=== PATIENT | male | born 1945 | race Caucasian/White ===

== ENCOUNTER 2017-06-15 18:25 | Observation (INO) | payer MEDICARE ==
[2017-06-15] MEDS ORDERED: ASPIRIN 81 MG CHEW PO STA (18:42)
[2017-06-15] MEDS ORDERED: SODIUM CHLORIDE 0.9% 1,000 ML IV STA (18:42)
--- NOTE | 2017-06-15 18:43 | ED ---
General Adult HPI - General Chief complaint: Chest Pain Stated complaint: Chest Pain Has pacemaker Time Seen by Provider: 06/15/17 18:42 Source: patient, family, RN notes reviewed, old records reviewed Mode of arrival: wheelchair Limitations: no limitations - History of Present Illness Initial comments: This is a 9-year-old male to the ER with negative related. Patient says today the ER for evaluation of chest pain. Patient states that the fibular fired earlier in the day. Patient did have a recent change in medications. Adding metoprolol, patient also complaining of dizziness, chest pain No shortness of breath. - Related Data Home Medications Medication Instructions Recorded Confirmed Enalapril Maleate 5 mg PO DAILY 10/16/14 06/15/17 Furosemide 20 mg PO DAILY 10/16/14 06/15/17 hydrALAZINE HCL 25 mg PO BID 10/16/14 06/15/17 oxyCODONE HCL/ACETAMINOPHEN 1 tab PO Q4-6H PRN 10/16/14 06/15/17 [Oxycodone-Acetaminophen 10-325] Aspirin EC [Ecotrin Low Dose] 162 mg PO DAILY 06/15/17 06/15/17 Metoprolol Tartrate [Lopressor] 12.5 mg PO BID 06/15/17 06/15/17 Previous Rx's Medication Instructions Recorded Warfarin Sodium [Coumadin] 7.5 mg PO DAILY #0 06/16/17 Allergies Allergy/AdvReac Type Severity Reaction Status Date / Time No Known Allergies Allergy Verified 06/15/17 19:34 Review of Systems ROS Statement: Those systems with pertinent positive or pertinent negative responses have been documented in the HPI. ROS Other: All systems not noted in ROS Statement are negative. 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 EARS, LESION ON TIP TONGUE HAS GROWN OVER THE YEARS Last Myocardial Infarction Date:: 02/2014 History of Any Multi-Drug Resistant Organisms: None Reported Past Surgical History: AICD, Coronary Bypass/CABG, Heart Catheterization, Pacemaker Additional Past Surgical History / Comment(s): TRIPLE BYPASS SURGERY-[facility] DEVICE Past Anesthesia/Blood Transfusion Reactions: No Reported Reaction Type of Cardiac Device: Permanent Pacemaker Device Placement Date:: 2010 Past Psychological History: No Psychological Hx Reported Smoking Status: Current every day smoker - Past Family History Father History Unknown: Yes Mother Family Medical History: No Reported History General Exam Limitations: no limitations General appearance: alert, in no apparent distress Head exam: Present: atraumatic, normocephalic, normal inspection Eye exam: Present: normal appearance, PERRL, EOMI. Absent: scleral icterus, conjunctival injection, periorbital swelling ENT exam: Present: normal exam, mucous membranes moist Neck exam: Present: normal inspection. Absent: tenderness, meningismus, lymphadenopathy Respiratory exam: Present: normal lung sounds bilaterally. Absent: respiratory distress, wheezes, rales, rhonchi, stridor Cardiovascular Exam: Present: regular rate, normal rhythm, normal heart sounds. Absent: systolic murmur, diastolic murmur, rubs, gallop, clicks GI/Abdominal exam: Present: soft, normal bowel sounds. Absent: distended, tenderness, guarding, rebound, rigid Extremities exam: Present: normal inspection, full ROM, normal capillary refill. Absent: tenderness, pedal edema, joint swelling, calf tenderness Back exam: Present: normal inspection Neurological exam: Present: alert, oriented X3, CN II-XII intact Psychiatric exam: Present: normal affect, normal mood Skin exam: Present: warm, dry, intact, normal color. Absent: rash Course Vital Signs 06/15/17 06/15/17 06/15/17 18:26 19:37 20:17 Temperature 97.6 F Pulse Rate 55 L 62 50 L Respiratory 16 20 18 Rate Blood Pressure 174/84 151/72 159/85 O2 Sat by Pulse 97 94 L 99 Oximetry 06/15/17 21:26 Temperature 97.5 F L Pulse Rate 45 L Respiratory 18 Rate Blood Pressure 163/87 O2 Sat by Pulse 95 Oximetry EKG Findings - EKG Comments: EKG Findings:: EKG shows paced with a rate of 50, QRS 116, QTc 457 Medical Decision Making - Medical Decision Making 70 meowed ER for evaporation of chest pain and a fibular discharge, patient will be admitted for cardiac observation and pacemaker interrogation - Lab Data Result diagrams: 06/15/17 19:35 06/15/17 19:35 Lab Results 06/15/17 06/15/17 06/15/17 Range/Units 19:35 19:35 19:35 WBC 6.7 (3.8-10.6) k/uL RBC 3.58 L (4.30-5.90) m/uL Hgb 10.8 L (13.0-17.5) gm/dL Hct 33.1 L (39.0-53.0) % MCV 92.5 (80.0-100.0) fL MCH 30.1 (25.0-35.0) pg MCHC 32.6 (31.0-37.0) g/dL RDW 14.9 (11.5-15.5) % Plt Count 110 L (150-450) k/uL Neutrophils % 67 % Lymphocytes % 23 % Monocytes % 5 % Eosinophils % 3 % Basophils % 1 % Neutrophils # 4.5 (1.3-7.7) k/uL Lymphocytes # 1.6 (1.0-4.8) k/uL Monocytes # 0.3 (0-1.0) k/uL Eosinophils # 0.2 (0-0.7) k/uL Basophils # 0.0 (0-0.2) k/uL PT (9.0-12.0) sec INR (<1.2) APTT (22.0-30.0) sec Sodium 141 (137-145) mmol/L Potassium 4.4 (3.5-5.1) mmol/L Chloride 109 H (98-107) mmol/L Carbon Dioxide 25 (22-30) mmol/L Anion Gap 7 mmol/L BUN 32 H (9-20) mg/dL Creatinine 1.56 H (0.66-1.25) mg/dL Est GFR (MDRD) Af Amer 54 (>60 ml/min/1.73 sqM) Est GFR (MDRD) Non-Af 44 (>60 ml/min/1.73 sqM) Glucose 82 (74-99) mg/dL Calcium 8.8 (8.4-10.2) mg/dL Magnesium 2.0 (1.6-2.3) mg/dL Total Bilirubin 0.2 (0.2-1.3) mg/dL AST 22 (17-59) U/L ALT 26 (21-72) U/L Alkaline Phosphatase 51 (38-126) U/L Total Creatine Kinase 146 (55-170) U/L CK-MB (CK-2) 2.7 H* (0.0-2.4) ng/mL CK-MB (CK-2) Rel Index 1.8 Troponin I 0.125 H* (0.000-0.034) ng/mL Total Protein 6.3 (6.3-8.2) g/dL Albumin 3.6 (3.5-5.0) g/dL 06/15/17 Range/Units 19:35 WBC (3.8-10.6) k/uL RBC (4.30-5.90) m/uL Hgb (13.0-17.5) gm/dL Hct (39.0-53.0) % MCV (80.0-100.0) fL MCH (25.0-35.0) pg MCHC (31.0-37.0) g/dL RDW (11.5-15.5) % Plt Count (150-450) k/uL Neutrophils % % Lymphocytes % % Monocytes % % Eosinophils % % Basophils % % Neutrophils # (1.3-7.7) k/uL Lymphocytes # (1.0-4.8) k/uL Monocytes # (0-1.0) k/uL Eosinophils # (0-0.7) k/uL Basophils # (0-0.2) k/uL PT 17.1 H (9.0-12.0) sec INR 1.8 H (<1.2) APTT 30.9 H (22.0-30.0) sec Sodium (137-145) mmol/L Potassium (3.5-5.1) mmol/L Chloride (98-107) mmol/L Carbon Dioxide (22-30) mmol/L Anion Gap mmol/L BUN (9-20) mg/dL Creatinine (0.66-1.25) mg/dL Est GFR (MDRD) Af Amer (>60 ml/min/1.73 sqM) Est GFR (MDRD) Non-Af (>60 ml/min/1.73 sqM) Glucose (74-99) mg/dL Calcium (8.4-10.2) mg/dL Magnesium (1.6-2.3) mg/dL Total Bilirubin (0.2-1.3) mg/dL AST (17-59) U/L ALT (21-72) U/L Alkaline Phosphatase (38-126) U/L Total Creatine Kinase (55-170) U/L CK-MB (CK-2) (0.0-2.4) ng/mL CK-MB (CK-2) Rel Index Troponin I (0.000-0.034) ng/mL Total Protein (6.3-8.2) g/dL Albumin (3.5-5.0) g/dL Critical Care Time Critical Care Time: Yes Total Critical Care Time: 31 Disposition Clinical Impression: Defibrillator discharge Disposition: ADMITTED IP TO THIS [facility] Condition: Fair
[2017-06-15 19:56] LABS: Basophils % (A) 1 %; CH 30.7; CHCM 33.4; Eosinophils # (A) 0.2 k/uL (0-0.7); Eosinophils % (A) 3 %; HCT 33.1 % (39.0-53.0); HDW 2.78; HGB 10.8 gm/dL (13.0-17.5); Luc # (Auto) 0.08; Luc % (Auto) 1; Lymphocytes # (A) 1.6 k/uL (1.0-4.8); Lymphocytes % (A) 23 %; MCH 30.1 pg (25.0-35.0); MCHC 32.6 g/dL (31.0-37.0); MCV 92.5 fL (80.0-100.0); Mean Platelet Volume 8.5; Monocytes # (A) 0.3 k/uL (0-1.0); Monocytes % (A) 5 %; Neutrophils # (A) 4.5 k/uL (1.3-7.7); Neutrophils % (A) 67 %; RBC 3.58 m/uL (4.30-5.90); RDW 14.9 % (11.5-15.5); WBC 6.7 k/uL (3.8-10.6); WBC (Perox) 6.69
--- NOTE | 2017-06-15 19:56 | XR ---
EXAMINATION TYPE: XR chest 2V DATE OF EXAM: 06/15/2017 COMPARISON: 09/21/2014 HISTORY: Chest pain TECHNIQUE: Frontal and lateral views of the chest are obtained. FINDINGS: There is no heart failure nor confluent pneumonic infiltrate. There is mild coarsening of interstitial markings. There is no pleural effusion. Heart appears enlarged. There are sternal wires. There is left axillary pacemaker with the lead tips in the right ventricle. IMPRESSION: Cardiomegaly. Mild pulmonary fibrotic changes. There is clearing of small pleural effusi ons compared to old exam.
[2017-06-15 20:04] LABS: Calcium 8.8 mg/dL (8.4-10.2); Potassium 4.4 mmol/L (3.5-5.1); Total Bilirubin 0.2 mg/dL (0.2-1.3); Total Protein 6.3 g/dL (6.3-8.2)
[2017-06-15 20:07] LABS: INR 1.8 (<1.2); Partial Thromboplastin Time 30.9 sec (22.0-30.0); Prothrombin Time 17.1 sec (9.0-12.0)
[2017-06-15 20:33] LABS: Creatine Kinase MB 2.7 ng/mL (0.0-2.4); Troponin I 0.125 ng/mL (0.000-0.034)
[2017-06-15] MEDS ORDERED: NITROGLYCERIN SL TABS 0.4 MG TAB SUBLINGUAL PRN (21:06)
[2017-06-15] MEDS: SODIUM CHLORIDE 0.9% 1,000 ML IV SCH (21:28)
[2017-06-15 22:14] VITALS: BMI 22.7
[2017-06-15] MEDS ORDERED: WARFARIN 7.5 MG TAB PO SCH (22:37)
[2017-06-15] MEDS: METOPROLOL TARTRATE 12.5 MG TAB PO SCH (22:50)
[2017-06-15] MEDS: hydrALAZINE HCL 25 MG TAB PO SCH (22:52)
[2017-06-16 02:45] LABS: Creatine Kinase MB 1.9 ng/mL (0.0-2.4)
[2017-06-16 02:50] LABS: Troponin I 0.112 ng/mL (0.000-0.034)
[2017-06-16 06:48] LABS: Cholesterol 115 mg/dL (<200); HDL Cholesterol 26 mg/dL (40-60)
[2017-06-16 07:12] LABS: Creatine Kinase MB 1.8 ng/mL (0.0-2.4)
[2017-06-16 07:59] LABS: Troponin I 0.098 ng/mL (0.000-0.034)
[2017-06-16] MEDS: METOPROLOL TARTRATE 12.5 MG TAB PO SCH ×3 (08:11→20:20)
[2017-06-16] MEDS: ASPIRIN 325 MG TAB PO SCH (08:11)
[2017-06-16] MEDS: hydrALAZINE HCL 25 MG TAB PO SCH ×2 (08:11→20:21)
[2017-06-16] MEDS: oxyCODONE-APAP 10-325MG 1 EACH TAB PO PRN ×2 (11:22→20:29)
--- NOTE | 2017-06-16 13:07 | P.CRDCN ---
History of Present Illness Consult date: 06/16/17 Reason for Consult (text): AICD discharge Chief complaint: dizziness, AICD discharge History of present illness: This is a pleasant 9-year-old gentleman who follows with Dr. Collazo in the office. He has a history of ischemic cardiomyopathy, CHF, aortic valve replacement in 2013, status post bi-V ICD implantation in 2010, paroxysmal atrial fibrillation, on Coumadin. Corneas the patient about 5 days ago his atenolol was changed to metoprolol tartrate by his primary care physician due to an atenolol shortage. The onset time, patient has been complaining of some dizziness with standing and has noticed his heart rate has been elevated. Yesterday while doing some work at home with heavy lifting, he received a shock from his ICD. After receiving a shock he felt very fatigued with some dizziness and overall not feeling well and presented to the emergency department. Upon presentation EKG showed biventricular paced rhythm. Troponins were elevated at 0.125, 0.112 and 0.098. BUN and creatinine are elevated at 32 and 1.56. He's had no evidence of atrial fibrillation or ventricular tachycardia since admission. Upon examination, patient is feeling well. Denies any further complaints of fatigue or dizziness. He has had no chest discomfort or syncope. 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 EARS, LESION ON TIP TONGUE HAS GROWN OVER THE YEARS Last Myocardial Infarction Date:: 02/2014 History of Any Multi-Drug Resistant Organisms: None Reported Past Surgical History: AICD, Coronary Bypass/CABG, Heart Catheterization, Pacemaker Additional Past Surgical History / Comment(s): TRIPLE BYPASS SURGERY-[facility] DEVICE Past Anesthesia/Blood Transfusion Reactions: No Reported Reaction Type of Cardiac Device: Permanent Pacemaker Device Placement Date:: 2010 Past Psychological History: No Psychological Hx Reported Smoking Status: Current every day smoker Past Alcohol Use History: None Reported Additional Past Alcohol Use History / Comment(s): SMOKER SINCE AGE 11(1955) Past Drug Use History: Marijuana Additional Drug Use History / Comment(s): SMOKES MARIJUANA EVERY DAY SINCE AGE 11 - Past Family History Father History Unknown: Yes Mother Family Medical History: No Reported History Medications and Allergies Home Medications Medication Instructions Recorded Confirmed Type Enalapril Maleate 5 mg PO DAILY 10/16/14 06/15/17 History Furosemide 20 mg PO DAILY 10/16/14 06/15/17 History hydrALAZINE HCL 25 mg PO BID 10/16/14 06/15/17 History oxyCODONE HCL/ACETAMINOPHEN 1 tab PO Q4-6H PRN 10/16/14 06/15/17 History [Oxycodone-Acetaminophen 10-325] Aspirin EC [Ecotrin Low Dose] 162 mg PO DAILY 06/15/17 06/15/17 History Metoprolol Tartrate [Lopressor] 12.5 mg PO BID 06/15/17 06/15/17 History Warfarin Sodium [Coumadin] 7.5 mg PO [id number]/15/17 06/15/17 History Warfarin [Coumadin] 5 mg PO [id number]/15/17 06/15/17 History Allergies Allergy/AdvReac Type Severity Reaction Status Date / Time No Known Allergies Allergy Verified 06/15/17 19:34 Physical Exam Vitals: Vital Signs Temp Pulse Pulse Resp BP BP Pulse Ox 06/16/17 09:19 95 06/16/17 08:00 97.7 F 52 L 18 162/84 97 06/16/17 04:00 98.4 F 58 L 16 149/77 95 06/16/17 00:00 98.1 F 49 L 18 115/57 93 L 06/15/17 22:01 97.3 F L 56 L 18 150/83 98 06/15/17 21:50 97.3 F L 56 L 16 150/83 98 06/15/17 21:26 97.5 F L 45 L 18 163/87 95 06/15/17 20:17 50 L 18 159/85 99 06/15/17 19:37 62 20 151/72 94 L 06/15/17 18:26 97.6 F 55 L 16 174/84 97 Intake and Output 06/15/17 06/16/17 06/16/17 22:59 06:59 14:59 Other: # Voids 2 1 Weight 76.1 kg 76.1 kg 76.1 kg Patient Weight 06/17/17 06:59 Weight 76.1 kg PHYSICAL EXAMINATION: HEENT: Head is atraumatic, normocephalic. Pupils equal, round. Neck is supple. There is no elevated jugular venous pressure. HEART EXAMINATION: Heart sounds regular, S1 and S2 normal with a systolic murmur. CHEST EXAMINATION: Lungs reveal expiratory wheezing throughout. No chest wall tenderness is noted on palpation or with deep breathing. ABDOMEN: Soft, nontender. Bowel sounds are heard. No organomegaly noted. EXTREMITIES: 2+ peripheral pulses with no evidence of peripheral edema and no calf tenderness noted. NEUROLOGIC patient is awake, alert and oriented x3. . Results 06/15/17 19:35 06/15/17 19:35 Cardiac Enzymes 06/15/17 06/15/17 06/16/17 Range/Units 19:35 19:35 01:43 AST 22 (17-59) U/L CK-MB (CK-2) 2.7 H* 1.9 (0.0-2.4) ng/mL Troponin I 0.125 H* 0.112 H* (0.000-0.034) ng/mL 06/16/17 Range/Units 06:13 AST (17-59) U/L CK-MB (CK-2) 1.8 (0.0-2.4) ng/mL Troponin I 0.098 H* (0.000-0.034) ng/mL Coagulation 06/15/17 Range/Units 19:35 PT 17.1 H (9.0-12.0) sec APTT 30.9 H (22.0-30.0) sec Lipids 06/16/17 Range/Units 06:13 Triglycerides 151 H (<150) mg/dL Cholesterol 115 (<200) mg/dL HDL Cholesterol 26 L (40-60) mg/dL CBC 06/15/17 Range/Units 19:35 WBC 6.7 (3.8-10.6) k/uL RBC 3.58 L (4.30-5.90) m/uL Hgb 10.8 L (13.0-17.5) gm/dL Hct 33.1 L (39.0-53.0) % Plt Count 110 L (150-450) k/uL Comprehensive Metabolic Panel 06/15/17 Range/Units 19:35 Sodium 141 (137-145) mmol/L Potassium 4.4 (3.5-5.1) mmol/L Chloride 109 H (98-107) mmol/L Carbon Dioxide 25 (22-30) mmol/L BUN 32 H (9-20) mg/dL Creatinine 1.56 H (0.66-1.25) mg/dL Glucose 82 (74-99) mg/dL Calcium 8.8 (8.4-10.2) mg/dL AST 22 (17-59) U/L ALT 26 (21-72) U/L Alkaline Phosphatase 51 (38-126) U/L Total Protein 6.3 (6.3-8.2) g/dL Albumin 3.6 (3.5-5.0) g/dL Current Medications Generic Name Dose Route Start Last Admin Trade Name Freq PRN Reason Stop Dose Admin Aspirin 325 mg 06/16/17 09:00 06/16/17 08:11 Aspirin PO 325 mg DAILY SURJIT Administration Hydralazine HCl 25 mg 06/15/17 22:45 06/16/17 08:11 Apresoline PO 25 mg BID SURJIT Administration Sodium Chloride 1,000 mls @ 20 mls/hr 06/15/17 21:15 06/15/17 21:28 Saline 0.9% IV 20 mls/hr .Q24H SURJIT Administration Metoprolol Tartrate 12.5 mg 06/15/17 22:45 06/16/17 08:12 Lopressor PO Not Given BID SURJIT Nitroglycerin 0.4 mg 06/15/17 21:06 Nitrostat SUBLINGUAL Q5M PRN Chest Pain Oxycodone/Acetaminophen 1 each 06/16/17 10:27 06/16/17 11:22 Percocet 10-325 PO 1 each Q4H PRN Administration Pain Warfarin Sodium 7.5 mg 06/15/17 22:37 06/15/17 22:52 Coumadin PO 7.5 mg [id number]@1800 SURJIT Administration Intake and Output 06/15/17 06/16/17 06/16/17 22:59 06:59 14:59 Other: # Voids 2 1 Weight 76.1 kg 76.1 kg 76.1 kg Patient Weight 06/17/17 06:59 Weight 76.1 kg 06/15/17 19:35 06/15/17 19:35 EKG Interpretations (text) Biventricular paced rhythm Assessment and Plan Plan: Assessment and plan #1 AICD discharge #2 ischemic cardiomyopathy, status post biventricular ICD placement #3 paroxysmal atrial fibrillation, on Coumadin #4 history of coronary artery bypass grafting with aortic valve replacement in 2013 #5 hypertension #6 nicotine dependence From Cardiology's perspective, we will obtain a 2-D echo with Doppler. Nursing staff to get orthostatic vital signs. We will request AICD interrogation have been shocked for VT, VF or A. fib with RVR. At this time continue same medications. Further recommendations depending on AICD interrogation findings. BARMAN note has been reviewed, I agree with a documented findings and plan of care. Patient was seen and examined.
--- NOTE | 2017-06-16 17:20 | P.HPIM ---
History of Present Illness Patient is a pleasant 72-year-old gentleman with history of severe cardiomyopathy and by Bi v AICD came to the hospital because discharged from his defibrillator. Patient has multiple such discharges and patient is found to have V. tach and V. fib. Patient was evaluated by cardiology patient heart rate is in 50s patient is presently sinus rhythm patient has minimally elevated troponin secondary to the defibrillator firing. Patient denied any shortness of breath denied any fever chills. Patient does have history of COPD can use to smoke extensive counseling was provided regarding that. Patient does have some renal dysfunction his chest appears to have chronic kidney kidney disease as a result of congestive heart failure and cardiorenal syndrome. Patient baseline creatinine is 1.3 now around 1.5 patient is otherwise clinically doing well patient denied any dizziness lightheadedness, Had does have some continuous musculoskeletal pain from AICD firing. Patient was evaluated cardiology and if cleared by cardiology patient will be discharged today. Review of Systems REVIEW OF SYSTEMS: CONSTITUTIONAL: No fever, no malaise, no fatigue. HEENT: No recent visual problems or hearing problems. Denied any sore throat. CARDIOVASCULAR: No orthopnea, PND, no palpitations, no syncope. PULMONARY: No shortness of breath, no cough, no hemoptysis. GASTROINTESTINAL: No diarrhea, no nausea, no vomiting, no abdominal pain. Normoactive bowel sounds. NEUROLOGICAL: No headaches, no weakness, no numbness. HEMATOLOGICAL: Denies any bleeding or petechiae. GENITOURINARY: Denies any burning micturition, frequency, or urgency. MUSCULOSKELETAL/RHEUMATOLOGICAL: Denies any joint pain, swelling, or any muscle pain. ENDOCRINE: Denies any polyuria or polydipsia. The rest of the 14-point review of systems is negative. 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 DEVICE Past Anesthesia/Blood Transfusion Reactions: No Reported Reaction Type of Cardiac Device: Permanent Pacemaker Device Placement Date:: 2010 Past Psychological History: No Psychological Hx Reported Smoking Status: Current every day smoker Past Alcohol Use History: None Reported Additional Past Alcohol Use History / Comment(s): SMOKER SINCE AGE 11(6) Past Drug Use History: Marijuana Additional Drug Use History / Comment(s): SMOKES MARIJUANA EVERY DAY SINCE AGE 11 - Past Family History Father History Unknown: Yes Mother Family Medical History: No Reported History Medications and Allergies Home Medications Medication Instructions Recorded Confirmed Type Enalapril Maleate 5 mg PO DAILY 10/16/14 06/15/17 History Furosemide 20 mg PO DAILY 10/16/14 06/15/17 History hydrALAZINE HCL 25 mg PO BID 10/16/14 06/15/17 History oxyCODONE HCL/ACETAMINOPHEN 1 tab PO Q4-6H PRN 10/16/14 06/15/17 History [Oxycodone-Acetaminophen 10-325] Aspirin EC [Ecotrin Low Dose] 162 mg PO DAILY 06/15/17 06/15/17 History Metoprolol Tartrate [Lopressor] 12.5 mg PO BID 06/15/17 06/15/17 History Allergies Allergy/AdvReac Type Severity Reaction Status Date / Time No Known Allergies Allergy Verified 06/15/17 19:34 Physical Exam Vitals: Vital Signs Temp Pulse Pulse Resp BP BP Pulse Ox 06/16/17 13:03 154/77 06/16/17 13:01 150/78 06/16/17 13:00 139/75 06/16/17 12:00 98.0 F 50 L 14 139/75 97 06/16/17 09:19 95 06/16/17 08:00 97.7 F 52 L 18 162/84 97 06/16/17 04:00 98.4 F 58 L 16 149/77 95 06/16/17 00:00 98.1 F 49 L 18 115/57 93 L 06/15/17 22:01 97.3 F L 56 L 18 150/83 98 06/15/17 21:50 97.3 F L 56 L 16 150/83 98 06/15/17 21:26 97.5 F L 45 L 18 163/87 95 06/15/17 20:17 50 L 18 159/85 99 06/15/17 19:37 62 20 151/72 94 L 06/15/17 18:26 97.6 F 55 L 16 174/84 97 Intake and Output 06/16/17 06/16/17 06/16/17 06:59 14:59 22:59 Intake Total 240 Output Total 1 Balance 239 Intake: Oral 240 Output: Urine 1 Other: # Voids 2 1 Weight 76.1 kg 76.1 kg Patient Weight 06/17/17 06:59 Weight 76.1 kg PHYSICAL EXAMINATION: GENERAL: The patient is alert and oriented x3, not in any acute distress. Well developed, well nourished. HEENT: Pupils are round and equally reacting to light. EOMI. No scleral icterus. No conjunctival pallor. Normocephalic, atraumatic. No pharyngeal erythema. No thyromegaly. CARDIOVASCULAR: S1 and S2 present. No murmurs, rubs, or gallops. PULMONARY: Chest is clear to auscultation, no wheezing or crackles. ABDOMEN: Soft, nontender, nondistended, normoactive bowel sounds. No palpable organomegaly. MUSCULOSKELETAL: No joint swelling or deformity. EXTREMITIES: No cyanosis, clubbing, or pedal edema. NEUROLOGICAL: Gross neurological examination did not reveal any focal deficits. SKIN: No rashes. Results CBC & Chem 7: 06/15/17 19:35 06/15/17 19:35 Labs: Abnormal Lab Results - Last 24 Hours (Table) 06/15/17 06/15/17 06/15/17 Range/Units 19:35 19:35 19:35 RBC 3.58 L (4.30-5.90) m/uL Hgb 10.8 L (13.0-17.5) gm/dL Hct 33.1 L (39.0-53.0) % Plt Count 110 L (150-450) k/uL PT (9.0-12.0) sec INR (<1.2) APTT (22.0-30.0) sec Chloride 109 H (98-107) mmol/L BUN 32 H (9-20) mg/dL Creatinine 1.56 H (0.66-1.25) mg/dL CK-MB (CK-2) 2.7 H* (0.0-2.4) ng/mL Troponin I 0.125 H* (0.000-0.034) ng/mL Triglycerides (<150) mg/dL HDL Cholesterol (40-60) mg/dL 06/15/17 06/16/17 06/16/17 Range/Units 19:35 01:43 06:13 RBC (4.30-5.90) m/uL Hgb (13.0-17.5) gm/dL Hct (39.0-53.0) % Plt Count (150-450) k/uL PT 17.1 H (9.0-12.0) sec INR 1.8 H (<1.2) APTT 30.9 H (22.0-30.0) sec Chloride (98-107) mmol/L BUN (9-20) mg/dL Creatinine (0.66-1.25) mg/dL CK-MB (CK-2) (0.0-2.4) ng/mL Troponin I 0.112 H* 0.098 H* (0.000-0.034) ng/mL Triglycerides (<150) mg/dL HDL Cholesterol (40-60) mg/dL 06/16/17 Range/Units 06:13 RBC (4.30-5.90) m/uL Hgb (13.0-17.5) gm/dL Hct (39.0-53.0) % Plt Count (150-450) k/uL PT (9.0-12.0) sec INR (<1.2) APTT (22.0-30.0) sec Chloride (98-107) mmol/L BUN (9-20) mg/dL Creatinine (0.66-1.25) mg/dL CK-MB (CK-2) (0.0-2.4) ng/mL Troponin I (0.000-0.034) ng/mL Triglycerides 151 H (<150) mg/dL HDL Cholesterol 26 L (40-60) mg/dL Thrombosis Risk Factor Assmnt - Choose All That Apply Any of the Below Risk Factors Present?: Yes Each Factor Represents 1 point: Abnormal pulmonary function (COPD) Other Risk Factors: Yes Each Risk Factor Represents 2 Points: Age 61-74 years Other congenital or acquired thrombophilia - If yes, enter type in comment: No Thrombosis Risk Factor Assessment Total Risk Factor Score: 3 Thrombosis Risk Factor Assessment Level: Moderate Risk Assessment and Plan Plan: #1 AICD discharge #2 ischemic cardiomyopathy, status post biventricular ICD placement #3 paroxysmal atrial fibrillation, on Coumadin #4 history of coronary artery bypass grafting with aortic valve replacement in 2013 #5 hypertension #6 nicotine dependence 7 subtherapeutic INR She is clinically doing well if cleared by cardiology patient will be discharged today no changes in medications will be made. Patient has mild renal dysfunction for which patient will need a follow-up basic metabolic profile as an outpatient. Patient's INR is mildly subtherapeutic because of which I'm increasing his Coumadin to 7.5 mg daily. And patient will need a repeat INR on Sunday
--- NOTE | 2017-06-16 17:21 | P.DS ---
Providers Date of admission: 06/15/17 21:03 Attending physician: Alek Nance Consults: 06/15/17 21:07 Consult Physician Routine Consulting Provider: Sarabjit Scherer Consult Reason/Comments: AICD Discharge Do you want consulting provider notified?: Yes Primary care physician: Ayaan Wray [facility] Course: Please refer to HPI Plan - Discharge Summary New Discharge Prescriptions: Continue oxyCODONE HCL/ACETAMINOPHEN [Oxycodone-Acetaminophen 10-325] 1 tab PO Q4-6H PRN PRN Reason: Pain hydrALAZINE HCL 25 mg PO BID Furosemide 20 mg PO DAILY Enalapril Maleate 5 mg PO DAILY Metoprolol Tartrate [Lopressor] 12.5 mg PO BID Aspirin EC [Ecotrin Low Dose] 162 mg PO DAILY Changed Warfarin Sodium [Coumadin] 7.5 mg PO DAILY #0 Discontinued Warfarin [Coumadin] 5 mg PO MOTUTHSA@2100 Discharge Medication List Enalapril Maleate 5 mg PO DAILY 10/16/14 [History] Furosemide 20 mg PO DAILY 10/16/14 [History] hydrALAZINE HCL 25 mg PO BID 10/16/14 [History] oxyCODONE HCL/ACETAMINOPHEN [Oxycodone-Acetaminophen 10-325] 1 tab PO Q4-6H PRN 10/16/14 [History] Aspirin EC [Ecotrin Low Dose] 162 mg PO DAILY 06/15/17 [History] Metoprolol Tartrate [Lopressor] 12.5 mg PO BID 06/15/17 [History] Warfarin Sodium [Coumadin] 7.5 mg PO DAILY #0 06/16/17 [Rx] Follow up Appointment(s)/Referral(s): Ayaan Wray DO [Primary Care Provider] - 3 Days Discharge Disposition: HOME SELF-CARE
--- NOTE | 2017-06-16 17:49 | ECHOF ---
Referral Reason:ICD discharge, dizziness, near syncope MEASUREMENTS -------- HEIGHT: 182.9 cm WEIGHT: 75.8 kg BP: 140/60 RVIDd: 3.4 cm (< 3.3) IVSd: 1.5 cm (0.6 - 1.1) LVIDd: 5.6 cm (3.9 - 5.3) LVPWd: 1.4 cm (0.6 - 1.1) IVSs: 1.5 cm LVIDs: 5.0 cm LVPWs: 1.5 cm LA Diam: 4.5 cm (2.7 - 3.8) LAESV Index (A-L): 56.29 ml/m Ao Diam: 3.3 cm (2.0 - 3.7) LA Diam: 5.0 cm (2.7 - 3.8) MV EXCURSION: 19.436 mm (> 18.000) MV EF SLOPE: 74 mm/s (70 - 150) EPSS: 1.1 cm MV E Neo: 0.82 m/s MV DecT: 164 ms MV A Neo: 0.50 m/s MV E/A Ratio: 1.64 AV maxP.29 mmHg AV meanP.66 mmHg AR PHT: 748 ms RAP: 5.00 mmHg RVSP: 47.51 mmHg FINDINGS -------- Paced rhythm. Echodensity was seen in the LA. ABDON is recommended. This was a technically adequate study. There is mild concentric left ventricular hypertrophy. Overall left ventricular systolic function is mild-moderately impaired with, an EF between 40 - 45 %. Posterior hypokinesis Inferior Hypokinesis Posterior Hypokinesis. The right ventricle is normal in size. LA is severely dilated >40 ml/m2 The right atrial size is normal. There is mild aortic regurgitation. Peak/mean gradient across the Aortic Valve is 33.29mmHg / 15.66mmHg. Pt has a [employer] AOV. Mild mitral annular calcification present. Mild mitral regurgitation is present. [id number] tricuspid regurgitation present. There is mild to moderate pulmonary hypertension. The right ventricular systolic pressure, as measured by Doppler, is 47.51mmHg. Trace/mild (physiologic) pulmonic regurgitation. The aortic root size is normal. There is no pericardial effusion. CONCLUSIONS -------- 1. Paced rhythm. 2. Peak/mean gradient across the Aortic Valve is 33.29mmHg / 15.66mmHg. 3. Pt has a [employer] AOV. 4. Mild mitral annular calcification present. 5. Mild mitral regurgitation is present. 6. Xbco-[id number] tricuspid regurgitation present. 7. There is mild to moderate pulmonary hypertension. 8. The right ventricular systolic pressure, as measured by Doppler, is 47.51mmHg. 9. Trace/mild (physiologic) pulmonic regurgitation. 10. There is no pericardial effusion. 11. Echodensity was seen in the LA. ABDON is recommended. 12. There is mild concentric left ventricular hypertrophy. 13. Overall left ventricular systolic function is mild-moderately impaired with, an EF between 40 - 45 %. 14. Posterior hypokinesis 15. Inferior Hypokinesis 16. Posterior Hypokinesis. 17. LA is severely dilated >40 ml/m2 18. There is mild aortic regurgitation. DAIRY FROZEN MANAGER: Nai Post RDCS
[2017-06-17] MEDS: SODIUM CHLORIDE 0.9% 1,000 ML IV SCH (02:50)
[2017-06-17] MEDS: ASPIRIN 325 MG TAB PO SCH (07:57)
[2017-06-17] MEDS: oxyCODONE-APAP 10-325MG 1 EACH TAB PO PRN ×2 (07:57→11:48)
[2017-06-17] MEDS: hydrALAZINE HCL 25 MG TAB PO SCH (07:57)
[2017-06-17] MEDS: METOPROLOL TARTRATE 12.5 MG TAB PO SCH (07:59)
[2017-06-17 08:03] VITALS: BP 154/92; PULSE 68; RESP 18; TEMP 98.3
--- NOTE | 2017-06-17 15:45 | P.DS ---
Providers Date of admission: 06/15/17 21:03 Attending physician: Alek Nance Consults: 06/15/17 21:07 Consult Physician Routine Consulting Provider: Sarabjit Scherer Consult Reason/Comments: AICD Discharge Do you want consulting provider notified?: Yes Primary care physician: Ayaan Wray [facility] Course: Patient was admitted firing of his defibrillator. Patient was monitored overnight. Please refer to my dictation of H&P and discharge summary from yesterday for further details. Patient is cleared for discharge today and will be discharged home. Patient Condition at Discharge: Good Plan - Discharge Summary New Discharge Prescriptions: Continue oxyCODONE HCL/ACETAMINOPHEN [Oxycodone-Acetaminophen 10-325] 1 tab PO Q4-6H PRN PRN Reason: Pain hydrALAZINE HCL 25 mg PO BID Furosemide 20 mg PO DAILY Enalapril Maleate 5 mg PO DAILY Metoprolol Tartrate [Lopressor] 12.5 mg PO BID Aspirin EC [Ecotrin Low Dose] 162 mg PO DAILY Changed Warfarin Sodium [Coumadin] 7.5 mg PO DAILY #0 Discontinued Warfarin [Coumadin] 5 mg PO MOTUTHSA@2100 Discharge Medication List Enalapril Maleate 5 mg PO DAILY 10/16/14 [History] Furosemide 20 mg PO DAILY 10/16/14 [History] hydrALAZINE HCL 25 mg PO BID 10/16/14 [History] oxyCODONE HCL/ACETAMINOPHEN [Oxycodone-Acetaminophen 10-325] 1 tab PO Q4-6H PRN 10/16/14 [History] Aspirin EC [Ecotrin Low Dose] 162 mg PO DAILY 06/15/17 [History] Metoprolol Tartrate [Lopressor] 12.5 mg PO BID 06/15/17 [History] Warfarin Sodium [Coumadin] 7.5 mg PO DAILY #0 06/16/17 [Rx] Follow up Appointment(s)/Referral(s): Ayaan Wray DO [Primary Care Provider] - 3 Days Patient Instructions/Handouts: Implantable Cardioverter Defibrillator (DC) Discharge Disposition: HOME SELF-CARE
[2017-06-17] MEDS ORDERED: WARFARIN 5 MG TAB PO SCH (21:00)
== END 2017-06-17 12:29 | disposition home or self-care (01) ==
LOC: EC 18:25 → 6SEL 21:03
PROVIDERS: ADMIT Hospitalist; ATTEND Hospitalist
DX: R07.89 Other chest pain (principal); Z95.810 Presence of automatic (implantable) cardiac defibrillator; R79.1 Abnormal coagulation profile; I13.0 Hypertensive heart and chronic kidney disease with heart failure and stage 1 through stage 4 chronic kidney disease, or unspecified chronic kidney disease; I50.9 Heart failure, unspecified; N18.9 Chronic kidney disease, unspecified; Z95.2 Presence of prosthetic heart valve; J44.9 Chronic obstructive pulmonary disease, unspecified; E78.5 Hyperlipidemia, unspecified; B19.20 Unspecified viral hepatitis C without hepatic coma; H91.93 Unspecified hearing loss, bilateral; I48.0 Paroxysmal atrial fibrillation; I25.5 Ischemic cardiomyopathy; Z79.899 Other long term (current) drug therapy; Z79.82 Long term (current) use of aspirin; Z79.01 Long term (current) use of anticoagulants; I25.2 Old myocardial infarction; Z95.1 Presence of aortocoronary bypass graft; F17.200 Nicotine dependence, unspecified, uncomplicated; I47.2 Ventricular tachycardia; I49.01 Ventricular fibrillation
CPT/HCPCS: 99291; 96360 ×2; 96361 ×2; 93292; 36415; 94760; 93005; 93306; 80061; 80053; 82550 ×2; 82553 ×2; 83735; 84484 ×2; 85025; 85610; 85730; 71020; G0378 ×3

== ENCOUNTER → 2018-03-06 | Outpatient (CLI) | payer MEDICARE ==
--- NOTE | 2018-03-06 11:13 | US ---
EXAMINATION TYPE: US venous doppler duplex LE LT DATE OF EXAM: 03/06/2018 10:55 AM COMPARISON: NONE CLINICAL HISTORY: 73-year-old male I80.9 Phlebitis And Thrombophlebitis. Pt has pain and bruise left medial calf x 1 week SIDE PERFORMED: Left TECHNIQUE: The lower extremity deep venous system is examined utilizing real time linear array sonog arianne with graded compression, doppler sonography and color-flow sonography. FINDINGS: VESSELS IMAGED: External Iliac Vein (EIV) Common Femoral Vein Deep Femoral Vein Greater Saphenous Vein * Femoral Vein Popliteal Vein Small Saphenous Vein * Proximal Calf Veins (* superficial vessels) Left Leg: No evidence of DVT, left medial calf in area of pt's bruise shows an elongated non-vascula r, hypoechoic area= 3.1 x 0.6 0.9 cm IMPRESSION: 1. No evidence for DVT within the left lower extremity imaged from the groin to the upper calf. 2. At the site of patient's bruising, medial left calf, there is an elongated 3.1 x 0.9 cm collection in the deep subcutaneous fat probably representing a hematoma. Clinical follow-up recommended to ens ure gradual involution. If the finding persists or enlarges, this area can be rescanned.
== END | disposition home or self-care (01) ==
LOC: RADUSWWP 10:24
PROVIDERS: ATTEND Family Medicine
DX: M79.662 Pain in left lower leg (principal); S80.12XA Contusion of left lower leg, initial encounter

== ENCOUNTER 2021-04-05 15:30 | Inpatient (IN) | payer MEDICARE ==
[2021-04-05 16:12] LABS: Anisocytosis Slight; Basophils % (A) 0 %; Eosinophils # (A) 0.1 k/uL (0-0.7); Eosinophils % (A) 1 %; HCT 31.4 % (39.0-53.0); HGB 9.8 gm/dL (13.0-17.5); Hypochromasia Marked; Lymphocytes # (A) 1.1 k/uL (1.0-4.8); Lymphocytes % (A) 9 %; MCH 23.7 pg (25.0-35.0); MCHC 31.3 g/dL (31.0-37.0); MCV 75.7 fL (80.0-100.0); Mean Platelet Volume 7.6; Microcytosis Slight; Monocytes # (A) 0.8 k/uL (0-1.0); Monocytes % (A) 7 %; Neutrophils # (A) 10.1 k/uL (1.3-7.7); Neutrophils % (A) 83 %; Platelet Count 156 k/uL (150-450); Poikilocytosis Slight; RBC 4.14 m/uL (4.30-5.90); RDW 17.5 % (11.5-15.5); WBC 12.2 k/uL (3.8-10.6)
[2021-04-05 16:22] LABS: Albumin 4.2 g/dL (3.5-5.0); Calcium 9.3 mg/dL (8.4-10.2); Potassium 4.4 mmol/L (3.5-5.1); Total Bilirubin 0.8 mg/dL (0.2-1.3)
[2021-04-05 16:29] LABS: INR 2.9 (<1.2); Prothrombin Time 27.6 sec (9.0-12.0)
--- NOTE | 2021-04-05 17:13 | XR ---
EXAMINATION TYPE: XR chest 2V DATE OF EXAM: 04/05/2021 COMPARISON: Chest x-ray 11/28/2018 HISTORY: Shortness of breath TECHNIQUE: Frontal and lateral views of the chest are obtained. FINDINGS: The heart is enlarged and patient is post median sternotomy and cardiac valve replacement. There is a generator in the left pectoral region, there are leads in the right atrium, right ventric le, coronary sinus. There is no evident pneumothorax. Bibasilar densities present with blunting of th e costophrenic angles. Central vascularity appears prominently. Interstitium is increased. IMPRESSION: Correlate for congestive heart failure. There is basilar effusions and associated atelec tasis.
[2021-04-05] MEDS ORDERED: FUROSEMIDE 10 MG/ML 4 ML VIAL IV ONE (18:15)
[2021-04-05] MEDS ORDERED: FUROSEMIDE 10 MG/ML 4 ML VIAL IV SCH (18:15)
[2021-04-05] MEDS ORDERED: HYDROcodone/APAP 5-325MG 1 EACH TAB PO PRN (18:20)
[2021-04-05] MEDS ORDERED: ALPRAZolam 0.25 MG TAB PO PRN (18:20)
--- NOTE | 2021-04-05 18:38 | ED ---
SOB HPI - General Chief Complaint: Shortness of Breath Stated Complaint: chest pain Time Seen by Provider: 04/05/21 17:32 Source: patient Mode of arrival: ambulatory Limitations: no limitations - History of Present Illness Initial Comments: This patient is 76-year-old man who presents with worsening of exertional dyspnea and with leg swelling. The patient states symptoms have been going on for number weeks possibly a month. He states that it it even prompted him to quit smoking about a month ago. Currently no chest pain, though there is some times chest pain with exertion. No fever or chills. Occasional cough with clear sputum MD Complaint: shortness of breath Onset/Timin -: month(s) Severity scale (1-10): 0 Improves With: rest Worsens With: lying flat, exertion Context: occurred during exertion Associated Symptoms: other (Leg swelling) Treatments Prior to Arrival: none - Related Data Home Medications Medication Instructions Recorded Confirmed Enalapril Maleate 5 mg PO BID 10/16/14 04/05/21 Furosemide 20 mg PO DAILY 10/16/14 04/05/21 hydrALAZINE HCL 25 mg PO BID 10/16/14 04/05/21 oxyCODONE HCL/ACETAMINOPHEN 1 tab PO Q4-6H PRN 10/16/14 04/05/21 [Oxycodone-Acetaminophen 10-325] Aspirin EC [Ecotrin Low Dose] 81 mg PO DAILY 06/15/17 04/05/21 Atorvastatin [Lipitor] 40 mg PO HS 04/05/21 04/05/21 Warfarin Sodium [Coumadin] 5 mg PO SUMOTUTHFR@0900 04/05/21 04/05/21 Warfarin [Coumadin] 7.5 mg PO WESA@0900 04/05/21 04/05/21 Allergies Allergy/AdvReac Type Severity Reaction Status Date / Time No Known Allergies Allergy Verified 04/05/21 18:30 Review of Systems ROS Statement: Those systems with pertinent positive or pertinent negative responses have been documented in the HPI. ROS Other: All systems not noted in ROS Statement are negative. Constitutional: Denies: fever, chills Respiratory: Reports: cough. Denies: dyspnea, hemoptysis Cardiovascular: Reports: as per HPI, chest pain, dyspnea on exertion, orthopnea, edema. 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 EARS, LESION ON TIP TONGUE HAS GROWN OVER THE YEARS Last Myocardial Infarction Date:: 02/2014 History of Any Multi-Drug Resistant Organisms: None Reported Past Surgical History: AICD, Coronary Bypass/CABG, Heart Catheterization, Pacemaker Additional Past Surgical History / Comment(s): TRIPLE BYPASS SURGERY-[facility] Past Anesthesia/Blood Transfusion Reactions: No Reported Reaction Type of Cardiac Device: Permanent Pacemaker Device Placement Date:: 2010 Past Psychological History: No Psychological Hx Reported Smoking Status: Former smoker Past Alcohol Use History: None Reported Past Drug Use History: Marijuana - Past Family History Father History Unknown: Yes Mother Family Medical History: No Reported History General Exam Limitations: no limitations General appearance: alert, in no apparent distress Head exam: Present: atraumatic, normocephalic Eye exam: Present: normal appearance. Absent: scleral icterus, conjunctival injection ENT exam: Present: normal oropharynx Neck exam: Present: normal inspection Respiratory exam: Present: rales (Lower lung bonilla bilaterally). Absent: respiratory distress, wheezes, rhonchi, stridor, chest wall tenderness, accessory muscle use, decreased breath sounds Cardiovascular Exam: Present: regular rate, normal rhythm, systolic murmur, gallop. Absent: diastolic murmur, rubs GI/Abdominal exam: Present: soft. Absent: distended, tenderness, guarding, rebound, rigid, mass Extremities exam: Present: normal capillary refill, pedal edema (Moderate edema to the knees bilaterally). Absent: normal inspection, tenderness, calf tenderness Back exam: Present: normal inspection. Absent: CVA tenderness (R), CVA tenderness (L) Neurological exam: Present: alert Skin exam: Present: warm, dry, intact, normal color. Absent: rash Course Vital Signs 04/05/21 15:33 Temperature 97.9 F Pulse Rate 113 H Respiratory 16 Rate Blood Pressure 165/79 O2 Sat by Pulse 98 Oximetry Medical Decision Making - Lab Data Result diagrams: 04/05/21 15:58 04/05/21 15:58 Lab Results 04/05/21 04/05/21 04/05/21 Range/Units 15:58 15:58 15:58 WBC 12.2 H (3.8-10.6) k/uL RBC 4.14 L (4.30-5.90) m/uL Hgb 9.8 L (13.0-17.5) gm/dL Hct 31.4 L (39.0-53.0) % MCV 75.7 L (80.0-100.0) fL MCH 23.7 L (25.0-35.0) pg MCHC 31.3 (31.0-37.0) g/dL RDW 17.5 H (11.5-15.5) % Plt Count 156 (150-450) k/uL MPV 7.6 Neutrophils % 83 % Lymphocytes % 9 % Monocytes % 7 % Eosinophils % 1 % Basophils % 0 % Neutrophils # 10.1 H (1.3-7.7) k/uL Lymphocytes # 1.1 (1.0-4.8) k/uL Monocytes # 0.8 (0-1.0) k/uL Eosinophils # 0.1 (0-0.7) k/uL Basophils # 0.0 (0-0.2) k/uL Hypochromasia Marked Poikilocytosis Slight Anisocytosis Slight Microcytosis Slight PT 27.6 H (9.0-12.0) sec INR 2.9 H (<1.2) APTT 33.0 H (22.0-30.0) sec Sodium 139 (137-145) mmol/L Potassium 4.4 (3.5-5.1) mmol/L Chloride 108 H (98-107) mmol/L Carbon Dioxide 20 L (22-30) mmol/L Anion Gap 11 mmol/L BUN 38 H (9-20) mg/dL Creatinine 1.37 H (0.66-1.25) mg/dL Est GFR (CKD-EPI)AfAm 58 (>60 ml/min/1.73 sqM) Est GFR (CKD-EPI)NonAf 51 (>60 ml/min/1.73 sqM) Glucose 140 H (74-99) mg/dL Calcium 9.3 (8.4-10.2) mg/dL Total Bilirubin 0.8 (0.2-1.3) mg/dL AST 68 H (17-59) U/L ALT 98 H (4-49) U/L Alkaline Phosphatase 87 (38-126) U/L Troponin I (0.000-0.034) ng/mL NT-Pro-B Natriuret Pep pg/mL Total Protein 7.0 (6.3-8.2) g/dL Albumin 4.2 (3.5-5.0) g/dL 04/05/21 04/05/21 Range/Units 15:58 15:58 WBC (3.8-10.6) k/uL RBC (4.30-5.90) m/uL Hgb (13.0-17.5) gm/dL Hct (39.0-53.0) % MCV (80.0-100.0) fL MCH (25.0-35.0) pg MCHC (31.0-37.0) g/dL RDW (11.5-15.5) % Plt Count (150-450) k/uL MPV Neutrophils % % Lymphocytes % % Monocytes % % Eosinophils % % Basophils % % Neutrophils # (1.3-7.7) k/uL Lymphocytes # (1.0-4.8) k/uL Monocytes # (0-1.0) k/uL Eosinophils # (0-0.7) k/uL Basophils # (0-0.2) k/uL Hypochromasia Poikilocytosis Anisocytosis Microcytosis PT (9.0-12.0) sec INR (<1.2) APTT (22.0-30.0) sec Sodium (137-145) mmol/L Potassium (3.5-5.1) mmol/L Chloride (98-107) mmol/L Carbon Dioxide (22-30) mmol/L Anion Gap mmol/L BUN (9-20) mg/dL Creatinine (0.66-1.25) mg/dL Est GFR (CKD-EPI)AfAm (>60 ml/min/1.73 sqM) Est GFR (CKD-EPI)NonAf (>60 ml/min/1.73 sqM) Glucose (74-99) mg/dL Calcium (8.4-10.2) mg/dL Total Bilirubin (0.2-1.3) mg/dL AST (17-59) U/L ALT (4-49) U/L Alkaline Phosphatase (38-126) U/L Troponin I 0.071 H* (0.000-0.034) ng/mL NT-Pro-B Natriuret Pep 09597 pg/mL Total Protein (6.3-8.2) g/dL Albumin (3.5-5.0) g/dL Disposition Clinical Impression: Congestive heart failure Disposition: ADMITTED IP TO THIS HOSP Condition: Fair Is patient prescribed a controlled substance at d/c from ED?: No Referrals: Ayaan Wray DO [Primary Care Provider] - 1-2 days
[2021-04-05] MEDS ORDERED: NITROGLYCERIN OINT 1 INCH/GM PACKET TOPICAL STA (18:59)
--- NOTE | 2021-04-05 21:02 | HP ---
HISTORY AND PHYSICAL CHIEF COMPLAINTS: Shortness of breath and leg swelling. HISTORY OF PRESENT ILLNESS: This 76-year-old gentleman with a past history of CHF, COPD, history of hypertension, hyperlipidemia, myocardial infarction being followed by Dr. Leslie Wray in the outpatient setting was not feeling well over the past several weeks. The patient was hesitant to come to the hospital, but because of the underlying symptoms and increasing difficulty, the patient came to [facility]. Chest x-ray showed some bilateral pleural effusion, right more than the left, pacemaker as well as possible CHF. Patient being admitted for further evaluation and treatment. The creatinine was found to be 1.37. Troponin 0.071. BNP was 7[address]89. There is no history of fever, rigors. No headache, loss of consciousness, seizures at this time. PAST MEDICAL HISTORY: History of CHF, COPD, hearing defect, hypertension, hyperlipidemia, history of myocardial infarction, history of CAD, history of AICD. MEDICATIONS: Home medications prior to admission include: Oxycodone, hydralazine, Coumadin, Lasix, enalapril, Ecotrin. ALLERGIES: None. FAMILY HISTORY: No history of heart disease or strokes in the family. SOCIAL HISTORY: History of THC. Previous history of smoking. No history of alcohol intake. REVIEW OF SYSTEMS: ENT: Diminished vision. Diminished hearing. CARDIOVASCULAR system as mentioned earlier. RESPIRATORY: As mentioned earlier. GI: No nausea or vomiting. : No dysuria. Nervous System: No numbness, weakness. ALLERGY/IMMUNOLOGY: No asthma or hayfever. MUSCULOSKELETAL as mentioned earlier. HEMATOLOGY/ONCOLOGY: No history of anemia. ENDOCRINE: No history of diabetes or hypothyroidism. CONSTITUTIONAL: As mentioned earlier. DERMATOLOGY: Negative. RHEUMATOLOGY: Negative. PSYCHIATRIC: As mentioned earlier. PHYSICAL EXAMINATION: The patient is alert and oriented times three. Pulse 113 and irregular, blood pressure 160/70, respirations 16, temperature 97.9, pulse ox 98% on room air. HEENT: Conjunctivae normal. NECK is jugular venous distention at the root of the neck. CARDIOVASCULAR: S1, S2 muffled. Occasional irregularities, ejection systolic murmur. Pacemaker present on the right chest. RESPIRATION: Breath sounds diminished in the bases. A few scattered rhonchi and crackles. ABDOMEN: Soft, nontender. No mass palpable. LEGS: Significant bilateral leg edema present up to the ankle 3+. Pulses diminished bilaterally. NERVOUS SYSTEM: Higher functions as mentioned earlier. Moves all 4 limbs. No focal motor or sensory deficits. LYMPHATICS: No lymph nodes palpable in the neck, axillae or groin. JOINTS: No active deforming arthropathy. LABS: At this time shows WBC 12.2, hemoglobin 9.8, creatinine is 1.37. The baseline creatinine is 1.56 and troponin is noted. AST and ALT noted. The 2D echocardiogram which was done in 2017 shows ejection fraction about 40-45 percent. ASSESSMENT: 1. Congestive heart failure acute exacerbation acute on chronic systolic dysfunction, ejection fraction 40-45 percent in the previous 2D echo. 2. History of chronic obstructive pulmonary disease. 3. Hard of hearing. 4. Hypertension. 5. Myocardial infarction. 6. History of hepatitis C. 7. History of AICD. 8. History of CAD, CABG, pacemaker. 9. History of nicotine dependence. 10.Increased WBC. 11.Anemia microcytic. 12.Coumadin monitoring. 13.Increased creatinine with chronic kidney stage 3. 14.Increased AST/ALT. 15.Troponin 0.06 indeterminate rule out acute [id number]-elevation myocardial infarction. RECOMMENDATIONS AND DISCUSSION: In this 76-year-old gentleman who presented with multiple complex medical issues, we will monitor the patient closely, continue the current medications, management. We will initiate IV Lasix. Resume the home medications. Cardiology consultation. Otherwise, DVT prophylaxis. Repeat lytes. Monitor renal functions closely. The prognosis guarded because of multiple complex medical issues. Further recommendations to follow. We will also obtain a repeat 2D echo. Recent reports not available. See orders for details. A copy of this dictation is being forwarded to Dr. Ayaan Wray, who is the primary physician. MMODL / IJN: [id number] /
[2021-04-06] MEDS: TEMAZEPAM 15 MG CAP PO PRN ×2 (02:46→22:56)
[2021-04-06 05:19] LABS: Anisocytosis Slight; Basophils % (A) 0 %; Eosinophils # (A) 0.1 k/uL (0-0.7); Eosinophils % (A) 1 %; HCT 29.1 % (39.0-53.0); HGB 8.7 gm/dL (13.0-17.5); Hypochromasia Marked; Lymphocytes # (A) 1.1 k/uL (1.0-4.8); Lymphocytes % (A) 12 %; MCH 22.6 pg (25.0-35.0); MCHC 29.8 g/dL (31.0-37.0); MCV 75.8 fL (80.0-100.0); Mean Platelet Volume 8.5; Microcytosis Slight; Monocytes # (A) 0.6 k/uL (0-1.0); Monocytes % (A) 7 %; Neutrophils # (A) 7.2 k/uL (1.3-7.7); Neutrophils % (A) 79 %; Platelet Count 131 k/uL (150-450); Poikilocytosis Slight; RBC 3.84 m/uL (4.30-5.90); RDW 17.6 % (11.5-15.5); WBC 9.1 k/uL (3.8-10.6)
[2021-04-06 05:35] LABS: Calcium 8.9 mg/dL (8.4-10.2); Potassium 4.1 mmol/L (3.5-5.1)
[2021-04-06] MEDS: FUROSEMIDE 10 MG/ML 4 ML VIAL IV SCH ×3 (05:59→19:59)
[2021-04-06] MEDS: NITROGLYCERIN OINT 1 INCH/GM PACKET TOPICAL SCH ×6 (10:07→22:56)
[2021-04-06] MEDS: hydrALAZINE HCL 25 MG TAB PO SCH ×2 (10:07→21:58)
[2021-04-06] MEDS: PANTOPRAZOLE 40 MG TABLET PO SCH (10:07)
--- NOTE | 2021-04-06 10:59 | P.CRDCN ---
History of Present Illness History of present illness: HISTORY OF PRESENTING ILLNESS This is a pleasant 76-year-old male past medical history significant for with coronary artery disease status post 3 vessel CABG 2013, aortic stenosis status post aortic valve replacement 2013, ischemic cardiomyopathy status post Bi ventricular AICD (2010), paroxysmal atrial fibrillation, hypertension, dyslipidemia, chronic nicotine dependence (states he has been a heavy smoker but quit 30 days ago). He follows in the office with Dr. Scherer, however, has not followed up due to the covid-19 pandemic. We have been asked to see in consultation for congestive heart failure. Patient states he has been having worsening shortness of breath over the past month. Prior to this he can usually do his daily activities without difficulty. Now, he can barely walk 6 feet without having to rest. He did not come into the hospital or follow up in the office due to the covid-19 pandemic and did not want to expose himself. His diet includes mainly fast food and consumes mostly foods high in salt. He does endorse some chest pain of his chest. Chest pain is nonexertional and nonradiating. Taking a deep breath worsens the chest pain. He denies palpitations. He does endorse symptoms of orthopnea. He has increased lower extremity edema that is new. He is a non-diabetic. Cardiac catheterization in 12/2013 revealed three-vessel coronary artery disease with 80% second MARGINAL branch and total occlusion of the mid RCA. Severe aortic stenosis. Patient was referred to CTS for valve replacement and bypass surgery. 02/2014 Patient underwent aortic valve replacement and coronary artery bypass graft x 3 DAIGLE to LAD, saphenous vein graft to the OM, saphenous vein g raft to the PDA. DIAGNOSTICS EKG reveals bi-ventricular paced rhythm HR 113, Most recent echocardiogram 10/08/2019EF is 35-40%. Hypokinesis of inferior wallapex. Mild mitral regurgitation, mild aortic regurgitation (peak gradient 42mmgHg, mean gradient 18mmHg), mild to moderate tricuspid regurgitation Chest xray - Cardiomegaly, Post median sternotomy, cardiac valve replacement, generator left pectoral region, leads in RA ad LV, Blunting of constophrenic angles. Laboratory reviewed, WBC 9.1, hemoglobin 8.7, platelets 131, INR 3.0, sodium 138, potassium 4.1, serum creatinine 1.43, P1 40, BNP 34,000, troponin 0.071, 0.078, 0.083 Current home cardiac medications include hydralazine 25 mg twice a day, warfarin 7.5 mg Sunday and Sunday and warfarin 5 mg other days of the week, furose mide 20 mg daily, enalapril 5 mg twice daily, atorvastatin 40 mg nightly, aspirin 81 mg daily REVIEW OF SYSTEMS At the time of my exam: CONSTITUTIONAL: Denies fever or chills. CARDIOVASCULAR: +chest pain, +shortness of breath +bilateral LE edema, +orthopnea Denies palpitations. RESPIRATORY: Denies cough. GASTROINTESTINAL: Denies abdominal pain, diarrhea, constipation, nausea or vomiting. MUSCULOSKELETAL: Denies myalgias. NEUROLOGIC: Denies numbness, tingling, headacbe or weakness. ENDOCRINE: +fatigue, +weight change, Denies polydipsia or polyurina. GENITOURINARY: Denies burning, hematuria or urgency with micturation. HEMATOLOGIC: Denies history of anemia or bleeding. PHYSICAL EXAMINATION Blood pressure 151/71 heart rate 87 afebrile and maintaining oxygen saturation 95% on room air CONSTITUTIONAL: Appears short of breath HEENT: Head is normocephalic. Pupils are equal, round. Sclerae anicteric. Mucous membranes of the mouth are moist. +JVD. No carotid bruit. CHEST EXAMINATION: Lungs with bilateral wheezes auscultation. Chest wall tenderness with deep breath. No chest wall tenderness is noted on palpation. HEART EXAMINATION: Regular rate and rhythm. S1, S2 heard. No murmurs, gallops or rub. ABDOMEN: Soft, nontender. Positive bowel sounds. EXTREMITIES: 2+ peripheral pulses, 3+ bilateral lower extremity pitting edema and no calf tenderness. NEUROLOGIC EXAMINATION: Patient is awake, alert and oriented x3. ASSESSMENT Acute on chronic systolic heart failure with reduced ejection fraction Elevated troponin, possibly related to congestive heart failure vs ischemia Acute on chronic kidney disease sCr 1.43 Ischemic Cardiomyopathy status post Bi ventricular AICD in 2010 Coronary artery disease status post 3 vessel CABG 2013 Aortic stenosis status post mechanical aortic valve replacement 2013 Paroxysmal atrial fibrillation- on coumadin Hypertension Dyslipidemia Chronic nicotine dependence (states he has been a heavy smoker but quit 30 days ago) PLAN Obtain 2D echocardiogram Continue IV Diuresis- IV Lasix 40mg Q8hr ACEI on hold due to kidney function Metoprolol tartrate 12.5mg BID Continue home statin Continue coumadin Continue home hydralazine 25mg BID Continue nitro paste Daily INR Monitor renal function and electrolytes I/Os, Daily weights Further recommendations to follow Nurse Practitioner note has been reviewed, I agree with a documented findings and plan of care. Patient was seen and examined. Past Medical History Past Medical History: Heart Failure, COPD, Eye Disorder, Hearing Disorder / Deafness, Hyperlipidemia, Hypertension, Myocardial Infarction (ID) Additional Past Medical History / Comment(s): HX HEP C- WAS ON MEDS FOR 90 DAYS,GLASSES DAILY USE, SLIGHT [place]. EARS, LESION ON TIP TONGUE HAS GROWN OVER THE YEARS Last Myocardial Infarction Date:: 02/2014 History of Any Multi-Drug Resistant Organisms: None Reported Past Surgical History: AICD, Coronary Bypass/CABG, Heart Catheterization, Pacemaker Additional Past Surgical History / Comment(s): TRIPLE BYPASS SURGERY-[facility] Past Anesthesia/Blood Transfusion Reactions: No Reported Reaction Type of Cardiac Device: Permanent Pacemaker Device Placement Date:: 2010 Past Psychological History: No Psychological Hx Reported Smoking Status: Former smoker Past Alcohol Use History: None Reported Past Drug Use History: Marijuana - Past Family History Father History Unknown: Yes Mother Family Medical History: No Reported History Medications and Allergies Home Medications Medication Instructions Recorded Confirmed Type RX: Enalapril Maleate 5 mg PO BID 10/16/14 04/05/21 History RX: Furosemide 20 mg PO DAILY 10/16/14 04/05/21 History RX: hydrALAZINE HCL 25 mg PO BID 10/16/14 04/05/21 History RX: oxyCODONE HCL/ACETAMINOPHEN 1 tab PO Q4-6H PRN 10/16/14 04/05/21 History [Oxycodone-Acetaminophen 10-325] RX: Aspirin EC [Ecotrin Low Dose] 81 mg PO DAILY 06/15/17 04/05/21 History Atorvastatin [Lipitor] 40 mg PO HS 04/05/21 04/05/21 History RX: Warfarin Sodium [Coumadin] 5 mg PO SUMOTUTHFR@89904/05/21 04/05/21 History Warfarin [Coumadin] 7.5 mg PO WESA@89904/05/21 04/05/21 History Allergies Allergy/AdvReac Type Severity Reaction Status Date / Time No Known Allergies Allergy Verified 04/05/21 18:30 Physical Exam Vitals: Vital Signs Temp Pulse Resp BP Pulse Ox 04/05/21 21:52 96 04/05/21 19:04 87 18 95 04/05/21 18:55 151/71 04/05/21 15:33 97.9 F 113 H 16 165/79 98 Intake and Output 04/05/21 04/06/21 04/06/21 22:59 06:59 14:59 Other: Weight 74.843 kg Results 04/06/21 04:43 04/06/21 04:43 Cardiac Enzymes 04/05/21 04/05/21 04/05/21 Range/Units 15:58 15:58 19:11 AST 68 H (17-59) U/L Troponin I 0.071 H* 0.078 H* (0.000-0.034) ng/mL 04/05/21 Range/Units 22:00 AST (17-59) U/L Troponin I 0.083 H* (0.000-0.034) ng/mL Coagulation 04/05/21 04/06/21 Range/Units 15:58 04:43 PT 27.6 H 29.0 H (9.0-12.0) sec APTT 33.0 H (22.0-30.0) sec CBC 04/05/21 04/06/21 Range/Units 15:58 04:43 WBC 12.2 H 9.1 (3.8-10.6) k/uL RBC 4.14 L 3.84 L (4.30-5.90) m/uL Hgb 9.8 L 8.7 L (13.0-17.5) gm/dL Hct 31.4 L 29.1 L (39.0-53.0) % Plt Count 156 131 L (150-450) k/uL Comprehensive Metabolic Panel 04/05/21 04/06/21 Range/Units 15:58 04:43 Sodium 139 138 (137-145) mmol/L Potassium 4.4 4.1 (3.5-5.1) mmol/L Chloride 108 H 107 (98-107) mmol/L Carbon Dioxide 20 L 25 (22-30) mmol/L BUN 38 H 40 H (9-20) mg/dL Creatinine 1.37 H 1.43 H (0.66-1.25) mg/dL Glucose 140 H 119 H (74-99) mg/dL Calcium 9.3 8.9 (8.4-10.2) mg/dL AST 68 H (17-59) U/L ALT 98 H (4-49) U/L Alkaline Phosphatase 87 (38-126) U/L Total Protein 7.0 (6.3-8.2) g/dL Albumin 4.2 (3.5-5.0) g/dL Current Medications Generic Name Dose Route Start Last Admin Trade Name Freq PRN Reason Stop Dose Admin Hydrocodone Bitart/Acetaminophen 1 each 04/05/21 18:20 Hydrocodone/Apap 5-325mg 1 Each Tab PO Q6HR PRN Pain Alprazolam 0.25 mg 04/05/21 18:20 Alprazolam 0.25 Mg Tab PO TID PRN Anxiety Atorvastatin Calcium 40 mg 04/06/21 21:00 Atorvastatin 40 Mg Tab PO HS SURJIT Furosemide 40 mg 04/06/21 03:00 04/06/21 05:59 Furosemide 10 Mg/Ml 4 Ml Vial IV Not Given Q8H [facility] Hydralazine HCl 25 mg 04/06/21 09:45 Hydralazine Hcl 25 Mg Tab PO BID [facility] Miscellaneous Information 1 each 04/06/21 09:46 Warfarin Per Pharmacy MISCELLANE DIRECTED PRN Per Protocol Protocol Nitroglycerin 1 inch 04/05/21 22:00 Nitroglycerin Oint 1 Inch/Gm Packet TOPICAL QID [facility] Pantoprazole Sodium 40 mg 04/06/21 07:30 Pantoprazole 40 Mg Tablet PO AC-BRKFST [facility] Sodium Chloride 10 ml 04/05/21 21:00 04/05/21 21:53 Sodium Chloride 0.9% Flush 10 Ml Syringe IV Not Given BID [facility] Temazepam 15 mg 04/05/21 18:20 04/06/21 02:46 Temazepam 15 Mg Cap PO 15 mg HS PRN Administration Insomnia Warfarin Sodium 7.5 mg 04/09/21 09:00 Warfarin 5 Mg Tab PO WESA@0900 [facility] Protocol Warfarin Sodium 5 mg 04/07/21 09:00 Warfarin 5 Mg Tab PO SUMOTUTHFR@0900 [facility] Protocol Intake and Output 04/05/21 04/06/21 04/06/21 22:59 06:59 14:59 Other: Weight 74.843 kg 04/06/21 04:43 04/06/21 04:43
[2021-04-06] MEDS: METOPROLOL TARTRATE 12.5 MG TAB PO SCH ×2 (11:34→21:58)
[2021-04-06] MEDS: oxyCODONE-APAP 10-325MG 1 EACH TAB PO PRN (12:24)
[2021-04-06] MEDS ORDERED: IPRATROPIUM-ALBUTEROL 3 ML NEB INHALATION PRN (14:40)
--- NOTE | 2021-04-06 15:41 | XR ---
EXAMINATION TYPE: XR chest 1V portable DATE OF EXAM: 04/06/2021 COMPARISON: 04/05/2021 HISTORY: Shortness of breath FINDINGS: There are bilateral pleural effusions with cardiomegaly and bibasilar infiltrate. There is a diffuse interstitial pattern. Postsurgical change and cardiac device noted. IMPRESSION: 1. Correlate for CHF with bilateral infiltrate and pleural effusion.
--- NOTE | 2021-04-06 16:35 | PN ---
PROGRESS NOTE DATE OF SERVICE: 04/06/2021 This 76-year-old gentleman admitted with CHF acute exacerbation also had indeterminate troponin. The troponins were elevated up to 0.071, 0.078 and 0.083. The patient also had elevated creatinine also. INR is 3. No chest pain. No palpitations. PAST MEDICAL HISTORY: Reviewed. REVIEW OF SYSTEMS: CARDIOVASCULAR: S1, S2. RESPIRATORY: As mentioned earlier. GI: As mentioned earlier. : No dysuria. NERVOUS SYSTEM: No numbness or weakness. MEDICATIONS: Reviewed and include: Xanax. Lipitor, Lasix, Apresoline, Lopressor, Coumadin, Nitro- Bid, Percocet. PHYSICAL EXAMINATION: Patient is alert, oriented x3. Pulse 90. Blood pressure 140/72, respiration 18, temperature 98 degrees, pulse ox 97% on room air. HEENT: Conjunctivae normal. NECK: No JVD. CARDIOVASCULAR: S1, S2 muffled. RESPIRATORY: Breath sounds diminished in the bases. Scattered rhonchi and crackles. Basal crackles. ABDOMEN: Soft, nontender. LEGS: Bilateral leg edema. NERVOUS SYSTEM: Higher function as mentioned. Moves all 4 limbs. No focal motor or sensory deficits. LYMPHATICS: No lymph nodes palpable in the neck, axillae or groin. SKIN: No ulcer, rashes or bleeding. JOINTS: No active deforming arthropathy. LAB STUDIES: WBC 9.1, hemoglobin is 8.7, and INR is 3. Creatinine is 1.43. Troponins are noted. The chest x-ray which was done yesterday was reviewed personally showed features of CHF and as well as bilateral pleural effusion. ASSESSMENT: 1. Congestive heart failure, acute exacerbation, acute on chronic systolic dysfunction, ejection fraction 40-45 percent in the previous 2D echo. 2. History of chronic obstructive pulmonary disease. 3. Hard of hearing. 4. Hypertension. 5. History of myocardial infarction. 6. History of hepatitis C. 7. History of AICD. 8. History of coronary artery disease, coronary artery bypass grafting, pacemaker. 9. History of nicotine dependence. 10.Increased WBC. 11.Anemia macrocytic. 12.Coumadin monitoring. 13.Increased creatinine with chronic kidney disease stage 3. 14.Increased AST, ALT. 15.Troponin 0.06 indeterminate. Rule out acute [id number]-elevation myocardial infarction. RECOMMENDATIONS AND DISCUSSION: In this 76 -year-old gentleman who presented with multiple complex medical issues, we will monitor the patient closely, continue the current medications, management and symptomatic treatment. Otherwise, continue with Lasix. I would add antiplatelet agents and Lipitor also. Otherwise, I would also recommend a course of bronchodilators for the patient's COPD. Prognosis guarded because of multiple complex medical issues. Further recommendations to follow. Monitor the renal functions closely. MMKOLBY / IJN: [id number] /
--- NOTE | 2021-04-06 17:51 | ECHOF ---
Referral Reason:chf MEASUREMENTS -------- HEIGHT: 182.9 cm WEIGHT: 74.8 kg BP: 151/71 RVIDd: 3.4 cm (< 3.3) IVSd: 1.6 cm (0.6 - 1.1) LVIDd: 5.6 cm (3.9 - 5.3) LVPWd: 1.6 cm (0.6 - 1.1) IVSs: 1.8 cm LVIDs: 5.4 cm LVPWs: 1.7 cm LAESV Index (A-L): 81.87 ml/m Ao Diam: 3.4 cm (2.0 - 3.7) AV Cusp: 1.7 cm (1.5 - 2.6) MV EXCURSION: 19.135 mm (> 18.000) MV EF SLOPE: 161 mm/s (70 - 150) EPSS: 1.7 cm AV maxP.94 mmHg AV meanP.52 mmHg AR PHT: 365 ms RAP: 5.00 mmHg RVSP: 47.30 mmHg FINDINGS -------- Sinus rhythm. This was a technically adequate study. The left ventricle is mildly dilated. There is moderate concentric left ventricular hypertrophy. There is severe global hypokinesis of LV . Overall left ventricular systolic function is severely i mpaired with, an EF < 20%. The right ventricle is mildly enlarged. LA is severely dilated >40 ml/m2 The right atrial size is normal. Electronic pacemaker lead seen in the right atrial cavity. Interatrial and interventricular septum intact. There is mild aortic regurgitation. Peak/mean gradient across the Aortic Valve is 39.94mmHg / 21.52 mmHg. 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 Mild mitral annular calcification present. Severe mitral regurgitation is present. Moderate tricuspid regurgitation present. There is moderate pulmonary hypertension. The right sandro tricular systolic pressure, as measured by Doppler, is 47.30mmHg. There is no pulmonic regurgitation present. The aortic root size is normal. IVC Not well visulized. There is a trivial pericardial effusion present. Large Pleural Effusion. CONCLUSIONS -------- 1. The left ventricle is mildly dilated. 2. There is moderate concentric left ventricular hypertrophy. 3. There is severe global hypokinesis of LV . 4. Overall left ventricular systolic function is severely impaired with, an EF < 20%. 5. The right ventricle is mildly enlarged. 6. LA is severely dilated >40 ml/m2 7. There is mild aortic regurgitation. 8. Peak/mean gradient across the Aortic Valve is 39.94mmHg / 21.52mmHg. 9. 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 10. Mild mitral annular calcification present. 11. Severe mitral regurgitation is present. 12. Moderate tricuspid regurgitation present. 13. There is moderate pulmonary hypertension. 14. The right ventricular systolic pressure, as measured by Doppler, is 47.30mmHg. 15. There is a trivial pericardial effusion present. 16. Large Pleural Effusion. PANEL BEATER: Maria Guadalupe Neal RDCS
[2021-04-06] MEDS ORDERED: WARFARIN 7.5 MG TAB PO SCH (18:00)
[2021-04-06] MEDS: SYMBICORT 160-4.5 MCG INHALER INHALATION SCH (19:50)
[2021-04-06] MEDS: IPRATROPIUM-ALBUTEROL 3 ML NEB INHALATION SCH (19:50)
[2021-04-06] MEDS: ATORVASTATIN 40 MG TAB PO SCH (21:58)
[2021-04-07] MEDS: FUROSEMIDE 10 MG/ML 4 ML VIAL IV SCH ×4 (03:05→18:46)
[2021-04-07] MEDS: PANTOPRAZOLE 40 MG TABLET PO SCH (06:44)
[2021-04-07] MEDS: IPRATROPIUM-ALBUTEROL 3 ML NEB INHALATION SCH ×3 (08:30→20:34)
[2021-04-07] MEDS: SYMBICORT 160-4.5 MCG INHALER INHALATION SCH ×2 (08:30→20:34)
[2021-04-07 08:44] LABS: Anisocytosis Slight; Basophils % (A) 0 %; Eosinophils % (A) 0 %; HCT 31.6 % (39.0-53.0); HGB 9.4 gm/dL (13.0-17.5); Hypochromasia Marked; Lymphocytes # (A) 1.2 k/uL (1.0-4.8); Lymphocytes % (A) 12 %; MCH 23.2 pg (25.0-35.0); MCHC 29.8 g/dL (31.0-37.0); MCV 77.7 fL (80.0-100.0); Mean Platelet Volume 8.5; Microcytosis Slight; Monocytes # (A) 0.6 k/uL (0-1.0); Monocytes % (A) 6 %; Neutrophils # (A) 8.4 k/uL (1.3-7.7); Neutrophils % (A) 81 %; Platelet Count 152 k/uL (150-450); Poikilocytosis Slight; RBC 4.07 m/uL (4.30-5.90); RDW 17.6 % (11.5-15.5); WBC 10.3 k/uL (3.8-10.6)
[2021-04-07] MEDS: NITROGLYCERIN OINT 1 INCH/GM PACKET TOPICAL SCH (08:45)
[2021-04-07] MEDS: hydrALAZINE HCL 25 MG TAB PO SCH ×3 (08:45→21:11)
[2021-04-07] MEDS: METOPROLOL TARTRATE 12.5 MG TAB PO SCH (08:45)
[2021-04-07 09:04] LABS: INR 3.6 (<1.2); Prothrombin Time 34.6 sec (9.0-12.0)
[2021-04-07 09:16] LABS: Potassium 4.1 mmol/L (3.5-5.1)
[2021-04-07 09:17] LABS: Calcium 8.9 mg/dL (8.4-10.2)
[2021-04-07] MEDS: oxyCODONE-APAP 10-325MG 1 EACH TAB PO PRN ×2 (10:15→20:16)
[2021-04-07] MEDS: ISOSORBIDE MONONITRATE ER 30 MG TAB.ER.24H PO SCH (10:15)
--- NOTE | 2021-04-07 10:22 | P.PN ---
Subjective Progress Note Date: 04/07/21 HISTORY OF PRESENT ILLNESS: HISTORY OF PRESENTING ILLNESS This is a pleasant 76-year-old male past medical history significant for with coronary artery disease status post 3 vessel CABG 2013, aortic stenosis status post aortic valve replacement 2013, ischemic cardiomyopathy status post Bi ventricular AICD (2010), paroxysmal atrial fibrillation, hypertension, dyslipidemia, chronic nicotine dependence (states he has been a heavy smoker but quit 30 days ago). He follows in the office with Dr. Scherer, however, has not followed up due to the covid-19 pandemic. We have been asked to see in consultation for congestive heart failure. Patient states he has been having worsening shortness of breath over the past month. Prior to this he can usually do his daily activities without difficulty. Now, he can barely walk 6 feet without having to rest. He did not come into the hospital or follow up in the office due to the covid-19 pandemic and did not want to expose himself. His diet includes mainly fast food and consumes mostly foods high in salt. He does endorse some chest pain of his chest. Chest pain is nonexertional and nonradiating. Taking a deep breath worsens the chest pain. He denies palpitations. He does endorse symptoms of orthopnea. He has increased lower extremity edema that is new. He is a non-diabetic. Cardiac catheterization in 12/2013 revealed three-vessel coronary artery disease with 80% second MARGINAL branch and total occlusion of the mid RCA. Severe aortic stenosis. Patient was referred to CTS for valve replacement and bypass surgery. 02/2014 Patient underwent aortic valve replacement and coronary artery bypass graft x 3 DAIGLE to LAD, saphenous vein graft to the OM, saphenous vein graft to the PDA. DIAGNOSTICS EKG reveals bi-ventricular paced rhythm HR 113, Most recent echocardiogram 10/08/2019EF is 35-40%. Hypokinesis of inferior wallapex. Mild mitral regurgitation, mild aortic regurgitation (peak gradient 42mmgHg, mean gradient 18mmHg), mild to moderate tricuspid regurgitation Chest xray - Cardiomegaly, Post median sternotomy, cardiac valve replacement, generator left pectoral region, leads in RA ad LV, Blunting of constophrenic angles. Laboratory reviewed, WBC 9.1, hemoglobin 8.7, platelets 131, INR 3.0, sodium 138, potassium 4.1, serum creatinine 1.43, P1 40, BNP 34,000, troponin 0.071, 0.078, 0.083 Current home cardiac medications include hydralazine 25 mg twice a day, warfarin 7.5 mg Sunday and Sunday and warfarin 5 mg other days of the week, furosemide 20 mg daily, enalapril 5 mg twice daily, atorvastatin 40 mg nightly, aspirin 81 mg daily 04/07/2021 Patient examined this morning at the bedside. Patient states his shortness of breath has improved significantly compared to yesterday. He denies SOB at rest, however he states he has not been up walking around in his room. He remains on IV lasix. BUN 44. Creatinine 1.62. INR 3.6. Echocardiogram completed revealed ejection fraction less than 20%, severe mitral regurgitation, moderate tricuspid regurgitation, moderate pulmonary hypertension, trivial pericardial effusion, and large pleural effusion. PHYSICAL EXAM: VITAL SIGNS: Reviewed. GENERAL: Well-developed in no acute distress. NECK: Supple. No JVD or thyromegaly LUNGS: Respirations even and unlabored. Lungs diminished with bibasilar rales. HEART: Regular rate and rhythm. S1 and S2 heard. EXTREMITIES: Normal range of motion. No clubbing or cyanosis. Peripheral pulses intact. 3+ edema of left lower extremity. 2+ edema of right lower extremity. ASSESSMENT: Acute on chronic systolic heart failure with reduced ejection fraction Elevated troponin, not suggestive of ACS Acute on chronic kidney disease Ischemic cardiomyopathy status post Bi ventricular AICD in 2010 Coronary artery disease status post 3 vessel CABG 2013 Aortic stenosis status post mechanical aortic valve replacement 2013 Paroxysmal atrial fibrillation- on coumadin Hypertension Dyslipidemia Chronic nicotine dependence (states he has been a heavy smoker but quit 30 days ago) PLAN: Continue IV Lasix Daily weights Accurate I&O Monitor kidney function Increase hydralazine to 25 mg 3 times a day Add Imdur 30 mg daily Increase metoprolol to 25 mg twice a day Continue Coumadin. Monitor INR Further recommendations pending patient's course Nurse practitioner note has been reviewed by physician. Signing provider agrees with the documented findings, assessment, and plan of care. Objective - Vital Signs Vital signs: Vital Signs Temp 97.3 F L 04/07/21 08:00 Pulse 84 04/07/21 08:41 Resp 18 04/07/21 08:00 BP 154/73 04/07/21 08:00 Pulse Ox 97 04/07/21 08:00 Intake & Output 04/06/21 04/07/21 04/07/21 18:59 06:59 18:59 Intake Total 480 Output Total 1110 Balance -1110 480 Weight 76.2 kg Intake: Oral 480 Output: Urine 1110 - Labs CBC & Chem 7: 04/07/21 07:48 04/07/21 07:48 Labs: Abnormal Lab Results - Last 24 Hours (Table) 04/07/21 04/07/21 04/07/21 Range/Units 07:48 07:48 07:48 RBC 4.07 L (4.30-5.90) m/uL Hgb 9.4 L (13.0-17.5) gm/dL Hct 31.6 L (39.0-53.0) % MCV 77.7 L (80.0-100.0) fL MCH 23.2 L (25.0-35.0) pg MCHC 29.8 L (31.0-37.0) g/dL RDW 17.6 H (11.5-15.5) % Neutrophils # 8.4 H (1.3-7.7) k/uL PT 34.6 H (9.0-12.0) sec INR 3.6 H (<1.2) BUN 44 H (9-20) mg/dL Creatinine 1.62 H (0.66-1.25) mg/dL Glucose 120 H (74-99) mg/dL
[2021-04-07 14:46] VITALS: BMI 22.8
[2021-04-07] MEDS ORDERED: WARFARIN 5 MG TAB PO SCH (18:00)
[2021-04-07] MEDS ORDERED: WARFARIN 2.5 MG TAB PO ONE (18:00)
[2021-04-07] MEDS: ATORVASTATIN 40 MG TAB PO SCH (20:15)
[2021-04-07] MEDS: METOPROLOL TARTRATE 25 MG TAB PO SCH (20:16)
--- NOTE | 2021-04-07 20:23 | PN ---
PROGRESS NOTE DATE OF SERVICE: 04/07/2009 This 76-year-old gentleman admitted with CHF exacerbation also had indeterminate troponin. Cardiology has seen the patient and recommend continue IV Lasix at this time. No chest pain. No palpitations. No fever. PHYSICAL EXAMINATION: Alert and oriented. Pulse 92, blood pressure 151/70, respirations 16, temperature normal, pulse ox 97% on room air. HEENT: Conjunctivae normal. Oral mucosa moist. NECK: No jugular venous distention. No lymph node enlargement. CARDIOVASCULAR: S1, S2, muffled. No S3, no S4, RESPIRATORY: Diminished breath sounds at the bases. A few rhonchi, no crackles. ABDOMEN: Soft, nontender. LEGS: No edema, no swelling. NERVOUS SYSTEM: No focal deficits. LAB STUDIES: WBC 10.2, hemoglobin 9.4, INR 3.6, creatinine is 1.62. Troponin is noted. ASSESSMENT: 1. Congestive heart failure acute exacerbation with acute on chronic systolic dysfunction, ejection fraction 40-45% in the previous 2D echo. 2. History of chronic obstructive pulmonary disease. 3. Indeterminate troponins up to 0.083. Not suggestive of acute coronary syndrome per Cardiology. 4. Hard of hearing. 5. Hypertension. 6. History of myocardial infarction. 7. History AICD. 8. History of CAD, CABG, pacemaker. 9. Nicotine dependence. 10.Increased WBC. 11.Anemia, macrocytic. 12.Coumadin monitoring. 13.Increased creatinine with chronic kidney stage 3. 14.Increased AST/ALT. RECOMMENDATIONS AND DISCUSSION: I recommend to continue current management and symptomatic treatment. Continue the Lasix. Otherwise, most recent chest x-ray done yesterday which was reviewed by me showed some evidence of CHF. We will continue to monitor. Repeat labs will be ordered tomorrow. Further recommendations to follow. Closely follow with Cardiology. Increase the Lasix to twice daily. MMODL / IJN: [id number] /
[2021-04-07] MEDS: TEMAZEPAM 15 MG CAP PO PRN (21:11)
[2021-04-08] MEDS: oxyCODONE-APAP 10-325MG 1 EACH TAB PO PRN ×2 (04:07→11:43)
[2021-04-08] MEDS: PANTOPRAZOLE 40 MG TABLET PO SCH (06:30)
[2021-04-08] MEDS: FUROSEMIDE 10 MG/ML 4 ML VIAL IV SCH ×2 (06:30→18:48)
[2021-04-08] MEDS: METOPROLOL TARTRATE 25 MG TAB PO SCH ×2 (07:51→20:33)
[2021-04-08] MEDS: hydrALAZINE HCL 25 MG TAB PO SCH ×3 (07:51→20:34)
[2021-04-08] MEDS: ISOSORBIDE MONONITRATE ER 30 MG TAB.ER.24H PO SCH (07:51)
[2021-04-08] MEDS: SYMBICORT 160-4.5 MCG INHALER INHALATION SCH ×2 (08:16→19:50)
[2021-04-08] MEDS: IPRATROPIUM-ALBUTEROL 3 ML NEB INHALATION SCH ×3 (08:16→19:50)
[2021-04-08 09:18] LABS: INR 2.9 (<1.2); Prothrombin Time 27.9 sec (9.0-12.0)
[2021-04-08 09:26] LABS: Anisocytosis Slight; Basophils % (A) 0 %; Eosinophils # (A) 0.1 k/uL (0-0.7); Eosinophils % (A) 1 %; HCT 30.6 % (39.0-53.0); HGB 9.6 gm/dL (13.0-17.5); Hypochromasia Marked; Lymphocytes # (A) 1.1 k/uL (1.0-4.8); Lymphocytes % (A) 11 %; MCHC 31.3 g/dL (31.0-37.0); MCV 76.4 fL (80.0-100.0); Mean Platelet Volume 7.5; Microcytosis Slight; Monocytes # (A) 0.7 k/uL (0-1.0); Monocytes % (A) 6 %; Neutrophils # (A) 8.4 k/uL (1.3-7.7); Neutrophils % (A) 81 %; Platelet Count 148 k/uL (150-450); Poikilocytosis Slight; RDW 17.7 % (11.5-15.5); WBC 10.3 k/uL (3.8-10.6)
[2021-04-08 09:39] LABS: Calcium 8.8 mg/dL (8.4-10.2); Potassium 3.9 mmol/L (3.5-5.1)
[2021-04-08] MEDS ORDERED: Potassium Replacement Protocol 1 EACH MISC MISCELLANE PRN ×2 (10:04→10:09)
[2021-04-08] MEDS ORDERED: POTASSIUM CHLORIDE ER 20 MEQ TAB.ER PO SCH ×2 (11:00)
--- NOTE | 2021-04-08 12:36 | P.PN ---
Subjective Progress Note Date: 04/08/21 HISTORY OF PRESENT ILLNESS: HISTORY OF PRESENTING ILLNESS This is a pleasant 76-year-old male past medical history significant for with coronary artery disease status post 3 vessel CABG 2013, aortic stenosis status post aortic valve replacement 2013, ischemic cardiomyopathy status post Bi ventricular AICD (2010), paroxysmal atrial fibrillation, hypertension, dyslipidemia, chronic nicotine dependence (states he has been a heavy smoker but quit 30 days ago). He follows in the office with Dr. Scherer, however, has not followed up due to the covid-19 pandemic. We have been asked to see in consultation for congestive heart failure. Patient states he has been having worsening shortness of breath over the past month. Prior to this he can usually do his daily activities without difficulty. Now, he can barely walk 6 feet without having to rest. He did not come into the hospital or follow up in the office due to the covid-19 pandemic and did not want to expose himself. His diet includes mainly fast food and consumes mostly foods high in salt. He does endorse some chest pain of his chest. Chest pain is nonexertional and nonradiating. Taking a deep breath worsens the chest pain. He denies palpitations. He does endorse symptoms of orthopnea. He has increased lower extremity edema that is new. He is a non-diabetic. Cardiac catheterization in 12/2013 revealed three-vessel coronary artery disease with 80% second MARGINAL branch and total occlusion of the mid RCA. Severe aortic stenosis. Patient was referred to CTS for valve replacement and bypass surgery. 02/2014 Patient underwent aortic valve replacement and coronary artery bypass graft x 3 DAIGLE to LAD, saphenous vein graft to the OM, saphenous vein graft to the PDA. DIAGNOSTICS EKG reveals bi-ventricular paced rhythm HR 113, Most recent echocardiogram 10/08/2019EF is 35-40%. Hypokinesis of inferior wallapex. Mild mitral regurgitation, mild aortic regurgitation (peak gradient 42mmgHg, mean gradient 18mmHg), mild to moderate tricuspid regurgitation Chest xray - Cardiomegaly, Post median sternotomy, cardiac valve replacement, generator left pectoral region, leads in RA ad LV, Blunting of constophrenic angles. Laboratory reviewed, WBC 9.1, hemoglobin 8.7, platelets 131, INR 3.0, sodium 138, potassium 4.1, serum creatinine 1.43, P1 40, BNP 34,000, troponin 0.071, 0.078, 0.083 Current home cardiac medications include hydralazine 25 mg twice a day, warfarin 7.5 mg Sunday and Sunday and warfarin 5 mg other days of the week, furosemide 20 mg daily, enalapril 5 mg twice daily, atorvastatin 40 mg nightly, aspirin 81 mg daily 04/07/2021 Patient examined this morning at the bedside. Patient states his shortness of breath has improved significantly compared to yesterday. He denies SOB at rest, however he states he has not been up walking around in his room. He remains on IV lasix. BUN 44. Creatinine 1.62. INR 3.6. Echocardiogram completed revealed ejection fraction less than 20%, severe mitral regurgitation, moderate tricuspid regurgitation, moderate pulmonary hypertension, trivial pericardial effusion, and large pleural effusion. 04/08/2021 Patient examined at the bedside. Patient reports he is anxious this morning about being in the hospital. He does not want any anti-anxiety medication though. He reports mild shortness of breath that he thinks is related to his anxiety. He denies chest pain or pressure. He remains on IV lasix. Kidney function stable. BUN 48. Creatinine 1.56. INR 2.9. Fluid balance over the last 24 hours is -1030cc. PHYSICAL EXAM: VITAL SIGNS: Reviewed. GENERAL: Well-developed in no acute distress. NECK: Supple. No JVD or thyromegaly LUNGS: Respirations even and unlabored. Lungs diminished with bibasilar rales. HEART: Regular rate and rhythm. S1 and S2 heard. EXTREMITIES: Normal range of motion. No clubbing or cyanosis. Peripheral pulses intact. 1-2+ edema of left lower extremity worse near ankle. 1+ edema of right lower extremity. ASSESSMENT: Acute on chronic systolic heart failure with reduced ejection fraction Elevated troponin, not suggestive of ACS Acute on chronic kidney disease Ischemic cardiomyopathy status post Bi ventricular AICD in 2010 Coronary artery disease status post 3 vessel CABG 2013 Aortic stenosis status post mechanical aortic valve replacement 2013 Paroxysmal atrial fibrillation- on coumadin Hypertension Dyslipidemia Chronic nicotine dependence (states he has been a heavy smoker but quit 30 days ago) PLAN: Continue IV Lasix Daily weights Accurate I&O Monitor kidney function Continue additional cardiac medications Continue Coumadin. Monitor INR Further recommendations pending patient's course Nurse practitioner note has been reviewed by physician. Signing provider agrees with the documented findings, assessment, and plan of care. Objective - Vital Signs Vital signs: Vital Signs Temp 97.7 F 04/08/21 07:42 Pulse 80 04/08/21 11:50 Resp 16 04/08/21 11:45 BP 146/71 04/08/21 11:45 Pulse Ox 100 04/08/21 11:45 Intake & Output 04/07/21 04/08/21 04/08/21 18:59 06:59 18:59 Intake Total 720 240 Output Total 350 1400 875 Balance 370 1400 -635 Weight 76.2 kg 72.8 kg Intake: Oral 720 240 Output: Urine 350 1400 875 Other: Voiding Method Urinal # Voids 1 - Labs CBC & Chem 7: 04/08/21 08:22 04/08/21 08:22 Labs: Abnormal Lab Results - Last 24 Hours (Table) 04/08/21 04/08/21 04/08/21 Range/Units 08:22 08:22 08:22 RBC 4.00 L (4.30-5.90) m/uL Hgb 9.6 L (13.0-17.5) gm/dL Hct 30.6 L (39.0-53.0) % MCV 76.4 L (80.0-100.0) fL MCH 24.0 L (25.0-35.0) pg RDW 17.7 H (11.5-15.5) % Plt Count 148 L (150-450) k/uL Neutrophils # 8.4 H (1.3-7.7) k/uL PT 27.9 H (9.0-12.0) sec INR 2.9 H (<1.2) Sodium 136 L (137-145) mmol/L BUN 48 H (9-20) mg/dL Creatinine 1.56 H (0.66-1.25) mg/dL Glucose 136 H (74-99) mg/dL
[2021-04-08] MEDS ORDERED: WARFARIN 5 MG TAB PO ONE (18:00)
--- NOTE | 2021-04-08 20:29 | PN ---
PROGRESS NOTE DATE OF SERVICE: 04/08/2021 This 76-year-old gentleman who was admitted with CHF exacerbation, is improving significantly. No chest pain. No palpitations. No fever. PHYSICAL EXAMINATION: Alert and oriented times three. Pulse 80. Blood pressure 140/70, respirations 16, temperature normal. Pulse ox 100 percent on room air. HEENT: Conjunctivae normal. NECK: No JVD. CARDIOVASCULAR: S1, S2 muffled. RESPIRATORY SYSTEM: Breath sounds diminished at the bases. A few scattered rhonchi and crackles. ABDOMEN: Soft. NERVOUS SYSTEM: No focal deficits. LABS: Hemoglobin 9.6, sodium 136, creatinine is 1.56. ASSESSMENT: 1. Congestive heart failure acute exacerbation with acute on chronic systolic dysfunction, ejection fraction 40-45 percent on the previous 2D echo. 2. The 2D echo showed ejection fraction less than 20% with possible stenosis of the prosthetic aortic valve with mild mitral annular calcification, severe mitral regurgitation, moderate tricuspid regurgitation and as well as mild aortic regurgitation. 3. History of chronic obstructive pulmonary disease. 4. Indeterminate troponins of 0.083, not suggestive of acute coronary syndrome per Cardiology. 5. Hard of hearing. 6. Hypertension. 7. History of myocardial infarction. 8. History of AICD. 9. History of coronary artery disease, coronary artery bypass grafting, pacemaker. 10.History of nicotine dependence. 11.Increased WBC. 12.Anemia, normocytic. 13.Coumadin monitoring. 14.Increased creatinine with chronic kidney stage 3. 15.Increased AST/ALT. RECOMMENDATIONS AND DISCUSSION: Recommend to continue current medications, monitoring and symptomatic treatment. The most recent 2D echo showed ejection fraction less than 20% and LA was severely dilated for more than 40 mm and the patient also had mild aortic regurgitation and there was a stenosis of prosthetic aortic valve. We will continue to monitor. Cardiology has seen the patient. Monitor the patient closely. Overall prognosis guarded. Further recommendations to follow. The most recent chest x-ray which was reviewed personally by me showed chronic CHF. MMODL / IJN: [id number] /
[2021-04-08] MEDS: ATORVASTATIN 40 MG TAB PO SCH (20:34)
[2021-04-08] MEDS: TEMAZEPAM 15 MG CAP PO PRN (23:29)
[2021-04-09] MEDS: FUROSEMIDE 10 MG/ML 4 ML VIAL IV SCH ×2 (06:23→20:11)
[2021-04-09] MEDS: PANTOPRAZOLE 40 MG TABLET PO SCH (06:23)
[2021-04-09] MEDS: SYMBICORT 160-4.5 MCG INHALER INHALATION SCH ×2 (07:42→19:20)
[2021-04-09] MEDS: IPRATROPIUM-ALBUTEROL 3 ML NEB INHALATION SCH ×3 (07:42→19:20)
[2021-04-09] MEDS: METOPROLOL TARTRATE 25 MG TAB PO SCH ×2 (09:55→20:11)
[2021-04-09] MEDS: ISOSORBIDE MONONITRATE ER 30 MG TAB.ER.24H PO SCH (09:55)
[2021-04-09] MEDS: hydrALAZINE HCL 25 MG TAB PO SCH (09:55)
[2021-04-09 10:27] LABS: Calcium 8.8 mg/dL (8.4-10.2); Potassium 3.7 mmol/L (3.5-5.1)
[2021-04-09 10:42] LABS: INR 2.6 (<1.2)
--- NOTE | 2021-04-09 13:13 | PN ---
PROGRESS NOTE HISTORY: Mr. Zambrano is a 76-year-old male who has a history of coronary artery disease status post aortic valve replacement, biventricular pacing, history of cardiomyopathy, who presented with symptoms of progressive dyspnea. He is feeling better this morning. His breathing is better, although he is still short of breath when he over-exerts himself. He denies any dizziness or palpitations, he denies any nausea. He continues to be on Lipitor 4 mg daily, Lasix 40 mg IV every 12 hours, hydralazine 25 mg 3 times a day, isosorbide mononitrate 30 mg daily, metoprolol tartrate 25 mg twice a day in addition to Coumadin. PHYSICAL EXAMINATION: VITAL SIGNS: Blood pressure running in the 140s with a heart rate in the 70s. LUNGS: Clear. HEART: Regular rate and rhythm S1, S2. No S3 with a systolic murmur no diastolic murmur. ABDOMEN: Soft nontender. EXTREMITIES: 1+ edema. LAB DATA: INR of 2.6, BUN and creatinine 45 and 1.46, potassium 3.7. IMPRESSION: 1. Symptoms of congestive heart failure, improving, in a patient with known history of cardiomyopathy. 2. History of coronary artery disease status post coronary bypass grafting. 3. Status post aortic valve replacement. 4. Status post biventricular pacing AICD. 5. Paroxysmal atrial fibrillation. 6. Chronic kidney disease. 7. Hypertension. 8. Hyperlipidemia. RECOMMENDATIONS: I will continue on the IV diuretics for another 24 hours. I will follow his renal function. I will increase the dose of his hydralazine. We will continue on the anticoagulation as present. Depending on his progress further recommendations will be made. MMODL / IJN: [id number] /
[2021-04-09] MEDS: hydrALAZINE HCL 50 MG TAB PO SCH ×2 (16:53→20:11)
--- NOTE | 2021-04-09 17:30 | PN ---
PROGRESS NOTE DATE OF SERVICE: 04/09/2021. HISTORY: This 76-year-old gentleman was admitted with CHF exacerbation acute exacerbation, also had aortic stenosis. The patient is on diuretics. Patient complains of shortness of breath and as extreme weakness also at this time. Cardiology is following the patient closely at this time. No chest pain. No palpitations. No fever. PHYSICAL EXAMINATION: Alert and oriented x3. Pulse 77, blood pressure 120/46, respiration 16, temperature 97.7, pulse ox 98% on room air. HEART: S1 and S2 muffled. RESPIRATORY SYSTEM: Breath sounds diminished at the bases. Few scattered rhonchi. ABDOMEN: Soft, nontender. EXTREMITIES: No edema. No swelling. LAB STUDIES: WBC 10.2, hemoglobin 10.6. INR is 2.2. Sodium 136. ASSESSMENT: 1. CHF exacerbation acute exacerbation with acute on chronic systolic dysfunction ejection fraction 40-45 percent with the previous 2D echo. The new 2D echo showed ejection fraction about less than 20% with possible stenosis of the prosthetic aortic valve with mild mitral anulus calcification, severe mitral regurgitation and moderate tricuspid regurgitation as well as mild aortic regurgitation. 2. History of chronic obstructive pulmonary disease. 3. Indeterminate troponin 0.083, history of acute myocardial infarction per Cardiology. 4. Hard of hearing. 5. Hypertension. 6. History of myocardial infarction. 7. History AICD biventricular pacing. 8. History of CAD, CABG. 9. History of nicotine dependence. 10.Increased WBC. 11.Anemia, normocytic. 12.Coumadin monitoring. 13.Increased creatinine with chronic kidney stage 3. 14.Increased AST and ALT. RECOMMENDATIONS AND DISCUSSION: I recommend to continue current medications, symptomatic treatment. Otherwise at this time I would recommend repeat labs. Creatinine is 1.46. At this time continue with IV diuretics. Otherwise, closely follow with Cardiology. Prognosis guarded. Further recommendations to follow. MMODL / IJN: [id number] /
[2021-04-09] MEDS ORDERED: WARFARIN 7.5 MG TAB PO ONE (18:00)
[2021-04-09] MEDS: ATORVASTATIN 40 MG TAB PO SCH (20:11)
[2021-04-09] MEDS: TEMAZEPAM 15 MG CAP PO PRN (21:40)
[2021-04-10] MEDS: PANTOPRAZOLE 40 MG TABLET PO SCH (06:31)
[2021-04-10] MEDS: FUROSEMIDE 10 MG/ML 4 ML VIAL IV SCH ×2 (06:31→18:23)
[2021-04-10] MEDS: IPRATROPIUM-ALBUTEROL 3 ML NEB INHALATION SCH ×3 (07:45→20:47)
[2021-04-10] MEDS: SYMBICORT 160-4.5 MCG INHALER INHALATION SCH ×2 (07:45→20:47)
[2021-04-10] MEDS: METOPROLOL TARTRATE 25 MG TAB PO SCH ×2 (08:41→20:45)
[2021-04-10] MEDS: hydrALAZINE HCL 50 MG TAB PO SCH ×3 (08:41→20:45)
[2021-04-10] MEDS: ISOSORBIDE MONONITRATE ER 30 MG TAB.ER.24H PO SCH (08:41)
[2021-04-10 08:52] LABS: Calcium 9.1 mg/dL (8.4-10.2); Potassium 3.7 mmol/L (3.5-5.1)
[2021-04-10 08:53] LABS: INR 2.5 (<1.2); Prothrombin Time 24.6 sec (9.0-12.0)
--- NOTE | 2021-04-10 11:00 | PN ---
PROGRESS NOTE Mr. Zambrano is a 76-year-old male with a history of coronary artery disease status post aortic valve replacement, biventricular pacing, history of cardiomyopathy, history of paroxysmal atrial fibrillation, who presented with worsening congestive heart failure that has been going on for a while until he came in. He is feeling better today. He continues to be dyspneic although not as severe. He denies any chest discomfort. He denies any palpitation. He denies any dizziness or nausea. He still has some peripheral edema, although overall better. He had an echocardiogram that showed ejection fraction less than 20%. He is in sinus mechanism with paced rhythm. He continues to be at this time on atorvastatin 40 mg daily, hydralazine 50 mg 3 times a day, isosorbide mononitrate 30 mg daily, metoprolol tartrate 25 mg twice a day, Coumadin, and Lasix 40 mg IV q.12 hours. PHYSICAL EXAMINATION: VITAL SIGNS: Blood pressure 134/70 with a heart rate in 70s. LUNGS: Clear. HEART: Regular rate and rhythm S1, S2. No S3 with systolic murmur at the base. No diastolic murmur. No rub. ABDOMEN: Soft and nontender. EXTREMITIES: +1 edema, improved compared to admission. LAB DATA: He is -1160 cc in the urine output. His BUN and creatinine 43 and 1.53. INR of 2.5. IMPRESSION: 1. Congestive heart failure with known ischemic cardiomyopathy, improving. 2. Status post coronary artery bypass grafting. 3. Status post biventricular pacing. 4. Aortic valve replacement. 5. Paroxysmal atrial fibrillation. 6. Chronic kidney disease. 7. Hypertension. 8. Hyperlipidemia. RECOMMENDATION: At this time, we will continue present therapy. Since his renal function is stable continue the intravenous diuretic for another 24 hours. If stable, we will stop that tomorrow and probably discharge home tomorrow. I have discussed with him the importance of close followup of his weight and avoiding salt. Patient is not compliant with salt intake at home. Depending on his progress, further recommendation will be made. MMODL / IJN: [id number] /
[2021-04-10] MEDS ORDERED: WARFARIN 5 MG TAB PO ONE (18:00)
[2021-04-10] MEDS: ATORVASTATIN 40 MG TAB PO SCH (20:45)
--- NOTE | 2021-04-10 21:49 | PN ---
PROGRESS NOTE DATE OF SERVICE: 04/10/2021 This 76-year-old gentleman who was admitted with CHF acute exacerbation, also had aortic stenosis. The patient closely monitored at this time. Cardiology following the patient closely. The patient is currently still on IV Lasix. No chest pain. No palpitations. No fever. Patient complains of tiredness. PHYSICAL EXAMINATION: Alert and oriented times three. Pulse 76. Blood pressure 140/60, respirations 16, temperature 97.2, pulse ox 98% on room air. HEENT: Conjunctivae normal. NECK: No JVD. CARDIOVASCULAR: S1, S2 muffled. RESPIRATION: Breath sounds diminished in the bases. A few scattered rhonchi. ABDOMEN: Soft. Nontender. NERVOUS SYSTEM: No focal deficits. LABS: WBC 10.3, hemoglobin 9.6, and INR 2.5 and creatinine is 1.53. ASSESSMENT: 1. Congestive heart failure acute exacerbation with acute on chronic systolic dysfunction, ejection fraction 40-45 percent on the previous 2D echo. The current 2D echo shows ejection fraction less than 20% with possible stenosis of the prosthetic aortic valve with mild annular calcification, severe mitral regurgitation and moderate tricuspid regurgitation as well as mild aortic regurgitation. 2. History of chronic obstructive pulmonary disease. 3. Indeterminate troponin 0.083, history of acute myocardial infarction per Cardiology. 4. Hard of hearing. 5. Hypertension. 6. History of myocardial infarction. 7. History of AICD biventricular pacing. 8. History of coronary artery disease, coronary artery bypass grafting. 9. History of nicotine dependence. 10.Increased WBC. 11.Anemia, normocytic. 12.Coumadin monitoring. 13.Increased creatinine with chronic kidney stage 3. 14.Increased AST, ALT. RECOMMENDATIONS AND DISCUSSION: I recommend to continue current management. Symptomatic treatment. Continue diuretic. Continue rest of medications. The patient and family are concerned about the patient's symptoms. I would also recommend cardiothoracic evaluation to complete the workup. Prognosis guarded. I had a detailed discussion with the and the patient at the bedside. Further recommendations to follow. A copy of this particular dictation also being sent to Dr. Wray. MMPATRICEL / ASHLEYN: [id number] /
[2021-04-10] MEDS: TEMAZEPAM 15 MG CAP PO PRN (23:39)
[2021-04-11] MEDS: PANTOPRAZOLE 40 MG TABLET PO SCH (06:34)
[2021-04-11] MEDS: FUROSEMIDE 10 MG/ML 4 ML VIAL IV SCH (06:34)
[2021-04-11] MEDS: ISOSORBIDE MONONITRATE ER 30 MG TAB.ER.24H PO SCH (08:19)
[2021-04-11] MEDS: METOPROLOL TARTRATE 25 MG TAB PO SCH ×2 (08:19→20:30)
[2021-04-11] MEDS: hydrALAZINE HCL 50 MG TAB PO SCH ×3 (08:19→20:30)
[2021-04-11] MEDS: SYMBICORT 160-4.5 MCG INHALER INHALATION SCH ×2 (08:29→19:16)
[2021-04-11] MEDS: IPRATROPIUM-ALBUTEROL 3 ML NEB INHALATION SCH ×3 (08:29→19:16)
--- NOTE | 2021-04-11 10:16 | P.GSCN ---
History of Present Illness Consult date: 04/11/21 Reason for Consult: Mitral regurgitation Requesting physician: Alek Nance History of present illness: This is a 76-year-old gentleman who follows on an outpatient basis with Dr. Wray for primary care and Dr. Scherer for cardiology. He has a previous medical history of coronary artery disease status post three-vessel CABG in 2013, aortic stenosis status post aortic valve replacement in 2013, atrial fibrillation on Coumadin for anticoagulation, ischemic cardiomyopathy status post biventricular ICD placement in 2010, hypertension, hyperlipidemia, chronic kidney disease, previous heavy tobacco dependence with recent cessation, marijuana use, and family history of coronary artery disease. He presented to [facility] emergency room with complaints of increasing shortness of breath and was admitted for congestive heart failure exacerbation. Workup included a transthoracic echocardiogram which was read as global hypokinesis with EF 20%, left atrial and right ventricular dilatation, mild aortic regur gitation, aortic stenosis of the prosthetic aortic valve with peak/mean gradients 39.94 mmHg/21.52 mmHg, severe mitral regurgitation with mild mitral annular calcification, and moderate tricuspid regurgitation with moderate pulmonary hypertension. His heart failure symptoms have been managed, he has been diuresed, and he states his breathing has significantly improved. He is currently on room air with good oxygen saturation. Due to findings on his transthoracic echocardiogram consultation was placed to cardiothoracic services from primary care for recommendations regarding mitral valve. Review of Systems Review of systems was completed and was negative except as noted - Cardiovascular Reports as per HPI, Reports dyspnea on exertion, Reports shortness of breath Past Medical History Past Medical History: Coronary Artery Disease (CAD), Heart Failure, COPD, Eye Disorder, Hearing Disorder / Deafness, Hyperlipidemia, Hypertension, Myocardial Infarction (NH), Renal Disease Additional Past Medical History / Comment(s): HX HEP C- WAS ON MEDS FOR 90 DAYS,GLASSES DAILY USE, SLIGHT [place] [employer]. EARS, LESION ON TIP TONGUE HAS GROWN OVER THE YEARS Last Myocardial Infarction Date:: 02/2014 History of Any Multi-Drug Resistant Organisms: None Reported Past Surgical History: AICD, Coronary Bypass/CABG, Heart Catheterization, Pacemaker Additional Past Surgical History / Comment(s): TRIPLE BYPASS SURGERY 2013, bioprosthetic aortic valve replacement in 2013, biventricular AICD in 2010-[facility] Past Anesthesia/Blood Transfusion Reactions: No Reported Reaction Type of Cardiac Device: Permanent Pacemaker, AICD Device Placement Date:: 2010 Past Psychological History: No Psychological Hx Reported Smoking Status: Former smoker Past Alcohol Use History: None Reported Additional Past Alcohol Use History / Comment(s): SMOKER SINCE AGE 11(1956) Past Drug Use History: Marijuana Additional Drug Use History / Comment(s): SMOKES MARIJUANA EVERY DAY SINCE AGE 11 - Past Family History Father Family Medical History: Coronary Artery Disease (CAD) Mother Family Medical History: Coronary Artery Disease (CAD) Medications and Allergies Home Medications Medication Instructions Recorded Confirmed Type Enalapril Maleate 5 mg PO BID 10/16/14 04/05/21 History Furosemide 20 mg PO DAILY 10/16/14 04/05/21 History hydrALAZINE HCL 25 mg PO BID 10/16/14 04/05/21 History oxyCODONE HCL/ACETAMINOPHEN 1 tab PO Q4-6H PRN 10/16/14 04/05/21 History [Oxycodone-Acetaminophen 10-325] Aspirin EC [Ecotrin Low Dose] 81 mg PO DAILY 06/15/17 04/05/21 History Atorvastatin [Lipitor] 40 mg PO HS 04/05/21 04/05/21 History Warfarin Sodium [Coumadin] 5 mg PO SUMOTUTHFR@0900 04/05/21 04/05/21 History Warfarin [Coumadin] 7.5 mg PO WESA@0900 04/05/21 04/05/21 History Allergies Allergy/AdvReac Type Severity Reaction Status Date / Time No Known Allergies Allergy Verified 04/05/21 18:30 Surgical - Exam Vital Signs Temp Pulse Resp BP Pulse Ox 97.9 F 113 H 16 165/79 98 04/05/21 15:33 04/05/21 15:33 04/05/21 15:33 04/05/21 15:33 04/05/21 15:33 CONSTITUTIONAL: Awake and alert, appears comfortable, cooperative, well- developed, well-nourished, no pain, no acute distress EYES: Pupils equal, round, reactive to light, normal ocular movement ENT: Moist mucous membranes without oral lesions present NECK: No masses, no bruits, trachea midline RESPIRATORY: Lungs sounds diminished bilaterally. Respirations even, nonlabored. Currently on room air with oxygen saturation 95%. Strong cough. CARDIOVASCULAR: S1, S2 present. Regular rate and rhythm, sinus rhythm on telemetry. Palpable peripheral pulses bilaterally. No edema present. No calf pain or tenderness noted. No significant lower extremity varicosities noted. GASTROINTESTINAL: Abdomen soft, nontender, nondistended without masses or org anomegaly noted. There is no rebound or guarding present. Active bowel sounds present 4 quadrants. GENITOURINARY: Deferred INTEGUMENTARY: Skin is warm and dry with evidence of good perfusion. NEUROLOGIC: Cranial nerves II through XII intact, normal coordination, no obvious motor or sensory deficits, speech is normal MUSKULOSKELETAL: Able to move all extremities, strength equal bilaterally, normal posture PSYCHIATRIC: Alert and oriented to person place and time, appropriate affect, intact judgment and insight Results - Labs 04/08/21 08:22 04/10/21 08:04 - Imaging Chest x-ray: report reviewed, image reviewed EKG: image reviewed Additional studies: Transthoracic echocardiogram films reviewed with Dr. Sams Assessment and Plan Assessment: 1. Mitral regurgitation with mitral annular calcification 2. History of coronary artery disease status post three-vessel CABG in 2013 3. History of aortic stenosis status post aortic valve replacement in 2013 4. Paroxysmal atrial fibrillation on Coumadin for anticoagulation 5. Ischemic cardiomyopathy status post biventricular ICD placement in 2010 6. Hypertension 7. Hyperlipidemia 8. Chronic kidney disease 9. Previous heavy tobacco dependence with recent cessation 10. Marijuana use 11. Family history of coronary artery disease Plan: The patient was seen and examined at the bedside. Chart/diagnostics reviewed. Transthoracic echocardiogram films were reviewed in detail with Dr. Sams. He feels of mitral regurgitation is mild to moderate. In addition he feels there is mild to moderate aortic insufficiency. Recommendation is for medical management including heart failure management with diuresis. He should have a follow-up transesophageal echocardiogram in the future as an outpatient. Cardiology may refer him back to us after ABDON completed. Medical management of other comorbidities per primary care service and cardiology. Patient may be discharged to home from cardiothoracic surgery standpoint when okay with other services. Thank you Dr. Nance for this consult. Please call us with any further questions Time with Patient: Greater than 30
[2021-04-11 11:28] LABS: Anisocytosis Slight; Basophils # (A) 0.1 k/uL (0-0.2); Basophils % (A) 0 %; Eosinophils # (A) 0.1 k/uL (0-0.7); Eosinophils % (A) 1 %; HCT 28.9 % (39.0-53.0); Hypochromasia Marked; Lymphocytes # (A) 1.1 k/uL (1.0-4.8); Lymphocytes % (A) 10 %; MCH 23.6 pg (25.0-35.0); MCV 76.2 fL (80.0-100.0); Mean Platelet Volume 8.9; Microcytosis Slight; Monocytes # (A) 0.7 k/uL (0-1.0); Monocytes % (A) 7 %; Neutrophils # (A) 8.9 k/uL (1.3-7.7); Neutrophils % (A) 81 %; Platelet Count 109 k/uL (150-450); Poikilocytosis Slight; RDW 17.2 % (11.5-15.5)
[2021-04-11 11:42] LABS: INR 2.6 (<1.2); Prothrombin Time 25.6 sec (9.0-12.0)
[2021-04-11 11:58] LABS: Calcium 8.7 mg/dL (8.4-10.2); Potassium 3.4 mmol/L (3.5-5.1)
[2021-04-11] MEDS ORDERED: POTASSIUM CHLORIDE ER 20 MEQ TAB.ER PO STA (11:58)
--- NOTE | 2021-04-11 12:02 | P.PN ---
<Liz Vaqsuez - Last Filed: 04/11/21 11:57> Subjective Progress Note Date: 04/11/21 HISTORY OF PRESENT ILLNESS: HISTORY OF PRESENTING ILLNESS This is a pleasant 76-year-old male past medical history significant for with coronary artery disease status post 3 vessel CABG 2013, aortic stenosis status post aortic valve replacement 2013, ischemic cardiomyopathy status post Bi ventricular AICD (2010), paroxysmal atrial fibrillation, hypertension, dyslipidemia, chronic nicotine dependence (states he has been a heavy smoker but quit 30 days ago). He follows in the office with Dr. Scherer, however, has not followed up due to the covid-19 pandemic. We have been asked to see in consultation for congestive heart failure. Patient states he has been having worsening shortness of breath over the past month. Prior to this he can usually do his daily activities without difficulty. Now, he can barely walk 6 feet without having to rest. He did not come into the hospital or follow up in the office due to the covid-19 pandemic and did not want to expose himself. His diet includes mainly fast food and consumes mostly foods high in salt. He does endorse some chest pain of his chest. Chest pain is nonexertional and nonradiating. Taking a deep breath worsens the chest pain. He denies palpitations. He does endorse symptoms of orthopnea. He has increased lower extremity edema that is new. He is a non-diabetic. Cardiac catheterization in 12/2013 revealed three-vessel coronary artery disease with 80% second MARGINAL branch and total occlusion of the mid RCA. Severe aortic stenosis. Patient was referred to CTS for valve replacement and bypass surgery. 02/2014 Patient underwent aortic valve replacement and coronary artery bypass graft x 3 DAIGLE to LAD, saphenous vein graft to the OM, saphenous vein graft to the PDA. DIAGNOSTICS EKG reveals bi-ventricular paced rhythm HR 113, Most recent echocardiogram 10/08/2019EF is 35-40%. Hypokinesis of inferior wallapex. Mild mitral regurgitation, mild aortic regurgitation (peak gradient 42mmgHg, mean gradient 18mmHg), mild to moderate tricuspid regurgitation Chest xray - Cardiomegaly, Post median sternotomy, cardiac valve replacement, generator left pectoral region, leads in RA ad LV, Blunting of constophrenic angles. Laboratory reviewed, WBC 9.1, hemoglobin 8.7, platelets 131, INR 3.0, sodium 138, potassium 4.1, serum creatinine 1.43, P1 40, BNP 34,000, troponin 0.071, 0.078, 0.083 Current home cardiac medications include hydralazine 25 mg twice a day, warfarin 7.5 mg Sunday and Sunday and warfarin 5 mg other days of the week, furosemide 20 mg daily, enalapril 5 mg twice daily, atorvastatin 40 mg nightly, aspirin 81 mg daily 04/07/2021 Patient examined this morning at the bedside. Patient states his shortness of breath has improved significantly compared to yesterday. He denies SOB at rest, however he states he has not been up walking around in his room. He remains on IV lasix. BUN 44. Creatinine 1.62. INR 3.6. Echocardiogram completed revealed ejection fraction less than 20%, severe mitral regurgitation, moderate tricuspid regurgitation, moderate pulmonary hypertension, trivial pericardial effusion, a nd large pleural effusion. 04/08/2021 Patient examined at the bedside. Patient reports he is anxious this morning about being in the hospital. He does not want any anti-anxiety medication though. He reports mild shortness of breath that he thinks is related to his anxiety. He denies chest pain or pressure. He remains on IV lasix. Kidney function stable. BUN 48. Creatinine 1.56. INR 2.9. Fluid balance over the last 24 hours is -1030cc. 04/09/2021 Patient examined this morning at the bedside. Patient denies chest pain or pressure. Denies shortness of breath at rest. However he reports shortness of breath with minimal exertion. He states his shortness of breath even if he is rolling over in the bed. He remains on IV Lasix. BUN 40. Creatinine 1.33. INR 2.6. PHYSICAL EXAM: VITAL SIGNS: Reviewed. GENERAL: Well-developed in no acute distress. NECK: Supple. No JVD or thyromegaly LUNGS: Respirations even and unlabored. Lungs diminished with bibasilar rales, improving. HEART: Regular rate and rhythm. S1 and S2 heard. Systolic murmur noted. EXTREMITIES: Normal range of motion. No clubbing or cyanosis. Peripheral pulses intact. 1+ bilateral pedal edema ASSESSMENT: Acute on chronic systolic heart failure with reduced ejection fraction Elevated troponin, not suggestive of ACS Acute on chronic kidney disease Ischemic cardiomyopathy status post Bi ventricular AICD in 2010 Coronary artery disease status post 3 vessel CABG 2013 Aortic stenosis status post mechanical aortic valve replacement 2013 Paroxysmal atrial fibrillation- on coumadin Hypertension Dyslipidemia Chronic nicotine dependence (states he has been a heavy smoker but quit 30 days ago) PLAN: Continue IV Lasix for an additional 24 hours Daily weights Accurate I&O Monitor kidney function Continue additional cardiac medications Continue Coumadin. Monitor INR Further recommendations pending patient's course Nurse practitioner note has been reviewed by physician. Signing provider agrees with the documented findings, assessment, and plan of care. Objective - Vital Signs Vital signs: Vital Signs Temp 97.8 F 04/11/21 11:53 Pulse 70 04/11/21 11:53 Resp 16 04/11/21 11:53 BP 121/58 04/11/21 11:53 Pulse Ox 96 04/11/21 11:53 Intake & Output 04/10/21 04/11/21 04/11/21 18:59 06:59 18:59 Intake Total 720 240 480 Output Total 1575 625 725 Balance -855 -385 -445 Weight 72.8 kg Intake: Oral 720 240 480 Output: Urine 1575 625 725 Other: Voiding Method Toilet Toilet Urinal Urinal # Voids 1 # Bowel Movements 1 - Labs CBC & Chem 7: 04/11/21 10:12 04/10/21 08:04 Labs: Abnormal Lab Results - Last 24 Hours (Table) 04/11/21 04/11/21 Range/Units 10:12 10:16 WBC 11.0 H (3.8-10.6) k/uL RBC 3.80 L (4.30-5.90) m/uL Hgb 9.0 L (13.0-17.5) gm/dL Hct 28.9 L (39.0-53.0) % MCV 76.2 L (80.0-100.0) fL MCH 23.6 L (25.0-35.0) pg RDW 17.2 H (11.5-15.5) % Plt Count 109 L (150-450) k/uL Neutrophils # 8.9 H (1.3-7.7) k/uL PT 25.6 H (9.0-12.0) sec INR 2.6 H (<1.2) <Gardiner,Sal - Last Filed: 04/11/21 18:06> Objective - Vital Signs Vital signs: Vital Signs Temp 98.4 F 04/11/21 16:54 Pulse 75 04/11/21 16:54 Resp 18 04/11/21 16:54 BP 135/62 04/11/21 16:54 Pulse Ox 97 04/11/21 16:54 Intake & Output 04/10/21 04/11/21 04/11/21 18:59 06:59 18:59 Intake Total 720 240 720 Output Total 0298 518 5950 Balance -759 -850 -188 Weight 72.8 kg Intake: Oral 720 240 720 Output: Urine 0735 792 5095 Other: Voiding Method Toilet Toilet Urinal Urinal # Voids 1 # Bowel Movements 1 - Labs CBC & Chem 7: 04/11/21 10:12 04/11/21 10:12 Labs: Abnormal Lab Results - Last 24 Hours (Table) 04/11/21 04/11/21 04/11/21 Range/Units 10:12 10:12 10:16 WBC 11.0 H (3.8-10.6) k/uL RBC 3.80 L (4.30-5.90) m/uL Hgb 9.0 L (13.0-17.5) gm/dL Hct 28.9 L (39.0-53.0) % MCV 76.2 L (80.0-100.0) fL MCH 23.6 L (25.0-35.0) pg RDW 17.2 H (11.5-15.5) % Plt Count 109 L (150-450) k/uL Neutrophils # 8.9 H (1.3-7.7) k/uL PT 25.6 H (9.0-12.0) sec INR 2.6 H (<1.2) Sodium 135 L (137-145) mmol/L Potassium 3.4 L (3.5-5.1) mmol/L BUN 40 H (9-20) mg/dL Creatinine 1.33 H (0.66-1.25) mg/dL Glucose 125 H (74-99) mg/dL
[2021-04-11 16:56] VITALS: TEMP 98.4
[2021-04-11] MEDS: FUROSEMIDE 40 MG TAB PO SCH (16:57)
[2021-04-11] MEDS ORDERED: WARFARIN 5 MG TAB PO SCH (18:00)
--- NOTE | 2021-04-11 20:07 | PN ---
PROGRESS NOTE DATE OF SERVICE: 04/11/2021. This 76-year-old gentleman who was admitted with CHF acute exacerbation, acute on chronic systolic dysfunction ejection fraction 40-45 percent. Previously had ejection fraction about 20 percent at this time. The patient is being closely monitored. The patient is being dialyzed at this time. Pureed diet has been changed to p.o. Cardiothoracic surgery has seen the patient. Medical management and followup ABDON as an outpatient was recommended. No chest pain. No palpitations. No fever. PHYSICAL EXAMINATION: Alert and oriented times three. Pulse 75, blood pressure 135/62, respiration 18, temperature 98.4, pulse ox 97 percent on room air. HEENT: Conjunctivae normal. NECK: No JVD. CARDIOVASCULAR: S1, S2 muffled. RESPIRATORY SYSTEM: Breath sounds diminished at the bases. A few scattered rhonchi. ABDOMEN: Soft. NERVOUS SYSTEM: No focal deficits. LABS: Hemoglobin 9, sodium 131, potassium 3.2, creatinine is 1.33. ASSESSMENT: 1. Congestive heart failure acute exacerbation with acute on chronic systolic dysfunction, ejection fraction 20% with possible stenosis of the prosthetic aortic valve with mild annular calcification and mild to moderate mitral regurgitation and moderate aortic regurgitation as well as mild aortic regurgitation. 2. History of chronic obstructive pulmonary disease. 3. Indeterminate troponin 0.083, unlikely to be due to acute myocardial infarction per Cardiology. 4. Hard of hearing. 5. Hypertension. 6. History of myocardial infarction. 7. History AICD and biventricular pacing. 8. History of coronary artery disease, coronary artery bypass grafting. 9. History of nicotine dependence. 10.Increased WBC. 11.Anemia, normocytic. 12.Coumadin monitoring. 13.Increased creatinine with chronic kidney stage 3. 14.Increased AST/ALT. RECOMMENDATIONS AND DISCUSSION: I recommend to continue current medications, monitoring and symptomatic treatment. Otherwise, at this time, I recommend continue with diuretics. Increase ambulation. Closely follow. Medical management and once the patient is stable, the patient can be discharged. Further recommendations to follow. MMODL / IJN: [id number] /
[2021-04-11] MEDS: ATORVASTATIN 40 MG TAB PO SCH (20:29)
[2021-04-11] MEDS: TEMAZEPAM 15 MG CAP PO PRN (20:30)
[2021-04-12 03:43] VITALS: RESP 18
[2021-04-12] MEDS: PANTOPRAZOLE 40 MG TABLET PO SCH (06:12)
[2021-04-12] MEDS: SYMBICORT 160-4.5 MCG INHALER INHALATION SCH ×2 (07:22→07:27)
[2021-04-12] MEDS: IPRATROPIUM-ALBUTEROL 3 ML NEB INHALATION SCH ×2 (07:22→11:10)
[2021-04-12 08:25] LABS: Anisocytosis Slight; Basophils # (A) 0.1 k/uL (0-0.2); Basophils % (A) 1 %; Eosinophils # (A) 0.1 k/uL (0-0.7); Eosinophils % (A) 1 %; HCT 31.5 % (39.0-53.0); HGB 9.6 gm/dL (13.0-17.5); Hypochromasia Marked; Lymphocytes # (A) 1.3 k/uL (1.0-4.8); Lymphocytes % (A) 12 %; MCH 23.3 pg (25.0-35.0); MCHC 30.5 g/dL (31.0-37.0); MCV 76.5 fL (80.0-100.0); Mean Platelet Volume 6.8; Microcytosis Slight; Monocytes # (A) 0.7 k/uL (0-1.0); Monocytes % (A) 7 %; Neutrophils # (A) 8.1 k/uL (1.3-7.7); Neutrophils % (A) 79 %; Platelet Count 104 k/uL (150-450); Poikilocytosis Slight; RBC 4.12 m/uL (4.30-5.90); RDW 17.2 % (11.5-15.5); WBC 10.3 k/uL (3.8-10.6)
[2021-04-12 08:44] LABS: Calcium 8.7 mg/dL (8.4-10.2); Potassium 4.2 mmol/L (3.5-5.1)
[2021-04-12] MEDS: ISOSORBIDE MONONITRATE ER 30 MG TAB.ER.24H PO SCH (08:47)
[2021-04-12] MEDS: hydrALAZINE HCL 50 MG TAB PO SCH (08:47)
[2021-04-12] MEDS: METOPROLOL TARTRATE 25 MG TAB PO SCH (08:47)
[2021-04-12] MEDS: FUROSEMIDE 40 MG TAB PO SCH (08:47)
[2021-04-12 09:14] VITALS: BP 129/61
[2021-04-12 10:27] LABS: INR 2.7 (<1.2)
--- NOTE | 2021-04-12 11:04 | P.PN ---
Subjective Progress Note Date: 04/12/21 HISTORY OF PRESENT ILLNESS: HISTORY OF PRESENTING ILLNESS This is a pleasant 76-year-old male past medical history significant for with coronary artery disease status post 3 vessel CABG 2013, aortic stenosis status post aortic valve replacement 2013, ischemic cardiomyopathy status post Bi ventricular AICD (2010), paroxysmal atrial fibrillation, hypertension, dyslipidemia, chronic nicotine dependence (states he has been a heavy smoker but quit 30 days ago). He follows in the office with Dr. Scherer, however, has not followed up due to the covid-19 pandemic. We have been asked to see in consultation for congestive heart failure. Patient states he has been having worsening shortness of breath over the past month. Prior to this he can usually do his daily activities without difficulty. Now, he can barely walk 6 feet without having to rest. He did not come into the hospital or follow up in the office due to the covid-19 pandemic and did not want to expose himself. His diet includes mainly fast food and consumes mostly foods high in salt. He does endorse some chest pain of his chest. Chest pain is nonexertional and nonradiating. Taking a deep breath worsens the chest pain. He denies palpitations. He does endorse symptoms of orthopnea. He has increased lower extremity edema that is new. He is a non-diabetic. Cardiac catheterization in 12/2013 revealed three-vessel coronary artery disease with 80% second MARGINAL branch and total occlusion of the mid RCA. Severe aortic stenosis. Patient was referred to CTS for valve replacement and bypass surgery. 02/2014 Patient underwent aortic valve replacement and coronary artery bypass graft x 3 DAIGLE to LAD, saphenous vein graft to the OM, saphenous vein graft to the PDA. DIAGNOSTICS EKG reveals bi-ventricular paced rhythm HR 113, Most recent echocardiogram 10/08/2019EF is 35-40%. Hypokinesis of inferior wallapex. Mild mitral regurgitation, mild aortic regurgitation (peak gradient 42mmgHg, mean gradient 18mmHg), mild to moderate tricuspid regurgitation Chest xray - Cardiomegaly, Post median sternotomy, cardiac valve replacement, generator left pectoral region, leads in RA ad LV, Blunting of constophrenic angles. Laboratory reviewed, WBC 9.1, hemoglobin 8.7, platelets 131, INR 3.0, sodium 138, potassium 4.1, serum creatinine 1.43, P1 40, BNP 34,000, troponin 0.071, 0.078, 0.083 Current home cardiac medications include hydralazine 25 mg twice a day, warfarin 7.5 mg Sunday and Sunday and warfarin 5 mg other days of the week, furosemide 20 mg daily, enalapril 5 mg twice daily, atorvastatin 40 mg nightly, aspirin 81 mg daily 04/07/2021 Patient examined this morning at the bedside. Patient states his shortness of breath has improved significantly compared to yesterday. He denies SOB at rest, however he states he has not been up walking around in his room. He remains on IV lasix. BUN 44. Creatinine 1.62. INR 3.6. Echocardiogram completed revealed ejection fraction less than 20%, severe mitral regurgitation, moderate tricuspid regurgitation, moderate pulmonary hypertension, trivial pericardial effusion, and large pleural effusion. 04/08/2021 Patient examined at the bedside. Patient reports he is anxious this morning about being in the hospital. He does not want any anti-anxiety medication though. He reports mild shortness of breath that he thinks is related to his anxiety. He denies chest pain or pressure. He remains on IV lasix. Kidney function stable. BUN 48. Creatinine 1.56. INR 2.9. Fluid balance over the last 24 hours is -1030cc. 04/11/2021 Patient examined this morning at the bedside. Patient denies chest pain or pressure. Denies shortness of breath at rest. However he reports shortness of breath with minimal exertion. He states his shortness of breath even if he is rolling over in the bed. He remains on IV Lasix. BUN 40. Creatinine 1.33. INR 2.6. 04/12/2021 Patient examined this morning at the bedside. Patient denies chest pain or pressure. He states his shortness of breath continues to improve. He has been transitioned over to oral Lasix yesterday. Blood pressure 129/61. Heart rate in the 70s. He is on room air with oxygen saturations greater than 92%. INR 2.7. BUN 40. Creatinine 1.49. PHYSICAL EXAM: VITAL SIGNS: Reviewed. GENERAL: Well-developed in no acute distress. NECK: Supple. No JVD or thyromegaly LUNGS: Respirations even and unlabored. Lungs diminished. HEART: Regular rate and rhythm. S1 and S2 heard. Systolic murmur noted. EXTREMITIES: Normal range of motion. No clubbing or cyanosis. Peripheral pulses intact. 1+ bilateral pedal edema ASSESSMENT: Acute on chronic systolic heart failure with reduced ejection fraction Elevated troponin, not suggestive of ACS Acute on chronic kidney disease Ischemic cardiomyopathy status post Bi ventricular AICD in 2010 Coronary artery disease status post 3 vessel CABG 2013 Aortic stenosis status post mechanical aortic valve replacement 2013 Paroxysmal atrial fibrillation- on coumadin Hypertension Dyslipidemia Chronic nicotine dependence (states he has been a heavy smoker but quit 30 days ago) PLAN: Continue current cardiac medications Patient is stable for discharge from a cardiac standpoint He is to follow up outpatient with Dr. Scherer Nurse practitioner note has been reviewed by physician. Signing provider agrees with the documented findings, assessment, and plan of care. Objective - Vital Signs Vital signs: Vital Signs Temp 98.4 F 04/11/21 20:00 Pulse 77 04/12/21 08:58 Resp 18 04/12/21 08:58 BP 129/61 04/12/21 08:58 Pulse Ox 97 04/12/21 08:58 Intake & Output 04/11/21 04/12/21 04/12/21 18:59 06:59 18:59 Intake Total 960 Output Total 1525 450 Balance -565 -450 Weight 68.2 kg Intake: Oral 960 Output: Urine 1525 450 Other: Voiding Method Toilet Urinal - Labs CBC & Chem 7: 04/12/21 07:43 04/12/21 07:43 Labs: Abnormal Lab Results - Last 24 Hours (Table) 04/11/21 04/11/21 04/11/21 Range/Units 10:12 10:12 10:16 WBC 11.0 H (3.8-10.6) k/uL RBC 3.80 L (4.30-5.90) m/uL Hgb 9.0 L (13.0-17.5) gm/dL Hct 28.9 L (39.0-53.0) % MCV 76.2 L (80.0-100.0) fL MCH 23.6 L (25.0-35.0) pg MCHC (31.0-37.0) g/dL RDW 17.2 H (11.5-15.5) % Plt Count 109 L (150-450) k/uL Neutrophils # 8.9 H (1.3-7.7) k/uL PT 25.6 H (9.0-12.0) sec INR 2.6 H (<1.2) Sodium 135 L (137-145) mmol/L Potassium 3.4 L (3.5-5.1) mmol/L Carbon Dioxide (22-30) mmol/L BUN 40 H (9-20) mg/dL Creatinine 1.33 H (0.66-1.25) mg/dL Glucose 125 H (74-99) mg/dL 04/12/21 04/12/21 04/12/21 Range/Units 07:43 07:43 10:08 WBC (3.8-10.6) k/uL RBC 4.12 L (4.30-5.90) m/uL Hgb 9.6 L (13.0-17.5) gm/dL Hct 31.5 L (39.0-53.0) % MCV 76.5 L (80.0-100.0) fL MCH 23.3 L (25.0-35.0) pg MCHC 30.5 L (31.0-37.0) g/dL RDW 17.2 H (11.5-15.5) % Plt Count 104 L (150-450) k/uL Neutrophils # 8.1 H (1.3-7.7) k/uL PT 26.0 H (9.0-12.0) sec INR 2.7 H (<1.2) Sodium (137-145) mmol/L Potassium (3.5-5.1) mmol/L Carbon Dioxide 33 H (22-30) mmol/L BUN 40 H (9-20) mg/dL Creatinine 1.49 H (0.66-1.25) mg/dL Glucose 124 H (74-99) mg/dL
[2021-04-12 11:13] VITALS: PULSE 75
--- NOTE | 2021-04-13 06:55 | DS ---
DISCHARGE SUMMARY FINAL DIAGNOSIS: 1. Congestive heart failure acute exacerbation with acute on chronic systolic dysfunction ejection fraction 20% with possible stenosis of the prosthetic aortic valve and as well as calcification and mild to moderate mitral regurgitation and moderate aortic regurgitation, as well as mild aortic regurgitation. 2. History of chronic obstructive pulmonary disease. 3. Indeterminate troponin 0.083 unlikely myocardial infarction per Cardiology. 4. Hard of hearing. 5. Hypertension. 6. History of myocardial infarction. 7. History of AICD and biventricular pacing. 8. History of coronary artery disease, coronary artery bypass grafting. 9. History of nicotine dependence. 10.Increased WBC. 11.Anemia, normocytic. 12.Coumadin monitoring. 13.Increased creatinine with chronic kidney disease stage 3. 14.Increased AST, ALT. 15.Chronic obstructive pulmonary disease. DISCHARGE DISPOSITION: The patient discharged in stable condition with guarded prognosis. Total time taken 35 minutes. HISTORY OF PRESENT ILLNESS: This 76-year-old gentleman with a past medical history of multiple medical problems including CHF acute exacerbation. A 2D echo showed evidence of mitral regurgitation as well as systolic function was 20% which was previously 40-50%. The patient also had possible stenosis of the prosthetic mitral valve. Patient being treated symptomatically with Cardiology. Patient improved significantly. The patient was also evaluated by Dr. Sams from cardiothoracic surgery, recommended outpatient followup and possible ABDON. The patient is followed by Dr. Wray in the outpatient setting. PHYSICAL EXAMINATION: On exam, vitals are stable. Cardiovascular S1 and S2. Abdomen is soft. Nervous system no focal deficits. RECOMMENDATION AND DISCUSSION: Recommend the patient to follow up closely with Cardiology and as well as Dr. Ayaan Wray in the outpatient setting. Follow up with Dr. Ayaan Wray in 2-3 days. Follow up with Dr. Sams as recommended. Follow up with Dr. Scherer as recommended. MEDICATIONS: 1. Coumadin 5 mg Sunday, Sunday and a 7.5 mg Sunday as before. 2. Ecotrin 81 mg daily. 3. Lipitor 40 mg q.h.s. 4. Oxycodone 1 tab q.6h p.r.n. 5. Hydralazine 50 mg t.i.d. 6. Albuterol p.r.n. 7. DuoNeb q.i.d. and p.r.n. 8. Imdur ER 30 mg p.o. daily. 9. Lasix 40 mg p.o. b.i.d. 10.Lopressor 25 mg p.o. b.i.d. 11.Symbicort 4.5 two puffs b.i.d. CBC, BMP with Dr. Wray and follow up closely with Dr. Wray and Cardiology. Further recommendations to follow. MMODL / IJN: [id number] /
[2021-04-13] MEDS ORDERED: WARFARIN 7.5 MG TAB PO SCH (18:00)
--- NOTE | 2021-04-28 12:15 | ECHOT ---
TRANSESOPHAGEAL ECHOCARDIOGRAM INDICATION: To evaluate the prosthetic aortic valve. This is a 76-year-old gentleman with history of coronary artery disease status post CABG and aortic valve replacement in 2013 with DAIGLE to LAD, saphenous vein graft to OM and PDA, history of cardiomyopathy with severe LV dysfunction, status post AICD who was lost to followup for nearly 2 years, was recently admitted to hospital with acute exacerbation of congestive heart failure and an echocardiogram done at that time revealed severe mitral regurgitation and evidence of prosthetic valve stenosis and regurgitation. Due to this, he was advised to undergo a transesophageal echo which I was going to perform as an outpatient. However, he is readmitted to hospital with heart failure exacerbation. The patient has a grade 2 decubitus ulcer in the sacral area that is currently being cared for. He has atrial fibrillation, is on Coumadin and INR is therapeutic. PROCEDURE NOTE: After obtaining informed consent, transesophageal echocardiogram is performed in left lateral position using an Omni plane probe. Local and IV sedation was given and a total sedation time was 10 minutes. We performed 2D color Doppler and spectral analysis. FINDINGS: 1. Mitral valve: There is dilatation of the mitral anulus with moderate to severe central mitral regurgitation. 2. Aortic valve is a bioprosthetic valve. 3. Aortic valve leaflets appear thickened, probably from pannus without significant restriction in leaflet mobility. There is severe aortic regurgitation which is both intra valvular and perivalvular. Tricuspid valve shows moderate tricuspid regurgitation. AICD leads are noted in the right side of the heart. 4. Left ventricle appears dilated with severe LV systolic dysfunction with an ejection fraction of 20%. Inferior wall appears akinetic. 5. Left atrium appears severely enlarged. Right atrium and right ventricle appear mildly enlarged. Aorta shows [id number] atherosclerotic changes. CONCLUSIONS: 1. Evidence of malfunction of the prosthetic aortic valve with severe aortic regurgitation both intra valvular and perivalvular. 2. Severe LV systolic dysfunction with an ejection fraction of around 20%. 3. Moderate to severe mitral regurgitation. PLAN: Patient needs replacement of the aortic valve with possible mitral clip, but we have to wait until his sacral decubital ulcer heals because of the risk of infection. He will need a cardiac catheterization prior. I will refer the patient to the structural Heart Disease team at [facility] for further care once patient is ready for it. MMODL / IJN: [id number] /
== END 2021-04-12 14:06 | disposition home or self-care (01) | DRG 291 ==
LOC: EC 15:30 → 3SCARD 18:09 → OBSVTOIN 04-06 23:46
PROVIDERS: ADMIT Hospitalist; ATTEND Hospitalist
DX: I13.0 Hypertensive heart and chronic kidney disease with heart failure and stage 1 through stage 4 chronic kidney disease, or unspecified chronic kidney disease (principal); I50.23 Acute on chronic systolic (congestive) heart failure; I08.3 Combined rheumatic disorders of mitral, aortic and tricuspid valves; I25.10 Atherosclerotic heart disease of native coronary artery without angina pectoris; I25.2 Old myocardial infarction; I25.5 Ischemic cardiomyopathy; I27.20 Pulmonary hypertension, unspecified; I48.0 Paroxysmal atrial fibrillation; H91.90 Unspecified hearing loss, unspecified ear; D50.9 Iron deficiency anemia, unspecified; D53.9 Nutritional anemia, unspecified; E78.5 Hyperlipidemia, unspecified; F17.210 Nicotine dependence, cigarettes, uncomplicated; F41.9 Anxiety disorder, unspecified; R77.8 Other specified abnormalities of plasma proteins; J44.9 Chronic obstructive pulmonary disease, unspecified; N18.30 Chronic kidney disease, stage 3 unspecified; Z20.822 Contact with and (suspected) exposure to COVID-19; Z79.01 Long term (current) use of anticoagulants; Z79.82 Long term (current) use of aspirin; Z79.899 Other long term (current) drug therapy; Z82.49 Family history of ischemic heart disease and other diseases of the circulatory system; Z95.1 Presence of aortocoronary bypass graft; Z95.3 Presence of xenogenic heart valve; Z95.810 Presence of automatic (implantable) cardiac defibrillator
CPT/HCPCS: 36415; 71045; 71046; 80048; 80053; 83735; 83880; 84484; 85025; 85610; 85730; 87635; 93005; 93306; 94640; 94760; 99285

== ENCOUNTER 2021-04-25 07:52 | Observation (INO) | payer MEDICARE ==
--- NOTE | 2021-04-25 08:15 | ED ---
General Adult HPI - General Chief complaint: Shortness of Breath Stated complaint: MALIKA Time Seen by Provider: 04/25/21 08:00 Source: patient Mode of arrival: wheelchair Limitations: physical limitation - History of Present Illness Initial comments: Dictation was produced using [employer] dictation software. please excuse any grammatical, word or spelling errors. Chief Complaint: 76-year-old male past medical history coronary artery disease, heart failure and COPD presents to the emergency department for dyspnea History of Present Illness: 76-year-old male who presents to the emergency department for dyspnea. Patient has multiple comorbidities. He states he has heart failure and COPD coronary artery disease. Patient states that his symptoms have been getting worse for the last 3 or 4 days. States that he has valve disease. He thinks his shortness of breath can be corrected with valve replacement. Patient denies any fever or constitutional symptoms. No cough or sputum production. States that he was recently admitted for fluid on the lungs. He states that he is unable to lay flat because of dyspnea. The ROS documented in this emergency department record has been reviewed and confirmed by me. Those systems with pertinent positive or negative responses have been documented in the HPI. All other systems are other negative and/or noncontributory. PHYSICAL EXAM: General Impression: Alert and oriented x3, not in acute distress HEENT: Normocephalic atraumatic, extra-ocular movements intact, pupils equal and reactive to light bilaterally, mucous membranes moist. Cardiovascular: Heart regular rate and rhythm Chest: Able to complete full sentences, no retractions, no tachypnea, very mild expiratory wheezing Abdomen: abdomen soft, non-tender, non-distended, no organomegaly Musculoskeletal: Pulses present and equal in all extremities, 3+ pitting edema bilateral lower extremities Motor: no focal deficits noted Neurological: CN II-XII grossly intact, no focal motor or sensory deficits noted Skin: Intact with no visualized rashes Psych: Normal affect and mood ED course: 76-year-old male presents to the emergency department for dyspnea. Vital signs upon arrival are within acceptable limits. Patient had echocardiogram from 04/06/2021. Patient has ejection fraction of less than 20%. Laboratory evaluation obtained. CBC, coag panel, both passively acceptable limits. Troponin is 0.056 which is around his baseline. Brain natruretic peptide is slightly elevated at from his baseline. Chest x-ray shows no acute processes. Patient states that his dyspnea is pretty severe especially when he exerts himself. Patient be admitted with consultation to cardiology. He is given 40 mg of IV Lasix. [facility]. EKG interpretation: Ventricular rate 79, paced rhythm,. Interval 154, QRS 156, QTC 525. No NV prolongation, no ST or T-wave changes noted. EKG compared to 04/05/2021 showing no changes. Overall, this EKG is unremarkable - Related Data Home Medications Medication Instructions Recorded Confirmed oxyCODONE HCL/ACETAMINOPHEN 1 tab PO Q4-6H PRN 10/16/14 04/25/21 [Oxycodone-Acetaminophen 10-325] Aspirin EC [Ecotrin Low Dose] 81 mg PO DAILY 06/15/17 04/25/21 Atorvastatin [Lipitor] 40 mg PO HS 04/05/21 04/25/21 Warfarin Sodium [Coumadin] 5 mg PO SUMOTUTHFR@0900 04/05/21 04/25/21 Warfarin [Coumadin] 7.5 mg PO WESA@0900 04/05/21 04/25/21 Budesonide/Formoterol Fumarate 2 puff INHALATION RT-BID 04/25/21 04/25/21 [Symbicort 160-4.5 Mcg Inhaler] Previous Rx's Medication Instructions Recorded Furosemide [Lasix] 40 mg PO BID@0900,1600 30 Days #60 04/12/21 tab Ipratropium-Albuterol Nebulize 3 ml INHALATION RT-TID 30 Days 04/12/21 [Duoneb 0.5 mg-3 mg/3 ml Soln] #120 ml Ipratropium-Albuterol Nebulize 3 ml INHALATION RT-TID PRN ml 04/12/21 [Duoneb 0.5 mg-3 mg/3 ml Soln] Isosorbide Mononitrate ER [Imdur] 30 mg PO DAILY 30 Days #30 04/12/21 tab.er.24h Metoprolol Tartrate [Lopressor] 25 mg PO BID 30 Days #60 tab 04/12/21 hydrALAZINE HCL [Apresoline] 50 mg PO TID 30 Days #90 tab 04/12/21 Allergies Allergy/AdvReac Type Severity Reaction Status Date / Time No Known Allergies Allergy Verified 04/25/21 09:21 Review of Systems ROS Statement: Those systems with pertinent positive or pertinent negative responses have been documented in the HPI. ROS Other: All systems not noted in ROS Statement are negative. Past Medical History Past Medical History: Coronary Artery Disease (CAD), Heart Failure, COPD, Eye Disorder, Hearing Disorder / Deafness, Hyperlipidemia, Hypertension, Myocardial Infarction (ID), Renal Disease Additional Past Medical History / Comment(s): HX HEP C- SLIGHT [place] JENNIFER. EARS, LESION ON TIP TONGUE HAS GROWN OVER THE YEARS Last Myocardial Infarction Date:: 02/2014 History of Any Multi-Drug Resistant Organisms: None Reported Past Surgical History: AICD, Coronary Bypass/CABG, Heart Catheterization, Pacemaker Additional Past Surgical History / Comment(s): TRIPLE BYPASS SURGERY 2013, bioprosthetic aortic valve replacement in 2013, biventricular AICD in 2010-[facility] Past Anesthesia/Blood Transfusion Reactions: No Reported Reaction Type of Cardiac Device: Permanent Pacemaker, AICD Device Placement Date:: 2010 Past Psychological History: No Psychological Hx Reported Smoking Status: Former smoker Past Alcohol Use History: None Reported Past Drug Use History: Marijuana - Past Family History Father History Unknown: Yes Family Medical History: Coronary Artery Disease (CAD) Mother Family Medical History: Coronary Artery Disease (CAD) General Exam Limitations: physical limitation Course Vital Signs 04/25/21 04/25/21 04/25/21 07:53 08:07 10:14 Temperature 97.6 F Pulse Rate 72 75 Respiratory 20 18 16 Rate Blood Pressure 165/67 142/70 O2 Sat by Pulse 96 97 Oximetry Medical Decision Making - Lab Data Result diagrams: 04/25/21 09:00 04/25/21 09:00 Lab Results 04/25/21 04/25/21 04/25/21 Range/Units 09:00 09:00 09:00 WBC 10.8 H (3.8-10.6) k/uL RBC 4.50 (4.30-5.90) m/uL Hgb 10.6 L (13.0-17.5) gm/dL Hct 33.5 L (39.0-53.0) % MCV 74.5 L (80.0-100.0) fL MCH 23.6 L (25.0-35.0) pg MCHC 31.6 (31.0-37.0) g/dL RDW 18.6 H (11.5-15.5) % Plt Count 175 D (150-450) k/uL MPV 7.8 Neutrophils % 82 % Lymphocytes % 11 % Monocytes % 6 % Eosinophils % 0 % Basophils % 0 % Neutrophils # 8.9 H (1.3-7.7) k/uL Lymphocytes # 1.1 (1.0-4.8) k/uL Monocytes # 0.6 (0-1.0) k/uL Eosinophils # 0.0 (0-0.7) k/uL Basophils # 0.0 (0-0.2) k/uL Hypochromasia Marked Poikilocytosis Slight Anisocytosis Slight Microcytosis Moderate PT 25.5 H (9.0-12.0) sec INR 2.6 H (<1.2) APTT 31.8 H (22.0-30.0) sec Sodium 140 (137-145) mmol/L Potassium 5.0 (3.5-5.1) mmol/L Chloride 105 (98-107) mmol/L Carbon Dioxide 23 (22-30) mmol/L Anion Gap 12 mmol/L BUN 62 H (9-20) mg/dL Creatinine 1.87 H (0.66-1.25) mg/dL Est GFR (CKD-EPI)AfAm 40 (>60 ml/min/1.73 sqM) Est GFR (CKD-EPI)NonAf 35 (>60 ml/min/1.73 sqM) Glucose 125 H (74-99) mg/dL Calcium 9.4 (8.4-10.2) mg/dL Troponin I (0.000-0.034) ng/mL NT-Pro-B Natriuret Pep pg/mL Serum Alcohol <10 mg/dL 04/25/21 04/25/21 Range/Units 09:00 09:00 WBC (3.8-10.6) k/uL RBC (4.30-5.90) m/uL Hgb (13.0-17.5) gm/dL Hct (39.0-53.0) % MCV (80.0-100.0) fL MCH (25.0-35.0) pg MCHC (31.0-37.0) g/dL RDW (11.5-15.5) % Plt Count (150-450) k/uL MPV Neutrophils % % Lymphocytes % % Monocytes % % Eosinophils % % Basophils % % Neutrophils # (1.3-7.7) k/uL Lymphocytes # (1.0-4.8) k/uL Monocytes # (0-1.0) k/uL Eosinophils # (0-0.7) k/uL Basophils # (0-0.2) k/uL Hypochromasia Poikilocytosis Anisocytosis Microcytosis PT (9.0-12.0) sec INR (<1.2) APTT (22.0-30.0) sec Sodium (137-145) mmol/L Potassium (3.5-5.1) mmol/L Chloride (98-107) mmol/L Carbon Dioxide (22-30) mmol/L Anion Gap mmol/L BUN (9-20) mg/dL Creatinine (0.66-1.25) mg/dL Est GFR (CKD-EPI)AfAm (>60 ml/min/1.73 sqM) Est GFR (CKD-EPI)NonAf (>60 ml/min/1.73 sqM) Glucose (74-99) mg/dL Calcium (8.4-10.2) mg/dL Troponin I 0.056 H* (0.000-0.034) ng/mL NT-Pro-B Natriuret Pep 43478 pg/mL Serum Alcohol mg/dL Disposition Clinical Impression: Dyspnea Disposition: ADMITTED IP TO THIS [facility] Condition: Fair Referrals: Ayaan Wray DO [Primary Care Provider] - 1-2 days
--- NOTE | 2021-04-25 08:45 | XR ---
EXAMINATION TYPE: XR chest 2V DATE OF EXAM: 04/25/2021 COMPARISON: 04/06/2021 HISTORY: Dyspnea TECHNIQUE: Frontal and lateral views of the chest are obtained. FINDINGS: Interval improvement in aeration of both lungs with small bilateral residual pleural-parenchymal dise ase. Postoperative changes overlie the cardiac silhouette with broken sternotomy wires. AICD leads are unc hanged. IMPRESSION: Interval improvement in aeration of both lungs with small bilateral residual pleural-parenchymal dise ase.
[2021-04-25 09:29] LABS: Anisocytosis Slight; Basophils % (A) 0 %; Eosinophils % (A) 0 %; HCT 33.5 % (39.0-53.0); HGB 10.6 gm/dL (13.0-17.5); Hypochromasia Marked; Lymphocytes # (A) 1.1 k/uL (1.0-4.8); Lymphocytes % (A) 11 %; MCH 23.6 pg (25.0-35.0); MCHC 31.6 g/dL (31.0-37.0); MCV 74.5 fL (80.0-100.0); Mean Platelet Volume 7.8; Microcytosis Moderate; Monocytes # (A) 0.6 k/uL (0-1.0); Monocytes % (A) 6 %; Neutrophils # (A) 8.9 k/uL (1.3-7.7); Neutrophils % (A) 82 %; Platelet Count 175 k/uL (150-450); Poikilocytosis Slight; RDW 18.6 % (11.5-15.5); WBC 10.8 k/uL (3.8-10.6)
[2021-04-25 09:36] LABS: INR 2.6 (<1.2); Partial Thromboplastin Time 31.8 sec (22.0-30.0); Prothrombin Time 25.5 sec (9.0-12.0)
[2021-04-25 09:37] LABS: African American GFR (CKD) 40 (>60 ml/min/1.73 sqM); Alcohol <10 mg/dL; Anion Gap 12 mmol/L; Blood Urea Nitrogen 62 mg/dL (9-20); Calcium 9.4 mg/dL (8.4-10.2); Carbon Dioxide 23 mmol/L (22-30); Chloride 105 mmol/L (98-107); Glucose 125 mg/dL (74-99); Non-African American GFR(CKD) 35 (>60 ml/min/1.73 sqM); Sodium 140 mmol/L (137-145)
[2021-04-25] MEDS ORDERED: NALOXONE 0.4 MG/ML 1 ML VIAL IV PRN (12:05)
[2021-04-25] MEDS ORDERED: FUROSEMIDE 10 MG/ML 4 ML VIAL IV STA (12:07)
[2021-04-25] MEDS: SODIUM CHLORIDE 0.9% 1,000 ML IV SCH (12:23)
[2021-04-25] MEDS ORDERED: IPRATROPIUM-ALBUTEROL 3 ML NEB INHALATION PRN (16:55)
[2021-04-25] MEDS ORDERED: oxyCODONE-APAP 10-325MG 1 EACH TAB PO PRN (16:55)
[2021-04-25 17:44] LABS: INR 2.7 (<1.2); Prothrombin Time 25.8 sec (9.0-12.0)
[2021-04-25] MEDS ORDERED: ALPRAZolam 0.25 MG TAB PO PRN (18:51)
[2021-04-25] MEDS: ATORVASTATIN 40 MG TAB PO SCH (20:26)
[2021-04-25] MEDS: FUROSEMIDE 10 MG/ML 4 ML VIAL IV SCH (20:26)
[2021-04-25] MEDS: METOPROLOL TARTRATE 25 MG TAB PO SCH (20:26)
[2021-04-25] MEDS: WARFARIN 5 MG TAB PO SCH (20:26)
[2021-04-25] MEDS: hydrALAZINE HCL 50 MG TAB PO SCH (20:26)
[2021-04-25] MEDS: IPRATROPIUM-ALBUTEROL 3 ML NEB INHALATION SCH (21:04)
[2021-04-25] MEDS: SYMBICORT 160-4.5 MCG INHALER INHALATION SCH (21:04)
--- NOTE | 2021-04-25 21:26 | HP ---
HISTORY AND PHYSICAL DATE OF SERVICE: 04/25/2021. CHIEF COMPLAINT: Shortness of breath. HISTORY OF PRESENT ILLNESS: This 76-year-old gentleman with a past medical history of multiple medical issues including CAD, CHF, COPD, and multiple other medical issues, being followed by Dr. Ayaan Wray in the outpatient setting was recently admitted to [facility] with features of CHF. The patient was diuresed. During the course of evaluation, the patient was found to have significant cardiomyopathy. Ejection fraction about 20%. 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 The patient was seen by Cardiology and recommended outpatient ABDON at this time. The patient was also evaluated by Cardiothoracic surgery during the previous admission. There is no history of fever, rigors. No history of headache, loss of consciousness or seizures. Currently the patient went home and the patient is complaining of progressive shortness of breath. The patient is even unable to walk a few distance. Patient spent most of the time in bed. Patient also developed stage 1-2 coccygeal pressure ulcers. Patient came to [facility] and was admitted for further evaluation and treatment. The patient also noted increasing leg swelling also which is improved from the previous admission. There is no history of fever, rigors or chills. No history of headache, loss of consciousness, seizures. Lab nam, the creatinine is 1.87, indicating chronic kidney disease. The baseline was about 1.49. Troponin was found to be 0.056, which indicated rather chronic elevation of troponins. PAST MEDICAL HISTORY: History of CAD, history of CHF, history of COPD, hypertension, hyperlipidemia. MEDICATIONS: Home medications are Symbicort, oxycodone, hydralazine, Coumadin, metoprolol, DuoNeb t.i.d. and p.r.n. Lasix 40 mg p.o. b.i.d., Lipitor and Ecotrin. ALLERGIES: None. FAMILY HISTORY: History of coronary artery disease in the family. SOCIAL HISTORY: Previous history of smoking. No history of current smoking or alcohol intake. REVIEW OF SYSTEMS: ENT: Diminished hearing. Diminished vision. CARDIOVASCULAR system as mentioned earlier. RESPIRATORY: As mentioned earlier. GI: No nausea or vomiting. : No dysuria. NERVOUS SYSTEM: No numbness or weakness. ALLERGY/IMMUNOLOGY: No asthma or hayfever. MUSCULOSKELETAL as mentioned earlier. HEMATOLOGY/ONCOLOGY: No history of anemia. ENDOCRINE: No history of diabetes, hypothyroidism. CONSTITUTIONAL: As mentioned earlier. DERMATOLOGY: Negative. RHEUMATOLOGY: Negative. PSYCHIATRIC: As mentioned earlier. PHYSICAL EXAMINATION: Alert and oriented times three. Pulse 83, blood pressure 153/64, respiration 20, temperature 98.1, pulse ox 98% on room air. HEENT: Conjunctivae normal. NECK: Jugular venous distention at the root of the neck. CARDIOVASCULAR system: S1, S2 muffled. Ejection systolic murmur present. Early diastolic murmur also present. No S3. No S4. RESPIRATORY: Breath sounds diminished in the bases. Bilateral scattered rhonchi and coarse crackles also present. ABDOMEN: Soft, nontender. No mass palpable. LEGS: Bilateral leg edema. Pulses are diminished bilaterally. NERVOUS SYSTEM: Higher functions as mentioned earlier. Moves all four limbs. No focal motor or sensory deficits. LYMPHATICS: No lymph nodes palpable in the neck, axillae or groin. SKIN: Sacral coccygeal ulcer about stage 1-2, otherwise, joints no active deforming arthropathy. LABS: WBC 10.2, hemoglobin 10.6. INR is 2.6. Creatinine is 1.87. Troponin 0.056. ASSESSMENT: 1. Congestive heart failure acute exacerbation with acute on chronic systolic dysfunction, ejection fraction 20% with possible cardiomyopathy. 2. 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 3. Chronic obstructive pulmonary disease. 4. Indeterminate troponin about 0.050, rather chronic elevation. 5. Chronic kidney disease stage 3. 6. Coumadin monitoring. 7. Elevated WBC. 8. Anemia of chronic disease, microcytic. 9. Hard of hearing. 10.Hypertension. 11.History of myocardial infarction. 12.History of AICD biventricular pacing. 13.History of coronary artery disease, coronary artery bypass grafting. 14.History of nicotine dependence. 15.Increased WBC. 16.Moderate protein calorie malnutrition. 17.Coccygeal decubitus ulcer, stage 1-2. 18.FULL CODE. RECOMMENDATIONS AND DISCUSSION: This 76-year-old gentleman who presented with multiple complex medical issues, we will monitor the patient closely. I would recommend continue the current medications. I would recommend IV diuretics. Resume the fluid to 200 mL per 24 hours. Monitor intake and output closely. Monitor renal functions closely. Otherwise, resume the home medications including beta blockers, nutritional supplementation, possible ABDON by Cardiology. Overall prognosis guarded because of multiple complex medical issues. Further recommendations to follow. A copy of this dictation is being forwarded to Dr. Ayaan Wray for further evaluation and treatment. Nephrology also will be consulted because of the possibility of cardiorenal syndrome. Wound care also will be consulted for the sacrococcygeal pressure ulcer. MMODL / IJN: [id number] /
[2021-04-25] MEDS: TEMAZEPAM 15 MG CAP PO PRN (22:15)
[2021-04-26] MEDS: PANTOPRAZOLE 40 MG TABLET PO SCH (07:04)
[2021-04-26 07:39] LABS: INR 2.3 (<1.2)
[2021-04-26 07:46] LABS: Calcium 8.8 mg/dL (8.4-10.2); Potassium 4.5 mmol/L (3.5-5.1)
[2021-04-26 07:58] LABS: Anisocytosis Slight; Basophils # (A) 0.1 k/uL (0-0.2); Basophils % (A) 1 %; Eosinophils # (A) 0.1 k/uL (0-0.7); Eosinophils % (A) 1 %; HCT 33.6 % (39.0-53.0); HGB 10.3 gm/dL (13.0-17.5); Hypochromasia Marked; Lymphocytes # (A) 1.6 k/uL (1.0-4.8); Lymphocytes % (A) 16 %; MCH 23.9 pg (25.0-35.0); MCHC 30.7 g/dL (31.0-37.0); MCV 77.8 fL (80.0-100.0); Mean Platelet Volume 9.3; Microcytosis Slight; Monocytes # (A) 0.7 k/uL (0-1.0); Monocytes % (A) 7 %; Neutrophils # (A) 7.4 k/uL (1.3-7.7); Neutrophils % (A) 74 %; Platelet Count 161 k/uL (150-450); Poikilocytosis Slight; RBC 4.32 m/uL (4.30-5.90); RDW 18.4 % (11.5-15.5); WBC 9.9 k/uL (3.8-10.6)
[2021-04-26] MEDS: ISOSORBIDE MONONITRATE ER 30 MG TAB.ER.24H PO SCH (08:27)
[2021-04-26] MEDS: hydrALAZINE HCL 50 MG TAB PO SCH (08:27)
[2021-04-26] MEDS: FUROSEMIDE 10 MG/ML 4 ML VIAL IV SCH ×3 (08:27→23:06)
[2021-04-26] MEDS: METOPROLOL TARTRATE 25 MG TAB PO SCH ×2 (08:27→20:15)
[2021-04-26] MEDS: ASPIRIN 81 MG PO SCH (08:27)
[2021-04-26] MEDS: IPRATROPIUM-ALBUTEROL 3 ML NEB INHALATION SCH ×3 (08:38→20:36)
[2021-04-26] MEDS: SYMBICORT 160-4.5 MCG INHALER INHALATION SCH ×2 (08:38→20:36)
--- NOTE | 2021-04-26 10:27 | P.NPCON ---
History of Present Illness - Reason for Consult acute renal failure, chronic renal failure - History of Present Illness Reason for consultation: Acute kidney injury on chronic kidney disease History of present illness: The patient is a 76-year-old male seen in consultation for acute kidney injury on chronic kidney disease. Patient has chronic kidney disease stage IIIB with baseline creatinine in the range of 1.3- 1.5. Etiology is nephrosclerosis. No history of diabetes. Patient presented to the hospital with shortness of breath and lower extremity edema which was progressively worsening over the last 1-2 months. Patient does of systolic CHF with ejection fraction of less than 20% with severe mitral regurgitation as well as moderate tricuspid regurgitation and pulmonary hypertension. Creatinine was 1.87 on admission and is down to 1.54 today. He is maintained on IV Lasix. Good urine output. No hematuria or dysuria. Denies use of nonsteroidals. No family history of renal disease. Edema and dyspnea have both improved since admission. No vomiting or diarrhea. Vital signs are stable. General: The patient appeared well nourished and normally developed. HEENT: Head exam is unremarkable. Neck is without jugular venous distension. LUNGS: Breath sounds decreased. HEART: Rate and Rhythm are regular. ABDOMEN: Soft, no distention. EXTREMITITES: 1+ edema. Past Medical History Past Medical History: Coronary Artery Disease (CAD), Heart Failure, COPD, Eye Disorder, Hearing Disorder / Deafness, Hyperlipidemia, Hypertension, Myocardial Infarction (NH), Renal Disease Additional Past Medical History / Comment(s): HX HEP C- SLIGHT [place] JENNIFER. EARS, LESION ON TIP TONGUE HAS GROWN OVER THE YEARS Last Myocardial Infarction Date:: 02/2014 History of Any Multi-Drug Resistant Organisms: None Reported Past Surgical History: AICD, Coronary Bypass/CABG, Heart Catheterization, Pacemaker Additional Past Surgical History / Comment(s): TRIPLE BYPASS SURGERY 2013, bioprosthetic aortic valve replacement in 2013, biventricular AICD in 2010-[facility] Past Anesthesia/Blood Transfusion Reactions: No Reported Reaction Type of Cardiac Device: Permanent Pacemaker, AICD Device Placement Date:: 2010 Past Psychological History: No Psychological Hx Reported Smoking Status: Former smoker Past Alcohol Use History: None Reported Additional Past Alcohol Use History / Comment(s): SMOKER SINCE AGE 11(1955) Past Drug Use History: Marijuana Additional Drug Use History / Comment(s): SMOKES MARIJUANA EVERY DAY SINCE AGE 11 - Past Family History Father History Unknown: Yes Family Medical History: Coronary Artery Disease (CAD) Mother Family Medical History: Coronary Artery Disease (CAD) Medications and Allergies Home Medications Medication Instructions Recorded Confirmed Type oxyCODONE HCL/ACETAMINOPHEN 1 tab PO Q4-6H PRN 10/16/14 04/25/21 History [Oxycodone-Acetaminophen 10-325] Aspirin EC [Ecotrin Low Dose] 81 mg PO DAILY 06/15/17 04/25/21 History Atorvastatin [Lipitor] 40 mg PO HS 04/05/21 04/25/21 History Warfarin Sodium [Coumadin] 5 mg PO SUMOTUTHFR@0900 04/05/21 04/25/21 History Warfarin [Coumadin] 7.5 mg PO WESA@0900 04/05/21 04/25/21 History Furosemide [Lasix] 40 mg PO BID@0900,1600 30 Days #60 04/12/21 04/25/21 Rx tab Ipratropium-Albuterol Nebulize 3 ml INHALATION RT-TID 30 Days 04/12/21 04/25/21 Rx [Duoneb 0.5 mg-3 mg/3 ml Soln] #120 ml Ipratropium-Albuterol Nebulize 3 ml INHALATION RT-TID PRN ml 04/12/21 04/25/21 Rx [Duoneb 0.5 mg-3 mg/3 ml Soln] Isosorbide Mononitrate ER [Imdur] 30 mg PO DAILY 30 Days #30 04/12/21 04/25/21 Rx tab.er.24h Metoprolol Tartrate [Lopressor] 25 mg PO BID 30 Days #60 tab 04/12/21 04/25/21 Rx hydrALAZINE HCL [Apresoline] 50 mg PO TID 30 Days #90 tab 04/12/21 04/25/21 Rx Budesonide/Formoterol Fumarate 2 puff INHALATION RT-BID 04/25/21 04/25/21 History [Symbicort 160-4.5 Mcg Inhaler] Allergies Allergy/AdvReac Type Severity Reaction Status Date / Time No Known Allergies Allergy Verified 04/25/21 09:21 Physical Exam Vitals: Vital Signs Temp Pulse Pulse Resp BP BP Pulse Ox 04/26/21 08:50 70 04/26/21 08:38 70 04/26/21 08:00 98.2 F 70 18 119/55 94 L 04/26/21 01:53 72 18 04/25/21 22:34 72 18 119/56 95 04/25/21 21:23 80 04/25/21 21:08 80 04/25/21 20:00 98.2 F 75 18 116/56 95 04/25/21 15:06 98.1 F 83 20 153/65 98 04/25/21 12:23 75 16 139/80 98 Intake and Output 04/25/21 04/26/21 04/26/21 22:59 06:59 14:59 Intake Total 826 Output Total 620 610 250 Balance -620 -610 576 Intake: Oral 826 Output: Urine 400 610 250 Stool 220 Other: # Voids 1 1 # Bowel Movements 1 Weight 68.039 kg 70.1 kg Results - Lab Results Most recent lab results Calcium 8.8 mg/dL (8.4-10.2) 04/26/21 06:30 04/26/21 06:30 04/26/21 06:30 Assessment and Plan Plan: Assessment: 1. Acute kidney injury mostly prerenal secondary to cardiorenal syndrome. Creatinine was 1.87 on admission and is down to 1.54 today. 2. Chronic kidney disease stage III B with baseline creatinine near 1.5 secondary to cardiorenal syndrome. 3. Acute on chronic systolic CHF with ejection fraction of less than 20% with severe mitral regurgitation, moderate tricuspid regurgitation. 4. Pulmonary hypertension. 5. Volume overload. Plan: Maintain IV Lasix. Low-salt diet. Check urinalysis and renal ultrasound. Avoid nephrotoxins. Continue to monitor renal function and urine output. Thank you for the consultation. I will continue to follow the patient with you during his hospital stay.
[2021-04-26] MEDS: THIAMINE 100 MG TAB PO SCH (12:20)
[2021-04-26] MEDS: FOLIC ACID 1 MG TAB PO SCH (12:20)
[2021-04-26] MEDS: MULTIVITAMINS, THERA 1 EACH TAB PO SCH (12:20)
[2021-04-26] MEDS: metOLazone 2.5 MG TAB PO SCH (12:21)
--- NOTE | 2021-04-26 13:33 | P.CRDCN ---
History of Present Illness History of present illness: HISTORY OF PRESENTING ILLNESS This is a pleasant 76-year-old male past medical history significant for with coronary artery disease status post 3 vessel CABG 2013, aortic stenosis status post aortic valve replacement 2013, ischemic cardiomyopathy status post Bi ventricular AICD (2010), paroxysmal atrial fibrillation, hypertension, dyslipidemia, chronic nicotine dependence (states he has been a heavy smoker but quit 30 days ago). He follows in the office with Dr. Scherer. We have been asked to see in consultation for congestive heart failure. Patient presents to the emergency department with worsening shorntess of breath and weakness over the past week. He states he can now only walk 3 steps and fatigued, feels short of breath, and needs to rest. Can usually walk about 1-2 blocks. He was recently admitted on 04/05/2021 with congestive heart failure. He recently followed up with Dr. Scherer in the office on 04/19/2021, patient was continued on Lasix 40 mg twice a day and metolazone 2.5 mg was added, patient's hydralazine was also decreased to 25 mg TID. He states his recent diet included mainly fast food and consumes mostly foods high in salt, however, he states he has decreased his salt intake. Lately he states he has been feeling dehydrated and drinking a lot of water. He denies chest pain. He denies palpitations. He does endorse symptoms of orthopnea. He has lower extremity edema He is a non-diabetic. DIAGNOSTICS EKG reveals bi-ventricular paced rhythm heart rate 79 Most recent echocardiogram 04/06/2021 revealed an EF of less than 20%, RV is mildly enlarged, LA severely dilated, mild aortic regurgitation with peak/mean gradient of 39, currently/21 mmHg, findings are consistent with stenosis of the prosthetic aortic valve, severe mitral regurgitation, moderate tricuspid regurgitation, moderate pulmonary hypertension, RVSP of 47 mmHg, trivial pericardial effusion present, large pleural effusion. Echocardiogram 10/08/2019EF is 35-40%. Hypokinesis of inferior wallapex. Mild mitral regurgitation, mild aortic regurgitation (peak gradient 42mmgHg, mean gradient 18mmHg), mild to moderate tricuspid regurgitation Chest xray - congestive follow improvement in aeration of both lungs with small bilateral pleural pericardial disease. Laboratory reviewed, WBC 10.9, hemoglobin 10.3, platelets 161, sodium 137, potassium 4.5, BUN 61, serum creatinine 1.55, troponin 0.05 (patient with chronically elevated troponin), proBNP 36,200 (previously 34,000 on 04/05/21), COVID-19 negative Current home cardiac medications include hydralazine 25 mg TID, warfarin 7.5 mg Sunday and Sunday and warfarin 5 mg other days of the week, furosemide 40mg BID, atorvastatin 40 mg nightly, aspirin 81 mg daily, metoprolol tartrate 25mg BID, metolazone 2.5mg daily. REVIEW OF SYSTEMS At the time of my exam: CONSTITUTIONAL: Denies fever or chills. CARDIOVASCULAR: +shortness of breath +bilateral LE edema, +orthopnea Denies palpitations. RESPIRATORY: Denies cough. GASTROINTESTINAL: Denies abdominal pain, diarrhea, constipation, nausea or vomiting. MUSCULOSKELETAL: Denies myalgias. NEUROLOGIC: Denies numbness, tingling, headacbe or weakness. ENDOCRINE: Denies polydipsia or polyurina. GENITOURINARY: Denies burning, hematuria or urgency with micturation. HEMATOLOGIC: Denies history of anemia or bleeding. PHYSICAL EXAMINATION Blood pressure 134/81 heart rate 69 afebrile and maintaining oxygen saturation 95% on room air CONSTITUTIONAL: Appears short of breath HEENT: Head is normocephalic. Pupils are equal, round. Sclerae anicteric. Mucous membranes of the mouth are moist. No carotid bruit. CHEST EXAMINATION: Lungs with bilateral crackles tp auscultation. Chest wall t enderness with deep breath. No chest wall tenderness is noted on palpation. HEART EXAMINATION: Regular rate and rhythm. S1, S2 heard. Systolic ejection murmur, noted. ABDOMEN: Soft, nontender. Positive bowel sounds. EXTREMITIES: 2+ peripheral pulses, 3+ bilateral lower extremity pitting edema and no calf tenderness. NEUROLOGIC EXAMINATION: Patient is awake, alert and oriented x3. ASSESSMENT Acute on chronic systolic heart failure with reduced ejection fraction <20% Elevated troponin, most likely related to congestive heart failure, patient with chronically elevated troponin Severe mitral regurgitation, moderate tricuspid regurgitation Acute on chronic kidney disease Ischemic Cardiomyopathy status post Bi ventricular AICD in 2010 Coronary artery disease status post 3 vessel CABG 2013 Aortic stenosis status post mechanical aortic valve replacement 2013 Paroxysmal atrial fibrillation- on coumadin Hypertension Dyslipidemia Chronic nicotine dependence (states he has been a heavy smoker but quit 30 days ago) PLAN We will add metolazone 2.5mg daily Increase furosemide 40mg Q8hr, hopefully transition to PO tomorrow I/Os, daily weights Continue aspirin 81 mg daily, atorvastatin 40 mg nightly, Imdur 30 mg daily, metoprolol tartrate 25 mg twice a day Continue coumadin Further recommendations to follow pending clinical course Nurse Practitioner note has been reviewed, I agree with a documented findings and plan of care. Patient was seen and examined. Past Medical History Past Medical History: Coronary Artery Disease (CAD), Heart Failure, COPD, Eye Disorder, Hearing Disorder / Deafness, Hyperlipidemia, Hypertension, Myocardial Infarction ([place]), Renal Disease Additional Past Medical History / Comment(s): HX HEP C- SLIGHT TANACROSS JENNIFER. EARS, LESION ON TIP TONGUE HAS GROWN OVER THE YEARS Last Myocardial Infarction Date:: 02/2014 History of Any Multi-Drug Resistant Organisms: None Reported Past Surgical History: AICD, Coronary Bypass/CABG, Heart Catheterization, Pacemaker Additional Past Surgical History / Comment(s): TRIPLE BYPASS SURGERY 2013, bioprosthetic aortic valve replacement in 2013, biventricular AICD in 2010-[facility] Past Anesthesia/Blood Transfusion Reactions: No Reported Reaction Type of Cardiac Device: Permanent Pacemaker, AICD Device Placement Date:: 2010 Past Psychological History: No Psychological Hx Reported Smoking Status: Former smoker Past Alcohol Use History: None Reported Additional Past Alcohol Use History / Comment(s): SMOKER SINCE AGE 11(6) Past Drug Use History: Marijuana Additional Drug Use History / Comment(s): SMOKES MARIJUANA EVERY DAY SINCE AGE 11 - Past Family History Father History Unknown: Yes Family Medical History: Coronary Artery Disease (CAD) Mother Family Medical History: Coronary Artery Disease (CAD) Medications and Allergies Home Medications Medication Instructions Recorded Confirmed Type oxyCODONE HCL/ACETAMINOPHEN 1 tab PO Q4-6H PRN 10/16/14 04/25/21 History [Oxycodone-Acetaminophen 10-325] Aspirin EC [Ecotrin Low Dose] 81 mg PO DAILY 06/15/17 04/25/21 History Atorvastatin [Lipitor] 40 mg PO HS 04/05/21 04/25/21 History Warfarin Sodium [Coumadin] 5 mg PO SUMOTUTHFR@89904/05/21 04/25/21 History Warfarin [Coumadin] 7.5 mg PO WESA@89904/05/21 04/25/21 History Furosemide [Lasix] 40 mg PO BID@0900,1600 30 Days #60 04/12/21 04/25/21 Rx tab Ipratropium-Albuterol Nebulize 3 ml INHALATION RT-TID 30 Days 04/12/21 04/25/21 Rx [Duoneb 0.5 mg-3 mg/3 ml Soln] #120 ml Ipratropium-Albuterol Nebulize 3 ml INHALATION RT-TID PRN ml 04/12/21 04/25/21 Rx [Duoneb 0.5 mg-3 mg/3 ml Soln] Isosorbide Mononitrate ER [Imdur] 30 mg PO DAILY 30 Days #30 04/12/21 04/25/21 Rx tab.er.24h Metoprolol Tartrate [Lopressor] 25 mg PO BID 30 Days #60 tab 04/12/21 04/25/21 Rx Budesonide/Formoterol Fumarate 2 puff INHALATION RT-BID 04/25/21 04/25/21 History [Symbicort 160-4.5 Mcg Inhaler] hydrALAZINE HCL 25 mg PO TID 04/26/21 04/26/21 History metOLazone [Zaroxolyn] 2.5 mg PO DAILY 04/26/21 04/26/21 History Allergies Allergy/AdvReac Type Severity Reaction Status Date / Time No Known Allergies Allergy Verified 04/25/21 09: Physical Exam Vitals: Vital Signs Temp Pulse Pulse Resp BP BP Pulse Ox 04/26/21 01:53 72 18 04/25/21 22:34 72 18 119/56 95 04/25/21 21:23 80 04/25/21 21:08 80 04/25/21 20:00 98.2 F 75 18 116/56 95 04/25/21 15:06 98.1 F 83 20 153/65 98 04/25/21 12:23 75 16 139/80 98 04/25/21 10:14 75 16 142/70 97 04/25/21 08:07 18 04/25/21 07:53 97.6 F 72 20 165/67 96 Intake and Output 04/25/21 04/26/21 04/26/21 22:59 06:59 14:59 Output Total 620 610 Balance -620 -610 Output: Urine 400 610 Stool 220 Other: # Voids 1 1 # Bowel Movements 1 Weight 68.039 kg 70.1 kg Results 04/26/21 06:30 04/26/21 06:30 Cardiac Enzymes 04/25/21 Range/Units 09:00 Troponin I 0.056 H* (0.000-0.034) ng/mL Coagulation 04/25/21 04/25/21 Range/Units 09:00 17:19 PT 25.5 H 25.8 H (9.0-12.0) sec APTT 31.8 H (22.0-30.0) sec CBC 04/25/21 Range/Units 09:00 WBC 10.8 H (3.8-10.6) k/uL RBC 4.50 (4.30-5.90) m/uL Hgb 10.6 L (13.0-17.5) gm/dL Hct 33.5 L (39.0-53.0) % Plt Count 175 D (150-450) k/uL Comprehensive Metabolic Panel 04/25/21 Range/Units 09:00 Sodium 140 (137-145) mmol/L Potassium 5.0 (3.5-5.1) mmol/L Chloride 105 (98-107) mmol/L Carbon Dioxide 23 (22-30) mmol/L BUN 62 H (9-20) mg/dL Creatinine 1.87 H (0.66-1.25) mg/dL Glucose 125 H (74-99) mg/dL Calcium 9.4 (8.4-10.2) mg/dL Current Medications Generic Name Dose Route Start Last Admin Trade Name Freq PRN Reason Stop Dose Admin Albuterol/Ipratropium 3 ml 04/25/21 20:00 04/25/21 21:04 Ipratropium-Albuterol 3 Ml Neb INHALATION 3 ml RT-TID SURJIT Administration Albuterol/Ipratropium 3 ml 04/25/21 16:55 Ipratropium-Albuterol 3 Ml Neb INHALATION RT-TID PRN Shortness Of Breath Or Wheezing Alprazolam 0.25 mg 04/25/21 18:51 Alprazolam 0.25 Mg Tab PO TID PRN Anxiety Aspirin 81 mg 04/26/21 09:00 Aspirin 81 Mg PO DAILY [facility] Atorvastatin Calcium 40 mg 04/25/21 21:00 04/25/21 20:26 Atorvastatin 40 Mg Tab PO 40 mg HS SURJIT Administration Budesonide/Formoterol Fumarate 2 puff 04/25/21 20:00 04/25/21 21:04 Symbicort 160-4.5 Mcg Inhaler INHALATION 2 puff RT-BID SURJIT Administration Folic Acid 1 mg 04/26/21 12:00 Folic Acid 1 Mg Tab PO DAILY@1200 SURJIT Furosemide 40 mg 04/25/21 21:00 04/25/21 20:26 Furosemide 10 Mg/Ml 4 Ml Vial IV 40 mg Q12HR SURJIT Administration Hydralazine HCl 50 mg 04/25/21 22:00 04/25/21 20:26 Hydralazine Hcl 50 Mg Tab PO 50 mg TID SURJIT Administration Sodium Chloride 1,000 mls @ 20 mls/hr 04/25/21 12:15 04/25/21 12:23 Saline 0.9% IV 20 mls/hr .Q24H SURJIT Administration Isosorbide Mononitrate 30 mg 04/26/21 09:00 Isosorbide Mononitrate Er 30 Mg Tab.Er.24h PO DAILY [facility] Metoprolol Tartrate 25 mg 04/25/21 21:00 04/25/21 20:26 Metoprolol Tartrate 25 Mg Tab PO 25 mg BID SURJIT Administration Miscellaneous Information 0 each 04/25/21 16:58 Warfarin Per Pharmacy MISCELLANE DIRECTED PRN See Comments Multivitamins 1 each 04/26/21 12:00 Multivitamins, Thera 1 Each Tab PO DAILY@1200 [facility] Naloxone HCl 0.2 mg 04/25/21 12:05 Naloxone 0.4 Mg/Ml 1 Ml Vial IV Q2M PRN Opioid Reversal Oxycodone/Acetaminophen 1 each 04/25/21 16:55 Oxycodone-Apap 10-325mg 1 Each Tab PO Q4H PRN Pain Pantoprazole Sodium 40 mg 04/26/21 07:30 04/26/21 07:04 Pantoprazole 40 Mg Tablet PO Not Given AC-BRKFST SURJIT Temazepam 15 mg 04/25/21 18:51 04/25/21 22:15 Temazepam 15 Mg Cap PO 15 mg HS PRN Administration Insomnia Thiamine HCl 100 mg 04/26/21 12:00 Thiamine 100 Mg Tab PO DAILY@1200 [facility] Warfarin Sodium 5 mg 04/25/21 18:30 04/25/21 20:26 Warfarin 5 Mg Tab PO 5 mg [id number]@1800 [facility] Administration Protocol Warfarin Sodium 7.5 mg 04/27/21 18:00 Warfarin 7.5 Mg Tab PO WeSa@1800 [facility] Protocol Intake and Output 04/25/21 04/26/21 04/26/21 22:59 06:59 14:59 Output Total 620 610 Balance -620 -610 Output: Urine 400 610 Stool 220 Other: # Voids 1 1 # Bowel Movements 1 Weight 68.039 kg 70.1 kg 04/25/21 09:00 04/25/21 09:00
[2021-04-26 13:37] VITALS: BMI 20.9
[2021-04-26] MEDS: WARFARIN 5 MG TAB PO SCH (16:35)
[2021-04-26] MEDS: hydrALAZINE HCL 25 MG TAB PO SCH ×2 (16:35→20:15)
--- NOTE | 2021-04-26 18:32 | PN ---
PROGRESS NOTE DATE OF SERVICE: 04/26/2021 HISTORY: This is a 76-year-old gentleman who was admitted with shortness of breath, has multiple abnormalities and severe cardiomyopathy also. Patient also had CHF with multiple medications are following for the patient. The patient also has some renal failure. Creatinine is 1.54. PAST MEDICAL HISTORY: Reviewed. REVIEW OF SYSTEMS: CARDIOVASCULAR SYSTEM: No angina. RESPIRATION: As mentioned. GI: As mentioned. NERVOUS SYSTEM: No numbness or weakness. CURRENT MEDICATIONS: Reviewed include DuoNeb, Xanax, aspirin, Lipitor, Symbicort, Lasix, Apresoline. PHYSICAL EXAMINATION: Patient is alert, oriented x3. Pulse is 69, blood pressure 130/81, respiration 18, temperature 98.1, pulse ox 94% on room air. SKIN: Normal. NECK: No neck pain. CARDIAC: Normal. LUNGS: Respiration in the bases scattered rhonchi and crackles. ABDOMEN: Soft nontender. LEGS: No edema. No swelling. LAB STUDIES: WBC 9.2, hemoglobin 10.3, INR 2.3. Creatinine is 1.5. ASSESSMENT ON LIMB MOVEMENT: 1. Congestive heart failure acute exacerbation acute on chronic systolic dysfunction EF 20% with possible cardiomyopathy. 2. Possible prosthetic valve aortic stenosis as well as aortic regurgitation and moderate mitral regurgitation. 3. Chronic obstructive pulmonary disease. 4. Indeterminate troponin 0.050, rather chronic elevation. 5. Chronic kidney disease stage 3. 6. Coumadin monitoring. 7. Elevated WBC. 8. Anemia of chronic disease, microcytic. 9. Hard of hearing. 10.Hypertension. 11.History of myocardial infarction. AICD biventricular pacing. 12.History of CAD, CABG. 13.History of nicotine dependence. 14.Increased WBC. 15.Moderate protein calorie malnutrition. 16.Coccygeal decubitus ulcer, stage 1-2 next full code. RECOMMENDATIONS: Continue current management and treatment. Otherwise, I would also recommend follow closely with Cardiology and Nephrology. Also I would also get infectious disease evaluation for coccygeal ulcer also. Otherwise continue the diuretics. Continue rest of medications. Prognosis guarded because of multiple complex medical issues to follow. MMODL / IJN: [id number] /
[2021-04-26] MEDS: ATORVASTATIN 40 MG TAB PO SCH (20:15)
[2021-04-26] MEDS: TEMAZEPAM 15 MG CAP PO PRN (23:06)
[2021-04-27] MEDS: PANTOPRAZOLE 40 MG TABLET PO SCH (06:29)
[2021-04-27 07:31] LABS: INR 2.3 (<1.2); Prothrombin Time 22.7 sec (9.0-12.0)
[2021-04-27 07:41] LABS: Anisocytosis Slight; Calcium 8.9 mg/dL (8.4-10.2); HCT 30.8 % (39.0-53.0); HGB 9.6 gm/dL (13.0-17.5); Hypochromasia Marked; MCH 23.5 pg (25.0-35.0); MCV 75.6 fL (80.0-100.0); Microcytosis Slight; Platelet Count 147 k/uL (150-450); Poikilocytosis Slight; Potassium 3.9 mmol/L (3.5-5.1); RBC 4.08 m/uL (4.30-5.90); RDW 18.3 % (11.5-15.5); WBC 10.8 k/uL (3.8-10.6)
[2021-04-27] MEDS: SYMBICORT 160-4.5 MCG INHALER INHALATION SCH ×2 (08:52→20:11)
[2021-04-27] MEDS: IPRATROPIUM-ALBUTEROL 3 ML NEB INHALATION SCH ×3 (08:53→20:11)
--- NOTE | 2021-04-27 09:19 | P.PN ---
Subjective Patient is seen in follow-up for acute kidney injury on chronic kidney disease. Renal function stable. Edema improving. Good urine output. No vomiting or diarrhea. Vital signs are stable. General: The patient appeared well nourished and normally developed. HEENT: Head exam is unremarkable. Neck is without jugular venous distension. LUNGS: Breath sounds decreased. HEART: Rate and Rhythm are regular. ABDOMEN: Soft, no distention. EXTREMITITES: 1+ edema. Objective - Vital Signs Vital signs: Vital Signs Temp 97.9 F 04/27/21 08:00 Pulse 59 L 04/27/21 08:00 Resp 20 04/27/21 08:00 BP 150/70 04/27/21 08:00 Pulse Ox 95 04/27/21 08:00 Intake & Output 04/26/21 04/27/21 04/27/21 18:59 06:59 18:59 Intake Total 1833 Output Total 1050 3010 Balance 783 -3010 Weight 70.1 kg 69 kg Intake: Oral 1833 Output: Urine 1050 2570 Stool 440 Other: # Voids 4 - Labs CBC & Chem 7: 04/27/21 06:58 04/27/21 06:58 Labs: Abnormal Lab Results - Last 24 Hours (Table) 04/27/21 04/27/21 04/27/21 Range/Units 06:58 06:58 06:58 WBC 10.8 H (3.8-10.6) k/uL RBC 4.08 L (4.30-5.90) m/uL Hgb 9.6 L (13.0-17.5) gm/dL Hct 30.8 L (39.0-53.0) % MCV 75.6 L (80.0-100.0) fL MCH 23.5 L (25.0-35.0) pg RDW 18.3 H (11.5-15.5) % Plt Count 147 L (150-450) k/uL PT 22.7 H (9.0-12.0) sec INR 2.3 H (<1.2) Carbon Dioxide 31 H (22-30) mmol/L BUN 56 H (9-20) mg/dL Creatinine 1.66 H (0.66-1.25) mg/dL Glucose 115 H (74-99) mg/dL Assessment and Plan Plan: Assessment: 1. Acute kidney injury mostly prerenal secondary to cardiorenal syndrome. Creatinine was 1.87 on admission and is stable at 1.66 today. 2. Chronic kidney disease stage III B with baseline creatinine near 1.5 secondary to cardiorenal syndrome. 3. Acute on chronic systolic CHF with ejection fraction of less than 20% with severe mitral regurgitation, moderate tricuspid regurgitation. 4. Pulmonary hypertension. 5. Volume overload. Improved with diuresis. Plan: Now on oral Lasix. Continue current dose. Low-salt diet. Follow-up urinalysis and renal ultrasound. Avoid nephrotoxins. Continue to monitor renal function and urine output. ABDON tomorrow.
[2021-04-27] MEDS: FUROSEMIDE 20 MG TAB PO SCH (10:07)
[2021-04-27] MEDS: ASPIRIN 81 MG PO SCH (10:07)
[2021-04-27] MEDS: ISOSORBIDE MONONITRATE ER 30 MG TAB.ER.24H PO SCH (10:07)
[2021-04-27] MEDS: METOPROLOL TARTRATE 25 MG TAB PO SCH ×2 (10:08→19:54)
[2021-04-27] MEDS: metOLazone 2.5 MG TAB PO SCH (10:08)
[2021-04-27] MEDS: hydrALAZINE HCL 25 MG TAB PO SCH ×3 (10:08→19:54)
[2021-04-27] MEDS: FUROSEMIDE 10 MG/ML 4 ML VIAL IV SCH (10:11)
[2021-04-27] MEDS ORDERED: HYDROPHILIC CREAM 180 GM TUBE TOPICAL PRN (10:27)
--- NOTE | 2021-04-27 10:32 | P.CONS ---
History of Present Illness - Reason for Consult Consult date: 04/27/21 wound care - History of Present Illness This is a 76-year-old patient being seen by the wound care center on 3 for a nonhealing ulceration to the left buttocks. Patient has an ulceration measuring approximately 0.8 x 0.5 x 0.1 cm with minimal granulation noted to the wound bed and significant slough. The wound edges are attached to the wound base. No tunneling or undermining noted. Patient has had ulceration for approximately 2 months. He has been utilizing a [id number] substance which has not seemed to be helping. Patient has a caregiver who can assist him with dressing changes. patient's past medical history significant for coronary artery disease, heart failure, COPD, hyperlipidemia, hypertension, renal disease, and a former smoker. Review Of Systems: Constitutional: No fever, no chills, no night sweats. No weight change. No weakness, fatigue or lethargy. No daytime sleepiness. Integumentary:reports wounds, no lesions. No rash or pruritus. No unusual bruising. No change in hair or nails. Physical exam: General Appearance: Alert, cooperative, no distress, appears stated age. Skin: See HPI all other Skin color, texture, tugor normal, no rashes or lesions. Neurologic: Alert oriented x3 Assessment: 1. Pressure ulcer stage II left buttocks plan: 1. Apply honey alginate, saline moistened gauze, border foam. Change Sunday. Patient to continue outpatient setting with the dressing changes. Patient to utilize a air-filled cushion for sitting. Increased pr otein to help with healing. Patient verbalized understanding. If ulceration worsens will be more than happy to see him in the wound care center. Thank you for the consultation any questions please contact the wound care center DNP note has been reviewed and discussed with Dr. Chaudhary and the impression and plan of care has been directed as dictated. Past Medical History Past Medical History: Coronary Artery Disease (CAD), Heart Failure, COPD, Eye Di sorder, Hearing Disorder / Deafness, Hyperlipidemia, Hypertension, Myocardial Infarction ([place]), Renal Disease Additional Past Medical History / Comment(s): HX HEP C- SLIGHT RINCON JENNIFER. EARS, LESION ON TIP TONGUE HAS GROWN OVER THE YEARS Last Myocardial Infarction Date:: 02/2014 History of Any Multi-Drug Resistant Organisms: None Reported Past Surgical History: AICD, Coronary Bypass/CABG, Heart Catheterization, Pacemaker Additional Past Surgical History / Comment(s): TRIPLE BYPASS SURGERY 2013, bioprosthetic aortic valve replacement in 2013, biventricular AICD in 2010-[facility] Past Anesthesia/Blood Transfusion Reactions: No Reported Reaction Type of Cardiac Device: Permanent Pacemaker, AICD Device Placement Date:: 2010 Past Psychological History: No Psychological Hx Reported Smoking Status: Former smoker Past Alcohol Use History: None Reported Additional Past Alcohol Use History / Comment(s): SMOKER SINCE AGE 11(1955) Past Drug Use History: Marijuana Additional Drug Use History / Comment(s): SMOKES MARIJUANA EVERY DAY SINCE AGE 11 - Past Family History Father History Unknown: Yes Family Medical History: Coronary Artery Disease (CAD) Mother Family Medical History: Coronary Artery Disease (CAD) Medications and Allergies Home Medications Medication Instructions Recorded Confirmed Type oxyCODONE HCL/ACETAMINOPHEN 1 tab PO Q4-6H PRN 10/16/14 04/25/21 History [Oxycodone-Acetaminophen 10-325] Aspirin EC [Ecotrin Low Dose] 81 mg PO DAILY 06/15/17 04/25/21 History Atorvastatin [Lipitor] 40 mg PO HS 04/05/21 04/25/21 History Warfarin Sodium [Coumadin] 5 mg PO SUMOTUTHFR@0900 04/05/21 04/25/21 History Warfarin [Coumadin] 7.5 mg PO WESA@0900 04/05/21 04/25/21 History Furosemide [Lasix] 40 mg PO BID@0900,1600 30 Days #60 04/12/21 04/25/21 Rx tab Ipratropium-Albuterol Nebulize 3 ml INHALATION RT-TID 30 Days 04/12/21 04/25/21 Rx [Duoneb 0.5 mg-3 mg/3 ml Soln] #120 ml Ipratropium-Albuterol Nebulize 3 ml INHALATION RT-TID PRN ml 04/12/21 04/25/21 Rx [Duoneb 0.5 mg-3 mg/3 ml Soln] Isosorbide Mononitrate ER [Imdur] 30 mg PO DAILY 30 Days #30 04/12/21 04/25/21 Rx tab.er.24h Metoprolol Tartrate [Lopressor] 25 mg PO BID 30 Days #60 tab 04/12/21 04/25/21 Rx Budesonide/Formoterol Fumarate 2 puff INHALATION RT-BID 04/25/21 04/25/21 History [Symbicort 160-4.5 Mcg Inhaler] hydrALAZINE HCL 25 mg PO TID 04/26/21 04/26/21 History metOLazone [Zaroxolyn] 2.5 mg PO DAILY 04/26/21 04/26/21 History Allergies Allergy/AdvReac Type Severity Reaction Status Date / Time No Known Allergies Allergy Verified 04/25/21 09:21 Physical Exam Vitals: Vital Signs Temp Pulse Pulse Resp BP Pulse Ox 04/27/21 08:00 97.9 F 59 L 20 150/70 95 04/27/21 04:00 97.8 F 69 18 145/60 93 L 04/27/21 01:39 75 18 04/27/21 00:00 97.8 F 75 18 143/65 92 L 04/26/21 20:49 78 04/26/21 20:38 78 04/26/21 20:00 97.8 F 75 18 125/58 93 L 04/26/21 16:37 98.1 F 70 20 125/58 94 L 04/26/21 12:00 98.1 F 69 18 134/81 95 Intake and Output 04/26/21 04/27/21 04/27/21 22:59 06:59 14:59 Intake Total 714 480 Output Total 2430 1380 175 Balance -1716 -1380 305 Intake: Oral 714 480 Output: Urine 2210 1160 175 Stool 220 220 Other: # Voids 6 4 Weight 69 kg Results CBC & Chem 7: 04/27/21 06:58 04/27/21 06:58 Labs: Abnormal Lab Results - Last 24 Hours (Table) 04/27/21 04/27/21 04/27/21 Range/Units 06:58 06:58 06:58 WBC 10.8 H (3.8-10.6) k/uL RBC 4.08 L (4.30-5.90) m/uL Hgb 9.6 L (13.0-17.5) gm/dL Hct 30.8 L (39.0-53.0) % MCV 75.6 L (80.0-100.0) fL MCH 23.5 L (25.0-35.0) pg RDW 18.3 H (11.5-15.5) % Plt Count 147 L (150-450) k/uL PT 22.7 H (9.0-12.0) sec INR 2.3 H (<1.2) Carbon Dioxide 31 H (22-30) mmol/L BUN 56 H (9-20) mg/dL Creatinine 1.66 H (0.66-1.25) mg/dL Glucose 115 H (74-99) mg/dL Assessment and Plan (1) Pressure ulcer of left buttock, stage 2 Current Visit: Yes Status: Acute Code(s): L89.322 - PRESSURE ULCER OF LEFT BUTTOCK, STAGE 2 SNOMED Code(s): [id number]
[2021-04-27] MEDS: SODIUM CHLORIDE 0.9% 1,000 ML IV SCH (11:35)
--- NOTE | 2021-04-27 11:38 | US ---
EXAMINATION TYPE: US kidneys/renal and bladder DATE OF EXAM: 04/27/2021 COMPARISON: CT 2012, PET/CT 02/05/2016 CLINICAL HISTORY: moy. Exam done portable. EXAM MEASUREMENTS: Right Kidney: 9.6 x 4.6 x 5.4 cm Left Kidney: 9.9 x 5.3 x 4.6 cm Right Kidney: 5.5 x 5.1 x 4.9cm exophytic hypoechoic lesion with calcified rim inferior pole, 2.1 x 2 .0 x 2.5cm cyst medial mid pole Left Kidney: multiple cysts with largest inferior pole measuring 4.8 x 5.1 x 4.7cm Bladder: wnl Bilateral Jets seen: yes Free fluid seen within Plunkett's pouch Bilateral pleural effusions Spleen appears hyperechoic with hypoechoic rim There is no evidence for hydronephrosis at this point in time. Cortical medullary differentiation is maintained. No nephrolithiasis is seen. Question some increased cortical echogenicity. The urinary bl adder is anechoic. Bilateral ureteral jets are seen. IMPRESSION: There is a chronic peripherally calcified focus at the lower pole the right kidney with some intermed iate internal echoes, lesion is not simple cystic but has not increased appreciably in size compared to prior CT, correlate for medical renal disease. There are simple cysts associated with the left kid amena.
--- NOTE | 2021-04-27 12:26 | P.PN ---
Subjective This is a pleasant 76-year-old male past medical history significant for with coronary artery disease status post 3 vessel CABG 2013, aortic stenosis status post aortic valve replacement 2013, ischemic cardiomyopathy status post Bi ventricular AICD (2010), paroxysmal atrial fibrillation, hypertension, dyslipidemia, chronic nicotine dependence (states he has been a heavy smoker but quit 30 days ago). He follows in the office with Dr. Scherer. We have been asked to see in consultation for congestive heart failure. Patient presents to the emergency department with worsening shorntess of breath and weakness over the past week. He states he can now only walk 3 steps and fatigued, feels short of breath, and needs to rest. Can usually walk about 1-2 blocks. He was recently admitted on 04/05/2021 with congestive heart failure. He recently followed up with Dr. Scherer in the office on 04/19/2021, patient was continued on Lasix 40 mg twice a day and metolazone 2.5 mg was added, patient's hydralazine was also decreased to 25 mg TID. He states his recent diet included mainly fast food and consumes mostly foods high in salt, however, he states he has decreased his salt intake. Lately he states he has been feeling dehydrated and drinking a lot of wa ter. He denies chest pain. He denies palpitations. He does endorse symptoms of orthopnea. He has lower extremity edema He is a non-diabetic. Most recent echocardiogram 04/06/2021 revealed an EF of less than 20%, RV is mildly enlarged, LA severely dilated, mild aortic regurgitation with peak/mean gradient of 39, currently/21 mmHg, findings are consistent with stenosis of the prosthetic aortic valve, severe mitral regurgitation, moderate tricuspid regurgitation, moderate pulmonary hypertension, RVSP of 47 mmHg, trivial pericardial effusion present, large pleural effusion. 04/27/2021: Patient seen and examined at bedside, shortness of breath has improved. Patient with 4L urine output over the past 24 hours. Laboratory data reviewed, WBC 10.8, hemoglobin 9.6, platelets 147, sodium 139, potassium 3.9, BUN 56, serum creatinine 1.6, magnesium 2.2, INR 2.3. Patient currently maintained on aspirin 81 mg daily, atorvastatin 40 mg nightly, IV Lasix 40 mg every 8 hours, hydralazine 25 mg 3 times a day, Imdur 30 mg daily, metolazone 2.5 mg daily, metoprolol tartrate 25 mg twice a day, Coumadin PHYSICAL EXAMINATION Blood pressure 150/70 heart rate 59 afebrile and maintaining oxygen saturation 95% on room air CONSTITUTIONAL: Alert and oriented x 3. Breathing has improved HEENT: Head is normocephalic. Neck supple CHEST EXAMINATION: Lungs with bilateral crackles to auscultation HEART EXAMINATION: Regular rate and rhythm. S1, S2 heard. Systolic ejection and diastolic murmur, noted. ABDOMEN: Soft, nontender. Positive bowel sounds. EXTREMITIES: 2+ peripheral pulses, 1+ bilateral lower extremity pitting edema and no calf tenderness. NEUROLOGIC EXAMINATION: Patient is awake, alert and oriented x3. ASSESSMENT Acute on chronic systolic heart failure with reduced ejection fraction <20% Elevated troponin, most likely related to congestive heart failure, patient with chronically elevated troponin Severe mitral regurgitation, moderate tricuspid regurgitation Acute on chronic kidney disease Ischemic Cardiomyopathy status post Bi ventricular AICD in 2010 Coronary artery disease status post 3 vessel CABG 2013 Aortic stenosis status post mechanical aortic valve replacement 2013 Paroxysmal atrial fibrillation- on coumadin Hypertension Dyslipidemia Chronic nicotine dependence (states he has been a heavy smoker but quit 30 days ago) Stage II Pressure Ulcer left buttocks PLAN We will transition to PO Lasix 60mg in the morning and 40mg in the afternoon Continue aspirin 81 mg daily, atorvastatin 40 mg nightly, Imdur 30 mg daily, metoprolol tartrate 25 mg twice a day, hydralazine Continue coumadin I/Os, daily weights Plan for patient to undergo planned ABDON with Dr. Scherer tomorrow 04/28 to assess the patient's prosthetic valve NPO at midnight Further recommendations to follow pending clinical course Nurse Practitioner note has been reviewed, I agree with a documented findings and plan of care. Patient was seen and examined. Objective - Vital Signs Vital signs: Vital Signs Temp 97.9 F 04/27/21 08:00 Pulse 59 L 04/27/21 08:00 Resp 20 04/27/21 08:00 BP 150/70 04/27/21 08:00 Pulse Ox 95 04/27/21 08:00 Intake & Output 04/26/21 04/27/21 04/27/21 18:59 06:59 18:59 Intake Total 1833 480 Output Total 1050 3010 175 Balance 783 -3010 305 Weight 70.1 kg 69 kg Intake: Oral 1833 480 Output: Urine 1050 2570 175 Stool 440 Other: # Voids 4 - Labs CBC & Chem 7: 04/27/21 06:58 04/27/21 06:58 Labs: Abnormal Lab Results - Last 24 Hours (Table) 04/27/21 04/27/21 04/27/21 Range/Units 06:58 06:58 06:58 WBC 10.8 H (3.8-10.6) k/uL RBC 4.08 L (4.30-5.90) m/uL Hgb 9.6 L (13.0-17.5) gm/dL Hct 30.8 L (39.0-53.0) % MCV 75.6 L (80.0-100.0) fL MCH 23.5 L (25.0-35.0) pg RDW 18.3 H (11.5-15.5) % Plt Count 147 L (150-450) k/uL PT 22.7 H (9.0-12.0) sec INR 2.3 H (<1.2) Carbon Dioxide 31 H (22-30) mmol/L BUN 56 H (9-20) mg/dL Creatinine 1.66 H (0.66-1.25) mg/dL Glucose 115 H (74-99) mg/dL
[2021-04-27] MEDS: THIAMINE 100 MG TAB PO SCH (12:36)
[2021-04-27] MEDS: MULTIVITAMINS, THERA 1 EACH TAB PO SCH (12:36)
[2021-04-27] MEDS: FOLIC ACID 1 MG TAB PO SCH (12:36)
[2021-04-27 14:07] LABS: Appearance,Urine Clear (Clear); Bacteria,Urine Rare /hpf; Bilirubin,Urine Negative (Negative); Blood,Urine Negative (Negative); Color,Urine Light Yellow; Glucose,Urine (UA) Negative (Negative); Hyaline Casts,Urine 1 /lpf (0-2); Ketones,Urine Negative (Negative); Leukocyte Esterase,Urine Large (Negative); Mucus,Urine Rare /hpf; Nitrite,Urine Positive (Negative); Protein,Urine Trace (Negative); RBC,Urine 1 /hpf (0-5); Specific Gravity,Urine 1.012 (1.001-1.035); Urobilinogen,Urine <2.0 mg/dL (<2.0); WBC,Urine 60 /hpf (0-5)
[2021-04-27] MEDS: FUROSEMIDE 40 MG TAB PO SCH (16:44)
[2021-04-27] MEDS ORDERED: WARFARIN 7.5 MG TAB PO SCH (18:00)
[2021-04-27] MEDS: ATORVASTATIN 40 MG TAB PO SCH (19:54)
--- NOTE | 2021-04-27 21:32 | P.PN ---
Subjective This is a pleasant 76 years old male with multiple medical problems presents with signs and symptoms of heart failure and found to have severely low ejection fraction with less than 20% with systolic dysfunction and ischemic cardiomyopathy. Patient currently getting more euvolemic and he switched to oral Lasix 60 mg daily and 40 mg at p.m. His creatinine was elevated initially on admission secondary to CHF, currently back close to baseline at 1.6, baseline creatinine at 1.5 as patient has chronic kidney disease stage III. Wound team are following the patient for stage II left buttock ulcer. Nephrology and cardiology team on the case INR is therapeutic Patient has paroxysmal A. fib and aortic stenosis status post aortic valve replacement 2013 Cartilage team are planning for a ABDON tomorrow to assess for valve prosthesis Objective - Vital Signs Vital signs: Vital Signs Temp 98.3 F 04/27/21 16:00 Pulse 71 04/27/21 16:00 Resp 16 04/27/21 16:00 BP 138/60 04/27/21 16:00 Pulse Ox 93 L 04/27/21 16:00 Intake & Output 04/27/21 04/27/21 04/28/21 06:59 18:59 06:59 Intake Total 960 Output Total 3010 745 Balance -3010 215 Weight 69 kg Intake: Oral 960 Output: Urine 2570 525 Stool 440 220 Other: # Voids 4 - Exam GENERAL: The patient is alert and oriented x3, not in any acute distress. Well developed, well nourished. HEENT: Pupils are round and equally reacting to light. EOMI. No scleral icterus. No conjunctival pallor. Normocephalic, atraumatic. No pharyngeal erythema. No thyromegaly. CARDIOVASCULAR: S1 and S2 present. No murmurs, rubs, or gallops. PULMONARY: Chest is clear to auscultation, no wheezing or crackles. ABDOMEN: Soft, nontender, nondistended, normoactive bowel sounds. No palpable organomegaly. MUSCULOSKELETAL: No joint swelling or deformity. EXTREMITIES: No cyanosis, clubbing, or pedal edema. NEUROLOGICAL: Gross neurological examination did not reveal any focal deficits. SKIN: No rashes. no petechiae. - Labs CBC & Chem 7: 04/27/21 06:58 04/27/21 06:58 Labs: Abnormal Lab Results - Last 24 Hours (Table) 04/25/21 04/27/21 04/27/21 Range/Units 13:27 06:58 06:58 WBC 10.8 H (3.8-10.6) k/uL RBC 4.08 L (4.30-5.90) m/uL Hgb 9.6 L (13.0-17.5) gm/dL Hct 30.8 L (39.0-53.0) % MCV 75.6 L (80.0-100.0) fL MCH 23.5 L (25.0-35.0) pg RDW 18.3 H (11.5-15.5) % Plt Count 147 L (150-450) k/uL PT 22.7 H (9.0-12.0) sec INR 2.3 H (<1.2) Carbon Dioxide (22-30) mmol/L BUN (9-20) mg/dL Creatinine (0.66-1.25) mg/dL Glucose (74-99) mg/dL Urine Protein Trace H (Negative) Ur Leukocyte Esterase Large H (Negative) Urine WBC 60 H (0-5) /hpf Urine Bacteria Rare H (None) /hpf Urine Mucus Rare H (None) /hpf 04/27/21 Range/Units 06:58 WBC (3.8-10.6) k/uL RBC (4.30-5.90) m/uL Hgb (13.0-17.5) gm/dL Hct (39.0-53.0) % MCV (80.0-100.0) fL MCH (25.0-35.0) pg RDW (11.5-15.5) % Plt Count (150-450) k/uL PT (9.0-12.0) sec INR (<1.2) Carbon Dioxide 31 H (22-30) mmol/L BUN 56 H (9-20) mg/dL Creatinine 1.66 H (0.66-1.25) mg/dL Glucose 115 H (74-99) mg/dL Urine Protein (Negative) Ur Leukocyte Esterase (Negative) Urine WBC (0-5) /hpf Urine Bacteria (None) /hpf Urine Mucus (None) /hpf Assessment and Plan Assessment: Acute systolic CHF with ejection fraction less than 20% Ischemic cardiomyopathy Acute kidney injury, cardiorenal syndrome. Improved CTD stage III Left buttock ulcer, stage II Paroxysma atrial fibrillation aortic stenosis status post aortic valve replacement 2013 Plan: This is a pleasant 76 years old male who presents with systolic CHF and AKA I. Currently he is euvolemic and kept on oral Lasix and his INR is therapeutic for his history of A. fib. Cardiology and nephrology teams on the case. Plan for a ABDON tomorrow Labs and medication were reviewed.. Continue same treatment. Continue with symptomatic treatment. Resume home medication. Monitor lytes and vitals. DVT and GI prophylaxis. Further recommendationsas per clinical course of the patient DVT prophylaxis: Coumadine GI Prophylaxis: Ppi PT/OT: C Prognosis is guarded
[2021-04-27] MEDS: TEMAZEPAM 15 MG CAP PO PRN (22:48)
--- NOTE | 2021-04-28 05:51 | CONS ---
CONSULTATION DATE OF SERVICE: 04/27/2021 REASON FOR CONSULTATION: Stage II sacral pressure ulcer. HISTORY OF PRESENT ILLNESS: The patient is a 76-year-old male presented to [facility] on 04/25/2021 for evaluation of increasing shortness of breath in this patient who did have underlying history of heart failure and COPD, coronary artery disease. The patient's symptoms have been getting worse for 3-4 days before presentation to hospital. The patient denies having any chest pain. He did have a cough but no purulent sputum production. Denies any nausea, vomiting, abdominal pain or diarrhea. The patient also have a stage II pressure ulcer to the sacral area which the patient mentioned has had for about 2 weeks and it is because of him sitting a lot in the chair. The patient did have a dull aching pain to the sacral wound area, intensity 3 to 4 out of 10 with no radiation. The patient denies any drainage from the wound and denies having been on antibiotic recently. Denies any fever or chills. With current symptoms, the patient has presented to the hospital. He has been afebrile. No fever has been recorded. Subsequently the patient did have a normal white count with no left shift. His creatinine was elevated. Urine was mildly positive. less than 10. Brasher PCR negative. The patient is currently being treated for congestive heart failure by Cardiology and pulmonary services. Infectious Disease was consulted last night for management of his sacral wound and possible need for antibiotic therapy. REVIEW OF SYSTEMS: Positive points have been mentioned in HPI. Rest of systems are negative. PAST MEDICAL HISTORY: Coronary artery disease, heart failure, COPD, hypertension, hyperlipidemia, CT, renal insufficiency. PAST SURGICAL HISTORY: AICD placement, coronary artery bypass grafting, heart catheterization, pacemaker placement. SOCIAL HISTORY: Remote history of smoking. No drinking or drug use. FAMILY HISTORY: Father with history of coronary artery disease. ALLERGIES: No known drug allergies. MEDICATIONS: The patient is currently on DuoNeb, Xanax, aspirin, Lipitor, Symbicort, folic acid, Lasix, hydralazine, Imdur, Zaroxolyn, Lopressor, Coumadin, Triad, Narcan, Protonix, Restoril. PHYSICAL EXAMINATION: Blood pressure 132/60 with a pulse of 71, temperature 98.2. He is 93% on room air. GENERAL DESCRIPTION: The patient is an elderly male up in the chair in no distress. No tachypnea or accessory muscles of respiration use. HEENT: Examination shows pallor. No scleral icterus. Oral mucous membranes dry. NECK: Trachea central. No thyromegaly. LUNGS unlabored breathing, decreased intensity of breath sounds in the base, with no wheeze or crackles. HEART S1, S2. Regular rate and rhythm. ABDOMEN: Soft. No tenderness. No guarding. No rigidity. EXTREMITIES: No edema of the feet. SKIN: No rash or mass palpable. Examination of sacral area did have stage II pressure ulcer with no slough tissue and no surrounding redness or any foul-smelling drainage. NEUROLOGICAL: Patient is awake, alert, oriented x3. Mood and affect normal. LABS: Hemoglobin 9.1, white count 10.8. BUN of 56, creatinine 1.66. Electrolytes have been normal. Troponin 0.56. DIAGNOSTIC IMPRESSION AND PLAN: Patient with a stage II sacral pressure ulcer in this patient currently with no evidence of any soft tissue or cellulitis. There is no need for any systemic antibiotic therapy. Recommend local wound care. PLAN: 1. Keep the area off the pressure as much as possible. 2. Local care with dry Aquacel dressing and change every 48 hours. 3. No need for systemic antibiotic therapy. 4. We will follow on clinical condition and further adjust medication if needed. Thank you for this consultation. Will follow this patient along with you. SUKI / ASHLEYN: [id number] / MTDD
[2021-04-28] MEDS: PANTOPRAZOLE 40 MG TABLET PO SCH (06:51)
[2021-04-28] MEDS: IPRATROPIUM-ALBUTEROL 3 ML NEB INHALATION SCH ×3 (07:51→20:11)
[2021-04-28] MEDS: SYMBICORT 160-4.5 MCG INHALER INHALATION SCH ×2 (07:51→20:11)
[2021-04-28] MEDS ORDERED: fentaNYL (PF) 50 MCG/ML 2 ML AMP ONE (07:53)
[2021-04-28] MEDS ORDERED: BENZOCAINE SPRAY 1 CAN MUCOUS MEM ONE (07:55)
[2021-04-28] MEDS ORDERED: SODIUM CHLORIDE 0.9% 500 ML 500 ML IV ONE (07:55)
[2021-04-28 07:57] LABS: INR 2.4 (<1.2); Prothrombin Time 22.9 sec (9.0-12.0)
[2021-04-28 07:58] LABS: Calcium 8.5 mg/dL (8.4-10.2); Potassium 3.5 mmol/L (3.5-5.1)
[2021-04-28] MEDS ORDERED: MIDAZOLAM 2 MG/2 ML VIAL IV ONE (08:00)
[2021-04-28] MEDS ORDERED: fentaNYL (PF) 50 MCG/ML 2 ML AMP IV ONE (08:00)
[2021-04-28] MEDS ORDERED: POTASSIUM CHLORIDE ER 20 MEQ TAB.ER PO STA (08:33)
--- NOTE | 2021-04-28 08:34 | P.PN ---
Subjective Patient is seen in follow-up for acute kidney injury on chronic kidney disease. Renal function improved. Good urine output. No vomiting or diarrhea. No chest pain or shortness of breath. Going for ABDON today. Vital signs are stable. General: The patient appeared well nourished and normally developed. HEENT: Head exam is unremarkable. Neck is without jugular venous distension. LUNGS: Breath sounds decreased. HEART: Rate and Rhythm are regular. ABDOMEN: Soft, no distention. EXTREMITITES: 1+ edema. Objective - Vital Signs Vital signs: Vital Signs Temp 97.8 F 04/28/21 04:00 Pulse 58 L 04/28/21 08:15 Resp 20 04/28/21 08:15 BP 122/59 04/28/21 08:15 Pulse Ox 98 04/28/21 08:15 Intake & Output 04/27/21 04/28/21 04/28/21 18:59 06:59 18:59 Intake Total 960 100 Output Total 745 1565 325 Balance 215 -1565 -225 Weight 64.8 kg Intake: IV 100 Oral 960 0 Output: Urine 525 1125 325 Stool 220 440 - Labs CBC & Chem 7: 04/27/21 06:58 04/28/21 07:17 Labs: Abnormal Lab Results - Last 24 Hours (Table) 04/25/21 04/28/21 04/28/21 Range/Units 13:27 07:17 07:17 PT 22.9 H (9.0-12.0) sec INR 2.4 H (<1.2) Sodium 136 L (137-145) mmol/L Chloride 97 L (98-107) mmol/L Carbon Dioxide 32 H (22-30) mmol/L BUN 50 H (9-20) mg/dL Creatinine 1.42 H (0.66-1.25) mg/dL Glucose 106 H (74-99) mg/dL Urine Protein Trace H (Negative) Ur Leukocyte Esterase Large H (Negative) Urine WBC 60 H (0-5) /hpf Urine Bacteria Rare H (None) /hpf Urine Mucus Rare H (None) /hpf Assessment and Plan Plan: Assessment: 1. Acute kidney injury mostly prerenal secondary to cardiorenal syndrome. Creatinine was 1.87 on admission and is down to 1.42 today. UA fairly benign. No evidence of hydronephrosis noted on kidney ultrasound. 2. Chronic kidney disease stage III B with baseline creatinine near 1.5 secondary to cardiorenal syndrome. 3. Acute on chronic systolic CHF with ejection fraction of less than 20% with severe mitral regurgitation, moderate tricuspid regurgitation. 4. Pulmonary hypertension. 5. Volume overload. Improved with diuresis. 6. Hypokalemia from diuresis. Plan: Maintain oral Lasix. Low-salt diet. Avoid nephrotoxins. Continue to monitor renal function and urine output. Going for ABDON today. Replace potassium.
[2021-04-28] MEDS: FUROSEMIDE 20 MG TAB PO SCH (09:09)
[2021-04-28] MEDS: metOLazone 2.5 MG TAB PO SCH (09:10)
[2021-04-28] MEDS: METOPROLOL TARTRATE 25 MG TAB PO SCH ×2 (09:10→20:04)
[2021-04-28] MEDS: ISOSORBIDE MONONITRATE ER 30 MG TAB.ER.24H PO SCH (09:10)
[2021-04-28] MEDS: hydrALAZINE HCL 25 MG TAB PO SCH ×3 (09:10→20:04)
[2021-04-28] MEDS: ASPIRIN 81 MG PO SCH (09:10)
[2021-04-28] MEDS: THIAMINE 100 MG TAB PO SCH (13:06)
[2021-04-28] MEDS: MULTIVITAMINS, THERA 1 EACH TAB PO SCH (13:06)
[2021-04-28] MEDS: FOLIC ACID 1 MG TAB PO SCH (13:06)
--- NOTE | 2021-04-28 13:09 | P.PN ---
Subjective This is a pleasant 76 years old male with multiple medical problems presents with signs and symptoms of heart failure and found to have severely low ejection fraction with less than 20% with systolic dysfunction and ischemic cardiomyopathy. Patient currently getting more euvolemic and he switched to oral Lasix 60 mg daily and 40 mg at p.m. His creatinine was elevated initially on admission secondary to CHF, currently back close to baseline at 1.6, baseline creatinine at 1.5 as patient has chronic kidney disease stage III. Wound team are following the patient for stage II left buttock ulcer. Nephrology and cardiology team on the case INR is therapeutic Patient has paroxysmal A. fib and aortic stenosis status post aortic valve replacement 2013 Cartilage team are planning for a ABDON tomorrow to assess for valve prosthesis 04/28/2021 Patient dyspnea is improving gradually. No chest pain. She is hemodynamically stable. She is saturating 93% on room air. Labs from today showing stable INR at 2.4, unremarkable BMP and creatinine is tr ending down to 1.4. Patient undergoing ABDON with cardiology team Patient kept on Coumadin and baby aspirin. She is also Lasix 60 mg in the morning and 40 mg at the , hydralazine 25 mg twice daily. Objective - Vital Signs Vital signs: Vital Signs Temp 98.0 F 04/28/21 09:07 Pulse 59 L 04/28/21 12:15 Resp 16 04/28/21 12:15 BP 123/61 04/28/21 12:15 Pulse Ox 93 L 04/28/21 12:15 Intake & Output 04/27/21 04/28/21 04/28/21 18:59 06:59 18:59 Intake Total 960 100 Output Total 745 1565 625 Balance 215 -1565 -525 Weight 64.8 kg Intake: IV 100 Oral 960 0 Output: Urine 525 1125 625 Stool 220 440 - Exam GENERAL: The patient is alert and oriented x3, not in any acute distress. Well developed, well nourished. HEENT: Pupils are round and equally reacting to light. EOMI. No scleral icterus. No conjunctival pallor. Normocephalic, atraumatic. No pharyngeal erythema. No thyromegaly. CARDIOVASCULAR: S1 and S2 present. No murmurs, rubs, or gallops. PULMONARY: Chest is clear to auscultation, no wheezing or crackles. ABDOMEN: Soft, nontender, nondistended, normoactive bowel sounds. No palpable organomegaly. MUSCULOSKELETAL: No joint swelling or deformity. EXTREMITIES: No cyanosis, clubbing, or pedal edema. NEUROLOGICAL: Gross neurological examination did not reveal any focal deficits. SKIN: No rashes. no petechiae. - Labs CBC & Chem 7: 04/27/21 06:58 04/28/21 07:17 Labs: Abnormal Lab Results - Last 24 Hours (Table) 04/25/21 04/28/21 04/28/21 Range/Units 13:27 07:17 07:17 PT 22.9 H (9.0-12.0) sec INR 2.4 H (<1.2) Sodium 136 L (137-145) mmol/L Chloride 97 L (98-107) mmol/L Carbon Dioxide 32 H (22-30) mmol/L BUN 50 H (9-20) mg/dL Creatinine 1.42 H (0.66-1.25) mg/dL Glucose 106 H (74-99) mg/dL Urine Protein Trace H (Negative) Ur Leukocyte Esterase Large H (Negative) Urine WBC 60 H (0-5) /hpf Urine Bacteria Rare H (None) /hpf Urine Mucus Rare H (None) /hpf Assessment and Plan Assessment: Acute systolic CHF with ejection fraction less than 20% Ischemic cardiomyopathy Acute kidney injury, cardiorenal syndrome. Improved CTD stage III Left buttock ulcer, stage II Paroxysma atrial fibrillation aortic stenosis status post aortic valve replacement 2013 Plan: This is a pleasant 76 years old male who presents with systolic CHF and AKA I. Currently he is euvolemic and kept on oral Lasix and his INR is therapeutic for his history of A. fib. Cardiology and nephrology teams on the case. 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 Continue same treatment. Continue with symptomatic treatment. Resume home medication. Monitor lytes and vitals. DVT and GI prophylaxis. Further recommendationsas per clinical course of the patient DVT prophylaxis: Coumadine GI Prophylaxis: Ppi PT/OT: C Prognosis is guarded
--- NOTE | 2021-04-28 15:25 | P.PN ---
Subjective This is a pleasant 76-year-old male past medical history significant for with coronary artery disease status post 3 vessel CABG 2013, aortic stenosis status post aortic valve replacement 2013, ischemic cardiomyopathy status post Bi ventricular AICD (2010), paroxysmal atrial fibrillation, hypertension, dyslipidemia, chronic nicotine dependence (states he has been a heavy smoker but quit 30 days ago). He follows in the office with Dr. Scherer. We have been asked to see in consultation for congestive heart failure. Patient presents to the emergency department with worsening shorntess of breath and weakness over the past week. He states he can now only walk 3 steps and fatigued, feels short of breath, and needs to rest. Can usually walk about 1-2 blocks. He was recently admitted on 04/05/2021 with congestive heart failure. He recently followed up with Dr. Scherer in the office on 04/19/2021, patient was continued on Lasix 40 mg twice a day and metolazone 2.5 mg was added, patient's hydralazine was also decreased to 25 mg TID. He states his recent diet included mainly fast food and consumes mostly foods high in salt, however, he states he has decreased his salt intake. Lately he states he has been feeling dehydrated and drinking a lot of wa ter. He denies chest pain. He denies palpitations. He does endorse symptoms of orthopnea. He has lower extremity edema He is a non-diabetic. Most recent echocardiogram 04/06/2021 revealed an EF of less than 20%, RV is mildly enlarged, LA severely dilated, mild aortic regurgitation with peak/mean gradient of 39, currently/21 mmHg, findings are consistent with stenosis of the prosthetic aortic valve, severe mitral regurgitation, moderate tricuspid regurgitation, moderate pulmonary hypertension, RVSP of 47 mmHg, trivial pericardial effusion present, large pleural effusion. 04/28/21: Patient underwent ABDON with Dr. Scherer today. He states his breathing is much better. He has been weaned to room air. His lower extremity edema has significantly improved. Patient is currently maintained on aspirin 1 mg, atorvastatin 40 mg nightly, hydralazine 25 mg 3 times a day, Imdur 30 mg daily, metolazone 2.5 mg daily, metoprolol tartrate 25 mg twice a day, Coumadin. Telemetry data reviewed sodium 136, potassium 3.5, BUN 50, serum creatinine 1.4, magnesium 2.0 PHYSICAL EXAMINATION Blood pressure 123/61 heart rate 59 afebrile and maintaining oxygen saturation 93-95% on room air CONSTITUTIONAL: Alert and oriented x 3. Breathing has improved HEENT: Head is normocephalic. Neck supple CHEST EXAMINATION: Lungs are clear to ausculation. HEART EXAMINATION: Regular rate and rhythm. S1, S2 heard. Systolic ejection and diastolic murmur, noted. ABDOMEN: Soft, nontender. Positive bowel sounds. EXTREMITIES: 2+ peripheral pulses, 1+ bilateral lower extremity pitting edema and no calf tenderness. NEUROLOGIC EXAMINATION: Patient is awake, alert and oriented x3. ASSESSMENT Acute on chronic systolic heart failure with reduced ejection fraction <20% Elevated troponin, most likely related to congestive heart failure, patient with chronically elevated troponin Severe mitral regurgitation, moderate tricuspid regurgitation Acute on chronic kidney disease Ischemic Cardiomyopathy status post Bi ventricular AICD in 2010 Coronary artery disease status post 3 vessel CABG 2013 Aortic stenosis status post mechanical aortic valve replacement 2013 Paroxysmal atrial fibrillation- on coumadin Hypertension Dyslipidemia Chronic nicotine dependence (states he has been a heavy smoker but quit 30 days ago) Stage II Pressure Ulcer left buttocks PLAN Will follow up on ABDON results with Dr. Scherer Continue PO Lasix 60mg in the morning and 40mg in the afternoon Continue aspirin 81 mg daily, atorvastatin 40 mg nightly, Imdur 30 mg daily, metoprolol tartrate 25 mg twice a day, hydralazine Continue coumadin I/Os, daily weights Further recommendations to follow pending clinical course Nurse Practitioner note has been reviewed, I agree with a documented findings and plan of care. Patient was seen and examined. Objective - Vital Signs Vital signs: Vital Signs Temp 98.0 F 04/28/21 09:07 Pulse 59 L 04/28/21 12:15 Resp 16 04/28/21 12:15 BP 123/61 04/28/21 12:15 Pulse Ox 93 L 04/28/21 12:15 Intake & Output 04/27/21 04/28/21 04/28/21 18:59 06:59 18:59 Intake Total 960 580 Output Total 749 1565 1050 Balance 405 -0131 -155 Weight 64.8 kg Intake: IV 100 Oral 960 480 Output: Urine 525 1125 1050 Stool 220 440 - Labs CBC & Chem 7: 04/27/21 06:58 04/28/21 07:17 Labs: Abnormal Lab Results - Last 24 Hours (Table) 04/28/21 04/28/21 Range/Units 07:17 07:17 PT 22.9 H (9.0-12.0) sec INR 2.4 H (<1.2) Sodium 136 L (137-145) mmol/L Chloride 97 L (98-107) mmol/L Carbon Dioxide 32 H (22-30) mmol/L BUN 50 H (9-20) mg/dL Creatinine 1.42 H (0.66-1.25) mg/dL Glucose 106 H (74-99) mg/dL
[2021-04-28] MEDS: WARFARIN 5 MG TAB PO SCH (17:19)
[2021-04-28] MEDS: FUROSEMIDE 40 MG TAB PO SCH (17:19)
--- NOTE | 2021-04-28 17:57 | PN ---
PROGRESS NOTE DATE OF SERVICE: 04/28/2021 REASON FOR FOLLOWUP: Stage II sacral pressure ulcer. INTERVAL HISTORY: Patient is afebrile. The patient is slightly upset this morning as the patient is kept n.p.o. For a test. Denies any chest pain or shortness of breath or cough. No abdominal pain or any worsening pain to the sacral wound area. PHYSICAL EXAMINATION: Blood pressure 123/61 with a pulse of 59, temperature of 98. He is 93% on room air. General description is an elderly male up in the chair in no distress. Respiratory system: Unlabored breathing, decreased intensity in breath sounds. No wheeze. Heart S1, S2. Regular rate and rhythm. Abdomen soft, no tenderness. LABS: BUN of 50, creatinine 1.42. DIAGNOSTIC IMPRESSION AND PLAN: Patient with stage II sacral ulcer, no evidence of any cellulitis. Local wound care with dry Aquacel Silver dressing. No need for systemic antibiotic therapy. MMODL / IJN: [id number] /
[2021-04-28] MEDS: ATORVASTATIN 40 MG TAB PO SCH (20:04)
[2021-04-28] MEDS: TEMAZEPAM 15 MG CAP PO PRN (22:08)
[2021-04-29 03:25] VITALS: RESP 18
[2021-04-29] MEDS: PANTOPRAZOLE 40 MG TABLET PO SCH (06:31)
[2021-04-29 07:52] LABS: Calcium 9.1 mg/dL (8.4-10.2); Magnesium 2.1 mg/dL (1.6-2.3); Potassium 3.8 mmol/L (3.5-5.1)
[2021-04-29 07:59] LABS: INR 2.1 (<1.2); Prothrombin Time 20.8 sec (9.0-12.0)
[2021-04-29] MEDS: IPRATROPIUM-ALBUTEROL 3 ML NEB INHALATION SCH ×2 (08:21→11:33)
[2021-04-29] MEDS: SYMBICORT 160-4.5 MCG INHALER INHALATION SCH (08:21)
[2021-04-29 08:34] VITALS: PULSE 70; TEMP 97.8
[2021-04-29] MEDS: MULTIVITAMINS, THERA 1 EACH TAB PO SCH (08:34)
[2021-04-29] MEDS: ISOSORBIDE MONONITRATE ER 30 MG TAB.ER.24H PO SCH (08:34)
[2021-04-29] MEDS: ASPIRIN 81 MG PO SCH (08:35)
[2021-04-29] MEDS: FOLIC ACID 1 MG TAB PO SCH (08:35)
[2021-04-29] MEDS: FUROSEMIDE 20 MG TAB PO SCH (08:35)
[2021-04-29] MEDS: THIAMINE 100 MG TAB PO SCH (08:35)
[2021-04-29] MEDS: hydrALAZINE HCL 25 MG TAB PO SCH ×2 (08:35→16:53)
[2021-04-29] MEDS: metOLazone 2.5 MG TAB PO SCH (08:35)
[2021-04-29] MEDS: METOPROLOL TARTRATE 25 MG TAB PO SCH (08:35)
--- NOTE | 2021-04-29 09:39 | P.PN ---
Subjective Patient is seen in follow-up for acute kidney injury on chronic kidney disease. Renal function stable. Good urine output. No vomiting or diarrhea. No chest pain or shortness of breath. No active complaints. Vital signs are stable. General: The patient appeared well nourished and normally developed. HEENT: Head exam is unremarkable. Neck is without jugular venous distension. LUNGS: Breath sounds decreased. HEART: Rate and Rhythm are regular. ABDOMEN: Soft, no distention. EXTREMITITES: 1+ edema. Objective - Vital Signs Vital signs: Vital Signs Temp 97.8 F 04/29/21 08:00 Pulse 70 04/29/21 08:00 Resp 18 04/29/21 08:00 BP 113/49 04/29/21 08:00 Pulse Ox 95 04/29/21 08:00 Intake & Output 04/28/21 04/29/21 04/29/21 18:59 06:59 18:59 Intake Total 820 Output Total 2090 1420 Balance -1270 -1420 Intake: IV 100 Oral 720 Output: Urine 1650 1200 Stool 440 220 - Labs CBC & Chem 7: 04/27/21 06:58 04/29/21 06:44 Labs: Abnormal Lab Results - Last 24 Hours (Table) 04/29/21 04/29/21 Range/Units 06:44 06:44 PT 20.8 H (9.0-12.0) sec INR 2.1 H (<1.2) Sodium 136 L (137-145) mmol/L Chloride 92 L (98-107) mmol/L Carbon Dioxide 37 H (22-30) mmol/L BUN 42 H (9-20) mg/dL Creatinine 1.45 H (0.66-1.25) mg/dL Glucose 120 H (74-99) mg/dL Assessment and Plan Plan: Assessment: 1. Acute kidney injury mostly prerenal secondary to cardiorenal syndrome. Creatinine was 1.87 on admission and is down to 1.45 today. UA fairly benign. No evidence of hydronephrosis noted on kidney ultrasound. 2. Chronic kidney disease stage III B with baseline creatinine near 1.5 secondary to cardiorenal syndrome. 3. Acute on chronic systolic CHF with ejection fraction of less than 20% with severe mitral regurgitation, moderate tricuspid regurgitation. 4. Pulmonary hypertension. 5. Volume overload. Improved with diuresis. 6. Hypokalemia from diuresis. Replace. Better. Plan: Maintain oral Lasix. Low-salt diet. Avoid nephrotoxins. Continue to monitor renal function and urine output. Follow-up ABDON results. Add potassium supplementation.
[2021-04-29] MEDS ORDERED: POTASSIUM CHLORIDE ER 20 MEQ TAB.ER PO SCH (09:45)
[2021-04-29 12:14] VITALS: BP 92/47
[2021-04-29] MEDS: FUROSEMIDE 40 MG TAB PO SCH (16:53)
[2021-04-29] MEDS ORDERED: WARFARIN 7.5 MG TAB PO ONE (18:00)
--- NOTE | 2021-04-29 23:56 | P.DS ---
Providers Date of admission: 04/26/21 16:45 Attending physician: Alek Nance Consults: 04/25/21 12:06 Consult Physician Routine Consulting Provider: Sal Gardiner Consult Reason/Comments: heart failure Do you want consulting provider notified?: Yes 04/25/21 16:55 Consult Physician Routine Consulting Provider: Phuc Child Consult Reason/Comments: arf Do you want consulting provider notified?: Yes 04/26/21 17:06 Consult Physician Routine Consulting Provider: Alissa Quinn Consult Reason/Comments: coccyx decub Do you want consulting provider notified?: Yes Primary care physician: Ayaan [facility] Course: Diagnoses: Acute systolic CHF with ejection fraction less than 20% Ischemic cardiomyopathy Acute kidney injury, cardiorenal syndrome. Improved CTD stage III Left buttock ulcer, stage II Paroxysma atrial fibrillation aortic stenosis status post aortic valve replacement 2013 Hospital course: This is a pleasant 76 years old male with multiple medical problems presents with signs and symptoms of heart failure and found to have severely low ejection fraction with less than 20% with systolic dysfunction and ischemic cardiomyopathy. Patient currently getting more euvolemic and he switched to oral Lasix 60 mg daily and 40 mg at p.m. His creatinine was elevated initially on admission secondary to CHF, currently back close to baseline at 1.6, baseline creatinine at 1.5 as patient has chronic kidney disease stage III. Wound team were following the patient for stage II left buttock ulcer. Nephrology and cardiology team on the case INR is therapeutic Patient has paroxysmal A. fib and aortic stenosis status post aortic valve replacement 2013 Patient underwent ABDON with his field service representative yesterday Dr. Scherer to assess for valve prosthesis. St[facility] Wi[facility] team are holding any further intervention to healing of his pressure ulcer as per my discussion with Dr. Milan today was on the floor. Dr. Milan told me patient can go home on follow-up with , as an outpatient. Patient clinically stable and walking freely. He is asymptomatic and back to his baseline. Patient is agreeable to go home today. Patient was cleared for discharge by field service representative and shoveler. Problems and management plan were discussed with the patient and he verbalized understanding and acceptance Patient was found stable and can be discharged home however he needs follow-up as an outpatient. Patient was instructed to follow up with PCP within one week and patient agrees Patient agrees with appointment made for him on 05/03 at 1:15 PM. Also he agrees with appointment with Dr. Scherer on the same day at 05/03 but at 4:30 PM Physical exam Gen: patient is a AAOx3, no distress CVS: S1-S2, RRR, no murmur Lungs: B/L CTA, no wheezing Abdomen: soft, no distention, no tenderness, positive bowel sounds Extremity: no leg edema or induration Time spent more than 35 minutes Patient Condition at Discharge: Fair Plan - Discharge Summary New Discharge Prescriptions: New Furosemide [Lasix] 60 mg PO DAILY #90 tab Furosemide [Lasix] 40 mg PO DAILY@1600 #30 tab Thiamine [Vitamin B-1] 100 mg PO DAILY@1200 #30 tab hydrALAZINE HCL [Apresoline] 25 mg PO TID #90 tab Folic Acid 1 mg PO DAILY@1200 #30 tab Potassium Chloride ER [K-Dur 20] 20 meq PO DAILY #30 tab.er.prt Multivitamins, Thera [Multivitamin (formulary)] 1 each PO DAILY@1200 #30 tab Continue oxyCODONE HCL/ACETAMINOPHEN [Oxycodone-Acetaminophen 10-325] 1 tab PO Q4-6H PRN PRN Reason: Pain Aspirin EC [Ecotrin Low Dose] 81 mg PO DAILY Atorvastatin [Lipitor] 40 mg PO HS Ipratropium-Albuterol Nebulize [Duoneb 0.5 mg-3 mg/3 ml Soln] 3 ml INHALATION RT-TID 30 Days #120 ml Warfarin [Coumadin] 7.5 mg PO WESA@0900 Warfarin Sodium [Coumadin] 5 mg PO SUMOTUTHFR@0900 Ipratropium-Albuterol Nebulize [Duoneb 0.5 mg-3 mg/3 ml Soln] 3 ml INHALATION RT-TID PRN ml PRN Reason: Shortness Of Breath Or Wheezing Isosorbide Mononitrate ER [Imdur] 30 mg PO DAILY 30 Days #30 tab.er.24h Metoprolol Tartrate [Lopressor] 25 mg PO BID 30 Days #60 tab Budesonide/Formoterol Fumarate [Symbicort 160-4.5 Mcg Inhaler] 2 puff INHALATION RT-BID metOLazone [Zaroxolyn] 2.5 mg PO DAILY Discontinued hydrALAZINE HCL 25 mg PO TID Furosemide [Lasix] 40 mg PO BID@0900,1600 30 Days #60 tab Discharge Medication List oxyCODONE HCL/ACETAMINOPHEN [Oxycodone-Acetaminophen 10-325] 1 tab PO Q4-6H PRN 10/16/14 [History] Aspirin EC [Ecotrin Low Dose] 81 mg PO DAILY 06/15/17 [History] Atorvastatin [Lipitor] 40 mg PO HS 04/05/21 [History] Warfarin Sodium [Coumadin] 5 mg PO SUMOTUTHFR@89904/05/21 [History] Warfarin [Coumadin] 7.5 mg PO WESA@89904/05/21 [History] Ipratropium-Albuterol Nebulize [Duoneb 0.5 mg-3 mg/3 ml Soln] 3 ml INHALATION RT-TID 30 Days #120 ml 04/12/21 [Rx] Ipratropium-Albuterol Nebulize [Duoneb 0.5 mg-3 mg/3 ml Soln] 3 ml INHALATION RT-TID PRN ml 04/12/21 [Rx] Isosorbide Mononitrate ER [Imdur] 30 mg PO DAILY 30 Days #30 tab.er.24h 04/12/21 [Rx] Metoprolol Tartrate [Lopressor] 25 mg PO BID 30 Days #60 tab 04/12/21 [Rx] Budesonide/Formoterol Fumarate [Symbicort 160-4.5 Mcg Inhaler] 2 puff INHALATION RT-BID 04/25/21 [History] metOLazone [Zaroxolyn] 2.5 mg PO DAILY 04/26/21 [History] Folic Acid 1 mg PO DAILY@1200 #30 tab 04/29/21 [Rx] Furosemide [Lasix] 40 mg PO DAILY@1600 #30 tab 04/29/21 [Rx] Furosemide [Lasix] 60 mg PO DAILY #90 tab 04/29/21 [Rx] Multivitamins, Thera [Multivitamin (formulary)] 1 each PO DAILY@1200 #30 tab 04/29/21 [Rx] Potassium Chloride ER [K-Dur 20] 20 meq PO DAILY #30 tab.er.prt 04/29/21 [Rx] Thiamine [Vitamin B-1] 100 mg PO DAILY@1200 #30 tab 04/29/21 [Rx] hydrALAZINE HCL [Apresoline] 25 mg PO TID #90 tab 04/29/21 [Rx] Follow up Appointment(s)/Referral(s): [facility], [NON-STAFF] - Ayaan Wray DO [Primary Care Provider] - 05/03/21 1:15 pm Sarabjit Scherer MD [STAFF PHYSICIAN] - 05/03/21 4:30 pm Patient Instructions/Handouts: Heart Failure (DC) Activity/Diet/Wound Care/Special Instructions: heart healthy diet . we recommend fluid and salt restriction activity is restricted till you see your doctor Discharge Disposition: HOME SELF-CARE
--- NOTE | 2021-04-30 08:52 | PN ---
PROGRESS NOTE Mr. Zambrano underwent transesophageal echo by Dr. Scherer yesterday, has significant aortic regurgitation, perivalvular, and paravalvular leak. Also has mitral regurgitation. He will require valve invalve TAVR. However, this should be done after his decubitus ulcer is completely healed. He is currently on antibiotics. Vitals are stable. No JVD. S1-S2 are normal. Ejection systolic murmur at the base and also diastolic murmur at the left sternal border. Clear lungs. Abdomen and lower extremity exam unchanged. PLAN: Continue current medications, increase activity. He can be discharged on IV antibiotics and see Dr. Scherer in one week. MMODL / IJN: [id number] /
--- NOTE | 2021-05-12 09:55 | ECHOT ---
TRANSESOPHAGEAL ECHOCARDIOGRAM INDICATION: To evaluate the prosthetic aortic valve. This is a 76-year-old gentleman with history of coronary artery disease status post CABG and aortic valve replacement in 2013 with DAIGLE to LAD, saphenous vein graft to OM and PDA, history of cardiomyopathy with severe LV dysfunction, status post AICD who was lost to followup for nearly 2 years, was recently admitted to hospital with acute exacerbation of congestive heart failure and an echocardiogram done at that time revealed severe mitral regurgitation and evidence of prosthetic valve stenosis and regurgitation. Due to this, he was advised to undergo a transesophageal echo which I was going to perform as an outpatient. However, he is readmitted to hospital with heart failure exacerbation. The patient has a grade 2 decubitus ulcer in the sacral area that is currently being cared for. He has atrial fibrillation, is on Coumadin and INR is therapeutic. PROCEDURE NOTE: After obtaining informed consent, transesophageal echocardiogram is performed in left lateral position using an Omni plane probe. Local and IV sedation was given and a total sedation time was 10 minutes. We performed 2D color Doppler and spectral analysis. FINDINGS: 1. Mitral valve: There is dilatation of the mitral anulus with moderate to severe central mitral regurgitation. 2. Aortic valve is a bioprosthetic valve. 3. Aortic valve leaflets appear thickened, probably from pannus without significant restriction in leaflet mobility. There is severe aortic regurgitation which is both intra valvular and perivalvular. Tricuspid valve shows moderate tricuspid regurgitation. AICD leads are noted in the right side of the heart. 4. Left ventricle appears dilated with severe LV systolic dysfunction with an ejection fraction of 20%. Inferior wall appears akinetic. 5. Left atrium appears severely enlarged. Right atrium and right ventricle appear mildly enlarged. Aorta shows [id number] atherosclerotic changes. CONCLUSIONS: 1. Evidence of malfunction of the prosthetic aortic valve with severe aortic regurgitation both intra valvular and perivalvular. 2. Severe LV systolic dysfunction with an ejection fraction of around 20%. 3. Moderate to severe mitral regurgitation. PLAN: Patient needs replacement of the aortic valve with possible mitral clip, but we have to wait until his sacral decubital ulcer heals because of the risk of infection. He will need a cardiac catheterization prior. I will refer the patient to the structural Heart Disease team at [facility] for further care once patient is ready for it. [facility]
== END 2021-04-29 19:07 | disposition home or self-care (01) ==
LOC: EC 07:52 → 3SCARD 12:24 → INTOOBSV 04-26 16:45 → OBSVTOIN 04-26 16:45 → UNDODISIN 04-29 19:07
PROVIDERS: ADMIT Hospitalist; ATTEND Hospitalist
PROC: B246ZZ4 Ultrasonography of Right and Left Heart, Transesophageal (ICD-10-PCS; principal; 2021-04-28 08:00)
DX: I13.0 Hypertensive heart and chronic kidney disease with heart failure and stage 1 through stage 4 chronic kidney disease, or unspecified chronic kidney disease (principal); I50.23 Acute on chronic systolic (congestive) heart failure; N17.9 Acute kidney failure, unspecified; N18.32 Chronic kidney disease, stage 3b; T82.857A Stenosis of other cardiac prosthetic devices, implants and grafts, initial encounter; E44.0 Moderate protein-calorie malnutrition; Z68.1 Body mass index [BMI] 19.9 or less, adult; T82.03XA Leakage of heart valve prosthesis, initial encounter; I31.3 Pericardial effusion (noninflammatory); D63.8 Anemia in other chronic diseases classified elsewhere; E78.5 Hyperlipidemia, unspecified; H91.90 Unspecified hearing loss, unspecified ear; I08.3 Combined rheumatic disorders of mitral, aortic and tricuspid valves; J44.9 Chronic obstructive pulmonary disease, unspecified; I70.0 Atherosclerosis of aorta; L89.152 Pressure ulcer of sacral region, stage 2; T50.2X5A Adverse effect of carbonic-anhydrase inhibitors, benzothiadiazides and other diuretics, initial encounter; L89.322 Pressure ulcer of left buttock, stage 2; R79.89 Other specified abnormal findings of blood chemistry; I25.10 Atherosclerotic heart disease of native coronary artery without angina pectoris; I25.2 Old myocardial infarction; Z20.822 Contact with and (suspected) exposure to COVID-19; I25.5 Ischemic cardiomyopathy; I27.20 Pulmonary hypertension, unspecified; I48.0 Paroxysmal atrial fibrillation; Y71.2 Prosthetic and other implants, materials and accessory cardiovascular devices associated with adverse incidents; Y83.1 Surgical operation with implant of artificial internal device as the cause of abnormal reaction of the patient, or of later complication, without mention of misadventure at the time of the procedure; Z79.01 Long term (current) use of anticoagulants; Z79.51 Long term (current) use of inhaled steroids; Z79.82 Long term (current) use of aspirin; Z87.891 Personal history of nicotine dependence; Z79.899 Other long term (current) drug therapy; Z79.891 Long term (current) use of opiate analgesic; Z95.1 Presence of aortocoronary bypass graft; Z95.3 Presence of xenogenic heart valve; Z95.810 Presence of automatic (implantable) cardiac defibrillator; Z82.49 Family history of ischemic heart disease and other diseases of the circulatory system; X58.XXXA Exposure to other specified factors, initial encounter
CPT/HCPCS: 96376 ×2; 96374; 99285; 36415; 94640 ×5; 93005; 93312; 93320; 93325; 97116; 97162; 97530; 97165; 83880; 80048 ×5; 83735 ×3; 84484; 85025 ×2; 85027; 85610 ×5; 85730; 81001; 87635; 71046; 76770; G0378 ×5; G0480; J2250; J1940 ×2; J3010; 80320

== ENCOUNTER → 2021-07-19 | Day surgery (SDC) | payer MEDICARE ==
[2021-07-14 10:04] VITALS: BMI 20.5
[~2021-07-19] MED LIST: ALPRAZolam 0.25 MG TAB PO PRN; ALPRAZolam 0.5 MG TAB PO PRN; ASPIRIN 325 MG TAB PO ONE; ASPIRIN 81 MG ONE; ASPIRIN 81 MG PO ONE; HEPARIN SODIUM,PORCINE 10,000 UNIT in SODIUM CHLORIDE 0.9% 1,000 ML IRRIGATION PRN; HEPARIN SODIUM,PORCINE 2,500 UNIT in SODIUM CHLORIDE 0.9% 250 ML IRRIGATION PRN; NITROGLYCERIN SL TABS 0.4 MG TAB SUBLINGUAL PRN; SODIUM CHLORIDE 0.9% 1,000 ML IV ONE; SODIUM CHLORIDE 0.9% 1,000 ML in EMPTY BAG 1 BAG IV ONE
[2021-07-19 08:35] VITALS: BP 139/67; PULSE 76; RESP 18; TEMP 97.6
[2021-07-19 08:56] LABS: Anisocytosis Slight; Basophils # (A) 0.1 k/uL (0-0.2); Basophils % (A) 1 %; Eosinophils % (A) 0 %; HCT 33.6 % (39.0-53.0); Hypochromasia Marked; Lymphocytes # (A) 1.5 k/uL (1.0-4.8); Lymphocytes % (A) 12 %; MCH 24.4 pg (25.0-35.0); MCHC 29.8 g/dL (31.0-37.0); MCV 81.7 fL (80.0-100.0); Mean Platelet Volume 9.2; Microcytosis Slight; Monocytes # (A) 0.7 k/uL (0-1.0); Monocytes % (A) 5 %; Neutrophils # (A) 9.7 k/uL (1.3-7.7); Neutrophils % (A) 80 %; Platelet Count 154 k/uL (150-450); Poikilocytosis Moderate; RBC 4.12 m/uL (4.30-5.90); RDW 19.8 % (11.5-15.5); WBC 12.1 k/uL (3.8-10.6)
[2021-07-19 09:00] LABS: Calcium 9.4 mg/dL (8.4-10.2); Potassium 4.7 mmol/L (3.5-5.1)
[2021-07-19 09:02] LABS: INR 1.4 (<1.2); Prothrombin Time 14.5 sec (9.0-12.0)
== END ==
LOC: CATHCVL 08:03
PROVIDERS: ATTEND Internal Medicine Cardiovascular Disease
DX: I35.1 Nonrheumatic aortic (valve) insufficiency (principal); I50.9 Heart failure, unspecified; Z20.822 Contact with and (suspected) exposure to COVID-19; I10 Essential (primary) hypertension; E78.5 Hyperlipidemia, unspecified; F17.210 Nicotine dependence, cigarettes, uncomplicated; Z53.9 Procedure and treatment not carried out, unspecified reason
CPT/HCPCS: 80048; 85025; 85610; 87635

== ENCOUNTER 2021-07-20 06:36 | Day surgery (SDC) | payer MEDICARE ==
[2021-07-20] MEDS ORDERED: ATORVASTATIN 80 MG TAB PO STA (06:45)
[2021-07-20] MEDS ORDERED: ASPIRIN 325 MG TAB PO STA (06:45)
[2021-07-20] MEDS ORDERED: ALPRAZolam 0.25 MG TAB PO PRN (06:45)
[2021-07-20] MEDS ORDERED: NITROGLYCERIN SL TABS 0.4 MG TAB SUBLINGUAL PRN (06:45)
[2021-07-20] MEDS ORDERED: ALPRAZolam 0.5 MG TAB PO PRN (06:45)
[2021-07-20] MEDS: SODIUM CHLORIDE 0.9% 1,000 ML in EMPTY BAG 1 BAG IV ONE ×2 (07:35→19:50)
[2021-07-20] MEDS ORDERED: ASPIRIN 81 MG ONE (07:46)
[2021-07-20 07:53] LABS: INR 1.3 (<1.2); Prothrombin Time 13.6 sec (9.0-12.0)
[2021-07-20] MEDS ORDERED: LIDOCAINE 1% INJ 10MG/ML (20 ML MDV) ONE (08:14)
[2021-07-20] MEDS ORDERED: fentaNYL (PF) 50 MCG/ML 2 ML AMP ONE (08:31)
[2021-07-20] MEDS ORDERED: fentaNYL (PF) 50 MCG/ML 2 ML AMP IV ONE (08:47)
[2021-07-20] MEDS ORDERED: LIDOCAINE 1% INJ 10MG/ML (10 ML MDV) SQ ONE (08:47)
[2021-07-20] MEDS ORDERED: MIDAZOLAM 2 MG/2 ML VIAL IV ONE (08:47)
[2021-07-20] MEDS ORDERED: ONDANSETRON 4 MG/2 ML VIAL ONE ×2 (08:53→10:05)
[2021-07-20] MEDS ORDERED: ONDANSETRON 4 MG/2 ML VIAL IVP ONE (09:02)
[2021-07-20] MEDS ORDERED: IOPAMIDOL-370 125ML BTL INJ ONE (09:08)
[2021-07-20] MEDS ORDERED: IOPAMIDOL-370 100ML BTL INJ ONE (09:15)
[2021-07-20] MEDS ORDERED: RX INFO: IV CONTRAST WAS GIVEN 1 EACH MISC MISCELLANE PRN (09:23)
[2021-07-20] MEDS ORDERED: hydrALAZINE HCL 20 MG/ML 1 ML VIAL IVP STA (12:57)
[2021-07-20 12:59] LABS: Glucose,Whole Blood 126 mg/dL (75-99)
[2021-07-20] MEDS ORDERED: hydrALAZINE HCL 20 MG/ML 1 ML VIAL ONE (12:59)
[2021-07-20] MEDS ORDERED: FUROSEMIDE 10 MG/ML 4 ML VIAL ONE (13:11)
[2021-07-20] MEDS ORDERED: FUROSEMIDE 10 MG/ML 2 ML VIAL IV STA (13:15)
[2021-07-20] MEDS ORDERED: WARFARIN 7.5 MG TAB PO ONE (16:15)
[2021-07-20] MEDS ORDERED: IPRATROPIUM-ALBUTEROL 3 ML NEB INHALATION PRN (16:25)
[2021-07-20] MEDS ORDERED: oxyCODONE-APAP 10-325MG 1 EACH TAB PO PRN (16:25)
[2021-07-20] MEDS ORDERED: SODIUM CHLORIDE 0.9% 500 ML 500 ML IV SCH (16:30)
[2021-07-20] MEDS: SODIUM CHLORIDE 0.9% 1,000 ML IV SCH (17:25)
[2021-07-20] MEDS: METOPROLOL TARTRATE 25 MG TAB PO SCH (20:25)
[2021-07-20] MEDS: hydrALAZINE HCL 25 MG TAB PO SCH (21:54)
[2021-07-20 21:55] VITALS: TEMP 98.3
[2021-07-20] MEDS: NON FORMULARY DRUG (Budesonide/Glycopyr/Formoterol [Breztri Aerosphere Inhaler] 10.7 GM Hf INHALATION SCH (21:55)
[2021-07-21] MEDS: SODIUM CHLORIDE 0.9% 1,000 ML IV SCH ×2 (00:12→09:12)
[2021-07-21 06:02] LABS: INR 1.5 (<1.2)
[2021-07-21 08:14] VITALS: BP 140/50; RESP 18
[2021-07-21] MEDS ORDERED: WARFARIN 5 MG TAB PO SCH (09:00)
[2021-07-21] MEDS ORDERED: ISOSORBIDE MONONITRATE ER 30 MG TAB.ER.24H PO SCH (09:00)
[2021-07-21] MEDS ORDERED: metOLazone 2.5 MG TAB PO SCH (09:00)
[2021-07-21] MEDS ORDERED: FUROSEMIDE 40 MG TAB PO SCH (09:00)
[2021-07-21] MEDS ORDERED: POTASSIUM CHLORIDE ER 20 MEQ TAB.ER PO SCH (09:00)
[2021-07-21] MEDS ORDERED: ASPIRIN 81 MG PO SCH (09:00)
[2021-07-21] MEDS: METOPROLOL TARTRATE 25 MG TAB PO SCH (09:06)
[2021-07-21] MEDS: hydrALAZINE HCL 25 MG TAB PO SCH (09:06)
[2021-07-21] MEDS: NON FORMULARY DRUG (Budesonide/Glycopyr/Formoterol [Breztri Aerosphere Inhaler] 10.7 GM Hf INHALATION SCH (09:11)
[2021-07-21 09:27] VITALS: PULSE 80
--- NOTE | 2021-07-21 10:00 | DS ---
DISCHARGE SUMMARY DATE OF ADMISSION: 07/20/2021. DATE OF DISCHARGE: 07/21/2021. PROCEDURES PERFORMED: Left heart catheterization, coronary angiogram and selective injection of the bypass grafts. This is a 76-year-old gentleman who was brought in electively to perform a cardiac catheterization to prepare him for TAVR. He has known aortic valve replacement and developed severe regurgitation of the prosthetic valve. His cardiac catheterization showed that he had [place] 3-vessel coronary artery disease with patent DAIGLE to LAD, venous graft to OM and right coronary artery. Following the cardiac catheterization, patient was quite sleepy with the sedation and felt nauseous, so I could not discharge him yesterday and kept him overnight for observation. He has had an uneventful stay. This morning he is ready and eager to go home. He is on Coumadin. Coumadin had been resumed. This morning the INR is 1.5. CONDITION AT THE TIME OF DISCHARGE: The patient is free of cardiac symptoms. Afebrile. Heart rate is 72 beats per minute. Blood pressure is 145/50, O2 saturation is 98%. There is no jugular venous distention. Chest exam reveals good air entry bilaterally. Heart exam reveals first and second heart sounds, early diastolic murmur in the aortic area. Abdomen is soft. Groin is free of bleeding, bruit or hematoma. Foot pulses are intact. DISCHARGE MEDICATIONS: Discharge medications include aspirin, Lipitor, DuoNeb, Lasix, K-Dur, Lopressor 25 b.i.d., Imdur 30 daily, Coumadin, Zaroxolyn, Apresoline. Patient will be followed up by me in the office in a week's time and will need aortic valve replacement. This I am going to schedule in the outpatient setting. MMODL / IJN: [id number] /
[2021-07-21] MEDS ORDERED: MULTIVITAMINS, THERA 1 EACH TAB PO SCH (12:00)
[2021-07-21] MEDS ORDERED: THIAMINE 100 MG TAB PO SCH (12:00)
[2021-07-21] MEDS ORDERED: FOLIC ACID 1 MG TAB PO SCH (12:00)
[2021-07-21] MEDS ORDERED: WARFARIN 7.5 MG TAB PO ONE (18:00)
[2021-07-21] MEDS ORDERED: ATORVASTATIN 40 MG TAB PO SCH (21:00)
[2021-07-23] MEDS ORDERED: WARFARIN 5 MG TAB PO SCH (09:00)
== END 2021-07-21 10:41 | disposition home or self-care (01) ==
LOC: CATHCVL 06:36 → 6NMEDSUR 16:10 → CATHCVL 07-21 10:41
PROVIDERS: ATTEND Internal Medicine Cardiovascular Disease
DX: T82.897A Other specified complication of cardiac prosthetic devices, implants and grafts, initial encounter (principal); I35.1 Nonrheumatic aortic (valve) insufficiency; E78.5 Hyperlipidemia, unspecified; I25.5 Ischemic cardiomyopathy; F17.210 Nicotine dependence, cigarettes, uncomplicated; I25.810 Atherosclerosis of coronary artery bypass graft(s) without angina pectoris; I47.2 Ventricular tachycardia; I11.0 Hypertensive heart disease with heart failure; I50.22 Chronic systolic (congestive) heart failure; I25.10 Atherosclerotic heart disease of native coronary artery without angina pectoris; Z95.1 Presence of aortocoronary bypass graft; Z95.810 Presence of automatic (implantable) cardiac defibrillator; Y71.2 Prosthetic and other implants, materials and accessory cardiovascular devices associated with adverse incidents; Z79.899 Other long term (current) drug therapy; Z79.01 Long term (current) use of anticoagulants; Z79.82 Long term (current) use of aspirin
CPT/HCPCS: 93455; 85610 ×2; C1769 ×4; C1894; J2250; J0360; J1940 ×2; J2405; J3010; J2001; Q9967 ×2

== ENCOUNTER 2021-08-19 09:54 | Inpatient (IN) | payer MEDICARE ==
--- NOTE | 2021-08-19 10:40 | ED ---
Weakness HPI - General Chief complaint: Weakness Stated complaint: falls, leg & feet swelling Time Seen by Provider: 08/19/21 10:21 Source: patient, RN notes reviewed, old records reviewed Mode of arrival: ambulatory Limitations: no limitations - History of Present Illness Initial comments: Patient is a 76-year-old male, history of heart failure, COPD, heart disease, on Coumadin, kidney disease, presenting to emergency Department with complaints of increased swelling in his lower extremities for the past week. He states he normally can walk with his cane however he has not been able to very well secondary to the swelling. He has fallen multiple times over the past couple days because of the swelling and pain in his lower legs. He does take Lasix, he states he takes 3 tablets in the morning and one in the evening. He did take them this morning. However according to family, does not take his medications appropriately. CT does not like taking them because it makes him P [place]. He denies any headaches, no dizziness or blurry vision. Does admit to increased shortness of breath over the past week as well. He does not wear home O2, over does use inhalers and breathing treatments as needed. Denies any chest pains at this time. Denies any abdominal pain, no nausea or vomiting. His appetite has been decreased. Nightly fevers or chills. He has no further complaints at this time. His vital signs are stable upon arrival. - Related Data Home Medications Medication Instructions Recorded Confirmed oxyCODONE HCL/ACETAMINOPHEN 10 tab PO Q4-6H PRN 10/16/14 08/19/21 [Oxycodone-Acetaminophen 10-325] Aspirin EC [Ecotrin Low Dose] 81 mg PO DAILY 06/15/17 08/19/21 Atorvastatin [Lipitor] 40 mg PO HS 04/05/21 08/19/21 Warfarin Sodium [Coumadin] 5 mg PO SUMOTUTHFR@89904/05/21 08/19/21 Warfarin [Coumadin] 7.5 mg PO WESA@89904/05/21 08/19/21 Budesonide/Glycopyr/Formoterol 1 puff INHALATION RT-BID 06/22/21 08/19/21 [Breztri Aerosphere Inhaler] Furosemide [Lasix] 40 mg PO DAILY 06/22/21 08/19/21 Folic Acid 1 mg PO DAILY 08/19/21 08/19/21 Thiamine [Vitamin B-1] 100 mg PO DAILY 08/19/21 08/19/21 Previous Rx's Medication Instructions Recorded Ipratropium-Albuterol Nebulize 3 ml INHALATION RT-TID PRN ml 04/12/21 [Duoneb 0.5 mg-3 mg/3 ml Soln] Isosorbide Mononitrate ER [Imdur] 30 mg PO DAILY 30 Days #30 04/12/21 tab.er.24h Metoprolol Tartrate [Lopressor] 25 mg PO BID 30 Days #60 tab 04/12/21 Potassium Chloride ER [K-Dur 20] 20 meq PO DAILY #30 tab.er.prt 04/29/21 hydrALAZINE HCL [Apresoline] 25 mg PO TID #90 tab 04/29/21 Allergies Allergy/AdvReac Type Severity Reaction Status Date / Time No Known Allergies Allergy Verified 08/19/21 11:47 Review of Systems ROS Statement: Those systems with pertinent positive or pertinent negative responses have been documented in the HPI. ROS Other: All systems not noted in ROS Statement are negative. Past Medical History Past Medical History: Coronary Artery Disease (CAD), Heart Failure, COPD, Eye Disorder, Hearing Disorder / Deafness, Hyperlipidemia, Hypertension, Myocardial Infarction (OR), Musculoskeletal Disorder, Renal Disease Additional Past Medical History / Comment(s): HX HEP C-had tx. & is now gone, SOB w/exertion, chronic back pain Last Myocardial Infarction Date:: 02/2014 History of Any Multi-Drug Resistant Organisms: None Reported Past Surgical History: AICD, Coronary Bypass/CABG, Heart Catheterization, Pac emaker Additional Past Surgical History / Comment(s): TRIPLE BYPASS SURGERY 2013, bioprosthetic aortic valve replacement in 2013, biventricular AICD in 2010-[facility] Past Anesthesia/Blood Transfusion Reactions: No Reported Reaction Additional Past Anesthesia/Blood Transfusion Reaction / Comment(s): no problem w/transfusion Type of Cardiac Device: Permanent Pacemaker, AICD Device Placement Date:: 2010 Past Psychological History: No Psychological Hx Reported Smoking Status: Former smoker Past Alcohol Use History: None Reported Past Drug Use History: Marijuana - Past Family History Father History Unknown: Yes Family Medical History: Coronary Artery Disease (CAD) Mother Family Medical History: Coronary Artery Disease (CAD) General Exam - General Exam Comments Initial Comments: GENERAL: Patient is well-developed and well-nourished. Patient is nontoxic and in no acute distress. HEAD: Atraumatic, normocephalic. EYES: Pupils equal round and reactive to light, extraocular movements intact, sclera anicteric, conjunctiva are normal. Eyelids were unremarkable. ENT: Nares patent, oropharynx clear without exudates. Moist mucous membranes. NECK: Normal range of motion, supple without lymphadenopathy or JVD. LUNGS: Unlabored respirations. Breath sounds clear to auscultation bilaterally and equal. No wheezes rales or rhonchi. HEART: Regular rate and rhythm without murmurs, rubs or gallops. ABDOMEN: Soft, nontender, normoactive bowel sounds. No guarding, no rebound. No masses appreciated. : Deferred MUSCULOSKELETAL: Bilateral lower legs have 3+ pitting edema, there is weeping noted. Decreased strength, bilateral lower legs. He is not able to ambulate with his cane more than a couple steps. No clubbing or cyanosis. NEUROLOGICAL: Patient is alert and oriented x 3. Motor and sensory are also intact. Cranial nerves II through XII grossly intact. Symmetrical smile. Normal speech. PSYCH: Normal mood, normal affect. SKIN: Warm, Dry, normal turgor, no rashes or lesions noted, other than whats noted above Limitations: no limitations Course Vital Signs 08/19/21 08/19/21 08/19/21 10:10 13:01 13:10 Temperature 97.9 F Pulse Rate 65 65 Respiratory 18 18 18 Rate Blood Pressure 128/59 129/55 O2 Sat by Pulse 98 95 Oximetry 08/19/21 08/19/21 14:00 14:32 Temperature 98.2 F Pulse Rate 66 Respiratory 18 18 Rate Blood Pressure 126/59 O2 Sat by Pulse Oximetry Medical Decision Making - Medical Decision Making Patient is a 76-year-old male with multiple comorbidities including heart failure, on Coumadin, COPD, not on home O2, presenting with weakness over the past week. He has 3+ pitting edema and weeping noted of bilateral lower legs, increased shortness of breath. His vital signs are stable upon arrival. He is prescribed Lasix but does not take it as prescribed. Labs are showing a BNP of 43,000, this is increased from his previous. Chest Xr shows minimal right pleural effusion, cardiomegaly with pulmonary vascular markings. Patient accepted by Dr. Mccabe for CHF. Case discussed with . - Lab Data Result diagrams: 08/20/21 06:30 08/20/21 06:30 Lab Results 08/19/21 08/19/21 08/19/21 Range/Units 11:03 11:03 11:03 WBC 12.1 H (3.8-10.6) k/uL RBC 4.20 L (4.30-5.90) m/uL Hgb 10.2 L (13.0-17.5) gm/dL Hct 35.0 L (39.0-53.0) % MCV 83.2 (80.0-100.0) fL MCH 24.3 L (25.0-35.0) pg MCHC 29.2 L (31.0-37.0) g/dL RDW 20.7 H (11.5-15.5) % Plt Count 158 (150-450) k/uL MPV 8.6 Neutrophils % 80 % Lymphocytes % 11 % Monocytes % 7 % Eosinophils % 1 % Basophils % 1 % Neutrophils # 9.7 H (1.3-7.7) k/uL Lymphocytes # 1.3 (1.0-4.8) k/uL Monocytes # 0.8 (0-1.0) k/uL Eosinophils # 0.1 (0-0.7) k/uL Basophils # 0.1 (0-0.2) k/uL Hypochromasia Marked Poikilocytosis Slight Anisocytosis Moderate Microcytosis Slight PT 38.9 H (9.0-12.0) sec INR 4.0 H (<1.2) APTT 38.6 H (22.0-30.0) sec Sodium 140 (137-145) mmol/L Potassium 5.5 H (3.5-5.1) mmol/L Chloride 106 (98-107) mmol/L Carbon Dioxide 20 L (22-30) mmol/L Anion Gap 14 mmol/L BUN 39 H (9-20) mg/dL Creatinine 1.53 H (0.66-1.25) mg/dL Est GFR (CKD-EPI)AfAm 51 (>60 ml/min/1.73 sqM) Est GFR (CKD-EPI)NonAf 44 (>60 ml/min/1.73 sqM) Glucose 114 H (74-99) mg/dL Lactic Ac Sepsis Rflx Plasma Lactic Acid Abdirizak (0.7-2.0) mmol/L Calcium 9.0 (8.4-10.2) mg/dL Phosphorus 4.1 (2.5-4.5) mg/dL Magnesium 2.3 (1.6-2.3) mg/dL Total Bilirubin 1.1 (0.2-1.3) mg/dL AST 33 (17-59) U/L ALT 22 (4-49) U/L Alkaline Phosphatase 108 (38-126) U/L Troponin I (0.000-0.034) ng/mL NT-Pro-B Natriuret Pep pg/mL Total Protein 7.6 (6.3-8.2) g/dL Albumin 4.1 (3.5-5.0) g/dL Urine Color Urine Appearance (Clear) Urine pH (5.0-8.0) Ur Specific [place] (1.001-1.035) Urine Protein (Negative) Urine Glucose (UA) (Negative) Urine Ketones (Negative) Urine Blood (Negative) Urine Nitrite (Negative) Urine Bilirubin (Negative) Urine Urobilinogen (<2.0) mg/dL Ur Leukocyte Esterase (Negative) Urine RBC (0-5) /hpf Urine WBC (0-5) /hpf Urine WBC Clumps (None) /hpf Urine Bacteria (None) /hpf Hyaline Casts (0-2) /lpf Urine Mucus (None) /hpf 08/19/21 08/19/21 08/19/21 Range/Units 11:03 11:03 11:03 WBC (3.8-10.6) k/uL RBC (4.30-5.90) m/uL Hgb (13.0-17.5) gm/dL Hct (39.0-53.0) % MCV (80.0-100.0) fL MCH (25.0-35.0) pg MCHC (31.0-37.0) g/dL RDW (11.5-15.5) % Plt Count (150-450) k/uL MPV Neutrophils % % Lymphocytes % % Monocytes % % Eosinophils % % Basophils % % Neutrophils # (1.3-7.7) k/uL Lymphocytes # (1.0-4.8) k/uL Monocytes # (0-1.0) k/uL Eosinophils # (0-0.7) k/uL Basophils # (0-0.2) k/uL Hypochromasia Poikilocytosis Anisocytosis Microcytosis PT (9.0-12.0) sec INR (<1.2) APTT (22.0-30.0) sec Sodium (137-145) mmol/L Potassium (3.5-5.1) mmol/L Chloride (98-107) mmol/L Carbon Dioxide (22-30) mmol/L Anion Gap mmol/L BUN (9-20) mg/dL Creatinine (0.66-1.25) mg/dL Est GFR (CKD-EPI)AfAm (>60 ml/min/1.73 sqM) Est GFR (CKD-EPI)NonAf (>60 ml/min/1.73 sqM) Glucose (74-99) mg/dL Lactic Ac Sepsis Rflx Plasma Lactic Acid Abdirizak 3.3 H* (0.7-2.0) mmol/L Calcium (8.4-10.2) mg/dL Phosphorus (2.5-4.5) mg/dL Magnesium (1.6-2.3) mg/dL Total Bilirubin (0.2-1.3) mg/dL AST (17-59) U/L ALT (4-49) U/L Alkaline Phosphatase (38-126) U/L Troponin I 0.034 (0.000-0.034) ng/mL NT-Pro-B Natriuret Pep 40420 pg/mL Total Protein (6.3-8.2) g/dL Albumin (3.5-5.0) g/dL Urine Color Urine Appearance (Clear) Urine pH (5.0-8.0) Ur Specific [place] (1.001-1.035) Urine Protein (Negative) Urine Glucose (UA) (Negative) Urine Ketones (Negative) Urine Blood (Negative) Urine Nitrite (Negative) Urine Bilirubin (Negative) Urine Urobilinogen (<2.0) mg/dL Ur Leukocyte Esterase (Negative) Urine RBC (0-5) /hpf Urine WBC (0-5) /hpf Urine WBC Clumps (None) /hpf Urine Bacteria (None) /hpf Hyaline Casts (0-2) /lpf Urine Mucus (None) /hpf 08/19/21 08/19/21 Range/Units 12:04 12:20 WBC (3.8-10.6) k/uL RBC (4.30-5.90) m/uL Hgb (13.0-17.5) gm/dL Hct (39.0-53.0) % MCV (80.0-100.0) fL MCH (25.0-35.0) pg MCHC (31.0-37.0) g/dL RDW (11.5-15.5) % Plt Count (150-450) k/uL MPV Neutrophils % % Lymphocytes % % Monocytes % % Eosinophils % % Basophils % % Neutrophils # (1.3-7.7) k/uL Lymphocytes # (1.0-4.8) k/uL Monocytes # (0-1.0) k/uL Eosinophils # (0-0.7) k/uL Basophils # (0-0.2) k/uL Hypochromasia Poikilocytosis Anisocytosis Microcytosis PT (9.0-12.0) sec INR (<1.2) APTT (22.0-30.0) sec Sodium (137-145) mmol/L Potassium (3.5-5.1) mmol/L Chloride (98-107) mmol/L Carbon Dioxide (22-30) mmol/L Anion Gap mmol/L BUN (9-20) mg/dL Creatinine (0.66-1.25) mg/dL Est GFR (CKD-EPI)AfAm (>60 ml/min/1.73 sqM) Est GFR (CKD-EPI)NonAf (>60 ml/min/1.73 sqM) Glucose (74-99) mg/dL Lactic Ac Sepsis Rflx Y Plasma Lactic Acid Abdirizak (0.7-2.0) mmol/L Calcium (8.4-10.2) mg/dL Phosphorus (2.5-4.5) mg/dL Magnesium (1.6-2.3) mg/dL Total Bilirubin (0.2-1.3) mg/dL AST (17-59) U/L ALT (4-49) U/L Alkaline Phosphatase (38-126) U/L Troponin I (0.000-0.034) ng/mL NT-Pro-B Natriuret Pep pg/mL Total Protein (6.3-8.2) g/dL Albumin (3.5-5.0) g/dL Urine Color Yellow Urine Appearance Cloudy (Clear) Urine pH 5.0 (5.0-8.0) Ur Specific [place] 1.017 (1.001-1.035) Urine Protein 1+ H (Negative) Urine Glucose (UA) Negative (Negative) Urine Ketones Negative (Negative) Urine Blood Negative (Negative) Urine Nitrite Negative (Negative) Urine Bilirubin Negative (Negative) Urine Urobilinogen 3.0 (<2.0) mg/dL Ur Leukocyte Esterase Large H (Negative) Urine RBC 3 (0-5) /hpf Urine WBC 39 H (0-5) /hpf Urine WBC Clumps Few H (None) /hpf Urine Bacteria Many H (None) /hpf Hyaline Casts 10 H (0-2) /lpf Urine Mucus Rare H (None) /hpf Disposition Clinical Impression: Congestive heart failure, Dyspnea Disposition: ADMITTED IP TO THIS [facility] Condition: Fair Decision Date: 08/19/21 Decision Time: 12:55
--- NOTE | 2021-08-19 11:23 | XR ---
EXAMINATION TYPE: XR chest 2V DATE OF EXAM: 08/19/2021 COMPARISON: 04/25/2021 INDICATION: Weakness TECHNIQUE: Frontal and lateral views of the chest are obtained. FINDINGS: The heart size is enlarged. The pulmonary vasculature is upper limits of normal. There is blunting of the right costophrenic angle. Small pleural effusion or atelectasis may be prese nt. Pacemaker overlies left chest. Sternotomy wires are present from prior cardiac surgery.. IMPRESSION: 1. Suggestion of minimal right pleural effusion and/or atelectasis. 2. Cardiomegaly was some borderline prominence of the pulmonary vascular markings. Consider early vol ume overload.
[2021-08-19 11:29] LABS: Anisocytosis Moderate; Basophils # (A) 0.1 k/uL (0-0.2); Basophils % (A) 1 %; Eosinophils # (A) 0.1 k/uL (0-0.7); Eosinophils % (A) 1 %; HGB 10.2 gm/dL (13.0-17.5); Hypochromasia Marked; Lymphocytes # (A) 1.3 k/uL (1.0-4.8); Lymphocytes % (A) 11 %; MCH 24.3 pg (25.0-35.0); MCHC 29.2 g/dL (31.0-37.0); MCV 83.2 fL (80.0-100.0); Mean Platelet Volume 8.6; Microcytosis Slight; Monocytes # (A) 0.8 k/uL (0-1.0); Monocytes % (A) 7 %; Neutrophils # (A) 9.7 k/uL (1.3-7.7); Neutrophils % (A) 80 %; Platelet Count 158 k/uL (150-450); Poikilocytosis Slight; RDW 20.7 % (11.5-15.5); WBC 12.1 k/uL (3.8-10.6)
[2021-08-19 11:51] LABS: Partial Thromboplastin Time 38.6 sec (22.0-30.0); Prothrombin Time 38.9 sec (9.0-12.0)
[2021-08-19 11:58] LABS: Albumin 4.1 g/dL (3.5-5.0)
[2021-08-19 12:05] LABS: Magnesium 2.3 mg/dL (1.6-2.3); Phosphorus 4.1 mg/dL (2.5-4.5); Potassium 5.5 mmol/L (3.5-5.1); Total Bilirubin 1.1 mg/dL (0.2-1.3); Total Protein 7.6 g/dL (6.3-8.2)
[2021-08-19 12:52] LABS: Appearance,Urine Cloudy (Clear); Bacteria,Urine Many /hpf; Bilirubin,Urine Negative (Negative); Blood,Urine Negative (Negative); Color,Urine Yellow; Glucose,Urine (UA) Negative (Negative); Hyaline Casts,Urine 10 /lpf (0-2); Ketones,Urine Negative (Negative); Leukocyte Esterase,Urine Large (Negative); Mucus,Urine Rare /hpf; Nitrite,Urine Negative (Negative); Protein,Urine 1+ (Negative); RBC,Urine 3 /hpf (0-5); Specific Gravity,Urine 1.017 (1.001-1.035); WBC,Urine 39 /hpf (0-5)
[2021-08-19] MEDS: FUROSEMIDE 10 MG/ML 4 ML VIAL IV SCH (13:12)
[2021-08-19 15:07] VITALS: BMI 20.9
[2021-08-19] MEDS ORDERED: oxyCODONE-APAP 10-325MG 1 EACH TAB PO PRN (16:36)
[2021-08-19] MEDS ORDERED: IPRATROPIUM-ALBUTEROL 3 ML NEB INHALATION PRN (16:36)
--- NOTE | 2021-08-19 17:26 | HP ---
HISTORY AND PHYSICAL CHIEF COMPLAINT: Shortness of breath. HISTORY OF PRESENT ILLNESS: This 76-year-old gentleman with a past medical history of multiple medical problems, including CAD, CHF, COPD, history of hypertension, hyperlipidemia, history of myocardial infarction, being followed by Dr. Ayaan Wray in the outpatient setting, was previously admitted to [facility] with CHF. Currently the patient is on multiple doses of Lasix, but the patient was not taking all the Lasix doses as prescribed because of the fear of urination, according to the family. The patient was complaining of increasing shortness of breath and the patient came to [facility] and was admitted for further evaluation and treatment. The patient also had bilateral leg swelling, which is significant, with significantly weeping also. There is no history of any fever, rigor or chills at this time. The patient also had complaints of multiple falls and weakness. On admission, WBC 12.2, hemoglobin 10.1, and INR was found to be 4. Lactic acid 3.3. Creatinine is 1.53. UA showed significant WBCs, also. There is no history of fever, rigors, chills at this time. PAST MEDICAL HISTORY: History of CAD, history of CHF, COPD, history of hypertension, hyperlipidemia, history of myocardial infarction, history AICD, CAD, CABG, pacemaker. HOME MEDICATIONS: Oxycodone, hydralazine, Coumadin, vitamin B1, K-Dur, Lopressor, Imdur, DuoNeb, Lasix, folic acid, Symbicort, Lipitor, Ecotrin. ALLERGIES: NONE. FAMILY HISTORY: History of coronary artery disease in the family. SOCIAL HISTORY: History of THC, history of smoking. REVIEW OF SYSTEMS: ENT: No diminished hearing. No diminished vision. CARDIOVASCULAR SYSTEM: As mentioned earlier. RESPIRATORY SYSTEM: As mentioned earlier. GI: As mentioned earlier. : No dysuria. NERVOUS SYSTEM: No numbness, weakness. ALLERGY/IMMUNOLOGY: No asthma or hay fever. MUSCULOSKELETAL: As mentioned earlier. HEMATOLOGY/ONCOLOGY: No history of anemia. ENDOCRINE: As mentioned earlier. CONSTITUTIONAL: As mentioned earlier. DERMATOLOGY: Negative. RHEUMATOLOGY: Negative. PSYCHIATRY: As mentioned earlier. PHYSICAL EXAMINATION: Patient alert and oriented x3. Pulse is 65, blood pressure 128/59, respiration 18, temperature 97.9, pulse ox 98% on room air. HEENT: Conjunctivae normal. NECK: No jugular venous distention. CARDIOVASCULAR: S1, S2 muffled. RESPIRATION: Breath sounds diminished at the bases. A few scattered rhonchi and crackles. ABDOMEN: Soft, nontender. No mass palpable. LEGS: Significant bilateral leg edema and weeping also present. NERVOUS SYSTEM: Higher functions as mentioned earlier. Moves all 4 limbs. No focal motor or sensory deficit. LYMPHATICS: No lymph node palpable in neck, axillae or groin. SKIN: Significant excoriation in the lower legs joints. JOINTS: No active deforming arthropathy. LAB STUDIES: WBC 12.2, hemoglobin 10.2, creatinine is 1.53, plasma lactic acid 3.3. The patient had a ABDON. Two-D echo in April this year showed ejection fraction less than 20%. ASSESSMENT: 1. Congestive heart failure, acute exacerbation, with acute on chronic systolic dysfunction, ejection fraction less than 20%. 2. Bilateral significant lower leg edema and weeping also. 3. Ischemic cardiomyopathy. 4. Possible acute urinary tract infection with sepsis, present on admission. 5. Increased white count. 6. Coumadin coagulopathy. 7. Hyperkalemia secondary to renal failure. 8. Acute on chronic kidney failure with acute tubular necrosis. 9. History of coronary artery disease, coronary artery bypass grafting. 10.History of congestive heart failure. 11.Chronic obstructive pulmonary disease. 12.Hard of hearing. 13.Hypertension. 14.Hyperlipidemia. 15.History of myocardial infarction. 16.History of renal disease. 17.History of AICD. 18.History of coronary artery disease, coronary artery bypass grafting. 19.History of THC. RECOMMENDATIONS AND DISCUSSION: I recommend to continue current medications, continue with symptomatic treatment. Otherwise, I would recommend IV diuretics, closely follow with Cardiology. We will also initiate empiric antibiotics for UTI as well. Obtain cultures. If the patient is not feeling better and the creatinine is worsening, a nephrology consultation may be an option. Otherwise, continue the rest of the medications. Prognosis is extremely guarded because of multiple complex medical issues. Further recommendations to follow. A copy of this dictation is being forwarded to Dr. Ayaan Wray, who is the primary physician. MMODL / ASHLEYN: [id number] /
[2021-08-19] MEDS: NON FORMULARY DRUG (Budesonide/Glycopyr/Formoterol [Breztri Aerosphere Inhaler] 10.7 GM Hf INHALATION SCH (20:18)
[2021-08-19] MEDS: ATORVASTATIN 40 MG TAB PO SCH (20:31)
[2021-08-19] MEDS: METOPROLOL TARTRATE 25 MG TAB PO SCH (20:31)
[2021-08-19] MEDS: hydrALAZINE HCL 25 MG TAB PO SCH (22:08)
[2021-08-20] MEDS: FUROSEMIDE 10 MG/ML 4 ML VIAL IV SCH ×3 (01:32→23:25)
[2021-08-20 07:20] LABS: Anisocytosis Moderate; Basophils # (A) 0.1 k/uL (0-0.2); Basophils % (A) 1 %; Eosinophils % (A) 0 %; HCT 30.6 % (39.0-53.0); HGB 9.1 gm/dL (13.0-17.5); Hypochromasia Marked; Lymphocytes % (A) 10 %; MCH 24.5 pg (25.0-35.0); MCHC 29.6 g/dL (31.0-37.0); MCV 82.8 fL (80.0-100.0); Microcytosis Slight; Monocytes # (A) 0.6 k/uL (0-1.0); Monocytes % (A) 6 %; Neutrophils # (A) 8.6 k/uL (1.3-7.7); Neutrophils % (A) 82 %; Platelet Count 157 k/uL (150-450); Poikilocytosis Moderate; RBC 3.69 m/uL (4.30-5.90); RDW 20.9 % (11.5-15.5); WBC 10.4 k/uL (3.8-10.6)
[2021-08-20] MEDS: NON FORMULARY DRUG (Budesonide/Glycopyr/Formoterol [Breztri Aerosphere Inhaler] 10.7 GM Hf INHALATION SCH ×2 (07:27→20:18)
[2021-08-20 09:40] LABS: African American GFR (CKD) 48.5 (60.0-200.0); Anion Gap 17.1 mmol/L (4.00-12.00); BUN/Creat Ratio 23.19 Ratio (12.00-20.00); Blood Urea Nitrogen 37.1 mg/dL (9.0-27.0); Calcium 8.9 mg/dL (8.7-10.3); Carbon Dioxide 17.9 mmol/L (21.6-31.8); Non-African American GFR(CKD) 41.8 (60.0-200.0); Potassium 4.9 mmol/L (3.5-5.5)
[2021-08-20] MEDS: ISOSORBIDE MONONITRATE ER 30 MG TAB.ER.24H PO SCH (10:05)
[2021-08-20] MEDS: hydrALAZINE HCL 25 MG TAB PO SCH ×3 (10:05→21:23)
[2021-08-20] MEDS: POTASSIUM CHLORIDE ER 20 MEQ TAB.ER PO SCH (10:05)
[2021-08-20] MEDS: ASPIRIN 81 MG PO SCH (10:05)
[2021-08-20] MEDS: FOLIC ACID 1 MG TAB PO SCH (10:06)
[2021-08-20] MEDS: METOPROLOL TARTRATE 25 MG TAB PO SCH ×2 (10:06→21:22)
[2021-08-20] MEDS: THIAMINE 100 MG TAB PO SCH (10:06)
--- NOTE | 2021-08-20 10:43 | P.CRDCN ---
History of Present Illness Consult date: 08/20/21 Requesting physician: Teresita Mccabe Reason for Consult (text): CHF Chief complaint: worsening shortness of breath, edema History of present illness: This is a pleasant 76-year-old gentleman who follows with Dr. Scherer in the office. He has a history of CAD status post 3 vessel CABG in 2013, aortic stenosis, status post aortic valve replacement in 2013, ischemic cardiomyopathy status post biventricular ICD 2010, paroxysmal atrial fibrillation anticoagulated on warfarin, hypertension, chronic nicotine dependence. Has had multiple hospitalizations this year with congestive heart failure. He underwent ABDON in April which showed severe prosthetic valve regurgitation. Cardiac catheterization last month revealed patent grafts with [place] three-vessel coronary artery disease. Referral to [facility] for valve in valve TAVR has been in the works however the patient has not been seen there as of yet. He presented to the hospital with worsening shortness of breath, orthopnea, PND and severe lower extremity edema. EKG on admission showed underlying sinus mechanism with by ventricular paced rhythm. Laboratory values showed a white blood cell count 12,100, hemoglobin 10.2, repeat of 9.1 this morning, INR 4.0, potassium 5.5, BUN 39, creatinine 1.3, troponin 0.034 and an NT proBNP of 43,800. He's been afebrile. Chest x-ray showed suggestion of minimal right pleural effusion and/or atelectasis, cardiomegaly with some borderline prominence of the pulmonary vascular markings, consider early volume overload. Upon examination the patient is sitting up on the findings of the bed. Denies any complaints of chest discomfort. Continues to complain of shortness of breath, orthopnea and edema. He is unsure if he's had any weight gain as he does not weigh himself at home. He's been initiated on Lasix 40 mg IV push every 12 hours. He continues on atorvastatin 40 mg by mouth daily at bedtime, hydralazine 25 mg by mouth 3 times a day, isosorbide 30 mg by mouth daily and metoprolol tartrate 25 mg by mouth twice a day. He's been started on IV ceftriaxone for possible urinary tract infection with sepsis. Past Medical History Past Medical History: Coronary Artery Disease (CAD), Heart Failure, COPD, Eye Disorder, Hearing Disorder / Deafness, Hyperlipidemia, Hypertension, Myocardial Infarction ([place]), Musculoskeletal Disorder, Renal Disease Additional Past Medical History / Comment(s): HX HEP C-had tx. & is now gone, SOB w/exertion, chronic back pain Last Myocardial Infarction Date:: 02/2014 History of Any Multi-Drug Resistant Organisms: None Reported Past Surgical History: AICD, Coronary Bypass/CABG, Heart Catheterization, Pacemaker Additional Past Surgical History / Comment(s): TRIPLE BYPASS SURGERY 2013, bioprosthetic aortic valve replacement in 2013, biventricular AICD in 2010-[facility] Past Anesthesia/Blood Transfusion Reactions: No Reported Reaction Additional Past Anesthesia/Blood Transfusion Reaction / Comment(s): no problem w/transfusion Type of Cardiac Device: Permanent Pacemaker, AICD Device Placement Date:: 2010 Past Psychological History: No Psychological Hx Reported Smoking Status: Former smoker Past Alcohol Use History: None Reported Additional Past Alcohol Use History / Comment(s): SMOKER SINCE AGE 11(1953), quit in 2013, then started up again 5 yrs ago & just quit again 3-4 weeks ago Past Drug Use History: Marijuana Additional Drug Use History / Comment(s): SMOKES MARIJUANA EVERY DAY SINCE AGE 11-doesn't smoke daily anymore - Past Family History Father History Unknown: Yes Family Medical History: Coronary Artery Disease (CAD) Mother Family Medical History: Coronary Artery Disease (CAD) Medications and Allergies Home Medications Medication Instructions Recorded Confirmed Type oxyCODONE HCL/ACETAMINOPHEN 10 tab PO Q4-6H PRN 10/16/14 08/19/21 History [Oxycodone-Acetaminophen 10-325] Aspirin EC [Ecotrin Low Dose] 81 mg PO DAILY 06/15/17 08/19/21 History Atorvastatin [Lipitor] 40 mg PO HS 04/05/21 08/19/21 History Warfarin Sodium [Coumadin] 5 mg PO SUMOTUTHFR@0900 04/05/21 08/19/21 History Warfarin [Coumadin] 7.5 mg PO WESA@0900 04/05/21 08/19/21 History Ipratropium-Albuterol Nebulize 3 ml INHALATION RT-TID PRN ml 04/12/21 08/19/21 Rx [Duoneb 0.5 mg-3 mg/3 ml Soln] Isosorbide Mononitrate ER [Imdur] 30 mg PO DAILY 30 Days #30 04/12/21 08/19/21 Rx tab.er.24h Metoprolol Tartrate [Lopressor] 25 mg PO BID 30 Days #60 tab 04/12/21 08/19/21 Rx Potassium Chloride ER [K-Dur 20] 20 meq PO DAILY #30 tab.er.prt 04/29/21 08/19/21 Rx hydrALAZINE HCL [Apresoline] 25 mg PO TID #90 tab 04/29/21 08/19/21 Rx Budesonide/Glycopyr/Formoterol 1 puff INHALATION RT-BID 06/22/21 08/19/21 History [Breztri Aerosphere Inhaler] Furosemide [Lasix] 40 mg PO DAILY 06/22/21 08/19/21 History Folic Acid 1 mg PO DAILY 08/19/21 08/19/21 History Thiamine [Vitamin B-1] 100 mg PO DAILY 08/19/21 08/19/21 History Allergies Allergy/AdvReac Type Severity Reaction Status Date / Time No Known Allergies Allergy Verified 08/19/21 11:47 Physical Exam Vitals: Vital Signs Temp Pulse Pulse Resp BP BP Pulse Ox 08/20/21 07:00 97.8 F 80 18 163/74 98 08/20/21 02:00 97.7 F 82 18 152/69 95 08/19/21 19:41 97.9 F 79 18 144/63 97 08/19/21 15:00 97.6 F 74 19 147/60 93 L 08/19/21 14:32 98.2 F 66 18 126/59 08/19/21 14:00 18 08/19/21 13:10 18 08/19/21 13:01 65 18 129/55 95 Intake and Output 08/19/21 08/20/21 08/20/21 22:59 06:59 14:59 Intake Total 340 Output Total 100 800 Balance -100 -800 340 Intake: Oral 340 Output: Urine 100 800 Other: Voiding Method Toilet Toilet Urinal Urinal # Voids 1 2 # Bowel Movements 0 Weight 70.307 kg PHYSICAL EXAMINATION: This is a 76-year-old male in no apparent distress at the time of my examination. VITAL SIGNS: Blood pressure 163/74, heart rate 80, respirations 18, temp 97.8F. Patient is 98 % on room air. HEENT: Head is atraumatic, normocephalic. Pupils are equal, round. Sclerae anicteric. Conjunctivae are clear. Mucous membranes of the mouth are moist. Neck is supple. There is elevated jugular venous pressure. No carotid bruit is heard. CHEST EXAMINATION: Lungs reveal crackles to bilateral lower and right middle lobe. No wheezes or rhonchi. Respirations even and nonlabored. HEART EXAMINATION: Heart regular, positive S1 and S2. No S3. No S4. The diastolic murmur at the base. ABDOMEN: Mildly distended, nontender. Bowel sounds are heard. No organomegaly noted. EXTREMITIES: 2+ peripheral pulses with evidence of severe weeping bilateral lower extremity peripheral edema and no calf tenderness noted. NEUROLOGIC EXAMINATION: Patient is awake, alert and oriented x3. Results 08/20/21 06:30 08/20/21 06:30 Cardiac Enzymes 08/19/21 08/19/21 Range/Units 11:03 11:03 AST 33 (17-59) U/L Troponin I 0.034 (0.000-0.034) ng/mL Coagulation 08/19/21 Range/Units 11:03 PT 38.9 H (9.0-12.0) sec APTT 38.6 H (22.0-30.0) sec CBC 08/19/21 08/20/21 Range/Units 11:03 06:30 WBC 12.1 H 10.4 (3.8-10.6) k/uL RBC 4.20 L 3.69 L (4.30-5.90) m/uL Hgb 10.2 L 9.1 L (13.0-17.5) gm/dL Hct 35.0 L 30.6 L (39.0-53.0) % Plt Count 158 157 (150-450) k/uL Comprehensive Metabolic Panel 08/19/21 08/20/21 Range/Units 11:03 06:30 Sodium 140 136 (137-145) mmol/L Potassium 5.5 H 4.9 (3.5-5.1) mmol/L Chloride 106 101 (98-107) mmol/L Carbon Dioxide 20 L 17.9 L (22-30) mmol/L BUN 39 H 37.1 H (9-20) mg/dL Creatinine 1.53 H 1.6 H (0.66-1.25) mg/dL Glucose 114 H 157 H (74-99) mg/dL Calcium 9.0 8.9 (8.4-10.2) mg/dL AST 33 (17-59) U/L ALT 22 (4-49) U/L Alkaline Phosphatase 108 (38-126) U/L Total Protein 7.6 (6.3-8.2) g/dL Albumin 4.1 (3.5-5.0) g/dL Current Medications Generic Name Dose Route Start Last Admin Trade Name Freq PRN Reason Stop Dose Admin Albuterol/Ipratropium 3 ml 08/19/21 16:36 Ipratropium-Albuterol 3 Ml Neb INHALATION RT-TID PRN Shortness Of Breath Or Wheezing Aspirin 81 mg 08/20/21 09:00 08/20/21 10:05 Aspirin 81 Mg PO 81 mg DAILY SURJIT Administration Atorvastatin Calcium 40 mg 08/19/21 21:00 08/19/21 20:31 Atorvastatin 40 Mg Tab PO 40 mg HS SURJIT Administration Folic Acid 1 mg 08/20/21 09:00 08/20/21 10:06 Folic Acid 1 Mg Tab PO 1 mg DAILY SURJIT Administration Furosemide 40 mg 08/19/21 13:00 08/20/21 01:32 Furosemide 10 Mg/Ml 4 Ml Vial IV 40 mg Q12H SURJIT Administration Hydralazine HCl 25 mg 08/19/21 22:00 08/20/21 10:05 Hydralazine Hcl 25 Mg Tab PO 25 mg TID SURJIT Administration Ceftriaxone Sodium 1 gm/ 50 mls @ 100 mls/hr 08/19/21 16:45 08/20/21 10:05 Sodium Chloride IVPB 100 mls/hr Q24HR SURJIT Administration Isosorbide Mononitrate 30 mg 08/20/21 09:00 08/20/21 10:05 Isosorbide Mononitrate Er 30 Mg Tab.Er.24h PO 30 mg DAILY SURJIT Administration Metoprolol Tartrate 25 mg 08/19/21 21:00 08/20/21 10:06 Metoprolol Tartrate 25 Mg Tab PO 25 mg BID SURJIT Administration Non-Formulary Medication 1 puff 08/19/21 20:00 08/20/21 07:27 Budesonide/Glycopyr/Formoterol [Breztri Aerosphere Inhaler] INHALATION Not Given RT-BID [facility] Oxycodone/Acetaminophen 1 each 08/19/21 16:36 Oxycodone-Apap 10-325mg 1 Each Tab PO Q4H PRN Pain Potassium Chloride 20 meq 08/20/21 09:00 08/20/21 10:05 Potassium Chloride Er 20 Meq Tab.Er PO 20 meq DAILY SURJIT Administration Thiamine HCl 100 mg 08/20/21 09:00 08/20/21 10:06 Thiamine 100 Mg Tab PO 100 mg DAILY SURJIT Administration Intake and Output 08/19/21 08/20/21 08/20/21 22:59 06:59 14:59 Intake Total 340 Output Total 100 800 Balance -100 -800 340 Intake: Oral 340 Output: Urine 100 800 Other: Voiding Method Toilet Toilet Urinal Urinal # Voids 1 2 # Bowel Movements 0 Weight 70.307 kg 08/20/21 06:30 08/20/21 06:30 Assessment and Plan Assessment: #1 acute on chronic congestive heart failure with severely impaired LV systolic function as well as severe aortic regurgitation #2 ischemic cardiomyopathy, status post biventricular ICD #3 severe bioprosthetic valvular regurgitation #4 hypertension #5 hyperlipidemia #6 CAD status post 3 vessel CABG #7 history of nicotine dependence #8 urinary tract infection Plan: From cardiology's perspective we will increase Lasix to 40 mg IV every 8 hours. Encouraged patient to elevate lower extremities. We will continue to follow renal function, electrolytes, daily weights as well as intake and output. We will continue to follow the patient provide further recommendations accordingly. The above dictated assessment and findings were discussed with signing physician. The impression and plan of care have been directed as dictated. Joan Gonzáles, Nurse Practitioner, acting as scribe for signing physician.
--- NOTE | 2021-08-20 20:33 | PN ---
PROGRESS NOTE DATE OF SERVICE: 08/20/2021 This 76-year-old gentleman who was admitted with CHF, acute exacerbation, bilateral leg edema, also had some cellulitis of the right leg. The patient is on empiric antibiotics as well as IV diuretics. Cultures are negative so far. No chest pain. No palpitations. No fever. PHYSICAL EXAMINATION: Alert and oriented x3. Pulse 71, blood pressure 140/60, respirations 16, temperature 97.7, pulse ox 96% on room air. HEENT: Conjunctivae normal. NECK: No jugular venous distention. CARDIOVASCULAR: S1, S2 muffled. RESPIRATION: Breath sounds diminished at the bases. A few scattered rhonchi and crackles. ABDOMEN: Soft, nontender. LEGS: Bilateral leg edema. NERVOUS SYSTEM: No focal deficit. LABS: WBC 14.2, hemoglobin 9.1, creatinine noted. ASSESSMENT: 1. Congestive heart failure, acute exacerbation, with acute on chronic systolic dysfunction, ejection fraction less than 20%. 2. Bilateral significant lower leg edema and weeping. 3. Acute right leg cellulitis. 4. Ischemic cardiomyopathy. 5. Acute urinary tract infection with sepsis, present on admission. 6. Increased white count. 7. Coumadin coagulopathy. 8. Hypercalcemia secondary to renal failure. 9. Acute on chronic kidney failure with acute tubular necrosis. 10.History of coronary artery disease, coronary artery bypass grafting. 11.History of congestive heart failure. 12.Chronic obstructive pulmonary disease. 13.Hard of hearing. 14.Hypertension. 15.Hyperlipidemia. 16.History of myocardial infarction. 17.History of renal disease. 18.History of AICD. 19.History of THC. RECOMMENDATIONS AND DISCUSSION: I recommend to continue current medications, continue with symptomatic treatment. Continue with antibiotics. Continue the diuretics. Monitor fluid/electrolyte balance closely. Local dressing. Also recommend cutting down fluid restriction to 1200 mL per 24 hours. Guarded prognosis. Further recommendations to follow. MMODL / IJN: [id number] /
[2021-08-20] MEDS: ATORVASTATIN 40 MG TAB PO SCH (21:22)
[2021-08-21] MEDS: FUROSEMIDE 10 MG/ML 4 ML VIAL IV SCH (08:07)
[2021-08-21] MEDS: METOPROLOL TARTRATE 25 MG TAB PO SCH ×2 (08:07→19:37)
[2021-08-21] MEDS: ISOSORBIDE MONONITRATE ER 30 MG TAB.ER.24H PO SCH (08:07)
[2021-08-21] MEDS: THIAMINE 100 MG TAB PO SCH (08:07)
[2021-08-21] MEDS: POTASSIUM CHLORIDE ER 20 MEQ TAB.ER PO SCH (08:07)
[2021-08-21] MEDS: FOLIC ACID 1 MG TAB PO SCH (08:08)
[2021-08-21] MEDS: hydrALAZINE HCL 25 MG TAB PO SCH ×3 (08:08→19:38)
[2021-08-21] MEDS: ASPIRIN 81 MG PO SCH (08:08)
[2021-08-21] MEDS: NON FORMULARY DRUG (Budesonide/Glycopyr/Formoterol [Breztri Aerosphere Inhaler] 10.7 GM Hf INHALATION SCH ×2 (08:09→20:02)
[2021-08-21 10:17] LABS: Basophils # (A) 0.05 X 10*3/uL (0.00-0.10); Basophils % (A) 0.4 %; Eosinophils # (A) 0.06 X 10*3/uL (0.04-0.35); Eosinophils % (A) 0.5 %; HCT 32.7 % (39.6-50.0); HGB 9.3 g/dL (13.0-17.0); Lymphocytes # (A) 1.48 X 10*3/uL (0.90-5.00); Lymphocytes % (A) 12.3 %; MCH 23.8 pg (27.0-32.0); MCHC 28.4 g/dL (32.0-37.0); MCV 83.6 fL (80.0-97.0); Monocytes # (A) 1.03 X 10*3/uL (0.20-1.00); Monocytes % (A) 8.6 %; Neutrophils % (A) 77.6 %; Platelet Count 152 X 10*3/uL (140-440); RBC 3.91 X 10*6/uL (4.40-5.60); RDW 22.2 % (11.5-14.5); WBC 11.99 X 10*3/uL (4.50-10.00)
[2021-08-21 10:18] LABS: Acanthocytes 2+
[2021-08-21 10:49] LABS: African American GFR (CKD) 48.5 (60.0-200.0); Anion Gap 19.2 mmol/L (4.00-12.00); BUN/Creat Ratio 24.81 Ratio (12.00-20.00); Blood Urea Nitrogen 39.7 mg/dL (9.0-27.0); Calcium 9.2 mg/dL (8.7-10.3); Carbon Dioxide 14.8 mmol/L (21.6-31.8); Non-African American GFR(CKD) 41.8 (60.0-200.0); Potassium 5.3 mmol/L (3.5-5.5)
--- NOTE | 2021-08-21 11:57 | P.PN ---
Subjective Progress Note Date: 08/21/21 This is a pleasant 76-year-old gentleman who follows with Dr. Scherer in the office. He has a history of CAD status post 3 vessel CABG in 2013, aortic stenosis, status post aortic valve replacement in 2013, ischemic cardiomyopathy status post biventricular ICD 2010, paroxysmal atrial fibrillation anticoagul ated on warfarin, hypertension, chronic nicotine dependence. Has had multiple hospitalizations this year with congestive heart failure. He underwent ABDON in April which showed severe prosthetic valve regurgitation. Cardiac catheterization last month revealed patent grafts with [place] three-vessel c oronary artery disease. Referral to [facility] for valve in valve TAVR has been in the works however the patient has not been seen there as of yet. He presented to the hospital with worsening shortness of breath, orthopnea, PND and severe lower extremity edema. EKG on admission showed underlying sinus mechanism with by ventricular paced rhythm. Laboratory values showed a white blood cell count 12,100, hemoglobin 10.2, repeat of 9.1 this morning, INR 4.0, potassium 5.5, BUN 39, creatinine 1.3, troponin 0.034 and an NT proBNP of 43,800. He's been afebrile. Chest x-ray showed suggestion of minimal right pleural effusion and/or atelectasis, cardiomegaly with some borderline promin ence of the pulmonary vascular markings, consider early volume overload. Upon examination the patient is sitting up on the findings of the bed. Denies any complaints of chest discomfort. Continues to complain of shortness of breath, orthopnea and edema. He is unsure if he's had any weight gain as he does not weigh himself at home. He's been initiated on Lasix 40 mg IV push every 12 hours. He continues on atorvastatin 40 mg by mouth daily at bedtime, hydralazine 25 mg by mouth 3 times a day, isosorbide 30 mg by mouth daily and metoprolol tartrate 25 mg by mouth twice a day. He's been started on IV ceftriaxone for possible urinary tract infection with sepsis. 08/21/2021 The patient was seen and examined resting comfortably in a declining chair. He feels his edema has improved and although his lower legs appear much less edematous patient does have edema up into his upper legs which was not there yesterday. He feels his breathing is unchanged. Labs are pending for this morning. According to the documented weights the patient has actually gained 1.8 kg. Accurate intake and output have not been documented. He continues on Lasix 40 mg IV push every 8 hours. He remains afebrile. Vital signs this morning show temperature of 97.8F, heart rate 80, respiratory rate 16, blood pressure 144/66 and an oxygen saturation of 93% on room air. Objective - Vital Signs Vital signs: Vital Signs Temp 97.8 F 08/21/21 07:00 Pulse 80 08/21/21 07:00 Resp 16 08/21/21 07:00 BP 144/66 08/21/21 07:00 Pulse Ox 93 L 08/21/21 07:00 Intake & Output 08/20/21 08/21/21 08/21/21 18:59 06:59 18:59 Intake Total 458 Output Total 500 250 Balance -42 -250 Weight 72.1 kg Intake: Oral 458 Output: Urine 500 250 Other: Voiding Method Toilet Toilet Urinal Urinal # Voids 2 1 # Bowel Movements 0 - Exam PHYSICAL EXAMINATION: This is a 76-year-old male in no apparent distress at the time of my examination. HEENT: Head is atraumatic, normocephalic. Pupils are equal, round. Sclerae anicteric. Conjunctivae are clear. Mucous membranes of the mouth are moist. Neck is supple. There is elevated jugular venous pressure. No carotid bruit is heard. CHEST EXAMINATION: Lungs reveal crackles to bilateral lower lobes and wheezes throughout. Respirations even and nonlabored. HEART EXAMINATION: Heart regular, positive S1 and S2. No S3. No S4. The diastolic murmur at the base. ABDOMEN: Mildly distended, nontender. Bowel sounds are heard. No organomegaly noted. EXTREMITIES: 2+ peripheral pulses with evidence of bilateral lower extremity peripheral edema up in the bilateral thighs and no calf tenderness noted. Bilateral lower legs wrapped with Eb wraps. NEUROLOGIC EXAMINATION: Patient is awake, alert and oriented x3. - Labs CBC & Chem 7: 08/21/21 05:15 08/21/21 05:20 Labs: Abnormal Lab Results - Last 24 Hours (Table) 08/20/21 Range/Units 06:30 Carbon Dioxide 17.9 L (21.6-31.8) mmol/L Anion Gap 17.10 H (4.00-12.00) mmol/L BUN 37.1 H (9.0-27.0) mg/dL Creatinine 1.6 H (0.6-1.5) mg/dL Est GFR (CKD-EPI)AfAm 48.5 L (60.0-200.0) Est GFR (CKD-EPI)NonAf 41.8 L (60.0-200.0) BUN/Creatinine Ratio 23.19 H (12.00-20.00) Ratio Glucose 157 H (70-110) mg/dL Microbiology - Last 24 Hours (Table) 08/19/21 19:45 Blood Culture - Preliminary Blood No Growth after 24 hours 08/19/21 12:20 Urine Culture - Preliminary Urine,Voided Gram Neg Bacilli Assessment and Plan Assessment: #1 acute on chronic congestive heart failure with severely impaired LV systolic function as well as severe aortic regurgitation #2 ischemic cardiomyopathy, status post biventricular ICD #3 severe bioprosthetic valvular regurgitation #4 hypertension #5 hyperlipidemia #6 CAD status post 3 vessel CABG #7 history of nicotine dependence #8 urinary tract infection Plan: From cardiology perspective we'll increase Lasix to 60 mg IV push every 8 hours. We have ordered strict I's and O's. Continue daily weights. Continue to monitor renal function and electrolytes. We will continue to follow the patient provide further recommendations accordingly. The above dictated assessment and findings were discussed with signing physician. The impression and plan of care have been directed as dictated. Joan Gonzáles, Nurse Practitioner, acting as scribe for signing physician.
[2021-08-21] MEDS ORDERED: TEMAZEPAM 7.5 MG CAP PO PRN (13:56)
[2021-08-21] MEDS: FUROSEMIDE 10 MG/ML 10 ML VIAL IV SCH (15:43)
[2021-08-21] MEDS: ATORVASTATIN 40 MG TAB PO SCH (19:37)
--- NOTE | 2021-08-21 19:42 | PN ---
PROGRESS NOTE DATE OF SERVICE: 08/21/2021 This 76-year-old gentleman who was admitted with CHF acute exacerbation also had bilateral leg edema and the patient also has significant weeping also. No chest pain. No palpitations. No fever. PHYSICAL EXAMINATION: Alert and oriented x3. Pulse 60, blood pressure 129/51, respiration 20, temperature 97.9, pulse ox 98% on room air. HEENT: Conjunctivae normal. Oral mucosa moist. NECK: No jugular venous distention. No lymph node enlargement. CARDIOVASCULAR: S1, S2, muffled. No S3, no S4, RESPIRATORY: Diminished breath sounds at the bases. A few scattered rhonchi. ABDOMEN: Soft, nontender. LEGS: Bilateral leg edema. NERVOUS SYSTEM: No focal deficits. LAB STUDIES: WBC ( ), hemoglobin 9.3. ASSESSMENT: 1. Congestive heart failure acute exacerbation with acute on chronic systolic dysfunction, ejection fraction less than 20%. 2. E coli UTI. 3. Bilateral significant lower extremity edema and weeping. 4. Acute right leg cellulitis. 5. Ischemic cardiomyopathy. 6. Acute urinary tract infection with sepsis present on admission. 7. Increased WBC. 8. Coumadin coagulopathy. 9. Hypercalcemia secondary to renal failure. 10.Acute on chronic kidney failure with acute tubular necrosis. 11.History of coronary artery disease, coronary artery bypass grafting. 12.History of CHF. 13.History of COPD. 14.Hard of hearing. 15.Hypertension. 16.Hyperlipidemia. 17.History of myocardial infarction. 18.History of renal failure. 19.History AICD. 20.History of THC. RECOMMENDATIONS AND DISCUSSION: I recommend to continue current management and symptomatic treatment. Otherwise at this time I recommend continued antibiotics. Urine culture showed E coli. The patient is currently on Rocephin. Continue to monitor. Guarded prognosis. Further recommendations to follow. MMODL / IJN: [id number] /
[2021-08-22] MEDS: FUROSEMIDE 10 MG/ML 10 ML VIAL IV SCH ×2 (00:14→08:22)
[2021-08-22] MEDS: NON FORMULARY DRUG (Budesonide/Glycopyr/Formoterol [Breztri Aerosphere Inhaler] 10.7 GM Hf INHALATION SCH ×2 (07:30→20:50)
[2021-08-22] MEDS: FOLIC ACID 1 MG TAB PO SCH (08:23)
[2021-08-22] MEDS: ASPIRIN 81 MG PO SCH (08:23)
[2021-08-22] MEDS: hydrALAZINE HCL 25 MG TAB PO SCH (08:23)
[2021-08-22] MEDS: METOPROLOL TARTRATE 25 MG TAB PO SCH (08:24)
[2021-08-22] MEDS: POTASSIUM CHLORIDE ER 20 MEQ TAB.ER PO SCH (08:24)
[2021-08-22] MEDS: THIAMINE 100 MG TAB PO SCH (08:24)
[2021-08-22] MEDS: ISOSORBIDE MONONITRATE ER 30 MG TAB.ER.24H PO SCH (08:24)
[2021-08-22 09:47] LABS: INR 2.66 (0.90-1.11); Prothrombin Time 27.2 sec (9.9-11.9)
--- NOTE | 2021-08-22 10:42 | P.PN ---
Subjective Progress Note Date: 08/22/21 HISTORY OF PRESENT ILLNESS: This is a pleasant 76-year-old gentleman who follows with Dr. Scherer in the office. He has a history of CAD status post 3 vessel CABG in 2013, aortic slim nosis, status post aortic valve replacement in 2013, ischemic cardiomyopathy status post biventricular ICD 2010, paroxysmal atrial fibrillation anticoagulated on warfarin, hypertension, chronic nicotine dependence. Has had multiple hospitalizations this year with congestive heart failure. He underwent ABDON in April which showed severe prosthetic valve regurgitation. Cardiac catheterization last month revealed patent grafts with tuscarora three-vessel coronary artery disease. Referral to [facility] for valve in valve TAVR has been in the works however the patient has not been seen there as of yet. He presented to the hospital with worsening shortness of breath, orthopnea, PND and severe lower extremity edema. EKG on admission showed underlying sinus mechanism with by ventricular paced rhythm. Laboratory values showed a white blood cell count 12,100, hemoglobin 10.2, repeat of 9.1 this morning, INR 4.0, potassium 5.5, BUN 39, creatinine 1.3, troponin 0.034 and an NT proBNP of 43,800. He's been afebrile. Chest x-ray showed suggestion of minimal right pleural effusion and/or atelectasis, cardiomegaly with some borderline prominence of the pulmonary vascular markings, consider early volume overload. Upon examination the patient is sitting up on the findings of the bed. Denies any complaints of chest discomfort. Continues to complain of shortness of breath, orthopnea and edema. He is unsure if he's had any weight gain as he does not weigh himself at home. He's been initiated on Lasix 40 mg IV push every 12 hours. He continues on atorvastatin 40 mg by mouth daily at bedtime, hydralazine 25 mg by mouth 3 times a day, isosorbide 30 mg by mouth daily and metoprolol tartrate 25 mg by mouth twice a day. He's been started on IV ceftriaxone for possible urinary tract infection with sepsis. 08/21/2021 The patient was seen and examined resting comfortably in a declining chair. He feels his edema has improved and although his lower legs appear much less edematous patient does have edema up into his upper legs which was not there yesterday. He feels his breathing is unchanged. Labs are pending for this morning. According to the documented weights the patient has actually gained 1.8 kg. Accurate intake and output have not been documented. He continues on Lasix 40 mg IV push every 8 hours. He remains afebrile. Vital signs this morning show temperature of 97.8F, heart rate 80, respiratory rate 16, blood pressure 144/66 and an oxygen saturation of 93% on room air. 08/22/2021 Patient examined this morning at the bedside. Patient denies chest pain or pressure. He reports mild shortness of breath. He remains on IV Lasix. Blood pressure 142/61. Telemetry reveals sinus mechanism with a heart rate in the 60s. He is on room air with oxygen saturations greater than 92%. PHYSICAL EXAM: VITAL SIGNS: Reviewed. GENERAL: Well-developed in no acute distress. NECK: Supple. No JVD or thyromegaly LUNGS: Respirations even and unlabored. Lungs essentially clear to auscultation bilaterally. HEART: Regular rate and rhythm. S1 and S2 heard. Diastolic murmur. EXTREMITIES: Normal range of motion. No clubbing or cyanosis. Peripheral pulses intact. Bilateral lower extremity edema noted with Eb wraps. ASSESSMENT: #1 acute on chronic congestive heart failure with severely impaired LV systolic function as well as severe aortic regurgitation #2 ischemic cardiomyopathy, status post biventricular ICD #3 severe bioprosthetic valvular regurgitation #4 hypertension #5 hyperlipidemia #6 CAD status post 3 vessel CABG #7 history of nicotine dependence #8 urinary tract infection PLAN: Change IV lasix to once daily dosing Increase hydralazine to 50 mg 3 times a day Discontinue Imdur. Begin Isordil 20 mg 3 times a day Discontinue metoprolol. Begin Coreg 3.125 mg twice a day Notified by Dr. Scherer that he spoke with dermatopathologist at [facility] and patient will be transferred to tertiary care center for valve in valve TAVR Nurse practitioner note has been reviewed by physician. Signing provider agrees with the documented findings, assessment, and plan of care. Objective - Vital Signs Vital signs: Vital Signs Temp 97.5 F L 08/22/21 07:00 Pulse 72 08/22/21 07:00 Resp 16 08/22/21 07:00 BP 142/61 08/22/21 07:00 Pulse Ox 98 08/22/21 07:00 Intake & Output 08/21/21 08/22/21 08/22/21 18:59 06:59 18:59 Intake Total 315 Output Total 950 175 Balance -635 -175 Weight 76.5 kg Intake: Oral 315 Output: Urine 950 175 Other: Voiding Method Toilet Toilet Urinal Urinal # Voids 1 1 - Labs CBC & Chem 7: 08/21/21 05:15 08/21/21 05:20 Labs: Abnormal Lab Results - Last 24 Hours (Table) 08/21/21 08/22/21 Range/Units 05:20 06:37 PT 27.2 H (9.9-11.9) sec INR 2.66 H (0.90-1.11) Carbon Dioxide 14.8 L (21.6-31.8) mmol/L Anion Gap 19.20 H (4.00-12.00) mmol/L BUN 39.7 H (9.0-27.0) mg/dL Creatinine 1.6 H (0.6-1.5) mg/dL Est GFR (CKD-EPI)AfAm 48.5 L (60.0-200.0) Est GFR (CKD-EPI)NonAf 41.8 L (60.0-200.0) BUN/Creatinine Ratio 24.81 H (12.00-20.00) Ratio Microbiology - Last 24 Hours (Table) 08/19/21 19:45 Blood Culture - Preliminary Blood No Growth after 48 hours 08/19/21 12:20 Urine Culture - Final Urine,Voided Escherichia coli
[2021-08-22 11:33] LABS: Magnesium 2.4 mg/dL (1.5-2.4)
[2021-08-22 11:34] LABS: Acanthocytes 2+; Anisocytosis (M) 2+; BUN/Creat Ratio 26.71 Ratio (12.00-20.00); Basophils # (A) 0.04 X 10*3/uL (0.00-0.10); Basophils % (A) 0.4 %; Blood Urea Nitrogen 45.4 mg/dL (9.0-27.0); Calcium 9.2 mg/dL (8.7-10.3); Eosinophils # (A) 0.06 X 10*3/uL (0.04-0.35); Eosinophils % (A) 0.6 %; HCT 31.6 % (39.6-50.0); HGB 9.1 g/dL (13.0-17.0); Lymphocytes # (A) 1.38 X 10*3/uL (0.90-5.00); Lymphocytes % (A) 13.1 %; MCH 23.2 pg (27.0-32.0); MCHC 28.8 g/dL (32.0-37.0); MCV 80.4 fL (80.0-97.0); Mean Platelet Volume 11.9 fL (9.5-12.2); Microcytosis (M) 2+; Monocytes % (A) 10.4 %; Neutrophils # (A) 7.91 X 10*3/uL (1.80-7.70); Neutrophils % (A) 74.8 %; Non-African American GFR(CKD) 38.9 (60.0-200.0); Platelet Count 189 X 10*3/uL (140-440); Potassium 5.1 mmol/L (3.5-5.5); RBC 3.93 X 10*6/uL (4.40-5.60); RDW 21.8 % (11.5-14.5); Schistocytes 1+; WBC 10.56 X 10*3/uL (4.50-10.00)
[2021-08-22] MEDS ORDERED: ISOSORBIDE DINITRATE 20 MG TAB PO SCH (16:00)
[2021-08-22] MEDS ORDERED: hydrALAZINE HCL 25 MG TAB PO SCH (16:00)
[2021-08-22 16:53] LABS: Appearance,Urine Clear (Clear); Bilirubin,Urine Negative (Negative); Blood,Urine Negative (Negative); Color,Urine Yellow; Glucose,Urine (UA) Negative (Negative); Ketones,Urine Negative (Negative); Leukocyte Esterase,Urine Negative (Negative); Nitrite,Urine Negative (Negative); Protein,Urine Negative (Negative); Specific Gravity,Urine 1.009 (1.001-1.035); Urobilinogen,Urine <2.0 mg/dL (<2.0)
[2021-08-22] MEDS ORDERED: carvediloL 3.125 MG TAB PO SCH (17:30)
[2021-08-22] MEDS ORDERED: WARFARIN 5 MG TAB PO ONE (18:00)
[2021-08-22 19:53] VITALS: BP 131/69; PULSE 71; RESP 17; TEMP 98.1
--- NOTE | 2021-08-23 00:32 | P.DS ---
Providers Date of admission: 08/22/21 08:50 Attending physician: Teresita Mccabe MD Consults: 08/19/21 16:37 Consult Physician Routine Consulting Provider: Oneal Meza Consult Reason/Comments: chf Do you want consulting provider notified?: Yes Primary care physician: Ayaan [facility] Hospital Course: Diagnoses: Acute on chronic systolic CHF with ejection fraction less than 20% severe aortic regurgitation, transferred to [facility] for TAVR Possible acute UTI Hypertension, controlled on admission Chronic kidney disease stage III History of coronary artery disease status post CABG History of aortic stenosis status post TAVR A. fib on Coumadin coagulopathy secondary to Coumadin, on admission improving Hospital course: This is a pleasant 76 years old male with multiple medical problems, presents with dyspnea and echocardiogram showing ejection fraction less than 20% with severe aortic regurgitation. Patient was treated with IV Lasix and also I was started on ceftriaxone for possible UTI. Equine Manager evaluated the patient and recommended the patient to be transferred to [facility] for repair of his aortic valve disease and TAVR. Also, there was a dose was increased, patient was started on Isordil and Coreg, DC him to and metoprolol. Per cardiology's recommendation Patient was lying in bed comfortable denies chest pain, minimal dyspnea. No coughing. No abdominal pain or vomiting. No fever Patient agrees to be transferred to her for today. Patient is stable for transfer to an guarded prognosis Physical exam Gen: patient is a AAOx3, no distress CVS: S1-S2, RRR, no murmur -Lungs: B/L CTA, no wheezing. Bilateral basal crepitation Abdomen: soft, no distention, no tenderness, positive bowel sounds -Extremity: 1+ bilateral pitting leg edema or induration Time spent more than 35 minutes Patient Condition at Discharge: Fair Plan - Discharge Summary Discharge Rx Participant: Yes New Discharge Prescriptions: No Action oxyCODONE HCL/ACETAMINOPHEN [Oxycodone-Acetaminophen 10-325] 10 tab PO Q4-6H PRN PRN Reason: Pain Aspirin EC [Ecotrin Low Dose] 81 mg PO DAILY Atorvastatin [Lipitor] 40 mg PO HS hydrALAZINE HCL [Apresoline] 25 mg PO TID #90 tab Folic Acid 1 mg PO DAILY Thiamine [Vitamin B-1] 100 mg PO DAILY Warfarin [Coumadin] 7.5 mg PO WESA@0900 Warfarin Sodium [Coumadin] 5 mg PO SUMOTUTHFR@09 Ipratropium-Albuterol Nebulize [Duoneb 0.5 mg-3 mg/3 ml Soln] 3 ml INHALATION RT-TID PRN ml PRN Reason: Shortness Of Breath Or Wheezing Isosorbide Mononitrate ER [Imdur] 30 mg PO DAILY 30 Days #30 tab.er.24h Metoprolol Tartrate [Lopressor] 25 mg PO BID 30 Days #60 tab Potassium Chloride ER [K-Dur 20] 20 meq PO DAILY #30 tab.er.prt Furosemide [Lasix] 40 mg PO DAILY Budesonide/Glycopyr/Formoterol [Breztri Aerosphere Inhaler] 1 puff INHALATION RT-BID Discharge Medication List oxyCODONE HCL/ACETAMINOPHEN [Oxycodone-Acetaminophen 10-325] 10 tab PO Q4-6H PRN 10/16/14 [History] Aspirin EC [Ecotrin Low Dose] 81 mg PO DAILY 06/15/17 [History] Atorvastatin [Lipitor] 40 mg PO HS 04/05/21 [History] Warfarin Sodium [Coumadin] 5 mg PO SUMOTUTHFR@0900 04/05/21 [History] Warfarin [Coumadin] 7.5 mg PO WESA@89904/05/21 [History] Ipratropium-Albuterol Nebulize [Duoneb 0.5 mg-3 mg/3 ml Soln] 3 ml INHALATION RT-TID PRN ml 04/12/21 [Rx] Isosorbide Mononitrate ER [Imdur] 30 mg PO DAILY 30 Days #30 tab.er.24h 04/12/21 [Rx] Metoprolol Tartrate [Lopressor] 25 mg PO BID 30 Days #60 tab 04/12/21 [Rx] Potassium Chloride ER [K-Dur 20] 20 meq PO DAILY #30 tab.er.prt 04/29/21 [Rx] hydrALAZINE HCL [Apresoline] 25 mg PO TID #90 tab 04/29/21 [Rx] Budesonide/Glycopyr/Formoterol [Breztri Aerosphere Inhaler] 1 puff INHALATION RT-BID 06/22/21 [History] Furosemide [Lasix] 40 mg PO DAILY 06/22/21 [History] Folic Acid 1 mg PO DAILY 08/19/21 [History] Thiamine [Vitamin B-1] 100 mg PO DAILY 08/19/21 [History] Follow up Appointment(s)/Referral(s): Ayaan Wray DO [Primary Care Provider] - 1-2 days Discharge Disposition: DC/TRNS IP HOSP W/PLND IP READ
[2021-08-23] MEDS ORDERED: FUROSEMIDE 10 MG/ML 4 ML VIAL IV SCH (09:00)
== END 2021-08-22 20:52 | disposition short-term general hospital, planned readmission (82) | DRG 871 ==
LOC: EC 09:54 → 6NMEDSUR 12:27 → OBSVTOIN 08-22 08:50
PROVIDERS: ADMIT Internal Medicine; ATTEND Internal Medicine
DX: A41.51 Sepsis due to Escherichia coli [E. coli] (principal); I50.23 Acute on chronic systolic (congestive) heart failure; N17.0 Acute kidney failure with tubular necrosis; I13.0 Hypertensive heart and chronic kidney disease with heart failure and stage 1 through stage 4 chronic kidney disease, or unspecified chronic kidney disease; N39.0 Urinary tract infection, site not specified; L03.115 Cellulitis of right lower limb; Z20.822 Contact with and (suspected) exposure to COVID-19; I25.5 Ischemic cardiomyopathy; R79.1 Abnormal coagulation profile; T45.515A Adverse effect of anticoagulants, initial encounter; N18.30 Chronic kidney disease, stage 3 unspecified; E83.52 Hypercalcemia; E87.5 Hyperkalemia; I25.10 Atherosclerotic heart disease of native coronary artery without angina pectoris; Z95.1 Presence of aortocoronary bypass graft; J44.9 Chronic obstructive pulmonary disease, unspecified; E78.5 Hyperlipidemia, unspecified; X58.XXXA Exposure to other specified factors, initial encounter; H91.90 Unspecified hearing loss, unspecified ear; I25.2 Old myocardial infarction; I48.0 Paroxysmal atrial fibrillation; R29.6 Repeated falls; Z79.01 Long term (current) use of anticoagulants; Z79.82 Long term (current) use of aspirin; Z79.899 Other long term (current) drug therapy; Z87.891 Personal history of nicotine dependence; Z95.3 Presence of xenogenic heart valve; Z95.810 Presence of automatic (implantable) cardiac defibrillator
CPT/HCPCS: 36415; 71046; 80048; 80053; 81001; 81003; 83605; 83735; 83880; 84100; 84443; 84484; 85025; 85610; 85730; 87040; 87077; 87086; 87186; 87635; 93005; 99285

== ENCOUNTER → 2022-11-20 | Outpatient (CLI) | payer MEDICARE, OTHER ==
--- NOTE | 2022-11-20 12:44 | CTL ---
EXAMINATION TYPE: CT Low Dose Lung DATE OF EXAM ORDERED: 11/20/2022 HISTORY: . Lung cancer screening CT DLP: 91.[address] CTDI: 2.4 mGy Automated exposure control for dose reduction was used. SCREENING VISIT: COMPARISON: 1815 TECHNIQUE: Low dose computed tomography scan was performed through the chest at 1 mm thick sections a nd reconstructed images in multiple planes at 1 mm and [address] DIAGNOSTIC QUALITY: Satisfactory FINDINGS: Elliptical density with strand-like margins and air bronchograms shows a stable appearance and is ple ural-based and likely represents round atelectasis, emphysematous changes are present within the lung s. There is associated pleural reaction at the left lung base which appears chronic. The heart is enl arged. 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 There are coronary calcifications. The patient is pos t aortic valve replacement. Dense coronary artery calcifications noted. Calcified right hilar nodes, subcarinal node, mediastinal nodes present with a calcified granuloma ri ght lung base. Splenic granuloma are seen and there is a hypodense upper pole left renal lesion stable. Atrophic and degenerative changes spine. Arthropathy of the shoulders. Intracardiac defibrillator leads are present. The patient is post median sternotomy. There is a calcified nodule right lung base measuring 5 mm stable. Subpleural nodule calcified right lower lobe axial image 50. Calcified subpleural nodule left upper lobe measuring 4 mm compatible with benign granuloma axial nevaeh ge 16 Within the right upper lobe there is a 2 mm noncalcified nodule axial image 31 and axial image 29 IMPRESSION: 1. COPD with persistent rounded area of consolidation left lung base stable from multiple prior exams and most suggestive of rounded atelectasis. 2. Chronic granulomatous disease with calcified pulmonary nodules right lower lobe stable and benign. Additional sub-5 mm pulmonary nodules too small to characterize within the right upper lobe with dario ign in appearance. 3. Dense coronary artery calcification. 4. Indeterminate upper pole left renal lesion noted on multiple prior exams. Correlate with ultrasoun d as clinically warranted. CT LUNG RAD AND CT CHEST RECOMMENDATION: Lung-Rad 2 Benign Appearance or Behavior: Continue annual sc reening with LDCT in 12 months. S Modifier (other clinically significant findings): S
== END | disposition home or self-care (01) ==
LOC: RADCTMAIN 09:16
PROVIDERS: ATTEND Family Medicine
DX: Z12.2 Encounter for screening for malignant neoplasm of respiratory organs (principal); J44.9 Chronic obstructive pulmonary disease, unspecified; J84.10 Pulmonary fibrosis, unspecified; I25.10 Atherosclerotic heart disease of native coronary artery without angina pectoris; R91.8 Other nonspecific abnormal finding of lung field; Z87.891 Personal history of nicotine dependence
CPT/HCPCS: 71271

== ENCOUNTER 2023-10-05 15:50 | Emergency (ER) | payer MEDICARE ==
--- NOTE | 2023-10-05 17:21 | ED ---
General Adult HPI - General Source: patient, RN notes reviewed Mode of arrival: EMS Limitations: no limitations <Belia Choe - Last Filed: 10/05/23 17:20> <Joseph Pineda - Last Filed: 10/05/23 21:33> - General Source: RN notes reviewed, old records reviewed Limitations: altered mental status, physical limitation - History of Present Illness -: week(s) Radiation: non-radiation Severity scale (1-10): 10 Quality: aching, crushing Consistency: constant Improves with: none Worsens with: none Associated Symptoms: confusion, chest pain, cough, loss of appetite, na usea/vomiting, shortness of breath, syncope, weakness Treatments Prior to Arrival: none <Handy Park - Last Filed: 10/08/23 01:53> - General Chief complaint: Shortness of Breath Stated complaint: MALIKA Time Seen by Provider: 10/05/23 17:20 - History of Present Illness Initial comments: 78-year-old male presents emergency department chief complaint of shortness of breath. He states that this is been going on for "a while" but has been getting worse. He has history of COPD and uses nebulizer and inhaler which has not been helping. He does not use oxygen at home. (Belia Choe) This is a 78 show male with severe shortness of breath maybe for a month again progressively worse he does have COPD which is not helping. Patient feels short of breath like he is given a pass out weak dizzy and lightheaded. Patient is on anticoagulation. Patient is no travel show sick contacts no fevers. He does have chest pain anterior chest pain (Handy Park) - Related Data Home Medications Medication Instructions Recorded Confirmed oxyCODONE HCL/ACETAMINOPHEN 1 tab PO Q4-6H PRN 10/16/14 10/05/23 [Oxycodone-Acetaminophen 10-325] Aspirin EC [Ecotrin Low Dose] 81 mg PO DAILY 06/15/17 10/05/23 Warfarin Sodium [Coumadin] 10 mg PO Q2D@0900 04/05/21 10/05/23 Warfarin [Coumadin] 7.5 mg PO Q2D@0904/05/21 10/05/23 Furosemide [Lasix] 20 mg PO DAILY 06/22/21 10/05/23 Folic Acid 1 mg PO DAILY 08/19/21 10/05/23 Atorvastatin [Lipitor] 80 mg PO HS 10/05/23 10/05/23 Ezetimibe [Zetia] 10 mg PO DAILY 10/05/23 10/05/23 Losartan Potassium 100 mg PO DAILY 10/05/23 10/05/23 Spironolactone [Aldactone] 25 mg PO DAILY 10/05/23 10/05/23 carvediloL [Coreg] 3.125 mg PO BID 10/05/23 10/05/23 Allergies Allergy/AdvReac Type Severity Reaction Status Date / Time No Known Allergies Allergy Verified 10/05/23 20:12 Review of Systems ROS Other: All systems not noted in ROS Statement are negative. <Belia Choe - Last Filed: 10/05/23 17:20> ROS Other: All systems not noted in ROS Statement are negative. <Joseph Pineda - Last Filed: 10/05/23 21:33> ROS Other: All systems not noted in ROS Statement are negative. <Handy Park - Last Filed: 10/08/23 01:53> ROS Statement: Those systems with pertinent positive or pertinent negative responses have been documented in the HPI. Past Medical History Past Medical History: Coronary Artery Disease (CAD), Heart Failure, COPD, Eye Disorder, Hearing Disorder / Deafness, Hyperlipidemia, Hypertension, Myocardial Infarction (NM), Musculoskeletal Disorder, Renal Disease Additional Past Medical History / Comment(s): HX HEP C-had tx. & is now gone, SOB w/exertion, chronic back pain Last Myocardial Infarction Date:: 02/2014 History of Any Multi-Drug Resistant Organisms: None Reported Past Surgical History: AICD, Coronary Bypass/CABG, Heart Catheterization, Pacemaker Additional Past Surgical History / Comment(s): TRIPLE BYPASS SURGERY 2013, bioprosthetic aortic valve replacement in 2013, biventricular AICD in 2010-[facility] Past Anesthesia/Blood Transfusion Reactions: No Reported Reaction Additional Past Anesthesia/Blood Transfusion Reaction / Comment(s): no problem w/transfusion Type of Cardiac Device: Permanent Pacemaker, AICD Device Placement Date:: 2010 Past Psychological History: No Psychological Hx Reported Smoking Status: Former smoker Past Alcohol Use History: None Reported Past Drug Use History: Marijuana - Past Family History Father History Unknown: Yes Family Medical History: Coronary Artery Disease (CAD) Mother Family Medical History: Coronary Artery Disease (CAD) <Belia Choe - Last Filed: 10/05/23 17:20> General Exam Limitations: no limitations <Belia Choe - Last Filed: 10/05/23 17:20> Limitations: altered mental status General appearance: alert, anxious, lethargic, in distress Head exam: Present: atraumatic, normocephalic, normal inspection Eye exam: Present: normal appearance, PERRL, EOMI. Absent: scleral icterus, conjunctival injection, periorbital swelling ENT exam: Present: normal exam, mucous membranes dry Neck exam: Present: normal inspection. Absent: tenderness, meningismus, lymphadenopathy Respiratory exam: Present: respiratory distress, wheezes, accessory muscle use, decreased breath sounds, prolonged expiratory. Absent: rales, rhonchi, stridor Cardiovascular Exam: Present: normal rhythm, tachycardia, normal heart sounds. Absent: systolic murmur, diastolic murmur, rubs, gallop, clicks GI/Abdominal exam: Present: soft, normal bowel sounds. Absent: distended, tenderness, guarding, rebound, rigid Rectal exam: Present: normal inspection, heme (+) stool, black stool Extremities exam: Present: normal inspection, full ROM, normal capillary refill. Absent: tenderness, pedal edema, joint swelling, calf tenderness Back exam: Present: normal inspection Neurological exam: Present: alert, oriented X3, CN II-XII intact Psychiatric exam: Present: normal affect, normal mood Skin exam: Present: warm, dry, intact, normal color. Absent: rash <Handy Park - Last Filed: 10/08/23 01:53> - General Exam Comments Initial Comments: Visual Physical Exam Vital signs reviewed General: Well-appearing, nontoxic, no acute distress. Head: Normocephalic, atraumatic Eyes: PERRLA, EOMI ENT: Airway patent Chest: Nonlabored breathing Skin: No visual rash, normal skin tone Neuro: Alert and oriented 3 Musculoskeletal: No gross abnormalities (Belia Choe) Course <Handy Park - Last Filed: 10/08/23 01:53> Vital Signs 10/05/23 10/05/23 10/05/23 16:35 19:26 19:39 Temperature 98 F Pulse Rate 96 102 H 102 H Respiratory 16 Rate Blood Pressure 174/75 O2 Sat by Pulse 100 Oximetry 10/05/23 10/05/23 10/05/23 20:29 20:30 21:00 Temperature 98.1 F Pulse Rate 99 104 H 110 H Respiratory 18 Rate Blood Pressure 176/87 O2 Sat by Pulse 100 100 99 Oximetry 10/05/23 10/05/23 10/05/23 21:10 21:20 21:30 Temperature Pulse Rate 93 92 92 Respiratory 20 16 Rate Blood Pressure 168/90 158/79 158/79 O2 Sat by Pulse 100 100 99 Oximetry 10/05/23 10/05/23 10/05/23 22:00 22:08 22:30 Temperature Pulse Rate 92 93 92 Respiratory 18 Rate Blood Pressure 147/72 117/61 132/65 O2 Sat by Pulse 99 100 99 Oximetry 10/05/23 10/05/23 10/06/23 23:00 23:30 00:00 Temperature Pulse Rate 82 82 86 Respiratory Rate Blood Pressure 139/66 142/65 157/93 O2 Sat by Pulse 100 100 100 Oximetry - Reevaluation(s) Reevaluation #1: 10/05/23 20:15 Medical records reviewed (Handy Park) Reevaluation #2: 10/05/23 20:15 Patient symptoms continue to worsen here in the ER Symptoms are improved with breathing treatment (Handy Park) Reevaluation #3: 10/05/23 20:15 Patient informed results questions answered (Handy Park) Reevaluation #4: 10/05/23 Was pt. sent in by a medical professional or institution (, PA, PRODUCE LABORER, urgent care, hospital, or retirement...) When possible be specific @ -no Did you speak to anyone other than the patient for history (EMS, parent, family, police, friend...)? What history was obtained from this source @ -no Did you review nursing and triage notes (agree or disagree)? Why? @ -agree Are old charts reviewed (outside hosp., previous admission, EMS record, old EKG, old radiological studies, urgent care reports/EKG's, retirement records)? Report findings @ -yes Differential Diagnosis (chest pain, altered mental status, abdominal pain women, abdominal pain men, vaginal bleeding, weakness, fever, dyspnea, syncope, headache, dizziness, GI bleed, back pain, seizure, CVA, palpatations, mental health, musculoskeletal)? @ -prior EKG interpreted by me (3pts min.). @ -yes X-rays interpreted by me (1pt min.). @ -yes negative for acute disease CT interpreted by me (1pt min.). @ -no U/S interpreted by me (1pt. min.). @ -no What testing was considered but not performed or refused? (CT, X-rays, U/S, labs)? Why? @ -none What meds were considered but not given or refused? Why? @ -none Did you discuss the management of the patient with other professionals (professionals i.e. , PA, PRODUCE LABORER, lab, RT, psych nurse, school social worker, investment trader, teacher, chief risk officer, case management specialist)? Give summary @ -Yes [facility] physicians Was smoking cessation discussed for >3mins.? @ -no Was critical care preformed (if so, how long)? @ -yes31 Were there social determinants of health that impacted care today? How? (Homelessness, low income, unemployed, alcoholism, drug addiction, transportation, low edu. Level, literacy, decrease access to med. care, intermediate, rehab)? @ -none Was there de-escalation of care discussed even if they declined (Discuss DNR or withdrawal of care, Hospice)? DNR status @ -no What co-morbidities impacted this encounter? (DM, HTN, Smoking, COPD, CAD, Cancer, CVA, ARF, Chemo, Hep., AIDS, mental health diagnosis, sleep apnea, morbid obesity)? @ -none Was patient admitted / discharged? Hospital course, mention meds given and route, prescriptions, significant lab abnormalities, going to OR and other pertinent info. @ - 78 male is transferred reported to outpatient hospital, GI [facility] was willing to accept patient for transfer Transferred to [facility] Admitted Undiagnosed new problem with uncertain prognosis? @ -no Drug Therapy requiring intensive monitoring for toxicity (Heparin, Nitro, Insulin, Cardizem)? @ -no Were any procedures done? @ -no Diagnosis/symptom? @ -COPD, CHF, GI bleed, anemia, near syncope Acute, or Chronic, or Acute on Chronic? @ -Acute Uncomplicated (without systemic symptoms) or Complicated (systemic symptoms)? @ -Complicated Side effects of treatment? @ -no Exacerbation, Progression, or Severe Exacerbation? @ -exacerbation Poses a threat to life or bodily function? How? (Chest pain, USA, NM, pneumonia, PE, COPD, DKA, ARF, appy, cholecystitis, CVA, Diverticulitis, Homicidal, Suicidal, threat to staff... and all critical care pts) @ -yes significant GI bleed and anemia (Handy Park) Reevaluation #5: 10/05/23 20:15 Differential Dyspnea: Coronary syndrome, arrhythmia, tamponade, asthma, COPD, pulmonary embolism, pneumonia, pneumothorax, pulmonary effusion, anaphylaxis, diabetic ketoacidosis, flailed chest, pulmonary contusion, diaphragmatic rupture, anemia, neuromuscular, this is not meant to be an all-inclusive list. (Handy Park) - Consultations Consultation #1: Spoke with [facility] regarding transfer the do except (Handy Park) EKG Findings - EKG Comments: EKG Findings:: EKG is paced 95 OR 145 QRS 176 QTC 480 - EKG Results: EKG: interpreted by ERMD <Handy Park - Last Filed: 10/08/23 01:53> Medical Decision Making <Belia Choe - Last Filed: 10/05/23 17:20> - Lab Data Result diagrams: 10/05/23 16:52 10/05/23 16:52 <Joseph Pineda - Last Filed: 10/05/23 21:33> - Lab Data Result diagrams: 10/05/23 16:52 10/05/23 16:52 - EKG Data -: EKG Interpreted by Md - Radiology Data Radiology results: report reviewed (Chest x-rays negative for acute disease), image reviewed <Handy Park - Last Filed: 10/08/23 01:53> - Medical Decision Making Quick note preformed by Belia Choe PA-C (Belia Choe) Case discussed with Dr. Aleman, GI specialist from [facility] who is willing to accept patient care for transfer. (Joseph Pineda) 78 male is transferred reported to outpatient hospital, [facility] THE patient for transfer (Handy Park) - Lab Data Lab Results 10/05/23 10/05/23 10/05/23 Range/Units 16:52 16:52 16:52 WBC 14.7 H (3.8-10.6) k/uL RBC 2.54 L (4.30-5.90) m/uL Hgb 6.3 L* (13.0-17.5) gm/dL Hct 20.5 L (39.0-53.0) % MCV 80.7 (80.0-100.0) fL MCH 24.7 L (25.0-35.0) pg MCHC 30.7 L (31.0-37.0) g/dL RDW 17.4 H (11.5-15.5) % Plt Count 208 (150-450) k/uL MPV 9.1 Neutrophils % 91 % Lymphocytes % 4 % Monocytes % 4 % Eosinophils % 0 % Basophils % 0 % Neutrophils # 13.3 H (1.3-7.7) k/uL Lymphocytes # 0.6 L (1.0-4.8) k/uL Monocytes # 0.6 (0-1.0) k/uL Eosinophils # 0.0 (0-0.7) k/uL Basophils # 0.0 (0-0.2) k/uL Hypochromasia Marked Poikilocytosis Moderate Anisocytosis Slight PT 41.6 H (10.0-12.5) sec INR 4.3 H (<1.2) APTT 33.5 H (22.0-30.0) sec Sodium 142 (137-145) mmol/L Potassium 5.2 H (3.5-5.1) mmol/L Chloride 110 H (98-107) mmol/L Carbon Dioxide 15 L (22-30) mmol/L Anion Gap 17 mmol/L BUN 52 H (9-20) mg/dL Creatinine 1.65 H (0.66-1.25) mg/dL Est GFR (CKD-EPI)AfAm 46 (>60 ml/min/1.73 sqM) Est GFR (CKD-EPI)NonAf 40 (>60 ml/min/1.73 sqM) Glucose 163 H (74-99) mg/dL Calcium 10.0 (8.4-10.2) mg/dL Total Bilirubin 0.7 (0.2-1.3) mg/dL AST 36 (17-59) U/L ALT 46 (4-49) U/L Alkaline Phosphatase 62 (38-126) U/L Troponin I (0.000-0.034) ng/mL Total Protein 7.5 (6.3-8.2) g/dL Albumin 4.9 (3.5-5.0) g/dL Influenza Type A (PCR) (Not Detectd) Influenza Type B (PCR) (Not Detectd) RSV (PCR) (Not Detectd) SARS-CoV-2 (PCR) (Not Detectd) Blood Type Blood Type Recheck Bld Type Recheck Status Antibody Screen Crossmatch Spec Expiration Date 10/05/23 10/05/23 10/05/23 Range/Units 16:52 16:52 20:30 WBC (3.8-10.6) k/uL RBC (4.30-5.90) m/uL Hgb (13.0-17.5) gm/dL Hct (39.0-53.0) % MCV (80.0-100.0) fL MCH (25.0-35.0) pg MCHC (31.0-37.0) g/dL RDW (11.5-15.5) % Plt Count (150-450) k/uL MPV Neutrophils % % Lymphocytes % % Monocytes % % Eosinophils % % Basophils % % Neutrophils # (1.3-7.7) k/uL Lymphocytes # (1.0-4.8) k/uL Monocytes # (0-1.0) k/uL Eosinophils # (0-0.7) k/uL Basophils # (0-0.2) k/uL Hypochromasia Poikilocytosis Anisocytosis PT (10.0-12.5) sec INR (<1.2) APTT (22.0-30.0) sec Sodium (137-145) mmol/L Potassium (3.5-5.1) mmol/L Chloride (98-107) mmol/L Carbon Dioxide (22-30) mmol/L Anion Gap mmol/L BUN (9-20) mg/dL Creatinine (0.66-1.25) mg/dL Est GFR (CKD-EPI)AfAm (>60 ml/min/1.73 sqM) Est GFR (CKD-EPI)NonAf (>60 ml/min/1.73 sqM) Glucose (74-99) mg/dL Calcium (8.4-10.2) mg/dL Total Bilirubin (0.2-1.3) mg/dL AST (17-59) U/L ALT (4-49) U/L Alkaline Phosphatase (38-126) U/L Troponin I 0.063 H* (0.000-0.034) ng/mL Total Protein (6.3-8.2) g/dL Albumin (3.5-5.0) g/dL Influenza Type A (PCR) Not Detected (Not Detectd) Influenza Type B (PCR) Not Detected (Not Detectd) RSV (PCR) Not Detected (Not Detectd) SARS-CoV-2 (PCR) Not Detected (Not Detectd) Blood Type O Positive Blood Type Recheck O Pos Bld Type Recheck Status No Antibody Screen NEGATIVE Crossmatch See Detail Spec Expiration Date 10/08/20232329 Critical Care Time Critical Care Time: Yes Total Critical Care Time: 31 <Handy Park - Last Filed: 10/08/23 01:53> Disposition <Belia Choe - Last Filed: 10/05/23 17:20> <Joseph Pineda - Last Filed: 10/05/23 21:33> Is patient prescribed a controlled substance at d/c from ED?: No Time of Disposition: 00:00 - Out of Hospital Transfer - Req. Specs Out of Hospital Transfer - Requested Specifics: Other Emergency Center ([facility]) <Handy Park - Last Filed: 10/08/23 01:53> Clinical Impression: Acute exacerbation of chronic obstructive pulmonary disease, Congestive heart failure, Dyspnea, Coagulopathy, Anemia, Weakness, Near syncope Disposition: OTHER INSTITUTION NOT DEFINED Condition: Critical Referrals: Ayaan Wray DO [Primary Care Provider] - 1-2 days
[2023-10-05 17:29] LABS: Anisocytosis Slight; Basophils % (A) 0 %; Eosinophils % (A) 0 %; HCT 20.5 % (39.0-53.0); Hypochromasia Marked; Lymphocytes # (A) 0.6 k/uL (1.0-4.8); Lymphocytes % (A) 4 %; MCH 24.7 pg (25.0-35.0); MCHC 30.7 g/dL (31.0-37.0); MCV 80.7 fL (80.0-100.0); Mean Platelet Volume 9.1; Monocytes # (A) 0.6 k/uL (0-1.0); Monocytes % (A) 4 %; Neutrophils # (A) 13.3 k/uL (1.3-7.7); Neutrophils % (A) 91 %; Platelet Count 208 k/uL (150-450); Poikilocytosis Moderate; RBC 2.54 m/uL (4.30-5.90); RDW 17.4 % (11.5-15.5); WBC 14.7 k/uL (3.8-10.6)
[2023-10-05 17:38] LABS: INR 4.3 (<1.2); Partial Thromboplastin Time 33.5 sec (22.0-30.0); Prothrombin Time 41.6 sec (10.0-12.5)
[2023-10-05 17:42] LABS: HGB 6.3 gm/dL (13.0-17.5)
[2023-10-05 17:45] LABS: ALT 46 U/L (4-49); AST 36 U/L (17-59); African American GFR (CKD) 46 (>60 ml/min/1.73 sqM); Albumin 4.9 g/dL (3.5-5.0); Alkaline Phosphatase 62 U/L (38-126); Anion Gap 17 mmol/L; Blood Urea Nitrogen 52 mg/dL (9-20); Carbon Dioxide 15 mmol/L (22-30); Chloride 110 mmol/L (98-107); Glucose 163 mg/dL (74-99); Non-African American GFR(CKD) 40 (>60 ml/min/1.73 sqM); Potassium 5.2 mmol/L (3.5-5.1); Sodium 142 mmol/L (137-145); Total Bilirubin 0.7 mg/dL (0.2-1.3); Total Protein 7.5 g/dL (6.3-8.2)
--- NOTE | 2023-10-05 18:43 | XR ---
EXAMINATION TYPE: XR chest 2V DATE OF EXAM: 10/05/2023 COMPARISON: 08/19/2021 INDICATION: Difficulty breathing. Short of breath cough TECHNIQUE: Frontal and lateral views of the chest are obtained. FINDINGS: The heart size is normal. The pulmonary vasculature is normal. The lungs are clear. Pacemaker overlies left chest sternotomy wires are in the midline IMPRESSION: 1. No acute pulmonary process.
[2023-10-05] MEDS: SODIUM CHLORIDE 0.9% 1,000 ML IV STA ×2 (19:18→22:04)
[2023-10-05] MEDS: IPRATROPIUM-ALBUTEROL 3 ML NEB INHALATION STA (19:26)
[2023-10-05] MEDS ORDERED: MORPHINE SULFATE 2 MG/ML SYRINGE IVP PRN (20:08)
[2023-10-05] MEDS ORDERED: Kcentra PER PHARMACY 1 EACH MISC MISCELLANE PRN (20:10)
[2023-10-05] MEDS ORDERED: HUMAN PROTHROMBIN COMPLX 500 UNIT/16 ML VIAL IV ONE (20:30)
[2023-10-05] MEDS: HUMAN PROTHROMBIN COMPLX IV ONE (20:55)
[2023-10-05] MEDS: PHYTONADIONE 10 MG in SODIUM CHLORIDE 0.9% 50 ML IVPB STA (20:56)
[2023-10-05] MEDS: LORazepam 2 MG/ML INJ IV STA (21:15)
[2023-10-05 21:24] VITALS: TEMP 98.1
[2023-10-05 21:46] VITALS: RESP 18
[2023-10-05] MEDS: PANTOPRAZOLE 40 MG/10 ML VIAL IVP STA (22:05)
[2023-10-05] MEDS: MORPHINE SULFATE 2 MG/ML SYRINGE IVP STA (22:05)
[2023-10-06 00:47] VITALS: BP 157/93; PULSE 86
== END 2023-10-06 00:27 | disposition other institution (70) ==
LOC: EC 15:50
DX: J44.1 Chronic obstructive pulmonary disease with (acute) exacerbation (principal); I11.0 Hypertensive heart disease with heart failure; I50.9 Heart failure, unspecified; D64.9 Anemia, unspecified; D68.9 Coagulation defect, unspecified; R53.1 Weakness; R55 Syncope and collapse; I25.10 Atherosclerotic heart disease of native coronary artery without angina pectoris; E78.5 Hyperlipidemia, unspecified; I25.2 Old myocardial infarction; F12.90 Cannabis use, unspecified, uncomplicated; Z87.891 Personal history of nicotine dependence; Z20.822 Contact with and (suspected) exposure to COVID-19; Z79.82 Long term (current) use of aspirin; Z79.899 Other long term (current) drug therapy; Z79.02 Long term (current) use of antithrombotics/antiplatelets
CPT/HCPCS: 99291 ×2; 96365 ×2; 96375 ×3; 96361 ×4; 36430; 36415; 94640; 93005; 86900; 86901; 80053; 84484; 85025; 85610; 85730; 86850; 86920; 87636; 71046; P9016; J2060; J3430; J7168; C9113

== ENCOUNTER → 2024-04-25 | Outpatient (CLI) | payer MEDICARE ==
[2024-04-25 15:18] LABS: Blood Urea Nitrogen 24.2 mg/dL (9.0-27.0)
[2024-04-25 15:19] LABS: Carbon Dioxide 25.6 mmol/L (21.6-31.8); Chloride 105 mmol/L (96-109); Potassium 5.6 mmol/L (3.5-5.5); Sodium 141 mmol/L (135-145)
[2024-04-25 15:33] LABS: HCT 38.1 % (39.6-50.0); HGB 12.5 g/dL (13.0-17.0); MCH 30.5 pg (27.0-32.0); MCHC 32.8 g/dL (32.0-37.0); MCV 92.9 FL (80.0-97.0); Mean Platelet Volume 12.3 FL (9.5-12.2); NRBC Per 100 WBC 0 X 10*3/uL (0.00-0.01); Platelet Count 115 X 10*3/uL (140-440); RDW 14.7 % (11.5-14.5); WBC 7.39 X 10*3/uL (4.50-10.00)
== END | disposition home or self-care (01) ==
LOC: LABWHC1 10:28
PROVIDERS: ATTEND Internal Medicine Clinical Cardiac Electrophysiology
DX: Z01.812 Encounter for preprocedural laboratory examination (principal); I50.22 Chronic systolic (congestive) heart failure; I34.0 Nonrheumatic mitral (valve) insufficiency
CPT/HCPCS: 36415; 80051; 82565; 84520; 85027

== ENCOUNTER 2024-04-28 12:17 | Observation (INO) | payer MEDICARE ==
[2024-04-24 09:45] VITALS: BMI 20.9
[~2024-04-28 12:17] MED LIST changes: -ALPRAZolam 0.25 MG TAB PO PRN; -ALPRAZolam 0.5 MG TAB PO PRN; -ASPIRIN 325 MG TAB PO ONE; -ASPIRIN 81 MG ONE; -ASPIRIN 81 MG PO ONE; -HEPARIN SODIUM,PORCINE 10,000 UNIT in SODIUM CHLORIDE 0.9% 1,000 ML IRRIGATION PRN; -HEPARIN SODIUM,PORCINE 2,500 UNIT in SODIUM CHLORIDE 0.9% 250 ML IRRIGATION PRN; +LIDOCAINE 1% (10MG/ML) FOR IV START INTRADERMA PRN; -NITROGLYCERIN SL TABS 0.4 MG TAB SUBLINGUAL PRN; -SODIUM CHLORIDE 0.9% 1,000 ML IV ONE; -SODIUM CHLORIDE 0.9% 1,000 ML in EMPTY BAG 1 BAG IV ONE; +ceFAZolin 1 GM in SODIUM CHLORIDE 0.9% IRRIG BTL 250 ML IRRIGATION PRN; +fentaNYL (PF) 50 MCG/ML 2 ML AMP IV PRN
[2024-04-28] MEDS: SODIUM CHLORIDE 0.9% 1,000 ML IV SCH ×2 (12:37→17:33)
[2024-04-28 13:06] LABS: Mean Platelet Volume 9.4; Platelet Count 114 k/uL (150-450)
[2024-04-28] MEDS ORDERED: MIDAZOLAM 2 MG/2 ML VIAL ONE (14:20)
[2024-04-28] MEDS ORDERED: fentaNYL (PF) 50 MCG/ML 2 ML AMP ONE (14:20)
[2024-04-28] MEDS ORDERED: PROPOFOL 10 MG/ML 20 ML VIAL IV ONE (14:20)
[2024-04-28] MEDS: LIDOCAINE 1% INJ 10MG/ML (20 ML MDV) SQ ONE (14:57)
[2024-04-28] MEDS: VANCOMYCIN 1,000 MG in SODIUM CHLORIDE 0.9% 250 ML IVPB ONE (15:08)
[2024-04-28] MEDS ORDERED: ACETAMINOPHEN TAB 325 MG TAB PO PRN (16:18)
[2024-04-28] MEDS: ONDANSETRON 4 MG/2 ML VIAL IVP ONE (17:04)
[2024-04-28] MEDS: LACTATED RINGERS 1,000 ML IV SCH (17:04)
[2024-04-28] MEDS: DEXAMETHASONE SOD PHOSPHATE 4 MG/ML 1 ML VIAL IV ONE (17:33)
[2024-04-28] MEDS: carvediloL 6.25 MG TAB PO SCH (17:50)
[2024-04-28] MEDS: DAPAGLIFLOZIN PROPANEDIOL 10 MG TABLET PO SCH (17:50)
[2024-04-28] MEDS: oxyCODONE-APAP 10-325MG 1 EACH TAB PO PRN (19:04)
[2024-04-28] MEDS: ATORVASTATIN 80 MG TAB PO SCH (20:14)
--- NOTE | 2024-04-29 07:46 | P.DS ---
Providers Attending physician: Joel Lara Primary care physician: Ayaan [facility] Hospital Course: Patient is doing well. 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 daily Continue aspirin atorvastatin losartan and spironolactone Defibrillation level testing to be repeated again after further maximization of therapy Discussed with the patient and his daughter Plan - Discharge Summary New Discharge Prescriptions: New carvediloL [Coreg] 6.25 mg PO BID #180 tablet Dapagliflozin Propanediol [Farxiga] 10 mg PO DAILY #90 tablet Discontinued carvediloL [Coreg] 3.125 mg PO BID No Action oxyCODONE HCL/ACETAMINOPHEN [Oxycodone-Acetaminophen 10-325] 1 tab PO Q4-6H PRN PRN Reason: Pain Aspirin EC [Ecotrin Low Dose] 81 mg PO QAM Spironolactone [Aldactone] 25 mg PO QAM Multivitamin [Multivitamins Adult Gummies] 1 tab PO QAM Atorvastatin [Lipitor] 80 mg PO HS Losartan Potassium 50 mg PO QAM Discharge Medication List oxyCODONE HCL/ACETAMINOPHEN [Oxycodone-Acetaminophen 10-325] 1 tab PO Q4-6H PRN 10/16/14 [History] Aspirin EC [Ecotrin Low Dose] 81 mg PO QAM 06/15/17 [History] Atorvastatin [Lipitor] 80 mg PO HS 10/05/23 [History] Losartan Potassium 50 mg PO QAM 10/05/23 [History] Spironolactone [Aldactone] 25 mg PO QAM 10/05/23 [History] Multivitamin [Multivitamins Adult Gummies] 1 tab PO QAM 03/19/24 [History] Dapagliflozin Propanediol [Farxiga] 10 mg PO DAILY #90 tablet 06/24/24 [Rx] carvediloL [Coreg] 6.25 mg PO BID #180 tablet 04/28/24 [Rx] Follow up Appointment(s)/Referral(s): Sarabjit Scherer MD [STAFF PHYSICIAN] - 1 Week Activity/Diet/Wound Care/Special Instructions: PATIENT EDUCATION MATERIAL Instructions following a heart rhythm device implant. 1. Keep dressing DRY for 5 DAYS. You may cover the area with Saran or Cling Wrap, prior to a shower. 2. The dressing will be removed in the Device Clinic at [facility]. Absorbable sutures were used to close the wound. 3. Avoid raising the left arm above the shoulder level. 4 week restriction 4. Avoid arm movements, like backscratching, rubbing the head, or pulling on a cord. 4 weeks restriction 5. Gentle range of motion movements of the shoulder, closest to the incision should be performed to avoid a frozen shoulder. (Pendulum exercises of the shoulder) 6. The opposite arm may be used freely. 7. Avoid driving for 7 days. 8. Avoid activities such as golfing, swimming, weed whacking, lifting more than 10 pounds weight, bowling, gymnastics and weight training/lifting. (6 weeks restriction) 9. Activities such as wood chopping with an axe, pull-ups in the gymnasium, power lifting, arc-welding, being close to home induction cooktops will always be a problem. 10. Arm sling is only a reminder not to raise the arm above the head. You do not need to keep the arm completely immobilized. Your free to move the arm and use it and for normal activities. In case of any problems, please call [facility], Jacob Melgoza, @ [phone], Attention: Device Clinic Device clinic follow-up in 7 days Follow-up with primary eap specialist in 1 to 2 weeks Medication changes at discharge include Increase dose of carvedilol to 6.25 mg twice daily Added Farxiga 10 mg p.o. daily Discharge Disposition: HOME SELF-CARE
[2024-04-29] MEDS: ONDANSETRON 4 MG/2 ML VIAL IVP PRN (09:39)
[2024-04-29 11:06] LABS: Glucose,Whole Blood 145 mg/dL (70-110)
[2024-04-29 11:53] LABS: Basophils % (A) 0 %; Eosinophils # (A) 0.1 k/uL (0-0.7); Eosinophils % (A) 0 %; HGB 13.5 gm/dL (13.0-17.5); Lymphocytes # (A) 1.3 k/uL (1.0-4.8); Lymphocytes % (A) 10 %; MCH 30.5 pg (25.0-35.0); MCHC 32.9 g/dL (31.0-37.0); MCV 92.7 fL (80.0-100.0); Mean Platelet Volume 8.9; Monocytes # (A) 0.6 k/uL (0-1.0); Monocytes % (A) 5 %; Neutrophils % (A) 84 %; Platelet Count 123 k/uL (150-450); RBC 4.42 m/uL (4.30-5.90); RDW 14.8 % (11.5-15.5); WBC 13.1 k/uL (3.8-10.6)
[2024-04-29 12:03] LABS: ALT 11 U/L (4-49); AST 28 U/L (17-59); African American GFR (CKD) 57 (>60 ml/min/1.73 sqM); Albumin 4.6 g/dL (3.5-5.0); Albumin/Globulin Ratio 1.7; Alkaline Phosphatase 83 U/L (38-126); Amylase 86 U/L (30-110); Anion Gap 10 mmol/L; Blood Urea Nitrogen 23 mg/dL (9-20); Calcium 9.9 mg/dL (8.4-10.2); Carbon Dioxide 20 mmol/L (22-30); Chloride 112 mmol/L (98-107); Globulin 2.7 g/dL; Glucose 147 mg/dL (74-99); Lipase 135 U/L (23-300); Non-African American GFR(CKD) 49 (>60 ml/min/1.73 sqM); Potassium 4.6 mmol/L (3.5-5.1); Sodium 142 mmol/L (137-145); Total Bilirubin 0.8 mg/dL (0.2-1.3); Total Protein 7.3 g/dL (6.3-8.2)
[2024-04-29] MEDS: DEXTROSE 5%-0.45% NACL 1,000 ML IV SCH (12:09)
--- NOTE | 2024-04-29 12:47 | XR ---
EXAMINATION TYPE: XR abdomen 2V DATE OF EXAM: 04/29/2024 12:06 PM CLINICAL INDICATION:Male, 79 years old with history of nausea, vomiting; [facility] COMPARISON: 02/23/2016. TECHNIQUE: Two views of the abdomen were obtained. FINDINGS: The bowel gas pattern is nonspecific without dilated loops of small or large bowel. There i s no evidence for organomegaly or pneumoperitoneum. The osseous structures are intact. No abnormal calcifications are present. Fecal material and gas are demonstrated throughout the colon and rectum. Peripherally calcified splenic cysts as seen on prior CTs dating back to 2016. Severe atherosclerosi s of the arterial vasculature. Multifocal degeneration changes of the spine. Sternotomy wires. Cardia c conduction device. Hepatic valve repair changes. IMPRESSION: Nonspecific bowel gas pattern without radiographic evidence for acute process.
[2024-04-29] MEDS: METOCLOPRAMIDE 5 MG/ML 2 ML VIAL IVP STA (15:04)
[2024-04-29] MEDS: LOSARTAN 50 MG TAB PO SCH (15:09)
[2024-04-29] MEDS: SPIRONOLACTONE 25 MG TAB PO SCH (15:10)
[2024-04-29] MEDS: ASPIRIN 81 MG PO SCH (15:10)
[2024-04-29] MEDS: METOCLOPRAMIDE 5 MG/ML 2 ML VIAL IVP SCH (20:10)
[2024-04-30 03:44] VITALS: PULSE 61
[2024-04-30] MEDS: FUROSEMIDE 10 MG/ML 2 ML VIAL IV STA (08:41)
[2024-04-30 08:57] VITALS: RESP 18; TEMP 99.2
[2024-04-30 13:24] VITALS: BP 168/73
--- NOTE | 2024-05-01 17:50 | P.DS ---
Providers Date of admission: 04/28/24 12:18 Attending physician: Joel Lara Primary care physician: [facility] [place] Course: This is the final discharge summary Patient stayed an extra day because of GI issues and retching postanesthesia Mr. Norton is doing a lot better now. He does not have any retching or vomiting. He is passing stools. He denies any chest discomfort or shortness of breath He was supposed to be discharged the next day after the procedure but he had a lot of GI symptoms and was just not feeling well. 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 Sick sinus syndrome Status ICD with conduction system pacing, biventricular ICD implant High DFT Plan Discharge home Plan his heart failure medications have been further maximized and about 2 months a DFT testing will be performed Plan - Discharge Summary New Discharge Prescriptions: New carvediloL [Coreg] 6.25 mg PO BID #180 tablet Dapagliflozin Propanediol [Farxiga] 10 mg PO DAILY #90 tablet Discontinued carvediloL [Coreg] 3.125 mg PO BID No Action oxyCODONE HCL/ACETAMINOPHEN [Oxycodone-Acetaminophen 10-325] 1 tab PO Q4-6H PRN PRN Reason: Pain Aspirin EC [Ecotrin Low Dose] 81 mg PO QAM Spironolactone [Aldactone] 25 mg PO QAM Multivitamin [Multivitamins Adult Gummies] 1 tab PO QAM Atorvastatin [Lipitor] 80 mg PO HS Losartan Potassium 50 mg PO QAM Discharge Medication List oxyCODONE HCL/ACETAMINOPHEN [Oxycodone-Acetaminophen 10-325] 1 tab PO Q4-6H PRN 10/16/14 [History] Aspirin EC [Ecotrin Low Dose] 81 mg PO QAM 06/15/17 [History] Atorvastatin [Lipitor] 80 mg PO HS 10/05/23 [History] Losartan Potassium 50 mg PO QAM 10/05/23 [History] Spironolactone [Aldactone] 25 mg PO QAM 10/05/23 [History] Multivitamin [Multivitamins Adult Gummies] 1 tab PO QAM 03/19/24 [History] Dapagliflozin Propanediol [Farxiga] 10 mg PO DAILY #90 tablet 04/28/24 [Rx] carvediloL [Coreg] 6.25 mg PO BID #180 tablet 04/28/24 [Rx] Follow up Appointment(s)/Referral(s): Sarabjit Scherer MD [STAFF PHYSICIAN] - 05/07/24 3:30 pm (Appoinment made with Dr Scherer and the device clinic ) Patient Instructions/Handouts: Pacemaker Generator Change (DC) Activity/Diet/Wound Care/Special Instructions: PATIENT EDUCATION MATERIAL Instructions following a heart rhythm device implant. 1. Keep dressing DRY for 5 DAYS. You may cover the area with Saran or Cling Wrap, prior to a shower. 2. The dressing will be removed in the Device Clinic at [facility]. Absorbable sutures were used to close the wound. 3. Avoid raising the left arm above the shoulder level. 4 week restriction 4. Avoid arm movements, like backscratching, rubbing the head, or pulling on a cord. 4 weeks restriction 5. Gentle range of motion movements of the shoulder, closest to the incision should be performed to avoid a frozen shoulder. (Pendulum exercises of the shoulder) 6. The opposite arm may be used freely. 7. Avoid driving for 7 days. 8. Avoid activities such as golfing, swimming, weed whacking, lifting more than 10 pounds weight, bowling, gymnastics and weight training/lifting. (6 weeks restriction) 9. Activities such as wood chopping with an axe, pull-ups in the gymnasium, power lifting, arc-welding, being close to home induction cooktops will always be a problem. 10. Arm sling is only a reminder not to raise the arm above the head. You do not need to keep the arm completely immobilized. Your free to move the arm and use it and for normal activities. In case of any problems, please call [facility] [place], @ [phone], Attention: Device Clinic Device clinic follow-up in 7 days Follow-up with primary materials analyst in 1 to 2 weeks Medication changes at discharge include Increase dose of carvedilol to 6.25 mg twice daily Added Farxiga 10 mg p.o. daily Discharge Disposition: HOME SELF-CARE
--- NOTE | 2024-05-05 14:58 | P.EPPROC ---
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 Congestive heart failure [place] [employer] class 3 Wide QRS On guideline directed medical treatment Procedure: Biventricular ICD generator change for device at JIM and for management of risk of sudden cardiac and congestive heart failure/secondary prevention Result: Successful biventricular ICD generator change Atrial lead: 0.5 V at point 5 ms, P waves 4.3 mV and pacing impedance 350 ohms RV ICD lead: 1.2 V at 0.5 ms and pacing pins of 380 ohms Left ventricular lead: 1.5 V at 0.5 ms, M3-M2 and pacing pins of 880 ohms High-voltage impedance 61 ohms, RV to can Procedure details: Patient was brought to the EP lab in a fasting state. Written informed consent was obtained prior to the procedure. Options, pros and cons, benefits and risks and complications discussed with patient in detail prior to the procedure (shared decision making) previously. Importance of continuing medical treatment emphasized previously. Alternatives discussed previously. The left pectoral area was prepped and draped as a protocol. IV antibiotics administered 1% lidocaine was used for local anesthesia. A 4 cm incision was made parallel to the deltopectoral groove, about 1.5 cm medial to it. The incision was carried down to the level of the pectoralis muscle and the subfascial pocket was accessed. Hemostasis was assured. Old generator explanted New generator implanted Partial capsulectomy performed Leads freed from the scar tissue Pocket irrigated with antibiotic solution. Antibiotic pouch placed Leads connected to the biventricular ICD generator. Wound closed in 3 layers and dressed per protocol Defibrillation level testing performed Unsuccessful defibrillation with a 10 J and a 20 J shock in the cathode to as well as in the anodal vectors External shock to defibrillate the patient Cinefluoroscopy of the leads was performed to confirm position of the leads Excellent position of the ICD lead in the LV lead and the atrial lead noted At this time the decision was made to maximize cardiac medications with beta- blockers and Farxiga added Bring patient back after 6 to 8 weeks for repeat defibrillation level testing All cardioversion and defibrillations programmed to maximum output Appropriate antitachycardia pacing and BiV pacing with a LV offset of 40 ms and short AV delay of 120 ms Patient tolerated the procedure well without any acute complications. See scanned device report in EMR for lead details
== END 2024-04-30 14:12 | disposition home or self-care (01) ==
LOC: CATHEP 12:17 → 6NMEDSUR 12:18
PROVIDERS: ADMIT Internal Medicine Clinical Cardiac Electrophysiology; ATTEND Internal Medicine Clinical Cardiac Electrophysiology
DX: I25.5 Ischemic cardiomyopathy (principal); I50.22 Chronic systolic (congestive) heart failure; Z95.2 Presence of prosthetic heart valve; Z95.1 Presence of aortocoronary bypass graft; Z86.79 Personal history of other diseases of the circulatory system; I44.2 Atrioventricular block, complete; I25.2 Old myocardial infarction; I25.10 Atherosclerotic heart disease of native coronary artery without angina pectoris; I49.5 Sick sinus syndrome
CPT/HCPCS: 33264; 80053; 82150; 83690; 84132; 84443; 85025; 85049; 74019; G0378 ×3; C1882; J2250; J3370; J1940; J2765 ×2; J0690; J2405; J2001; J3010; J2704

== ENCOUNTER → 2025-04-24 | Outpatient (CLI) | payer MEDICARE ==
[2025-04-24 10:50] LABS: African American GFR (CKD) 54 (>60 ml/min/1.73 sqM); Blood Urea Nitrogen 28 mg/dL (9-20); Non-African American GFR(CKD) 47 (>60 ml/min/1.73 sqM)
--- NOTE | 2025-04-24 12:30 | CT ---
EXAMINATION TYPE: CT ChestAbdPelvis w con DATE OF EXAM: 04/24/2025 12:01 PM COMPARISON: 09/30/2023. 08/22/2016, 09/30/2013. CLINICAL INDICATION: Male, 80 years old with history of R63.4 abnormal weight loss; PHH, abnormal lavelle ght loss Technique: CT ChestAbdPelvis w con; Multiple axial images were obtained. Two-dimensional coronal and sagittal reconstructions were obtained. Contrast used:80ml mL of Isovue 300 with IV Contrast, (None if empty) Oral contrast used: with Oral Contrast CT DLP: 599.0 mGycm, Automated exposure control for dose reduction was used. Findings: CHEST: LUNGS/ PLEURA: Left lower lobe 41 x 20 mm masslike consolidation. No focal consolidation, pneumothora x or pleural effusion. Right lobe calcified granuloma. Moderate centrilobular emphysema changes. AIRWAY: Patent and unremarkable. HEART: Cardiomegaly is demonstrated. Aortic valve repair changes. Severe coronary artery calcificatio ns present. Cardiac conduction leads terminating in the right ventricle and right atrium. MEDIASTINUM: No gross evidence of adenopathy. Partially calcified lymph nodes in the mediastinum like ly sequela of chronic granulomatous disease. VASCULATURE: No aortic aneurysm. Multiple collateral pathways are seen in the left upper shoulder in the left upper extremity. MUSCULOSKELETAL: No acute osseous abnormalities. Stable cyst density near the root right neural lamin en of T10 vertebral body measuring up to 21 mm. SOFT TISSUES/LYMPH NODES: Unremarkable. LOWER NECK: No significant findings. ABDOMEN: ABDOMEN LIVER: Unremarkable GALLBLADDER AND BILE DUCTS: Unremarkable. PANCREAS: Unremarkable. SPLEEN: Scattered calcified granulomas. ADRENAL GLANDS: Unremarkable. KIDNEYS AND URETERS: Peripherally calcified right renal lesion measuring 52 mm cyst measuring up to 5 4 mm likely due to differences in measuring technique. This is not significantly unchanged from 09/30. Scattered simple appearing renal cysts bilaterally measuring up to r 65 mm on the left and 26 mm on the right. No evidence of hydronephrosis or obstructing renal calculus. The ureters are unremar kable. PELVIS BLADDER: Unremarkable REPRODUCTIVE: Unremarkable. ABDOMEN & PELVIS STOMACH AND BOWEL: No evidence of bowel obstruction. The appendix is normal. Scattered colonic divert icula. PERITONEUM/RETROPERITONEUM: No evidence of pneumoperitoneum or free fluid. VASCULATURE: No evidence of aortic aneurysm. MUSCULOSKELETAL: No acute osseous abnormalities. Moderate disc degeneration changes are present throu ghout the thoracolumbar spine. Schmorl's nodes noted at the superior endplates of L4 and L3. Probable vertebral body hemangioma in L3 vertebral body. LYMPH NODES: No gross evidence for lymphadenopathy. SOFT TISSUE/ABDOMINAL WALL: Fluid is seen within the right inguinal canal. IMPRESSION: 1. No evidence for lymphadenopathy or mass. 2. Indeterminate right renal lesion with peripheral calcifications. Has been seen dating back to and is likely hemorrhagic/proteinaceous cyst this is stable in size to fractionally decreased in size. 3. Masslike consolidation in the medial aspect of left lower lobe which is seen dating back to 2022. Findings given stability are favored to represent atelectasis. 4. Collateral pathways during injection of the left upper thorax correlate for occlusion possibly se condary to cardiac conduction leads. 5. Moderate emphysema. 6. Moderate cardiomegaly. 7. Severe coronary artery atherosclerosis. Scattered colonic diverticulosis. 8. Right inguinal canal fluid. 9. Colonic diverticulosis. [facility], , 04/24/2025 12:28 PM
== END | disposition home or self-care (01) ==
LOC: RADCTMAIN 09:54
PROVIDERS: ATTEND Family Medicine
DX: J43.9 Emphysema, unspecified (principal); I51.7 Cardiomegaly; I25.10 Atherosclerotic heart disease of native coronary artery without angina pectoris; K57.30 Diverticulosis of large intestine without perforation or abscess without bleeding; R63.4 Abnormal weight loss
CPT/HCPCS: 82565; 84520; 71260; 74177; 36415; Q9967

== ENCOUNTER 2025-06-05 15:18 | Emergency (ER) | payer MEDICARE ==
--- NOTE | 2025-06-05 15:49 | ED ---
General Adult HPI <Joseph Pineda Delphine - Last Filed: 06/06/25 05:51> - General Source: patient Mode of arrival: ambulatory Limitations: no limitations - History of Present Illness -: week(s) Quality: dull Consistency: now resolved Improves with: none Worsens with: other Associated Symptoms: denies other symptoms Treatments Prior to Arrival: none <Brian Voss - Last Filed: 06/07/25 09:45> - General Chief complaint: Chest Pain Stated complaint: Irreg Labs Time Seen by Provider: 06/05/25 15:35 - History of Present Illness Initial comments: This patient is a 80-year-old man who states that he is here because he was sent over from the clinic by his primary physician because she believes he needs to have transfusion. The patient states that he has been having problems with anemia going back for a number of months. He was here at the beginning of April to have a transfusion. Patient does not know the cause of the anemia. He states he is not having dark or tarry stools. The patient also had mentioned ch est pain but states that there is not currently any. He does occasionally have some chest tightness on exertion. (Brian Voss) - Related Data Home Medications Medication Instructions Recorded Confirmed oxyCODONE HCL/ACETAMINOPHEN 1 tab PO Q4-6H PRN 10/16/14 04/09/25 [Oxycodone-Acetaminophen 10-325] Aspirin EC [Ecotrin Low Dose] 81 mg PO DAILY 06/15/17 04/09/25 Atorvastatin [Lipitor] 80 mg PO HS 10/05/23 04/09/25 Losartan Potassium 100 mg PO DAILY 10/05/23 04/09/25 Spironolactone [Aldactone] 25 mg PO DAILY 10/05/23 04/09/25 Apixaban [Eliquis] 5 mg PO BID 04/09/25 04/09/25 Ezetimibe [Zetia] 10 mg PO DAILY 04/09/25 04/09/25 Multivitamins, Thera [Multivitamin 1 tab PO DAILY 04/09/25 04/09/25 (formulary)] Nitroglycerin Sl Tabs [Nitrostat] 0.4 mg SUBLINGUAL Q5M PRN 04/09/25 04/09/25 Vit C/E/Zn/Coppr/Lutein/Zeaxan 1 cap PO BID 04/09/25 04/09/25 [Preservision Areds 2 Softgel] Previous Rx's Medication Instructions Recorded carvediloL [Coreg] 6.25 mg PO BID #180 tablet 04/28/24 Allergies Allergy/AdvReac Type Severity Reaction Status Date / Time No Known Allergies Allergy Verified 06/05/25 15:30 Review of Systems ROS Other: All systems not noted in ROS Statement are negative. <Joseph Pineda - Last Filed: 06/06/25 05:51> ROS Other: All systems not noted in ROS Statement are negative. Constitutional: Reports: weakness. Denies: fever, chills Respiratory: Denies: cough, dyspnea Cardiovascular: Reports: chest pain, dyspnea on exertion. Denies: palpitations, edema, syncope Gastrointestinal: Denies: abdominal pain, nausea, vomiting, diarrhea, melena, hematochezia Genitourinary: Denies: dysuria, hematuria Musculoskeletal: Reports: back pain (Chronic back pain) Skin: Denies: rash Neurological: Denies: headache, weakness Hematological/Lymphatic: Denies: easy bleeding <Brian Voss - Last Filed: 06/07/25 09:45> ROS Statement: Those systems with pertinent positive or pertinent negative responses have been documented in the HPI. Past Medical History Past Medical History: Coronary Artery Disease (CAD), Heart Failure, COPD, Eye Disorder, GI Bleed, Hearing Disorder / Deafness, Hyperlipidemia, Hypertension, Myocardial Infarction (DE) Additional Past Medical History / Comment(s): SEE DR. LAUGHLIN'S H&P. HX HEP C-had tx. & is now gone, SOB w/exertion, chronic back pain, poor vision, bilateral [place], PAST anemia with GI bleed. Last Myocardial Infarction Date:: 02/2014 History of Any Multi-Drug Resistant Organisms: None Reported Past Surgical History: AICD, Coronary Bypass/CABG, Heart Catheterization, Pacemaker Additional Past Surgical History / Comment(s): TRIPLE BYPASS SURGERY 2013, bioprosthetic aortic valve replacement in 2013, biventricular AICD in 2010-[facility] Past Anesthesia/Blood Transfusion Reactions: No Reported Reaction Additional Past Anesthesia/Blood Transfusion Reaction / Comment(s): no problem w/transfusion Type of Cardiac Device: Permanent Pacemaker, AICD Device Placement Date:: 2010 Past Psychological History: No Psychological Hx Reported Smoking Status: Former smoker Past Alcohol Use History: None Reported Past Drug Use History: Marijuana - Past Family History Father History Unknown: Yes Family Medical History: Coronary Artery Disease (CAD) Mother Family Medical History: Coronary Artery Disease (CAD) <Brian Voss - Filed: 06/07/25 09:45> General Exam Limitations: no limitations General appearance: alert, in no apparent distress Head exam: Present: atraumatic, normocephalic Eye exam: Present: normal appearance. Absent: scleral icterus, conjunctival injection ENT exam: Present: other (Mucosal pallor) Neck exam: Present: normal inspection Respiratory exam: Present: normal lung sounds bilaterally. Absent: respiratory distress, wheezes, rales, rhonchi, stridor, accessory muscle use Cardiovascular Exam: Present: regular rate, normal rhythm, systolic murmur (Harsh systolic ejection murmur consistent with aortic stenosis) GI/Abdominal exam: Present: soft. Absent: distended, tenderness, guarding, rebound, rigid, mass Extremities exam: Present: normal inspection, normal capillary refill. Absent: pedal edema, calf tenderness Back exam: Present: normal inspection. Absent: CVA tenderness (R), CVA tenderness (L) Neurological exam: Present: alert Skin exam: Present: warm, dry, intact, pallor. Absent: normal color, rash <Brian Voss - Last Filed: 06/07/25 09:45> Course Vital Signs 06/05/25 06/05/25 06/05/25 15:22 18:23 18:36 Temperature 98.1 F 98.1 F 98.1 F Pulse Rate 72 60 76 Respiratory 18 14 14 Rate Blood Pressure 132/54 111/53 111/53 O2 Sat by Pulse 99 99 99 Oximetry 06/05/25 06/05/25 06/05/25 18:56 20:36 23:18 Temperature 98.4 F 98.5 F Pulse Rate 62 62 71 Respiratory 14 18 18 Rate Blood Pressure 141/61 154/74 134/63 O2 Sat by Pulse 99 98 98 Oximetry 06/05/25 06/05/25 06/06/25 23:26 23:46 00:14 Temperature Pulse Rate 77 61 64 Respiratory 18 16 18 Rate Blood Pressure 136/59 133/55 107/51 O2 Sat by Pulse 98 95 95 Oximetry 06/06/25 06/06/25 01:26 06:18 Temperature Pulse Rate 62 77 Respiratory 15 18 Rate Blood Pressure 114/45 142/62 O2 Sat by Pulse 97 97 Oximetry EKG Findings - EKG Comments: EKG Findings:: There is a paced rhythm at rate of 69 bpm. - EKG Results: EKG: interpreted by ERMD <Brian Voss - Last Filed: 06/07/25 09:45> Medical Decision Making - Lab Data Result diagrams: 06/06/25 02:23 06/05/25 16:02 <Joseph Pineda - Last Filed: 06/06/25 05:51> - Lab Data Result diagrams: 06/06/25 02:23 06/05/25 16:02 <Brian Voss - Last Filed: 06/07/25 09:45> - Medical Decision Making Patient care signed out to me by previous shift physician, Dr. Jiménez. Briefly, patient is a 80-year-old male was found to be anemic with very low hemoglobins. Patient refused admission despite critical anemia. Plan at signout was to bring patient's hemoglobin to the 7 range and discharge patient. Patient hemoglobin after first unit is 5.2. After second unit of 6.1. Patient given 1 more unit. Observe the emergency department for 14 hours. Reevaluated bedside at 5:50 AM found to be stable condition. Patient asked to reconsider being admitted he refused prefer to be discharged. Told to follow closely primary care doctor. Given strict return precautions (Joseph Pineda) Was pt. sent in by a medical professional or institution (, PA, [employer], urgent care, hospital, or fdc...) When possible be specific @ -[Yes the patient sent from his primary care clinic to have further evaluatio n for suspected anemia Did you speak to anyone other than the patient for history (EMS, parent, family, police, friend...)? What history was obtained from this source @ -[No] Did you review nursing and triage notes (agree or disagree)? Why? @ -[I reviewed and agree with nursing and triage notes] Were old charts reviewed (outside hosp., previous admission, EMS record, old EKG, old radiological studies, urgent care reports/EKG's, fdc records)? Report findings @ -[Yes, old charts were reviewed] Differential Diagnosis (chest pain, altered mental status, abdominal pain women, abdominal pain men, vaginal bleeding, weakness, fever, dyspnea, syncope, headache, dizziness, GI bleed, back pain, seizure, CVA, palpatations, mental health, musculoskeletal)? @ -[Differential Weakness: Hypoglycemia, shock, sepsis, hyponatremia, anemia, infection, DE, ETOH, adverse medicine reaction, overdose, stroke, this is not meant to be an all-inclusive list. EKG interpreted by me (3pts min.). @ -[As above] X-rays interpreted by me (1pt min.). @ -[None done] CT interpreted by me (1pt min.). @ -[None done] U/S interpreted by me (1pt. min.). @ -[None done] What testing was considered but not performed or refused? (CT, X-rays, U/S, labs)? Why? @ -[None] What meds were considered but not given or refused? Why? @ -[None] Did you discuss the management of the patient with other professionals (professionals i.e. , PA, [employer], lab, RT, psych nurse, social science analyst, button tufting machine operator, teacher, chief resource officer, case liner)? Give summary @ -[No] Was smoking cessation discussed for >3mins.? @ -[No] Was critical care preformed (if so, how long)? @ -[No] Were there social determinants of health that impacted care today? How? (Homelessness, low income, unemployed, alcoholism, drug addiction, transp ortation, low edu. Level, literacy, decrease access to med. care, [facility], rehab)? @ -[No] Was there de-escalation of care discussed even if they declined (Discuss DNR or withdrawal of care, Hospice)? DNR status @ -[No] What co-morbidities impacted this encounter? (DM, HTN, Smoking, COPD, CAD, Cancer, CVA, ARF, Chemo, Hep., AIDS, mental health diagnosis, sleep apnea, morbid obesity)? @ -[History of previous gastrointestinal bleeding and anemia Was patient admitted / discharged? Hospital course, mention meds given and route, prescriptions, significant lab abnormalities, going to OR and other pe rtinent info. @ -[The patient is a 80-year-old man here to have evaluation for suspected anemia. The patient does give history of previous GI bleeds but states that he has not seen any dark or tarry stools recently. On evaluation he does appear anemic. The patient's occult blood is negative today. The patient started on transfusions and was pending completion of this at the time of shift change. I did speak with him and urged admission prior to the shift change but the patient is refusing stating that he has not seen any recent bleeding he is feeling better after starting transfusion and he wants to go home and follow-up with his primary physician. Undiagnosed new problem with uncertain prognosis? @ -[No] Drug Therapy requiring intensive monitoring for toxicity (Heparin, Nitro, Insu michelle, Cardizem)? @ -[No] Were any procedures done? @ -[No] Diagnosis/symptom? @ -[Acute anemia, severe Generalized weakness and fatigue History of gastrointestinal bleeding Acute, or Chronic, or Acute on Chronic? @ -[Acute on chronic Uncomplicated (without systemic symptoms) or Complicated (systemic symptoms)? @ -[Complicated by weakness and fatigue Side effects of treatment? @ -[No] Exacerbation, Progression, or Severe Exacerbation? @ -[No] Poses a threat to life or bodily function? How? (Chest pain, [place], DE, pneumonia, PE, COPD, DKA, ARF, appy, cholecystitis, CVA, Diverticulitis, Homicidal, Suicidal, threat to staff... and all critical care pts) @ -[Yes the patient's hemoglobin is low and there is low reserve should he have any new gastrointestinal bleeding this was discussed but the patient is still refusing admission., All treatments are based on ideal body weight as in ED triage (Brian Voss) - Lab Data Lab Results 06/05/25 06/05/25 06/05/25 Range/Units 15:45 16:02 16:02 WBC 8.72 (4.50-10.00) 10*3/uL RBC 2.28 L (4.40-5.60) 10*6/uL Hgb 4.8 L* (13.0-17.0) g/dL Hct 17.1 L* (39.6-50.0) % MCV 75.0 L D (80.0-97.0) fL MCH 21.1 L (27.0-32.0) pg MCHC 28.1 L (32.0-37.0) g/dL Plt Count 171 (140-440) 10*3/uL MPV 11.0 (9.5-12.2) fL Immature Gran % (Auto) 0.2 % Neutrophils % 76.5 % Lymphocytes % 13.5 % Monocytes % 6.9 % Eosinophils % 2.3 % Basophils % 0.6 % Immature Gran # 0.02 (0.00-0.04) 10*3/uL Neutrophils # 6.67 (1.80-7.70) 10*3/uL Lymphocytes # 1.18 (0.90-5.00) 10*3/uL Monocytes # 0.60 (0.20-1.00) 10*3/uL Eosinophils # 0.20 (0.04-0.35) 10*3/uL Basophils # 0.05 (0.00-0.10) 10*3/uL Manual Slide Review Performed Immature Plt Fraction (1.1-6.1) % Polychromasia Present Target Cells Present PT 11.1 (10.0-12.5) sec INR 1.0 (<1.2) APTT 23.3 (22.0-30.0) sec Sodium (137-145) mmol/L Potassium (3.5-5.1) mmol/L Chloride (98-107) mmol/L Carbon Dioxide (22-30) mmol/L Anion Gap mmol/L BUN (9-20) mg/dL Creatinine (0.66-1.25) mg/dL Est GFR (CKD-EPI)AfAm (>60 ml/min/1.73 sqM) Est GFR (CKD-EPI)NonAf (>60 ml/min/1.73 sqM) Glucose (74-99) mg/dL Calcium (8.4-10.2) mg/dL Magnesium (1.6-2.3) mg/dL Total Bilirubin (0.2-1.3) mg/dL AST (17-59) U/L ALT (4-49) U/L Alkaline Phosphatase (38-126) U/L Troponin I (0.000-0.034) ng/mL Total Protein (6.3-8.2) g/dL Albumin (3.5-5.0) g/dL Stool Occult Blood (Negative) Blood Type O Positive Blood Type Recheck O Pos Bld Type Recheck Status No Antibody Screen NEGATIVE Crossmatch See Detail Spec Expiration Date 06/08/2025 - 234406/05/25 06/05/25 06/05/25 Range/Units 16:02 16:02 18:37 WBC (4.50-10.00) 10*3/uL RBC (4.40-5.60) 10*6/uL Hgb (13.0-17.0) g/dL Hct (39.6-50.0) % MCV (80.0-97.0) fL MCH (27.0-32.0) pg MCHC (32.0-37.0) g/dL Plt Count (140-440) 10*3/uL MPV (9.5-12.2) fL Immature Gran % (Auto) % Neutrophils % % Lymphocytes % % Monocytes % % Eosinophils % % Basophils % % Immature Gran # (0.00-0.04) 10*3/uL Neutrophils # (1.80-7.70) 10*3/uL Lymphocytes # (0.90-5.00) 10*3/uL Monocytes # (0.20-1.00) 10*3/uL Eosinophils # (0.04-0.35) 10*3/uL Basophils # (0.00-0.10) 10*3/uL Manual Slide Review Immature Plt Fraction (1.1-6.1) % Polychromasia Target Cells PT (10.0-12.5) sec INR (<1.2) APTT (22.0-30.0) sec Sodium 140 (137-145) mmol/L Potassium 4.8 (3.5-5.1) mmol/L Chloride 107 (98-107) mmol/L Carbon Dioxide 23 (22-30) mmol/L Anion Gap 10 mmol/L BUN 36 H (9-20) mg/dL Creatinine 1.64 H (0.66-1.25) mg/dL Est GFR (CKD-EPI)AfAm 46 (>60 ml/min/1.73 sqM) Est GFR (CKD-EPI)NonAf 40 (>60 ml/min/1.73 sqM) Glucose 112 H (74-99) mg/dL Calcium 9.3 (8.4-10.2) mg/dL Magnesium 2.3 (1.6-2.3) mg/dL Total Bilirubin 0.3 (0.2-1.3) mg/dL AST 29 (17-59) U/L ALT 12 (4-49) U/L Alkaline Phosphatase 49 (38-126) U/L Troponin I 0.032 (0.000-0.034) ng/mL Total Protein 6.6 (6.3-8.2) g/dL Albumin 4.3 (3.5-5.0) g/dL Stool Occult Blood Negative (Negative) Blood Type Blood Type Recheck Bld Type Recheck Status Antibody Screen Crossmatch Spec Expiration Date 06/05/25 06/05/25 06/05/25 Range/Units 20:00 21:47 23:16 WBC 6.86 (4.50-10.00) 10*3/uL RBC 2.31 L (4.40-5.60) 10*6/uL Hgb 5.2 L* (13.0-17.0) g/dL Hct 17.8 L* (39.6-50.0) % MCV 77.1 L (80.0-97.0) fL MCH 22.5 L (27.0-32.0) pg MCHC 29.2 L (32.0-37.0) g/dL Plt Count 100 L (140-440) 10*3/uL MPV 11.1 (9.5-12.2) fL Immature Gran % (Auto) % Neutrophils % % Lymphocytes % % Monocytes % % Eosinophils % % Basophils % % Immature Gran # (0.00-0.04) 10*3/uL Neutrophils # (1.80-7.70) 10*3/uL Lymphocytes # (0.90-5.00) 10*3/uL Monocytes # (0.20-1.00) 10*3/uL Eosinophils # (0.04-0.35) 10*3/uL Basophils # (0.00-0.10) 10*3/uL Manual Slide Review Immature Plt Fraction 6.3 H (1.1-6.1) % Polychromasia Target Cells PT (10.0-12.5) sec INR (<1.2) APTT (22.0-30.0) sec Sodium (137-145) mmol/L Potassium (3.5-5.1) mmol/L Chloride (98-107) mmol/L Carbon Dioxide (22-30) mmol/L Anion Gap mmol/L BUN (9-20) mg/dL Creatinine (0.66-1.25) mg/dL Est GFR (CKD-EPI)AfAm (>60 ml/min/1.73 sqM) Est GFR (CKD-EPI)NonAf (>60 ml/min/1.73 sqM) Glucose (74-99) mg/dL Calcium (8.4-10.2) mg/dL Magnesium (1.6-2.3) mg/dL Total Bilirubin (0.2-1.3) mg/dL AST (17-59) U/L ALT (4-49) U/L Alkaline Phosphatase (38-126) U/L Troponin I 0.028 0.028 (0.000-0.034) ng/mL Total Protein (6.3-8.2) g/dL Albumin (3.5-5.0) g/dL Stool Occult Blood (Negative) Blood Type Blood Type Recheck Bld Type Recheck Status Antibody Screen Crossmatch Spec Expiration Date 06/06/25 Range/Units 02:23 WBC 7.8 (4.50-10.00) 10*3/uL RBC 2.59 L (4.40-5.60) 10*6/uL Hgb 6.1 L* (13.0-17.0) g/dL Hct 20.1 L (39.6-50.0) % MCV 77.6 L (80.0-97.0) fL MCH 23.6 L (27.0-32.0) pg MCHC 30.3 L (32.0-37.0) g/dL Plt Count 137 L (140-440) 10*3/uL MPV (9.5-12.2) fL Immature Gran % (Auto) % Neutrophils % % Lymphocytes % % Monocytes % % Eosinophils % % Basophils % % Immature Gran # (0.00-0.04) 10*3/uL Neutrophils # (1.80-7.70) 10*3/uL Lymphocytes # (0.90-5.00) 10*3/uL Monocytes # (0.20-1.00) 10*3/uL Eosinophils # (0.04-0.35) 10*3/uL Basophils # (0.00-0.10) 10*3/uL Manual Slide Review Immature Plt Fraction (1.1-6.1) % Polychromasia Target Cells PT (10.0-12.5) sec INR (<1.2) APTT (22.0-30.0) sec Sodium (137-145) mmol/L Potassium (3.5-5.1) mmol/L Chloride (98-107) mmol/L Carbon Dioxide (22-30) mmol/L Anion Gap mmol/L BUN (9-20) mg/dL Creatinine (0.66-1.25) mg/dL Est GFR (CKD-EPI)AfAm (>60 ml/min/1.73 sqM) Est GFR (CKD-EPI)NonAf (>60 ml/min/1.73 sqM) Glucose (74-99) mg/dL Calcium (8.4-10.2) mg/dL Magnesium (1.6-2.3) mg/dL Total Bilirubin (0.2-1.3) mg/dL AST (17-59) U/L ALT (4-49) U/L Alkaline Phosphatase (38-126) U/L Troponin I (0.000-0.034) ng/mL Total Protein (6.3-8.2) g/dL Albumin (3.5-5.0) g/dL Stool Occult Blood (Negative) Blood Type Blood Type Recheck Bld Type Recheck Status Antibody Screen Crossmatch Spec Expiration Date Disposition Is patient prescribed a controlled substance at d/c from ED?: No Time of Disposition: 05:52 <Joseph Pineda - Last Filed: 06/06/25 05:51> <Brian Voss - Last Filed: 06/07/25 09:45> Clinical Impression: Anemia Disposition: HOME SELF-CARE Condition: Fair Instructions (If sedation given, give patient instructions): Anemia (ED) Referrals: Ayaan Wray DO [Primary Care Provider] - 1-2 days
[2025-06-05 16:24] LABS: Basophils # (A) 0.05 10*3/uL (0.00-0.10); Basophils % (A) 0.6 %; Eosinophils # (A) 0.20 10*3/uL (0.04-0.35); Eosinophils % (A) 2.3 %; Lymphocytes # (A) 1.18 10*3/uL (0.90-5.00); Lymphocytes % (A) 13.5 %; MCH 21.1 pg (27.0-32.0); MCHC 28.1 g/dL (32.0-37.0); Monocytes # (A) 0.60 10*3/uL (0.20-1.00); Monocytes % (A) 6.9 %; Neutrophils # (A) 6.67 10*3/uL (1.80-7.70); Neutrophils % (A) 76.5 %; Platelet Count 171 10*3/uL (140-440); RBC 2.28 10*6/uL (4.40-5.60); RDW 15.6 % (11.5-14.5); WBC 8.72 10*3/uL (4.50-10.00)
[2025-06-05 16:32] LABS: MCV 75.0 fL (80.0-97.0)
--- NOTE | 2025-06-05 16:32 | XR ---
EXAMINATION TYPE: XR chest 1V portable DATE OF EXAM: 06/05/2025 COMPARISON: 10/05/2023 CLINICAL INDICATION: Male, 80 years old with history of chest pain; , TECHNIQUE: XR chest 1V portable views of the chest. FINDINGS: Heart size stable. Prosthetic aortic valve, multilead cardiac device and median sternotomy changes. C oarsened interstitium. No pleural effusion or pneumothorax left retrocardiac consolidation. IMPRESSION: 1. Stable coarsened interstitium likely chronic with no sizable pleural effusions or pulmonary edema. 2. Left retrocardiac density most stable from prior CT chest 04/24/2025 may represent chronic atelecta sis. Correlate clinically to exclude pneumonia. Follow-up CT scan could be obtained to exclude mass. [facility], , 06/05/2025 4:30 PM
[2025-06-05 16:33] LABS: HCT 17.1 % (39.6-50.0); HGB 4.8 g/dL (13.0-17.0)
[2025-06-05 16:41] LABS: ALT 12 U/L (4-49); AST 29 U/L (17-59); African American GFR (CKD) 46 (>60 ml/min/1.73 sqM); Albumin 4.3 g/dL (3.5-5.0); Alkaline Phosphatase 49 U/L (38-126); Anion Gap 10 mmol/L; Blood Urea Nitrogen 36 mg/dL (9-20); Calcium 9.3 mg/dL (8.4-10.2); Carbon Dioxide 23 mmol/L (22-30); Chloride 107 mmol/L (98-107); Glucose 112 mg/dL (74-99); Magnesium 2.3 mg/dL (1.6-2.3); Non-African American GFR(CKD) 40 (>60 ml/min/1.73 sqM); Potassium 4.8 mmol/L (3.5-5.1); Sodium 140 mmol/L (137-145); Total Protein 6.6 g/dL (6.3-8.2)
[2025-06-05 16:42] LABS: INR 1.0 (<1.2); Partial Thromboplastin Time 23.3 sec (22.0-30.0); Prothrombin Time 11.1 sec (10.0-12.5)
[2025-06-05 17:28] LABS: Polychromasia Present
[2025-06-05 17:29] LABS: Target Cells Present
[2025-06-05 22:23] LABS: Immature Platelet Fraction 6.3 % (1.1-6.1); MCH 22.5 pg (27.0-32.0); MCHC 29.2 g/dL (32.0-37.0); MCV 77.1 fL (80.0-97.0); Platelet Count 100 10*3/uL (140-440); RBC 2.31 10*6/uL (4.40-5.60); RDW 15.9 % (11.5-14.5); WBC 6.86 10*3/uL (4.50-10.00)
[2025-06-05 22:28] LABS: HCT 17.8 % (39.6-50.0); HGB 5.2 g/dL (13.0-17.0)
[2025-06-05 23:19] VITALS: TEMP 98.5
[2025-06-06 03:07] LABS: HCT 20.1 % (39.0-53.0); MCH 23.6 pg (25.0-35.0); MCV 77.6 fL (80.0-100.0); RBC 2.59 m/uL (4.30-5.90); WBC 7.8 k/uL (3.8-10.6)
[2025-06-06 03:08] LABS: MCHC 30.3 g/dL (31.0-37.0); Platelet Count 137 k/uL (150-450); RDW 15.9 % (11.5-15.5)
[2025-06-06 03:12] LABS: HGB 6.1 gm/dL (13.0-17.5)
[2025-06-06 06:19] VITALS: BP 142/62; PULSE 77; RESP 18
== END 2025-06-06 06:32 | disposition home or self-care (01) ==
LOC: EC 15:18
DX: D64.9 Anemia, unspecified (principal); Z87.19 Personal history of other diseases of the digestive system; Z87.891 Personal history of nicotine dependence
CPT/HCPCS: 36415 ×2; 93005; 86900; 86901; 80053; 83735; 84484; 85025; 85027 ×2; 85610; 85730; 86850; 86920; 82272; 71045; 99285; 36430; P9016